=== PATIENT | female | born 1945 | race Caucasian/White ===

== ENCOUNTER 2018-04-03 23:37 | Emergency (ER) | payer OTHER ==
[2018-04-04] MEDS ORDERED: DERMABOND SKIN ADHESIVE TOP ONE (00:55)
[2018-04-04] MEDS ORDERED: HYDROCODONE/APAP 5/325 MG TAB ONE (00:55)
[2018-04-04] MEDS ORDERED: TETANUS & DIPHTHERIA TOX,ADULT 0.5 ML VIAL ONE (01:08)
--- NOTE | 2018-04-04 01:11 | ER ---
Nurse's Notes [facility] Name: Dread Thompson Age: 72 yrs Sex: Female : 1945 Arrival Date: 04/03/2018 Time: 23:38 Bed 13 Private MD: John Montana B Diagnosis: Laceration without foreign body of right hand Presentation: 04/03 23:52 Presenting complaint: Patient states: hit the door frame with her right hand at 2300 ak1 while taking the dog outside. pt with skin tear to top of right hand, no bleeding at this time. Transition of care: patient was not received from another setting of care. Complicating Factors: There are no complicating factors for this patient. Onset of symptoms was April 03, 2018. Risk Assessment: Do you want to hurt yourself or someone else? Patient reports no desire to harm self or others. Initial Sepsis Screen: Does the patient meet any 2 criteria? No. Patient's initial sepsis screen is negative. Does the patient have a suspected source of infection? No. Patient's initial sepsis screen is negative. Care prior to arrival: None. 23:52 Method Of Arrival: Ambulatory ak1 23:52 Acuity: MAGALY 4 ak1 Triage Assessment: 23:56 General: Appears in no apparent distress. Behavior is calm, cooperative. Pain: ak1 Complains of pain in right hand. EENT: No signs and/or symptoms were reported regarding the EENT system. Neuro: No deficits noted. Cardiovascular: No deficits noted. Respiratory: No deficits noted. GI: No signs and/or symptoms were reported involving the gastrointestinal system. : No signs and/or symptoms were reported regarding the genitourinary system. Derm: Wound noted Other: skin tear to top of right hand. Musculoskeletal: No signs and/or symptoms reported regarding the musculoskeletal system. Injury Description: Laceration sustained to right hand is bleeding no active bleeding noted. Historical: - Allergies: 23:56 No Known Allergies; ak1 - Home Meds: 23:56 Lamictal Oral [Active]; pravastatin oral oral [Active]; aspirin 81 mg Oral TbEC 1 tab ak1 once daily [Active]; Prozac 10 mg Oral cap [Active]; Dexilant 30 mg oral CpDB for Gastroesophageal Reflux [Active]; Celebrex Oral [Active]; unknown hormone pill [Active]; - PMHx: 23:56 Atrial fibrillation; Heart Murmur; High Cholesterol; Hypertension; ak1 - PSHx: 23:56 cornea transplants; Tonsillectomy; Hysterectomy; Cholecystectomy; Appendectomy; Raciel ak1 knee replacement; back sx; bunionectomy; - Immunization history:: Adult Immunizations unknown, Last tetanus immunization: unknown. - Social history:: Smoking status: Patient/guardian denies using tobacco. - Ebola Screening: : No symptoms or risks identified at this time. Screenin:58 Abuse screen: Denies threats or abuse. Denies injuries from another. Nutritional ak1 screening: No deficits noted. Tuberculosis screening: No symptoms or risk factors identified. Fall Risk None identified. Assessment: 23:59 Reassessment: Patient appears in no apparent distress at this time. No changes from ak1 previously documented assessment. see triage assessment. 04/04 01:09 Reassessment: wound cleaned with Hibiclens and sterile water, dried for dermabond ak1 application by provider. Injury Description: pt hit her right hand on the door frame. 01:12 Injury Description: Laceration is skin tear to top of right hand. ak1 Vital Signs: 04/03 23:50 BP 131 / 84; Pulse 79; Resp 18; Temp 98.6(O); Pulse Ox 95% on R/A; Weight 83.01 kg (R); ak1 Height 5 ft. 4 in. (162.56 cm) (R); Pain 9/10; 23:50 Body Mass Index 31.41 (83.01 kg, 162.56 cm) ak1 ED Course: 23:38 Patient arrived in ED. ds1 23:38 John Montana MD is Private Physician. ds1 23:42 Salina Nunez, NIKA is Primary Nurse. ak1 23:52 Triage completed. ak1 23:56 Arm band placed on Patient placed in an exam room, on a stretcher, Patient notified of ak1 wait time. 23:58 Patient has correct armband on for positive identification. Bed in low position. Call ak1 light in reach. Side rails up X 1. Adult w/ patient. Pulse ox on. NIBP on. 04/04 00:11 Aretha Contreras FNP-C is PHCP. snw 00:11 Tony Lechuga MD is Attending Physician. snw 01:11 John Montana MD is Referral Physician. snw 01:11 No provider procedures requiring assistance completed. Patient did not have IV access ak1 during this emergency room visit. Administered Medications: 00:51 Drug: [place] 5 mg-325 mg 1 tabs Route: PO; ak1 01:06 Follow up: Response: No adverse reaction ak1 01:08 Drug: Tetanus Immune Globulin 250 units Route: IM; Site: right deltoid; ak1 01:08 Follow up: Response: No adverse reaction ak1 Outcome: :11 Discharge ordered by . snw 01:11 Discharged to home ambulatory, with family. ak1 01:11 Condition: improved 01:11 Discharge instructions given to patient, Instructed on discharge instructions, follow up and referral plans. Demonstrated understanding of instructions, follow-up care, medications. 01:19 Instructed on no drinking with medication, no driving heavy equipment, medication ak1 usage, wound care, Demonstrated understanding of wound care, Prescriptions given X 1. 01:28 Patient left the ED. ak1 Signatures: Aretha Contreras, KIMBERLYN-C [employer] OPERATOR-Katarzyna Carpio ds1 Salina Nunez, RN RN ak1
--- NOTE | 2018-04-04 01:11 | EDPHYS ---
Physician Documentation [facility] Name: Dread Thompson Age: 72 yrs Sex: Female : 1945 Arrival Date: 04/03/2018 Time: 23:38 Bed 13 Private MD: John Montana B ED Physician Tony Lechuga HPI: 04/04 00:46 This 72 yrs old Female presents to ER via Ambulatory with complaints of snw Laceration To Hand. 00:46 The patient has a laceration related to: working with a large dog and pt's hand rubbed snw against counter when she was holding him back, + skin tear occurred at home, and there are no complicating factors. The laceration(s) is(are) located on the right hand. Onset: The symptoms/episode began/occurred suddenly. Associated signs and symptoms: The patient has no apparent associated signs or symptoms. It is unknown whether or not the patient has had similar symptoms in the past. It is unknown whether or not the patient has recently seen a physician. bleeding controlled. Historical: - Allergies: 04/03 23:56 No Known Allergies; ak1 - Home Meds: 23:56 Lamictal Oral [Active]; pravastatin oral oral [Active]; aspirin 81 mg Oral TbEC 1 tab ak1 once daily [Active]; Prozac 10 mg Oral cap [Active]; Dexilant 30 mg oral CpDB for Gastroesophageal Reflux [Active]; Celebrex Oral [Active]; unknown hormone pill [Active]; - PMHx: 23:56 Atrial fibrillation; Heart Murmur; High Cholesterol; Hypertension; ak1 - PSHx: 23:56 cornea transplants; Tonsillectomy; Hysterectomy; Cholecystectomy; Appendectomy; Raciel ak1 knee replacement; back sx; bunionectomy; - Immunization history:: Adult Immunizations unknown, Last tetanus immunization: unknown. - Social history:: Smoking status: Patient/guardian denies using tobacco. - Ebola Screening: : No symptoms or risks identified at this time. ROS: 04/04 00:46 Constitutional: Negative for fever, chills, and weight loss, Eyes: Negative for injury, snw pain, redness, and discharge, ENT: Negative for injury, pain, and discharge, Neck: Negative for injury, pain, and swelling, Cardiovascular: Negative for chest pain, palpitations, and edema, Respiratory: Negative for shortness of breath, cough, wheezing, and pleuritic chest pain, Abdomen/GI: Negative for abdominal pain, nausea, vomiting, diarrhea, and constipation, Back: Negative for injury and pain, : Negative for injury, bleeding, discharge, and swelling, MS/Extremity: Negative for injury and deformity, Neuro: Negative for headache, weakness, numbness, tingling, and seizure, Psych: Negative for depression, anxiety, suicide ideation, homicidal ideation, and hallucinations. Skin: Positive for laceration(s), of the right hand. Exam: 00:46 Constitutional: This is a well developed, well nourished patient who is awake, alert, snw and in no acute distress. Head/Face: Normocephalic, atraumatic. Eyes: Pupils equal round and reactive to light, extra-ocular motions intact. Lids and lashes normal. Conjunctiva and sclera are non-icteric and not injected. Cornea within normal limits. Periorbital areas with no swelling, redness, or edema. ENT: Nares patent. No nasal discharge, no septal abnormalities noted. Tympanic membranes are normal and external auditory canals are clear. Oropharynx with no redness, swelling, or masses, exudates, or evidence of obstruction, uvula midline. Mucous membranes moist. Neck: Trachea midline, no thyromegaly or masses palpated, and no cervical lymphadenopathy. Supple, full range of motion without nuchal rigidity, or vertebral point tenderness. No Meningismus. Chest/axilla: Normal chest wall appearance and motion. Nontender with no deformity. No lesions are appreciated. Cardiovascular: Regular rate and rhythm with a normal S1 and S2. No gallops, murmurs, or rubs. Normal PMI, no JVD. No pulse deficits. Respiratory: Lungs have equal breath sounds bilaterally, clear to auscultation and percussion. No rales, rhonchi or wheezes noted. No increased work of breathing, no retractions or nasal flaring. Abdomen/GI: Soft, non-tender, with normal bowel sounds. No distension or tympany. No guarding or rebound. No evidence of tenderness throughout. Back: No spinal tenderness. No costovertebral tenderness. Full range of motion. MS/ Extremity: Pulses equal, no cyanosis. Neurovascular intact. Full, normal range of motion. Neuro: Awake and alert, GCS 15, oriented to person, place, time, and situation. Cranial nerves II-XII grossly intact. Motor strength 5/5 in all extremities. Sensory grossly intact. Cerebellar exam normal. Normal gait. Psych: Awake, alert, with orientation to person, place and time. Behavior, mood, and affect are within normal limits. 00:46 Skin: Appearance: normal except for affected area, injury, laceration(s), the wound is approximately 3 cm(s), with a depth of .5 cm(s), of the dorsum of right hand. Vital Signs: 04/03 23:50 BP 131 / 84; Pulse 79; Resp 18; Temp 98.6(O); Pulse Ox 95% on R/A; Weight 83.01 kg (R); ak1 Height 5 ft. 4 in. (162.56 cm) (R); Pain 9/10; 23:50 Body Mass Index 31.41 (83.01 kg, 162.56 cm) ak1 Laceration: 04/04 01:10 Wound Repair of 3cm ( 1.2in ) subcutaneous laceration to right hand. Linear shaped.. snw Distal neuro/vascular/tendon intact. Anesthesia: Local anesthetic administered with 0 mls of 1% lidocaine. Wound prep: Moderate cleansing by nurse. Skin closed with 1-0 Adhesive skin closure using Dermabond. Dressed with non-adherent dressing. Patient tolerated well. MDM: 00:26 Patient medically screened. snw 00:53 Data reviewed: vital signs, nurses notes. Data interpreted: Pulse oximetry: on room air snw is 95 %. Interpretation: normal. Counseling: I had a detailed discussion with the patient and/or guardian regarding: the historical points, exam findings, and any diagnostic results supporting the discharge/admit diagnosis, the need for outpatient follow up, to return to the emergency department if symptoms worsen or persist or if there are any questions or concerns that arise at home. Special discussion: I discussed in detail with the patient the higher chance of wound infection based on his presenting history. Based on the history and exam findings, there is no indication for further emergent testing or inpatient evaluation. I discussed with the patient/guardian the need to see the primary care provider for further evaluation of the symptoms. 04/04 00:45 Order name: Wound Care: soap and water and dry well to prep for dermabond; Complete snw Time: 01:04/04 00:46 Order name: Dermabond; Complete Time: 00:51 snw 04/04 01:10 Order name: Wound dressing; Complete Time: 01:19 snw Administered Medications: 00:51 Drug: [place] 5 mg-325 mg 1 tabs Route: PO; ak1 01:06 Follow up: Response: No adverse reaction ak1 01:08 Drug: Tetanus Immune Globulin 250 units Route: IM; Site: right deltoid; ak1 01:08 Follow up: Response: No adverse reaction ak1 Disposition: 04:22 Co-signature as Attending Physician, Tony Lechuga MD. pkl Disposition: 04/04/18 01:11 Discharged to Home. Impression: Laceration without foreign body of right hand. - Condition is Stable. - Discharge Instructions: Tissue Adhesive Wound Care, Laceration Care, Adult, Wound Check, VIS, Tetanus, Diphtheria (Td) - CDC, Wound Care. - Prescriptions for Tylenol- Codeine #3 300-30 mg Oral Tablet - take 1 tablet by ORAL route every 6 hours As needed; 6 tablet. - Medication Reconciliation Form, Thank You Letter, Antibiotic Education, Prescription Opioid Use form. - Follow up: John Montana; When: 1 week; Reason: Recheck today's complaints, Continuance of care, Re-evaluation by your physician. Follow up: Emergency Department; When: As needed; Reason: Worsening of condition. Signatures: Tony Lechuga MD MD pk Aretha Contreras, NARCOTICS INVESTIGATOR-C NARCOTICS INVESTIGATOR-Csnw Salina Nunez RN RN ak1 Corrections: (The following items were deleted from the chart) 01:28 01:11 04/04/2018 01:11 Discharged to Home. Impression: Laceration without foreign body ak1 of right hand. Condition is Stable. Discharge Instructions: Tissue Adhesive Wound Care, Laceration Care, Adult, Wound Check, VIS, Tetanus, Diphtheria (Td) - CDC, Wound Care. Prescriptions for Tylenol-Codeine #3 300-30 mg Oral Tablet - take 1 tablet by ORAL route every 6 hours As needed; 6 tablet. and Forms are Medication Reconciliation Form, Thank You Letter, Antibiotic Education, Prescription Opioid Use. Follow up: John Montana; When: 1 week; Reason: Recheck today's complaints, Continuance of care, Re-evaluation by your physician. Follow up: Emergency Department; When: As needed; Reason: Worsening of condition. snw
[2018-04-04 01:34] VITALS: BP 131/84; TEMP 98.6; O2SAT 95
== END 2018-04-04 01:28 | disposition home or self-care (01) ==
LOC: ER 23:37
PROC: 0JQJ0ZZ Repair Right Hand Subcutaneous Tissue and Fascia, Open Approach (ICD-10-PCS; principal; 2018-04-04)
DX: S61.411A Laceration without foreign body of right hand, initial encounter (principal); W45.8XXA Other foreign body or object entering through skin, initial encounter; Y93.89 Activity, other specified; Y92.89 Other specified places as the place of occurrence of the external cause; I10 Essential (primary) hypertension; Z23 Encounter for immunization; Z79.82 Long term (current) use of aspirin; I48.91 Unspecified atrial fibrillation; E78.00 Pure hypercholesterolemia, unspecified
CPT/HCPCS: 12002; 90714; G0168; 99283

== ENCOUNTER 2019-05-27 19:04 | Emergency (ER) | payer OTHER ==
[2019-05-27] MEDS ORDERED: dexAMETHasone 10 MG/ML VIAL ONE (20:47)
[2019-05-27] MEDS ORDERED: DIPHENHYDRAMINE 12.5MG/5ML LIQ ONE (20:47)
[2019-05-27] MEDS ORDERED: FAMOTIDINE 20 MG/2 ML VIAL IV ONE (20:47)
[2019-05-27 21:06] LABS: Absolute Lymphocytes (CBC) 0.5 K/uL (0.7-4.9); Basophils % 0.4 % (0-1.3); Hematocrit 34.9 % (36.0-45.0); Lymphocytes % 9.3 % (15.3-44.8); MPV 8.9 fL (7.6-11.3); RBC Red Blood Cell Count 3.66 M/uL (3.86-4.86)
[2019-05-27 21:10] LABS: Protime INR 1.14
[2019-05-27 21:13] LABS: Albumin 3.1 g/dL (3.4-5.0); Bilirubin Direct 0.4 mg/dL (0-0.2); Bilirubin Total 0.8 mg/dL (0.2-1.0); Potassium 4.1 mmol/L (3.5-5.1); Protein, Total 6.1 g/dL (6.4-8.2)
--- NOTE | 2019-05-27 21:33 | ER ---
Nurse's Notes [facility] Name: Dread Thompson Age: 73 yrs Sex: Female : 1945 Arrival Date: 05/27/2019 Time: 19:07 Bed 27 Private MD: Diagnosis: acute pruritic rash;drug reaction Presentation: 05/27 19:23 Presenting complaint: Patient states: Painful rash since Monday. Transition of care: aj1 patient was not received from another setting of care. Onset of symptoms was 2018. Risk Assessment: Do you want to hurt yourself or someone else? Patient reports no desire to harm self or others. Initial Sepsis Screen: Does the patient meet any 2 criteria? No. Patient's initial sepsis screen is negative. Does the patient have a suspected source of infection? No. Patient's initial sepsis screen is negative. Care prior to arrival: None. 19:23 Method Of Arrival: Ambulatory aj1 19:23 Acuity: MAGALY 4 aj1 Triage Assessment: 19:27 General: Appears in no apparent distress. Behavior is calm, cooperative, appropriate aj1 for age. Historical: - Home Meds: 19:27 aspirin 81 mg Oral TbEC 1 tab once daily [Active]; Celebrex Oral [Active]; Dexilant 30 aj1 mg Oral CpDB for Gastroesophageal reflux [Active]; Lamictal Oral [Active]; pravastatin Oral [Active]; Prozac 10 mg Oral cap [Active]; unknown hormone pill [Active]; - PMHx: 19:27 Atrial fibrillation; Heart Murmur; High Cholesterol; Hypertension; aj1 - PSHx: 19:27 cornea transplants; Tonsillectomy; Hysterectomy; Cholecystectomy; Appendectomy; Raciel aj1 knee replacement; back sx; bunionectomy; - Immunization history:: Adult Immunizations up to date. - Social history:: Patient/guardian denies using alcohol, street drugs. - Ebola Screening: : Patient denies travel to an Ebola-affected area in the 21 days before illness onset. - Family history:: not pertinent. - Hospitalizations: : No recent hospitalization is reported. Screenin:30 Abuse screen: Denies threats or abuse. Denies injuries from another. Nutritional aj1 screening: No deficits noted. Tuberculosis screening: No symptoms or risk factors identified. 21:57 Fall Risk None identified. aj1 Assessment: 19:30 General: Appears in no apparent distress. uncomfortable, Behavior is calm, cooperative, aj1 appropriate for age. Pain: Complains of pain in generalized. Neuro: Level of Consciousness is awake, alert, obeys commands. Cardiovascular: Patient's skin is warm and dry. Respiratory: Airway is patent Respiratory effort is even, unlabored, Respiratory pattern is regular, symmetrical. GI: : No signs and/or symptoms were reported regarding the genitourinary system. EENT: No signs and/or symptoms were reported regarding the EENT system. Derm: Rash noted that is red, on back, chest, abdomen, right arm, left arm, right leg, left leg and neck. Musculoskeletal: Circulation, motion, and sensation intact. 20:30 Reassessment: Patient appears in no apparent distress at this time. No changes from aj1 previously documented assessment. Patient and/or family updated on plan of care and expected duration. Pain level reassessed. Patient is alert, oriented x 3, equal unlabored respirations, skin warm/dry/pink. 21:30 Reassessment: Patient appears in no apparent distress at this time. No changes from aj1 previously documented assessment. Patient and/or family updated on plan of care and expected duration. Pain level reassessed. Patient is alert, oriented x 3, equal unlabored respirations, skin warm/dry/pink. Vital Signs: 19:27 BP 120 / 80; Pulse 88; Resp 16; Temp 99.8; Pulse Ox 96% on R/A; Weight 81.19 kg (R); aj1 Height 5 ft. 4 in. (162.56 cm) (R); 19:27 Body Mass Index 30.72 (81.19 kg, 162.56 cm) aj ED Course: 19:07 Patient arrived in ED. cf2 19:24 Triage completed. aj1 19:27 Arm band placed on. aj1 19:29 Ronal Lester MD is Attending Physician. al 19:30 Patient has correct armband on for positive identification. Bed in low position. Call aj light in reach. 19:30 No provider procedures requiring assistance completed. aj1 20:06 Maria Luisa Roblero, RN is Primary Nurse. aj1 20:46 Initial lab(s) drawn, by pa, sent to lab. Inserted saline lock: 22 gauge in left lt1 antecubital area, using aseptic technique. 21:57 IV discontinued, intact, bleeding controlled, No redness/swelling at site. Pressure aj1 dressing applied. Administered Medications: 20:57 Drug: Decadron - Dexamethasone 10 mg Route: IVP; Site: left antecubital; aj1 21:58 Follow up: Response: No adverse reaction aj1 20:57 Drug: Pepcid 20 mg Route: IVP; Site: left antecubital; aj1 21:58 Follow up: Response: No adverse reaction aj1 20:57 Drug: Benadryl 12.5 mg Route: PO; aj1 21:58 Follow up: Response: No adverse reaction aj1 Outcome: 21:32 Discharge ordered by . bernie :57 Discharged to home ambulatory. aj1 21:57 Condition: good 21:57 Discharge instructions given to patient, family, Instructed on discharge instructions, follow up and referral plans. medication usage, Demonstrated understanding of instructions, follow-up care, medications, Prescriptions given X 2. 21:59 Patient left the ED. aj1 Signatures: Maria Luisa Roblero RN RN aj1 Ronal Lester MD MD wa Tran, Leah 1 Alfredito Jacques cf2
--- NOTE | 2019-05-27 21:34 | EDPHYS ---
Physician Documentation [facility] Name: Dread Thompson Age: 73 yrs Sex: Female : 1945 Arrival Date: 05/27/2019 Time: 19:07 Bed 27 Private MD: ED Physician Ronal Lester HPI: 05/27 21:15 This 73 yrs old Female presents to ER via Ambulatory with complaints of Rash. wa 21:15 The patient's rash thought to be caused by an unknown cause. The rash is located on wa the. The rash can be described as diffuse, erythematous, papular. Onset: The symptoms/episode began/occurred 4 day(s) ago. Associated signs and symptoms: Pertinent positives: itching, Pertinent negatives: difficulty breathing, fever. Severity of symptoms: At their worst the symptoms were moderate in the emergency department the symptoms are unchanged. Treatment given at home: none. The patient has not experienced similar symptoms in the past. The patient has not recently seen a physician. pt noted rash. itching. more pronounced on legs > arms > torso. Historical: - Home Meds: 19:27 aspirin 81 mg Oral TbEC 1 tab once daily [Active]; Celebrex Oral [Active]; Dexilant 30 aj1 mg Oral CpDB for Gastroesophageal reflux [Active]; Lamictal Oral [Active]; pravastatin Oral [Active]; Prozac 10 mg Oral cap [Active]; unknown hormone pill [Active]; - PMHx: 19:27 Atrial fibrillation; Heart Murmur; High Cholesterol; Hypertension; aj1 - PSHx: 19:27 cornea transplants; Tonsillectomy; Hysterectomy; Cholecystectomy; Appendectomy; Raciel aj1 knee replacement; back sx; bunionectomy; - Immunization history:: Adult Immunizations up to date. - Social history:: Patient/guardian denies using alcohol, street drugs. - Ebola Screening: : Patient denies travel to an Ebola-affected area in the 21 days before illness onset. - Family history:: not pertinent. - Hospitalizations: : No recent hospitalization is reported. ROS: 21:17 Constitutional: Negative for fever, chills, and weight loss, Eyes: Negative for injury, wa pain, redness, and discharge, ENT: Negative for injury, pain, and discharge, Neck: Negative for injury, pain, and swelling, Cardiovascular: Negative for chest pain, palpitations, and edema, Respiratory: Negative for shortness of breath, cough, wheezing, and pleuritic chest pain, Abdomen/GI: Negative for abdominal pain, nausea, vomiting, diarrhea, and constipation, Back: Negative for injury and pain, : Negative for injury, bleeding, discharge, and swelling, MS/Extremity: Negative for injury and deformity, Neuro: Negative for headache, weakness, numbness, tingling, and seizure, Psych: Negative for depression, anxiety, suicide ideation, homicidal ideation, and hallucinations. 21:17 Skin: Positive for rash, diffusely. 21:17 All other systems are negative. Exam: 21:17 Constitutional: This is a well developed, well nourished patient who is awake, alert, wa and in no acute distress. Head/Face: Normocephalic, atraumatic. Eyes: Pupils equal round and reactive to light, extra-ocular motions intact. Lids and lashes normal. Conjunctiva and sclera are non-icteric and not injected. Cornea within normal limits. Periorbital areas with no swelling, redness, or edema. ENT: Nares patent. No nasal discharge, no septal abnormalities noted. Tympanic membranes are normal and external auditory canals are clear. Oropharynx with no redness, swelling, or masses, exudates, or evidence of obstruction, uvula midline. Mucous membranes moist. Neck: Trachea midline, no thyromegaly or masses palpated, and no cervical lymphadenopathy. Supple, full range of motion without nuchal rigidity, or vertebral point tenderness. No Meningismus. Chest/axilla: Normal chest wall appearance and motion. Nontender with no deformity. No lesions are appreciated. Cardiovascular: Regular rate and rhythm with a normal S1 and S2. No gallops, murmurs, or rubs. Normal PMI, no JVD. No pulse deficits. Respiratory: Lungs have equal breath sounds bilaterally, clear to auscultation and percussion. No rales, rhonchi or wheezes noted. No increased work of breathing, no retractions or nasal flaring. Abdomen/GI: Soft, non-tender, with normal bowel sounds. No distension or tympany. No guarding or rebound. No evidence of tenderness throughout. Back: No spinal tenderness. No costovertebral tenderness. Full range of motion. MS/ Extremity: Pulses equal, no cyanosis. Neurovascular intact. Full, normal range of motion. Neuro: Awake and alert, GCS 15, oriented to person, place, time, and situation. Cranial nerves II-XII grossly intact. Motor strength 5/5 in all extremities. Sensory grossly intact. Cerebellar exam normal. Normal gait. Psych: Awake, alert, with orientation to person, place and time. Behavior, mood, and affect are within normal limits. 21:17 Skin: rash a moderate rash is noted, on the back, abdomen, right arm, left arm, right leg and left leg. Vital Signs: 19:27 BP 120 / 80; Pulse 88; Resp 16; Temp 99.8; Pulse Ox 96% on R/A; Weight 81.19 kg (R); aj1 Height 5 ft. 4 in. (162.56 cm) (R); 19: Body Mass Index 30.72 (81.19 kg, 162.56 cm) aj1 MDM: 19:29 Patient medically screened. wa 21:18 Differential diagnosis: allergic reaction, parasite infection, drug reaction?. Data ct reviewed: vital signs, nurses notes. 21:19 ED course: pt recently taking sulfa abx and lamictal. consider drug reaction. no mucous wa membrane involvement at the moment. no desquamation. will d/c both meds. treat symptomatically. reassess. 21:28 Test interpretation: by ED physician or midlevel provider: labs noted for elevated CRP wa 130. decreased GFR 47. mild anemia 11.4/34.9. AST 52. alk phos 378. . Response to treatment: the patient's symptoms have mildly improved after treatment. ED course: given meds via IV in ED. again, will d/c sulfa abx and lamictal due to the possibility of this rash being a drug rash. 05/27 20:02 Order name: Basic Metabolic Panel; Complete Time: 21:14 ct 05/27 20: Order name: CBC with Diff; Complete Time: 21:15 ct 05/27 20:02 Order name: Hepatic Function; Complete Time: 21:15 ct 05/27 20:02 Order name: PT-INR; Complete Time: 21:15 ct 05/27 20:20 Order name: CRP; Complete Time: :27 ct 05/27 20:02 Order name: IV Saline Lock; Complete Time: 20:57 ct 05/27 20:02 Order name: Labs collected and sent; Complete Time: : ct Administered Medications: 20:57 Drug: Decadron - Dexamethasone 10 mg Route: IVP; Site: left antecubital; aj1 21:58 Follow up: Response: No adverse reaction aj1 20:57 Drug: Pepcid 20 mg Route: IVP; Site: left antecubital; aj1 21:58 Follow up: Response: No adverse reaction :57 Drug: Benadryl 12.5 mg Route: PO; aj1 21:58 Follow up: Response: No adverse reaction aj1 Disposition: 05/27/19 21:32 Discharged to Home. Impression: acute pruritic rash, drug reaction. - Condition is Stable. - Discharge Instructions: Drug Rash. - Prescriptions for cetirizine 10 mg Oral tablet - take 1 tablet by ORAL route once daily; 10 tablet. Prednisone 20 mg Oral Tablet - take 2 tablets by ORAL route once daily for 4 days; 8 tablet. - Medication Reconciliation Form, Thank You Letter, Antibiotic Education, Prescription Opioid Use form. - Follow up: Private Physician; When: 1 - 2 days. - Problem is new. - Symptoms have improved. - Notes: take the medication written for you for your rash. do not continue to take lamictal or the sulfa antibiotic as one of them or both coukd be causing your rash. Could worsen andbe dangerous if you continue to take them Signatures: Dispatcher [employer] Maria Luisa Harrington RN RN aj1 Ronal Lester MD MD ct Corrections: (The following items were deleted from the chart) 21:59 21:32 05/27/2019 21:32 Discharged to Home. Impression: acute pruritic rash; drug aj1 reaction. Condition is Stable. Forms are Medication Reconciliation Form, Thank You Letter, Antibiotic Education, Prescription Opioid Use. Follow up: Private Physician; When: 1 - 2 days. Problem is new. Symptoms have improved. wa
[2019-05-27 23:22] VITALS: BP 120/80; TEMP 99.8; O2SAT 96
--- OUTSIDE RECORDS SUMMARY | 2019-06-02 21:52 | XMS REPORT ---
:1945 [facility] Address [address] [place] [id number] Care Team Providers Name Role Phone Unavailable Unavailable Unavailable Payers Payer Name Policy Type Policy Number Effective Date Expiration Date Problems This patient has no known problems. Allergies, Adverse Reactions, Alerts Allergy Allergy Status Severity Reaction(s) Onset Inactive Treating Comments Name Type Date Date Clinician adhesive DA Active [place] 2011-09 00:00:0 0 Medications This patient has no known medications.
== END 2019-05-27 21:59 | disposition home or self-care (01) ==
LOC: ER 19:04
DX: R21 Rash and other nonspecific skin eruption (principal); I10 Essential (primary) hypertension; E78.00 Pure hypercholesterolemia, unspecified; I48.91 Unspecified atrial fibrillation; Z79.82 Long term (current) use of aspirin; Z88.9 Allergy status to unspecified drugs, medicaments and biological substances
CPT/HCPCS: 85025; 80048; 36415; 85610; 80076; 86140; 96375; 96374; 99284; J1100

== ENCOUNTER 2019-09-05 09:27 | Emergency (ER) | payer OTHER ==
--- OUTSIDE RECORDS SUMMARY | 2019-09-05 09:29 | XMS REPORT ---
:1945 [facility] [address] [place] [id number] Care Team Providers Name Role Phone Unavailable Unavailable Unavailable Payers Payer Name Policy Type Policy Number Effective Date Expiration Date Problems This patient has no known problems. Allergies, Adverse Reactions, Alerts Allergy Allergy Status Severity Reaction(s) Onset Inactive Treating Comments Name Type Date Date Clinician simi GRNADE Active [place] 2011-09 00:00:0 0 Medications This patient has no known medications.
[2019-09-05 10:30] LABS: Basophils % 0.7 % (0-1.3); Hematocrit 36.1 % (36.0-45.0); Lymphocytes % 10.8 % (15.3-44.8); MPV 8.8 fL (7.6-11.3); RBC Red Blood Cell Count 3.97 M/uL (3.86-4.86)
[2019-09-05 10:36] LABS: Magnesium 1.7 mg/dL (1.8-2.4); Potassium 3.8 mmol/L (3.5-5.1)
[2019-09-05 10:42] LABS: Urine Bacteria <20 /HPF (<20); Urine Culture Reflex Order REFLEXED
[2019-09-05] MEDS ORDERED: MAGNESIUM SULFATE 1 gm IVPB 1 GM/100 ML BAG IV ONE (10:50)
[2019-09-05] MEDS ORDERED: NA CHLORIDE 0.9% 1,000 ML ONE (10:50)
--- NOTE | 2019-09-05 11:40 | RAD REPORT ---
EXAM DESCRIPTION: RAD - Chest Single View - 09/05/2019 11:27 am CLINICAL HISTORY: Congestion;Cough Chest pain. COMPARISON: Chest Single View dated 09/21/2016; CHEST SINGLE VIEW dated 09/13/2013; CHEST PA AND LAT 2 VIEW dated 01/05/2011; CHEST PA AND LAT 2 VIEW dated 04/21/2009; Chest For Pe Angio dated 09/21/2016 FINDINGS: Portable technique limits examination quality. The lungs are grossly clear. The heart is normal in size. No displaced fractures.Hiatal hernia suspec donovan. IMPRESSION: No acute intrathoracic process suspected. Hiatal hernia.
[2019-09-05] MEDS ORDERED: TRAMADOL HCL 50 MG TAB ONE (11:44)
--- NOTE | 2019-09-05 12:03 | EDPHYS ---
Physician Documentation [facility] Name: Dread Thompson Age: 74 yrs Sex: Female : 1945 Arrival Date: 09/05/2019 Time: 09:30 Bed 14 Private MD: John Montana B ED Physician Angelo Phelan HPI: 09/05 10:24 This 74 yrs old Female presents to ER via Ambulatory with complaints of kb Fever, General Weakness, Sinus Congestion. 10:24 The patient or guardian reports cough, that is intermittent, described as mild, with no kb sputum, flu symptoms, arthralgias, low-grade fever, myalgias, no appetite. Onset: The symptoms/episode began/occurred 1 week(s) ago. Severity of symptoms: At their worst the symptoms were moderate, in the emergency department the symptoms are unchanged. Modifying factors: The symptoms are alleviated by nothing, the symptoms are aggravated by nothing. Associated signs and symptoms: Pertinent positives: fever. The patient has not experienced similar symptoms in the past. The patient has not recently seen a physician. Pt reports cough, weakness, body aches, fever, sinus pain and congestion for a week. States the fever has been getting worse. Granddaughter reports pt was urinating more than normal and has been in bed a lot. Historical: - Allergies: 09:48 Sulfa (Sulfonamide Antibiotics); hb - PMHx: 09:48 Heart Murmur; Hypertension; High Cholesterol; Atrial fibrillation; hb - PSHx: 09:48 cornea transplants; Cholecystectomy; Hysterectomy; Appendectomy; Tonsillectomy; Raciel hb knee replacement; back sx; bunionectomy; - Immunization history:: Adult Immunizations up to date. - Coronavirus screen:: The patient has NOT traveled to [place] in the past 14 days. The patient has NOT had contact with known/suspected case of Coronavirus? Proceed with normal triage procedures. - Social history:: Smoking status: Patient denies any tobacco usage or history of. - Ebola Screening: : No symptoms or risks identified at this time. ROS: 10:21 Neck: Negative for injury, pain, and swelling, Cardiovascular: Negative for chest pain, kb palpitations, and edema, Abdomen/GI: Negative for abdominal pain, nausea, vomiting, diarrhea, and constipation, Back: Negative for injury and pain, MS/Extremity: Negative for injury and deformity, Skin: Negative for injury, rash, and discoloration, Neuro: Negative for headache, weakness, numbness, tingling, and seizure. 10:21 Constitutional: Positive for body aches, chills, fatigue, fever, malaise, poor PO intake. 10:21 ENT: Positive for sinus congestion, sinus pain. 10:21 Respiratory: Positive for cough. 10:21 : Positive for urinary frequency. Exam: 10:21 Constitutional: This is a well developed, well nourished patient who is awake, alert, kb and in no acute distress. Head/Face: Normocephalic, atraumatic. ENT: Nares patent. No nasal discharge, no septal abnormalities noted. Tympanic membranes are normal and external auditory canals are clear. Oropharynx with no redness, swelling, or masses, exudates, or evidence of obstruction, uvula midline. Mucous membranes moist. Neck: Trachea midline, no thyromegaly or masses palpated, and no cervical lymphadenopathy. Supple, full range of motion without nuchal rigidity, or vertebral point tenderness. No Meningismus. Chest/axilla: Normal chest wall appearance and motion. Nontender with no deformity. No lesions are appreciated. Cardiovascular: Regular rate and rhythm with a normal S1 and S2. No gallops, murmurs, or rubs. Normal PMI, no JVD. No pulse deficits. Respiratory: Lungs have equal breath sounds bilaterally, clear to auscultation and percussion. No rales, rhonchi or wheezes noted. No increased work of breathing, no retractions or nasal flaring. Back: No spinal tenderness. No costovertebral tenderness. Full range of motion. Skin: Warm, dry with normal turgor. Normal color with no rashes, no lesions, and no evidence of cellulitis. MS/ Extremity: Pulses equal, no cyanosis. Neurovascular intact. Full, normal range of motion. Neuro: Awake and alert, GCS 15, oriented to person, place, time, and situation. Cranial nerves II-XII grossly intact. Motor strength 5/5 in all extremities. Sensory grossly intact. Cerebellar exam normal. Normal gait. 10:21 Abdomen/GI: Inspection: abdomen appears normal, Bowel sounds: normal, in all quadrants, Palpation: soft, in all quadrants, nontender, in the right upper quadrant and left upper quadrant, mild abdominal tenderness, in the right lower quadrant and left lower quadrant. Vital Signs: 09:48 BP 136 / 64; Pulse 87; Resp 16; Temp 100.5; Pulse Ox 96% ; Weight 80.29 kg; Height 5 hb ft. 4 in. (162.56 cm); Pain 4/10; 11:04 BP 130 / 59; Pulse 81; Resp 15; Pulse Ox 99% on R/A; hb 12:00 BP 122 / 74; Pulse 72; Resp 15; Temp 98.8; Pulse Ox 99% on R/A; hb 09:48 Body Mass Index 30.38 (80.29 kg, 162.56 cm) hb MDM: 09:39 Patient medically screened. kb 10:24 Data reviewed: vital signs, nurses notes. Data interpreted: Pulse oximetry: on room air kb is 96 %. Interpretation: normal. 12:01 Counseling: I had a detailed discussion with the patient and/or guardian regarding: the kb historical points, exam findings, and any diagnostic results supporting the discharge/admit diagnosis, lab results, radiology results, the need for outpatient follow up, a family practitioner, to return to the emergency department if symptoms worsen or persist or if there are any questions or concerns that arise at home. ED course: Pt educated to continue prescribed amoxicillin given by PCP for sinusitis. Will send urine for culture and change antibiotics if necessary after resulted. . 09/05 09:46 Order name: Flu 09/05 10:05 Order name: CBC with Diff 09/05 10:05 Order name: Basic Metabolic Panel 09/05 10:05 Order name: Urine Microscopic Only 09/05 10:05 Order name: Magnesium 09/05 10:23 Order name: Urine Dipstick--Ancillary (enter results) em1 09/05 10:24 Order name: Influenza Screen (A ; Complete Time: 10:26 EDMS 09/05 10:31 Order name: CBC with Automated Diff EDNV 09/05 10:38 Order name: Basic Metabolic Panel; Complete Time: 10:40 EDMS 09/05 10:38 Order name: Magnesium; Complete Time: 10:40 EDMS 09/05 10:44 Order name: Urine Microscopic Only; Complete Time: 10:47 EDNV 09/05 11:01 Order name: Chest Single View XRAY 09/05 11:54 Order name: RAD; Complete Time: 12:00 EDMS 09/05 12:12 Order name: Urine Dipstick-Ancillary; Complete Time: 12:16 EDMS 09/05 09:47 Order name: Urine Dipstick-Ancillary (obtain specimen); Complete Time: 10:16 kb 09/05 10:05 Order name: IV Start; Complete Time: 10:27 kb Administered Medications: 11:04 Drug: NS 0.9% 1000 ml Route: IV; Rate: 1000 ml; Site: right antecubital; hb 12:12 Follow up: Response: No adverse reaction; IV Status: Completed infusion; IV Intake: hb 1000ml 11:04 Drug: Magnesium Sulfate 1 grams Route: IVPB; Infused Over: 30 mins; Site: right hb antecubital; 11:35 Follow up: IV Status: Completed infusion; IV Intake: 50ml hb 11:42 Drug: traMADol 25 mg {Note: RASS 0.} Route: PO; hb 12:30 Follow up: Response: No adverse reaction hb Disposition: 14:32 Co-signature as Attending Physician, Angelo Phelan MD I agree with the assessment and kdr plan of care. Disposition: 09/05/19 12:03 Discharged to Home. Impression: Acute sinusitis, Urinary tract infection, site not specified. - Condition is Stable. - Discharge Instructions: Sinusitis, Adult, [id number], Urinary Tract Infection, Adult, [id number]. - Medication Reconciliation Form, Thank You Letter, Antibiotic Education, Prescription Opioid Use form. - Follow up: Emergency Department; When: As needed; Reason: Worsening of condition. Follow up: John Montana MD; When: 2 - 3 days; Reason: Recheck today's complaints, Continuance of care, Re-evaluation by your physician. Signatures: Dispatcher [employer] [facility] Livier May, YANIQUE SOFIA-Angelo Llamas MD MD [facility] Venita Cooper RN RN Corrections: (The following items were deleted from the chart) 12:44 12:03 09/05/2019 12:03 Discharged to Home. Impression: Acute sinusitis; Urinary tract hb infection, site not specified. Condition is Stable. Forms are Medication Reconciliation Form, Thank You Letter, Antibiotic Education, Prescription Opioid Use. Follow up: Emergency Department; When: As needed; Reason: Worsening of condition. Follow up: John Montana; When: 2 - 3 days; Reason: Recheck today's complaints, Continuance of care, Re-evaluation by your physician. kb
--- NOTE | 2019-09-05 12:03 | ER ---
Nurse's Notes [facility] Name: Dread Thompson Age: 74 yrs Sex: Female : 1945 Arrival Date: 09/05/2019 Time: 09:30 Bed 14 Private MD: John Montana B Diagnosis: Acute sinusitis;Urinary tract infection, site not specified Presentation: 09/05 09:44 Presenting complaint: Sinus congestion, headache, fever, and body aches x 1 week. TMAX hb 100.3. On Amoxicillin Day 2 for sinus infection. Transition of care: patient was not received from another setting of care. Onset of symptoms was September 05, 2019. Risk Assessment: Do you want to hurt yourself or someone else? Patient reports no desire to harm self or others. Initial Sepsis Screen: Does the patient meet any 2 criteria? No. Patient's initial sepsis screen is negative. Does the patient have a suspected source of infection? No. Patient's initial sepsis screen is negative. Care prior to arrival: None. 09:44 Method Of Arrival: Ambulatory hb 09:44 Acuity: MAGALY 3 hb Triage Assessment: 09:49 General: Appears in no apparent distress. Behavior is calm, cooperative. Pain: Pain hb currently is 4 out of 10 on a pain scale. EENT: Reports nasal congestion. Neuro: Level of Consciousness is awake, alert, obeys commands, Oriented to person, place, time, situation. Cardiovascular: Heart tones S1 S2 present Capillary refill < 3 seconds Patient's skin is warm and dry. Respiratory: Airway is patent Respiratory effort is even, unlabored, Respiratory pattern is regular, symmetrical, Breath sounds are clear bilaterally. GI: No signs and/or symptoms were reported involving the gastrointestinal system. : No signs and/or symptoms were reported regarding the genitourinary system. Derm: Skin is intact, is healthy with good turgor. Musculoskeletal: Reports body aches. Historical: - Allergies: 09:48 Sulfa (Sulfonamide Antibiotics); hb - PMHx: 09:48 Heart Murmur; Hypertension; High Cholesterol; Atrial fibrillation; hb - PSHx: 09:48 cornea transplants; Cholecystectomy; Hysterectomy; Appendectomy; Tonsillectomy; Raciel hb knee replacement; back sx; bunionectomy; - Immunization history:: Adult Immunizations up to date. - Coronavirus screen:: The patient has NOT traveled to [place] in the past 14 days. The patient has NOT had contact with known/suspected case of Coronavirus? Proceed with normal triage procedures. - Social history:: Smoking status: Patient denies any tobacco usage or history of. - Ebola Screening: : No symptoms or risks identified at this time. Screenin:50 Abuse screen: Denies threats or abuse. Denies injuries from another. Nutritional hb screening: No deficits noted. Tuberculosis screening: No symptoms or risk factors identified. Fall Risk None identified. Assessment: 09:50 General: see triage. hb 11:03 Reassessment: Patient appears in no apparent distress at this time. Patient and/or hb family updated on plan of care and expected duration. Pain level reassessed. Patient is alert, oriented x 3, equal unlabored respirations, skin warm/dry/pink. 12:00 Reassessment: Patient appears in no apparent distress at this time. Patient and/or hb family updated on plan of care and expected duration. Pain level reassessed. Patient is alert, oriented x 3, equal unlabored respirations, skin warm/dry/pink. Patient denies pain at this time. Patient states symptoms have improved. Vital Signs: 09:48 BP 136 / 64; Pulse 87; Resp 16; Temp 100.5; Pulse Ox 96% ; Weight 80.29 kg; Height 5 hb ft. 4 in. (162.56 cm); Pain 4/10; 11:04 BP 130 / 59; Pulse 81; Resp 15; Pulse Ox 99% on R/A; hb 12:00 BP 122 / 74; Pulse 72; Resp 15; Temp 98.8; Pulse Ox 99% on R/A; hb 09:48 Body Mass Index 30.38 (80.29 kg, 162.56 cm) ED Course: 09:30 Patient arrived in ED. ag5 09:30 John Montana MD is Private Physician. ag5 09:39 Sandip Sanchez, NIKA is Primary Nurse. bp 09:39 [facility]ier [facility]C [facility] kb 09:39 Angelo Phelan MD is Attending Physician. kb 09:46 Triage completed. hb 09:48 Arm band placed on. hb 09:50 Patient has correct armband on for positive identification. Bed in low position. Call hb light in reach. Side rails up X 1. 10:16 Flu Sent. hb 10:27 Urine Dipstick--Ancillary (enter results) Sent. hb 12:02 John Montana MD is Referral Physician. kb 12:42 No provider procedures requiring assistance completed. IV discontinued, intact, hb bleeding controlled, No redness/swelling at site. Pressure dressing applied. Administered Medications: 11:04 Drug: NS 0.9% 1000 ml Route: IV; Rate: 1000 ml; Site: right antecubital; hb 12:12 Follow up: Response: No adverse reaction; IV Status: Completed infusion; IV Intake: hb 1000ml 11:04 Drug: Magnesium Sulfate 1 grams Route: IVPB; Infused Over: 30 mins; Site: right hb antecubital; 11:35 Follow up: IV Status: Completed infusion; IV Intake: 50ml hb 11:42 Drug: traMADol 25 mg {Note: RASS 0.} Route: PO; hb 12:30 Follow up: Response: No adverse reaction hb Intake: 11:35 IV: 50ml; Total: 50ml. hb 12:12 IV: 1000ml; Total: 1050ml. hb Outcome: 12:03 Discharge ordered by MD. kb 12:42 Discharged to home via wheelchair, with family. hb 12:42 Condition: stable 12:42 Discharge instructions given to patient, family, Instructed on discharge instructions, follow up and referral plans. medication usage, Demonstrated understanding of instructions, follow-up care, medications. 12:44 Patient left the ED. hb Signatures: Livier May FNP-C FNP-Venita Mercado RN RN Sandip Sanchez RN RN Esther iRos ag5 Corrections: (The following items were deleted from the chart) 09:51 09:44 Presenting complaint: Sinus congestion, headache, fever, and body aches x 3 days. hb TMAX 100.3. On Amoxicillin Day 2 for sinus infection. hb 12:44 12:00 BP 122 / 74; Pulse 72bpm; Resp 15bpm; Pulse Ox 99% RA; hb hb
[2019-09-05 12:10] LABS: Urine Blood 1+ (NEG); Urine Glucose NEGATIVE (NEG); Urine Protein NEGATIVE (NEG); Urine pH 6.5 (5.0-7.0)
[2019-09-05 16:03] LABS: Blood Morphology Comment NOT SEEN (NOT SEEN); Platelet Estimate ADEQ; Urine White Blood Cell Casts OK
[2019-09-06 07:31] VITALS: O2SAT 99
[2019-09-06 07:32] VITALS: BP 122/74; TEMP 98.8
== END 2019-09-05 12:44 | disposition home or self-care (01) ==
LOC: ER 09:27
DX: J01.90 Acute sinusitis, unspecified (principal); N39.0 Urinary tract infection, site not specified; I10 Essential (primary) hypertension; Z88.2 Allergy status to sulfonamides
CPT/HCPCS: 96365; 96361; 87088; 85025; 87086; 80048; 36415; 83735; 87804 ×2; 71045; 99283; J3475; J7030; 81003; 81015

== ENCOUNTER 2020-02-26 19:17 | Emergency (ER) | payer OTHER ==
--- OUTSIDE RECORDS SUMMARY | 2020-02-26 19:20 | XMS REPORT | Clinical Summary ---
:1945 Author Organization [facility] Address [address] [place] [address] Care Team Providers Name Role Phone Rubén Primary Care Provider Allergies Active Allergy Reactions Severity Noted Date Comments Sulfamethoxazole-Trimethoprim Unknown Reaction 020 Sulfa (Sulfonamide Antibiotics) Rash Low 0 Medications Medication Sig Dispensed Refills Start Date End Date Status prednisoLONE 1 drop 4 0 Active acetate (PRED (four) times FORTE) 1 % a day. 1 ophthalmic drop each suspension eye daily pravastatin Take 20 mg 0 Active (PRAVACHOL) 20 MG by mouth tablet nightly. aspirin (ECOTRIN) Take 81 mg 0 A ctive 81 MG enteric by mouth coated tablet daily. hyoscyamine Take by 0 Active sulfate (HYOSYNE mouth. 0.125 ORAL) mg daily FLUoxetine Take 40 mg 0 Active (PROzac) 40 MG by mouth capsule daily. losartan (COZAAR) Take 25 mg 0 A ctive 25 MG tablet by mouth daily. pantoprazole Take 40 mg 0 Active (PROTONIX) 40 MG by mouth EC tablet daily. celecoxib Take 200 mg 0 Active (CeleBREX) 200 MG by mouth capsule daily. daily lamoTRIgine Take 100 mg 0 Active (LaMICtal) 100 MG by mouth 2 tablet (two) times a day. donepeziL TAKE 1 90 tablet 2 02/15/2020 Active (ARICEPT) 5 MG TABLET BY tabletIndications: MOUTH EVERY Dementia DAY AT NIGHT associated with alcoholism without behavioral disturbance (HCC) FOLIC ACID ORAL 5 mg tid 0 Expi red 0 egakho-qtihdxfh-mo Take by 0 D iscontinued ylase (CREON) mouth 3 0 (Cost of 36,000-114,000- (three) medi cation) 180,000 unit times a day capsule,delayed with meals. release(/EC) 1-2 caps tid donepeziL Take 1 30 tablet 11 02/11/2020 Discontin ued (Aricept) 5 MG tablet (5 mg 0 tabletIndications: total) by Dementia mouth associated with nightly. alcoholism without behavioral disturbance (HCC) Active Problems No known active problems Encounters Date Type Specialty Care Team Description 02/15/2020 Refill Neurology Carina Gilliam Dementia a ssociated with MD Win alcoholism with out behavioral dist urbance (HCC) 02/12/2020 Travel 02/11/2020 Lab Lab Carina Gilliam Memory imp airment; MD Win Vitamin D defic iency 02/11/2020 Office Visit Neurology Carina Gilliam Dementia a ssociated with alcoholism without behavioral disturbance (HCC) (Primary Dx); MD Win Memory impairme nt; Bipolar depress ion (HCC); Anxiety disorde r, unspecified type; Vitamin D defic iency; Multifactorial gait disorder; Peripheral poly neuropathy; Physical decond itioning; STEPHON (obstructiv e sleep apnea); Irritable bowel syndrome, unspecified type 02/10/2020 Travel 02/10/2020 Refill Neurology Gold Valdez RN 01/27/2020 Hospital Encounter Radiology Carina Gilliam MD 01/27/2020 Hospital Encounter Radiology Carina Gilliam MD 01/27/2020 Travel 12/19/2019 Transcribe Orders Neurology Carina Gilliam Cogni tive impairment (Primary Dx); MD Win Balance disorde r 12/19/2019 Telephone Neurology Carina Gilliam MD after 02/25/2019 Family History Medical History Relation Name Comments Skin cancer Brother 62 Cristal-Danlos syndrome Daughter bechet's disease- is 42 Narcolepsy Daughter Aneurysm Father 72 Heart disease Father Mental illness Maternal Grandmother Arthritis Mother 77 Diabetes Mother Obesity Mother Rectal cancer Paternal Grandmother 40 Arthritis Sister 60 GERD Sister Inflammatory bowel disease Sister Heart attack Son No Known Problems Son 56 Relation Name Status Comments Brother Alive Daughter Alive Father Maternal Grandmother Mother Paternal Grandfather Paternal Grandmother Sister Alive Son Son Alive Social History Tobacco Use Types Packs/Day Years Used Date Never Smoker Smokeless Tobacco: Never Used Alcohol Use Drinks/Week oz/Week Comments Not Currently Education Answer Date Recorded What is the highest level of school you have High school gra duate 02/10/2020 completed or the highest degree you have received? Sex Assigned at Date Recorded Female 02/07/2020 5:18 PM CDT Job Start Date Occupation Industry Not on file Not on file Not on file Travel History Travel Start Travel End No recent travel history available. COVID-19 Exposure Response Date Recorded In the last month, have you been in contact with No / Unsure 02/12/2020 8:12 AM CDT someone who was confirmed or suspected to have Coronavirus / COVID-19? Last Filed Vital Signs Vital Sign Reading Time Taken Comments Blood Pressure 115/72 02/11/2020 1:02 PM CDT Pulse 77 02/11/2020 1:02 PM CDT Temperature 36.5 C (97.7 F) 02/11/2020 1:02 PM CDT Respiratory Rate - - Oxygen Saturation - - Inhaled Oxygen Concentration - - Weight 84 kg (185 lb 3.2 oz) 02/11/2020 1:02 PM CDT Height 163.8 cm (5' 4.5") 02/11/2020 1:02 PM CDT Body Mass Index 31.3 02/11/2020 1:02 PM CDT Plan of Treatment Date Type Specialty Care Team Description 08/17[facility]2020 [facility] [address] [facility] [address] [place], [place] [address] [phone] Health Maintenance Due Date Last Done Comments COLONOSCOPY SCREENING 1993 65+ PNEUMOCOCCAL VACCINE (2 of 2 - PPSV23) 06/08/200804/23 SHINGLES VACCINES (#2) 01/21/2014 11/21/2013 INFLUENZA VACCINE 02/22/2020 05/09/2018, 04/23/2014 Procedures Procedure Name Priority Date/Time Associated Comments Diagnosis ESTIMATED GFR Routine 02/11/2020 4:04 Results fo r this PM CDT procedure are i n the results section. VITAMIN D 25 HYDROXY Routine 02/11/2020 4:04 Vitamin D Res ults for this LEVEL PM CDT deficiency procedure are i n the results section. T4, FREE Routine 02/11/2020 4:04 Memory impairment Result s for this PM CDT procedure are i n the results section. THYROID STIMULATING Routine 02/11/2020 4:04 Memory impairment Results for this HORMONE PM CDT procedure are i n the results section. VITAMIN B12 LEVEL Routine 02/11/2020 4:04 Memory impairment R esults for this PM CDT procedure are i n the results section. HOMOCYSTINE, PLASMA Routine 02/11/2020 4:04 Memory impairment Results for this PM CDT procedure are i n the results section. FOLATE LEVEL Routine 02/11/2020 4:04 Memory impairment Result s for this PM CDT procedure are i n the results section. COMPREHENSIVE Routine 02/11/2020 4:04 Memory impairment Resul ts for this METABOLIC PANEL PM CDT procedure ar e in the results section. HC COMPLETE BLD COUNT Routine 02/11/2020 4:04 Memory impairme nt Results for this W/AUTO DIFF PM CDT procedure are i n the results section. CT HEAD EXTERNAL STUDY Routine 02/28/2019 8:12 R esults for this PM CDT procedure are i n the results section. CT HEAD EXTERNAL STUDY Routine 02/28/2019 6:20 R esults for this PM CDT procedure are i n the results section. after 02/25/2019 Results Estimated GFR (02/11/2020 4:04 PM CDT) Estimated GFR 59 (A) mL/min/1.73 [facility] Comment: m2 HOSPITAL Catergory Units Interpretation G1 >=90 Normal or high G2 60-89 Mildly decreased G3a 45-59 Mildly to moderately decreas ed G3b 30-44 Moderately to severely decre ased G4 15-29 Severely decreased G5 <15 Kidney failure The eGFR was calculated using the Chronic Kidney Disea se Epidemiology Collaboration (CKD-EPI) equation. Interpretation is based on recommendations of the National Kidney Foundation-Kidney Disease Outcomes Elkin lity Initiative (NKF-KDOQI) published in 2014. Specimen Performing Organization Address City/State/Zipcode Phone Number [facility] DEPARTMENT OF PATHOLOGY AND [address] [place], [place] [address] GENOMIC MEDICINE [address] [address] Homocystine, plasma (02/11/2020 4:04 PM CDT) [facility] Homocysteine 10.1 0.0 - 15.0 [facility] Comment: umol/L HOSPITAL The risk for coronary vascular disease increases progr essively with homocysteine concentration. A 3.4 times greater risk is associated with a homocysteine concentration of greate r than 15.8 umol/L as compared to a concentration below 14.1 umol/L. Specimen Blood Performing Organization Address City/[facility]/Zipcode Phone Number [facility] DEPARTMENT OF PATHOLOGY AND [address] [place] [address] [phone] [address] Vitamin D 25 hydroxy level (02/11/2020 4:04 PM CDT) [facility] Vitamin D, 59.9 30.0 - 150.0 [facility] 25-hydroxy Comment: ng/mL HOSPITAL This assay reports the sum of 25-hydroxy vitamin D3 an d 25-hydroxy vitamin D2. Reference range: 0-17 years: Deficiency: less than 20ng/mL Optimum level: greater than or equal to 20 ng/mL. 18 years and older: Deficiency: less than 20ng/mL Insufficiency: 20-29 ng/mL Optimum Level: 30-80 ng/mL The assay reportable range is 3.4 155.9 ng/mL. Level s higher than 150 ng/mL may be associated with toxicity. If toxicity is clinically suspected and the reported r esult is >155.9 ng/mL,contact lab for alternative methods to obtain a definitive level. If separate quantitation of 25-hydroxy vitamin D3 and 25-hydroxy vitamin D2 is needed, please contact lab for alternative methods. Specimen Blood Performing Organization Address City/State/Zipcode Phone Number [facility] DEPARTMENT OF PATHOLOGY AND [address] [place] [address] [phone] [address] CBC with platelet and differential (02/11/2020 4:04 PM CDT) [facility] WBC 6.35 4.50 - 11.00 [facility] k/uL [facility] RBC 4.57 4.20 - 5.50 [facility] m/uL [facility] HGB 12.9 12.0 - 16.0 [facility] g/dL [facility] HCT 42.0 37.0 - 47.0 % [facility] MCV 91.9 82.0 - 100.0 [facility] MCH 28.2 27.0 - 34.0 pg [facility] MCHC 30.7 (L) 31.0 - 37.0 [facility] g/dL [facility] RDW - SD 43.9 37.0 - 55.0 fL [facility] MPV 10.9 8.8 - 13.2 fL [facility] Platelet count 210 150 - 400 k/uL [facility] Nucleated RBC 0.00 /100 WBC [facility] Neutrophils 48.7 39.0 - 69.0 % [facility] Lymphocytes 34.3 25.0 - 45.0 % [facility] Monocytes 13.5 (H) 0.0 - 10.0 % [facility] Eosinophils 1.9 0.0 - 5.0 % [facility] Basophils 1.4 (H) 0.0 - 1.0 % [facility] Immature granulocytes 0.2Comment: 0.0 - 1.0 % [facility] "[facility] granulocytes" (promyelocytes , myelocytes, metamyelocytes ) Specimen Blood Performing Organization Address City/[facility] Corporation[facility] Phone Number [facility] DEPARTMENT OF PATHOLOGY AND [address] [place] [address] [phone] [address] Thyroid stimulating hormone (02/11/2020 4:04 PM CDT) Pathologist Sig formerly [facility] TSH 0.71 0.27 - 4.20 uIU/mL [facility] ITAL Specimen Blood Performing Organization Address City/[facility] Corporation[facility] Phone Number [facility] DEPARTMENT OF PATHOLOGY AND [address] [place] [address] [phone] [address] T4, free (02/11/2020 4:04 PM CDT) Pathologist Sig nature T4, free 1.2 0.9 - 1.7 ng/dL [facility] L Specimen Blood Performing Organization Address [facility] Corporationcode Phone Number [facility] DEPARTMENT OF PATHOLOGY AND [address] [place] [address] [phone] [address] Folate level (02/11/2020 4:04 PM CDT) Pathologist Sig nature Folate >20.0 4.8 - 24.2 ng/mL [facility] AL Specimen Serum Performing Organization Address City/State/Zipcode Phone Number [facility] DEPARTMENT OF PATHOLOGY AND [address] [place] [phone] [facility] [address] [place] [phone] Vitamin B12 level (02/11/2020 4:04 PM CDT) Vitamin B12 480 211 - 946 [facility] Comment: pg/mL HOSPITAL Significant overlap exists between normal and deficien cy states. However, most patients with deficiencies will have Ser um B12 <200 pg/mL. Specimen Serum Performing Organization Address City/State/Zipcode Phone Number [facility] DEPARTMENT OF PATHOLOGY AND [address] [place] [address] [phone] [address] Comprehensive metabolic panel (02/11/2020 4:04 PM CDT) Sodium 142 135 - 148 [facility] mEq/L [facility] Potassium 4.4 3.5 - 5.0 [facility] mEq/L [facility] Chloride 103 98 - 112 [facility] mEq/L [facility] CO2 27 24 - 31 mEq/L [facility] Anion gap 12@ANIO 7 - 15 mEq/L [facility] BUN 18 8 - 23 mg/dL [facility] Creatinine 0.94 (H) 0.50 - 0.90 [facility] mg/dL HOSPITAL Glucose 104 (H) 65 - 99 mg/dL [facility] Calcium 9.3 8.8 - 10.2 [facility] mg/dL [facility] Protein 6.9 6.3 - 8.3 [facility] Comment: g/dL HOSPITAL - 4.6-7.0 g/dL 1 week 4.4-7.6 g/dL 7 months-1year 5.1-7.3 g/dL 1-2 years 5.6-7.5 g/dL >3 years 6.0-8.0 g/dL 18-150 6.3-8.3 g/dL Albumin 3.6 3.5 - 5.0 [facility] g/dL [facility] A/G ratio 1.1 0.7 - 3.8 [facility] Alkaline phosphatase 101 35 - 104 U/L [facility] AST 24 10 - 35 U/L [facility] ALT 19 5 - 50 U/L [facility] Total bilirubin 0.3 0.0 - 1.2 [facility] mg/dL HOSPITAL Specimen Blood Performing Organization Address City/State/Zipcode Phone Number [facility] DEPARTMENT OF PATHOLOGY AND [address] [place], [place] [address] GENOMIC MEDICINE [facility] [address] [place] [address] CT Head External Study (02/28/2019 8:12 PM CDT)Only the most recent of2 results within the time period is included. Specimen Narrative Performed At This exam was not acquired at a Method t facility and has not been [facility] interpreted by a [facility] Provider. T he exam was imported into our imaging system. Performing Organization Address City/State/Zipcode Phone Number [facility] [address] [place] [address] after 02/25/2019 Advance Directives For more information, please contact: [phone] Type Date Recorded Patient Departure Clerk Explanati on Advance Directives, Living 05/12/2009 3:14 PM Will and Medical Power of Steward/Stewardess
--- OUTSIDE RECORDS SUMMARY | 2020-02-26 19:21 | XMS REPORT ---
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
--- OUTSIDE RECORDS SUMMARY | 2020-02-26 19:21 | XMS REPORT ---
:1945 Author Organization [employer] Care Team Providers Name Role Phone Marquez Gipson Provider Role Unavailable Allergies, Adverse Reactions, Alerts Substance Reaction Event Type Methotrexate Info Not Available Drug Allergy Codeine Sulfate dizziness Drug Allergy Bactrim rash Drug Allergy Problems Problem Type Condition Code Onset Dates Condition Statu s Problem Major depressive disorder, single F32.9 Active episode, unspecified Problem Osteoarthritis M19.90 Active Problem Benign essential hypertension I10 Active Problem Adverse effect of unspecified T50.905A Active drugs, medicaments and biological substances, initial encounter Problem Long-term use of high-risk Z79.899 A ctive medication Problem Rheumatoid arthritis without M06.09 Active rheumatoid factor, multiple sites Problem Memory loss R41.3 Active Problem Imbalance R26.89 Active Problem Leukocytosis, unspecified type D72.829 Active Problem Elevated C-reactive protein (CRP) R79.82 Active Assessment Long-term use of high-risk Z79.899 A ctive medication Assessment Adverse effect of unspecified T50.905A Active drugs, medicaments and biological substances, initial encounter Assessment Pain in joint involving multiple M25.50 Active sites Assessment Osteoarthritis M19.90 Active Assessment Rheumatoid arthritis without M06.09 Active rheumatoid factor, multiple sites Problem Inflammatory 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 Active Medications Medication Code Code Instructions Start End Status Dosage System Date Sulfasalazine [facility] 37168159315 500 MG Orally Active 1 tablet every 6 hrs Folic Acid [facility] 69152874600 5 MG Orally January Active 1 cap eligio every day (qd) 2019 PredniSONE ND 76428206957 5 MG Orally December 18December Active 1-2 Once a day 2019, tablets as 2019 needed Lamotrigine ND 33788179327 100 MG Orally Active 2 tablets Twice a day Fluoxetine HCl ND 63108589905 10 MG Orally Active 3 capsule Once a day Lorazepam ND 47115232547 0.5 MG Orally Active 1 ta blet Once a day as needed Creon ND 36085644939 [address] UNIT Active as Orally 3 times directed a day Myrbetriq ND 91712232756 25 MG Orally Active 1 tab let Once a day Leflunomide ND 17094047697 20 MG Orally December 18January Active 1 t ablet Once a day 2019 Dexilant ND 49549155954 60 MG Orally Active 1 caps ule Once a day Vitamin D [facility] 18045467917 [address] UNIT Active 1 capsu le (Ergocalciferol) Orally once a month Metoprolol [facility] [address]-13 25 MG Orally Active 1 capsule Succinate Once a day Trazodone HCl ND 03251975609 100 MG Orally Active 1 tablet Once a day at bedtime Pravastatin Sodium ND 06724637346 20 MG Orally Acti ve 1 tablet Once a day Amoxicillin [facility] 95628485515 875 MG Orally Active 1 tablet every 12 hrs Methotrexate ND 41692928305 2.5 MG Orally Active 5 tablets once a week Celecoxib [facility] 18560496675 200 MG Orally Aug Active 1 ca psule Once a day , with food needed 2019 Hyoscyamine [facility] 87194208172 0.125 MG Active 1 table t Sulfate Orally every as needed day Aspir-81 [facility] 87283964173 81 MG Orally Active 1 tabl et Once a day Fluorometholone [facility] 08365708950 0.1 % Active 1 dr op Ophthalmic into Once a day affected eye Losartan Potassium ND 66840253261 25 MG Orally Acti ve 1 tablet Once a day Nitrofurantoin [facility] [address]-13 Active not defined Results No Known Results Summary Purpose eClinicalWorks Submission
--- OUTSIDE RECORDS SUMMARY | 2020-02-26 19:21 | XMS REPORT ---
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 Active Problem Adverse effect of unspecified T50.905A Active drugs, medicaments and biological substances, initial encounter Problem Long-term use of high-risk Z79.899 A ctive medication Problem Rheumatoid arthritis without M06.09 Active rheumatoid factor, multiple sites Problem Memory loss R41.3 Active Problem Imbalance R26.89 Active Problem Leukocytosis, unspecified type D72.829 Active Problem Elevated C-reactive protein (CRP) R79.82 Active Medications Medication Code System Code Instructions Start End Date Status Dos age Date PredniSONE [facility] 63282601374 5 MG Orally Once December 18February 14, Active 1-2 tablets a day 2019 2019 as needed for joint pain Results No Known Results Summary Purpose eClinicalWorks Submission
--- OUTSIDE RECORDS SUMMARY | 2020-02-26 19:21 | XMS REPORT | Continuity of Care Document ---
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 Active Diagnosis 03/19/2019 [facility] (current) drug [facility] therapy Benign essential Active Problem 01/17/2020 [facility] hypertension of [place] Imbalance Active Problem 01/17/2020 [facility] Inflammatory Active Problem 01/17/2020 [facility] polyarthropathy of [facility] Leukocytosis, Active Problem 01/17/2020 [facility] unspecified type of [place] Memory loss Active Problem 01/17/2020 [facility] Elevated C-reactive Active Problem 01/17/2020 [facility] protein (CRP) [facility] Encounter for Active Diagnosis 06/11/2019 [facility] screening for other of [place] metabolic disorders Elevated Active Diagnosis 06/11/2019 [facility] sedimentation rate o f [place] Adverse effect of Active Problem 01/17/2020 [facility] unspecified drugs, o f [place] medicaments and biological substances, initial encounter Postmenopausal Active Diagnosis 03/19/2019 [facility] state [facility] Shortness of breath Active Diagnosis 03/19/2019 [facility] Long-term use of Active Problem 01/17/2020 [facility] high-risk of [facility] medication Rheumatoid Active Problem 01/17/[address] arthritis without of [place] rheumatoid factor, multiple sites Pain in joint Active Diagnosis 01/17/2020 [facility] involving multiple o f [place] sites Medications Medication Details Route Status Patient Ordering Order Source Instructions Provider Date Celecoxib 1 capsule Orally Active 200 MG Orally Brandan 03/18/ Rheu m with food Once a day as 2019 [facility] needed [place] Folic Acid 1 capsule Orally Active 5 MG Orally Brandan 02/16/ Rheum every day (qd) 2019 [facility] PredniSONE 1-2 Orally Active 5 MG Orally Vo 12/18/ Rheum tablets as Once a day 2019 [facility] needed for [place] joint pain Leflunomide 1 tablet Orally Active 20 MG Orally Brandan 12/18/ Rheu [facility] Once a day 2019 [facility] Folic Acid 3 tablets orally Active 1 MG orally Vo 07/01/ Rhe[facility] every day (qd) 2018 [facility] Folic Acid 3 tablets orally Active 1 MG orally Vo 06/16/ Rhe[facility] every day (qd) 2018 [facility] Folic Acid 1 tablet orally Active 1 MG orally Vo 03/19/ Rhe[facility] every day (qd) 2018 [facility] Tramadol HCl 1 tablet Orally Active 50 mg Orally Vo 03/19/ Rheum as needed every day (qd) 2018 [facility] Celecoxib 1 capsule Orally Active 200 MG Orally Vo 01/18/ Rheum with food Once a day as 2019 [facility] needed [place] Methotrexate as Orally Active 2.5 MG Orally Vo 12/24/ Rheum directed Once A Week 2018 [facility] Folic Acid 1 tablet Orally Active 1 MG Orally Vo 12/11/ Rheum Once a day 2018 [facility] Methotrexate 8 tablets Orally Active 2.5 MG Orally Vo 12/11/ Rhe um once a week 2018 [facility] Pravastatin 1 tablet Orally Active 20 MG Orally Brandan Rhe[facility] m Sodium Once a day [facility] Fluorometholone 1 drop Ophthalmic Active 0.1 % Brandan Rhe [facility] into Ophthalmic [facility] of affected Once a day [facility] eye Tramadol HCl 1 tablet Orally Active 50 mg Orally Vo [facility] as needed every day (qd) [facility] Myrbetriq 1 tablet Orally Active 25 MG Orally Brandan [facility] Once a day [facility] Creon as Orally Active 49608 UNIT Brandan Rhe[facility] directed Orally 3 times [facility]tr of a day [place] Trazodone HCl 1 tablet Orally Active 100 MG Orally Brandan R [facility] at bedtime Once a day [facility] Celecoxib 1 capsule Orally Active 200 MG Orally Vo [facility] with food Once a day [facility] Lamotrigine 2 tablets Orally Active 100 MG Orally Brandan Rh eum Twice a day [facility] Aspir-81 1 tablet Orally Active 81 MG Orally Brandan [facility] Once a day [facility] Metoprolol 1 capsule Orally Active 25 MG Orally Brandan Rheu m Succinate Once a day [facility] Sulfasalazine 1 tablet Orally Active 500 MG Orally Brandan R [facility] every 6 hrs [facility] Lorazepam 1 tablet Orally Active 0.5 MG Orally Brandan Rhe[facility] as needed Once a day [facility] Fluoxetine HCl 3 capsule Orally Active 10 MG Orally Brandan Rhe[facility] Once a day [facility] Hyoscyamine 1 tablet Orally Active 0.125 MG Brandan Rhe[facility] Sulfate as needed Orally every [facility]tr [facility] day [place] Dexilant 1 capsule Orally Active 60 MG Orally Brandan Rhe[facility] Once a day [facility] Methotrexate 8 tablets Orally Active 2.5 MG Orally Vo Rhe um once a week [facility] Nitrofurantoin not NA Active Brandan [facility] defined [facility] Vitamin D 1 capsule Orally Active 03406 UNIT Brandan Rhe[facility] (Ergocalciferol) Orally once a C tr of month [place] Losartan 1 tablet Orally Active 25 MG Orally Brandan Rhe[facility] Potassium Once a day [facility] Amoxicillin 1 tablet Orally Active 875 MG Orally Brandan Rhe [facility] every 12 hrs [facility] Methotrexate 5 tablets Orally Active 2.5 MG Orally Brandan R [facility]um once a week [facility] Allergies, Adverse Reactions, Alerts Substance Category Reaction Severity Reaction Status Date Comments S ource type Reported Codeine Adverse dizziness Adverse Active [facility] Sulfate Reaction Reaction 0 [facility] Methotrexate Adverse Info Not Adverse Active Rhe[facility] Reaction Available Reaction 0 [facility] Bactrim Adverse rash Adverse Active [facility] Reaction Reaction 0 [facility] Immunizations No Data Provided for This Section Results No Data Provided for This Section Pathology Reports No Data Provided for This Section Diagnostic Reports No Data Provided for This Section Consultation Notes No Data Provided for This Section Discharge Summaries No Data Provided for This Section History and Physicals No Data Provided for This Section Vital Signs Vital Sign Value Date Comments Source Weight 178.2 03/18/2019 [facility] Height 64.5 03/18/2019 [facility] Heart Rate 79 03/18/2019 [facility] Diastolic (mm Hg) 85 03/18/2019 [facility] Systolic (mm Hg) 145 03/18/2019 [facility] [place] Weight 181.6 01/18/2019 [facility] Height 64.5 01/18/2019 [facility] Heart Rate 64 01/18/2019 [facility] Diastolic (mm Hg) 65 01/18/2019 [facility] Systolic (mm Hg) 113 01/18/2019 [facility] [place] Weight 179.8 12/11/2018 [facility] Height 64.5 12/11/2018 [facility] Heart Rate 59 12/11/2018 [facility] Diastolic (mm Hg) 75 12/11/2018 [facility] Systolic (mm Hg) 125 12/11/2018 [facility] [place] Encounters No Data Provided for This Section Procedures No Data Provided for This Section Assessment and Plan No Data Provided for This Section Plan of Care No Data Provided for This Section Social History No Data Provided for This Section Family History No Data Provided for This Section Advance Directives No Data Provided for This Section Functional Status No Data Provided for This Section
--- OUTSIDE RECORDS SUMMARY | 2020-02-26 19:23 | XMS REPORT | Summary of Care ---
:1945 Author Organization [facility] [place] [address] Care Team Providers Name Role Phone Mine [place] MD Primary Care Provider Reason for Visit Reason Comments Corneal Transplant Encounter Details Date Type Department Care Team Description [facility] Op[facility] shayne Scott MD 1978 [address] 1979 [place] [address] [place] [address] [phone] Allergies Active Allergy Reactions Severity Noted Date Comments Sulfamethoxazole W/Trimethoprim Hives 5 Codeine Anxiety Medium 05/27/2014 Sulfamethoxazole-Trimethoprim Rash High 05/27/2014 documented as of this encounter (statuses as of 02/24/2020) Medications Medication Sig Dispensed Refills Start Date End Date Status trazodone (DESYREL) 100 Take 100 mg by 0 Active MG tablet mouth as needed. Reported on 08/15/2016 aspirin 81 MG tablet Take 81 mg by 0 Active mouth 2 times weekly. lorazepam (ATIVAN) 0.5 Take 0.5 mg by 0 Active MG tablet mouth as needed. Reported on 08/15/2016 pravastatin (PRAVACHOL) Take 20 mg by 0 Active 20 MG tablet mouth every evening. Reported on 08/15/2016 Psyllium (METAMUCIL Take by mouth. 0 Active OR)Indications: High Reported on risk medication use, 10/11/2016 Rheumatoid arthritis(714.0) lamotrigine (LAMICTAL) 150 mg. 0 10/21/2013 Active 100 MG tablet Probiotic Product Take by mouth. 0 Active (ALIGN) 4 MG Reported on CAPSIndications: High 10/11/2016 risk medication use pantoprazole (PROTONIX) Take 40 mg by 0 Active 40 MG tablet mouth daily. metoprolol (TOPROL-XL) Take 25 mg by 0 Active 25 MG XL tablet mouth daily. tolterodine (DETROL LA) 0 10/19/2015 Active 4 MG ER capsule fluticasone-salmeterol Inhale 1 Puff by 0 Active (ADVAIR DISKUS) 100-50 mouth two times MCG/DOSE inhaler daily. fluoxetine (PROZAC) 10 Take 10 mg by 0 Active MG capsule mouth daily. estradiol (ESTRACE) 2 Take 1 mg by 0 Active MG tablet mouth daily. fluorometholone (FML) Place 1 Drop into 10 mL 10 09/18/2017 Active 0.1 % ophthalmic both eyes daily. suspension DEXILANT 60 MG CPDR TAKE 1 CAPSULE BY 3 03/30/2018 Active MOUTH EVERY DAY Cholecalciferol TAKE ONE CAPSULE 3 03/06/2018 Active (VITAMIN D3) 57360 BY MOUTH ONCE A units CAPS MONTH celecoxib (CELEBREX) TAKE ONE CAPSULE 30 Cap 5 05/09/2018 Active 200 MG BY MOUTH EVERY capsuleIndications: DAY Fibromyalgia tramadol (ULTRAM) 50 MG Take 1 Tab by 90 Tab 0 07/05/2018 Active tablet mouth every 8 hours as needed (Taking PRN). Take once daily-midday/late afternoon fluorometholone (FML) Place 1 Drop into 5 mL 6 11/13/2018 Active 0.1 % ophthalmic both eyes daily. suspension Sulfasalazine 500 MG TAKE 3 TABLETS BY 540 Each 1 12/31/2018 Active TBECIndications: MOUTH TWICE A DAY Enteropathic arthritis fluorometholone (FML) Place 1 Drop into 10 mL 10 07/18/2019 Active 0.1 % ophthalmic both eyes daily. 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 Pseudophakia 01/16/2012 Post corneal transplant 01/16/2012 SCREENING FOR MALIGNANT NEOPLASM, VAGINA 04/06/2005 SCREENING MAMMOGRAM NEC 04/06/2005 SCREENING FOR MALIGNANT NEOPLASM, COLON 04/06/2005 WELL WOMAN 04/06/2005 PELVIC PAIN 04/06/2005 documented as of this encounter (statuses as of 02/24/2020) Immunizations Name Administration Dates Next Due Influenza (whole) 04/23/2014 Influenza Hd 05/09/2018 Pneumococcal Polysaccharide 04/23/2013 Zoster Live 11/21/2013 documented as of this encounter Social History Tobacco Use Types Packs/Day Years Used Date Never Smoker Smokeless Tobacco: Never Used Comments: around 2nd hand cigarettes Alcohol Use Drinks/Week oz/Week Comments No Sex Assigned at Date Recorded Female 08/17/2019 9:01 PM [employer] documented as of this encounter Last Filed Vital Signs Not on filedocumented in this encounter Progress Notes Asad Moscoso MD - 02/24/2020 3:50 PM CDT PROGRESS NOTE: Summary: This patient's undergone DSEK plus cataract surgery in both eyes the left eye 2007 the right eye 2006 and is bilateral YAG capsulotomies I saw her most recently on 08-12 at that visit she was 20/50 right 20/40 left. Both eyes showed a gross intraocular lenses with open capsules. She had some reticular interface haze but this is been stable. She was seen by Dr. Jackie Hurt on 08/15/19. At that visit she was felt to have a normal fundus. She had also seen Dr. Young on 07/25/2019. At that visit she was improvable to 20/40 with a contact lens OD but was not felt to be a candidate for contact lens. Currently she notes continued difficulty seeing street signs when she is driving. Saw neurologist 2 weeks ago and was Dx's a cerebellar dysfunction. HPI JF 74 y/o female presents corneal transplant follow up. Pt was not able to get contacts because she was not a candidate. Pt states she cannot see far off. Pt states is not able to see the street signs when she is driving. Pt states she has been seeing a lot of floaters.Pt denies any pain or discomfort. POHx YAG, OU CE/IOL + PLK, OU Eye Meds: FML qD OU Last edited by Ann Hayes COA on 02/24/2020 4:37 PM. (History) IMPRESSION: #1. Good result following endothelial keratoplasty #2 refractive error PLAN: #1. New glasses #2 return in one year ATTESTATIONS: I have personally interviewed and examined the patient. I have reviewed the PMH, SH, FHX, ROS, MEDS,ALLERGIES and TECH NOTE, and have updated the computerized patient record appropriately. The review of systems is negative unless documented otherwise in the medical record. In the event that there is documentation by the resident or fellow in the medical record, I agree with the resident/fellow's assessment and plan. Any exceptions are noted in my assessment & plan.The risks, benefits, and alternatives of treatment were discussed with the patient (& family, If present). All questions regarding diagnosis and treatment were answered to the patient's satisfaction.This document has been prepared with the assistance of voice recognition software. Despite proof reading, some errors may have occurred.- please forgive mis- transcriptions, mis-heard words, or errors documented in this encounter Plan of Treatment Health Maintenance Due Date Last Done Comments TETANUS SHOT (ADULT) 1958 BMI FOLLOW UP PLAN 1961 FALL SCREEN 2008 OSTEOPOROSIS SCREENING 2008 MEDICARE AWV (Initial) 07/24/2016 FLU VACCINE > 6 MONTHS 02/22/2020 05/09/2018, 05/09/2018, 0 04/11/2017 (Declined), Additional history e xists PNEUMOVAX >=65 (PPSV23) Completed 04/23/2013 documented as of this encounter Implants Implanted Type Area Correction Worker Device Shelf Model / Serial Identifier Expiration / Lot Date Cornea Tissue - [id number] Right: [employer] 04/22/2011 / Implanted: Qty: 1 on 04/06/2011 at [facility] Eye [id number] / [id number] [facility] - [id number] Right: [employer] 2012 +20.0 D / Implanted: Qty: 1 on 04/06/2011 at [facility] [place] Eye [id number] / documented as of this encounter Results Not on filedocumented in this encounter Visit Diagnoses Diagnosis Vitreous detachment, left - Primary Post corneal transplant Cornea replaced by transplant Refractive error Unspecified disorder of refraction and a ccommodation documented in this encounter Insurance Payer Benefit Plan / Subscriber ID Effective Dates Phone Addre ss Type Group [employer] MED[employer] PLAN PPO [id number] 2016-Present [id number] [place] [address] documented as of this encounter
--- OUTSIDE RECORDS SUMMARY | 2020-02-26 19:23 | XMS REPORT | Continuity of Care Document ---
:1945 Author Organization [facility] t Address [address] [place] [address] Care Team Providers Name Role Phone Rubén Primary Care Physician Tyler Moscoso MD Attending Clinician Mane RICHARDSON, Win Attending Clinician José Miguel RN Attending Clinician Unavailable Licha RICHARDSON Attending Clinician 3 Attending Clinician Unavailable Payers Payer Name Policy Type Policy Number Effective Date Expiration Date S jeannette AETNA xxxxxxxx 2016 [place] MEDICAREAETNA 00:00:00 [place] MEDICARE HMO/PPO [facility] 7-PresentHMO Problems Condition Condition Condition Status Onset Resolution Last Treating Co mments Source Name Details Category Date Date Treatment Clinician Date Heartburn Diagnosis Active 2019-03-19 Memoria 02:45:36 l [place] Heartburn Active Diagnosis 03/19/2019 [facility] Osteoarthr Problem Active 2020-01-17 M emoria itis 02:45:59 l [place] Osteoarthr itis Active Problem 01/17/2020 [facility] Major Problem Active 2020-01-17 Memor ia depressive 02:45:59 l disorder, Major Himanshu n single depressive episode, disorder, unspecifie single d episode, unspecifie d Active Problem 01/17/2020 [facility] Benign Problem Active 2020-01-17 Memor ia essential 02:45:59 l hypertensi Benign Herm ele on essential hypertensi on Active Problem 0 [facility] Imbalance Problem Active 2020-01-17 Me moria 02:45:59 l Bennett Imbalance Active Problem 01/17/2020 [facility] Inflammato Problem Active 2020-01-17 M emoria ry 02:45:59 l polyarthro Himanshu n mehdi Inflammato ry polyarthro mehdi Active Problem 01/17/2020 [facility] Leukocytos Problem Active 2020-01-17 M emoria is, 02:45:59 l unspecifie Himanshu n d type Leukocytos is, unspecifie d type Active Problem 01/17/2020 [facility] Memory Problem Active 2020-01-17 Memor ia loss 02:45:59 l Memory Bennett loss Active Problem 01/17/2020 [facility] Elevated Problem Active 2020-01-17 Mem oria C-reactive 02:45:59 l protein Elevated Petra nn (CRP) C-reactive protein (CRP) Active Problem 01/17/2020 [facility] Encounter Diagnosis Active 2019-06-11 Memoria for 03:45:42 l screening [place] for other Encounter metabolic for disorders screening for other metabolic disorders Active Diagnosis 06/11/2019 [facility] Elevated Diagnosis Active 2019-06-11 M emoria sedimentat 03:45:42 l ion rate Elevated Herm ele sedimentat ion rate Active Diagnosis 06/11/2019 [facility] Adverse Problem Active 2020-01-17 Yung jad effect of 02:45:59 l unspecifie Adverse Her chan d drugs, effect of medicament unspecifie s and d drugs, biological medicament substances s and , initial biological encounter substances , initial encounter Active Problem 01/17/2020 [facility] Postmenopa Diagnosis Active 2019-03-19 Memoria usal state 02:45:36 l [place] Postmenopa usal state Active Diagnosis 03/19/2019 [facility] Shortness Diagnosis Active 2019-03-19 Memoria of breath 02:45:36 l [place] Shortness of breath Active Diagnosis 03/19/2019 [facility] Long-term Problem Active 2020-01-17 Me moria use of 02:45:59 l high-risk [place] medication Long-term use of high-risk medication Active Problem 01/17/2020 [facility] Rheumatoid Problem Active 2020-01-17 M emoria arthritis 02:45:59 l without [place] rheumatoid Rheumatoid factor, 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, multiple sites Active Problem 01/17/2020 [facility] Pain in Diagnosis Active 2020-01-17 Me moria joint 02:45:53 l involving Pain in Herm ele multiple joint sites involving multiple sites Active Diagnosis 01/17/2020 [facility] Allergies, Adverse Reactions, Alerts Allergy Allergy Status Severity Reaction(s) Onset Inactive Treating Comm ents Source Name Type Date Date Clinician Sulfa Propensi Active Rash [place] (Sulfona ty to 7-21 Methodi mide adverse 00:00: st Antibiot reaction 00 ics) s to drug Sulfamet Propensi Active Unknown [place] hoxazole ty to Reaction 7-20 Method i -Trimeth adverse 00:00: st oprim reaction 00 s to drug Codeine Codeine Active dizziness 0 Memor ia Sulfate Sulfate 5-28 l 00:00: [place] 00 Methotre Methotre Active Info Not 0 Yung jad xate xate Available 5-28 l 00:00: [place] 00 Bactrim Bactrim Active rash 2019-0 Memoria 5-28 l 00:00: [place] 00 adhesive DA Active [facility] 3-27 [facility] [place] Family History Family Member Diagnosis Comments Start Date Stop Date Source Natural brother Skin cancer [place] Natural daughter Cristal-Danlos [place] syndrome [place] Natural daughter Narcolepsy [place] [facility] Natural father Aneurysm [place] [facility] Natural father Heart disease [place] [facility] Maternal Mental illness [place] grandmother [place] Natural mother Arthritis [place] [facility] Natural mother Diabetes [place] [facility] Natural mother Obesity [place] [facility] Paternal Rectal cancer [place] grandmother [facility] Natural sister Arthritis [place] [facility] Natural sister GERD [place] [facility] Natural sister Inflammatory bowel [place] disease [place] Natural son Heart attack [place] [facility] Natural son No Known Problems [place] shad [facility] Social History Social Habit Start Date Stop Date Quantity Comments Source Sex Assigned At F [place] M ethodist Exposure to Not sure [place] Metho dist SARS-CoV-2 (event) Alcohol intake 2020-02-11 2020-02-11 Ex-drinker [place] Me thodist 00:00:00 00:00:00 (finding) History SDOH 2020-02-10 2020-02-10 13 [place] Meth odist Education 00:00:00 00:00:00 Smoking Status Start Date Stop Date Source Never smoker [place] Methodis t Medications Ordered Filled Start Stop Current Ordering Indication Dosage Frequency Signature Comments Components Source Medication Medication Date Date Medication? Clinician (SIG) Name Name Folic Acid 2020-0 Yes Marquez 1 capsule Memoria 02-16 Brandan l 00:00: [place] 00 donepeziL 2020-0 Yes Dementia TAKE 1 [place] (ARICEPT) 5 02-14 associated TABLET BY Methodi MG tablet 00:00: with MOUTH st 00 alcoholism EVERY DAY without AT NIGHT behavioral disturbance (HCC) lipase-prot 2019-0 2020- No [id number] Take by [place] ease-amylas 02-10 [id number] mouth 3 Methodi e (CREON) 13:06: 00:00 3D (three) st 36,000-114, 12 :00 times a 000- day with 180,000 meals. 1-2 unit caps tid capsule,del ayed release(DR/ EC) prednisoLON 2020-0 Yes 1[drp] Q.25D 1 drop 4 [place] E acetate 02-10 (four) Methodi (PRED 13:05: times a st FORTE) 1 % 36 day. 1 ophthalmic drop each suspension eye daily pravastatin 2020-0 Yes 20mg QD Take 20 mg [place] (PRAVACHOL) - by mouth Meth kiana 20 MG 13:05: nightly. st tablet 36 aspirin 2020-0 Yes 81mg QD Take 81 mg [place] (ECOTRIN) - by mouth Method i 81 MG 13:05: daily. st enteric 36 coated tablet hyoscyamine 2020-0 Yes Take by [place] ston sulfate - mouth. Methodi (HYOSYNE 13:05: 0.[address] ORAL) 36 daily FLUoxetine 2020-0 Yes 40mg QD Take 40 mg [place] (PROzac) 40 -21 by mouth Meth kiana MG capsule 13:05: daily. st 36 losartan 2020-0 Yes 25mg QD Take 25 mg [place] ston (COZAAR) 25 7-21 by mouth Meth kiana MG tablet 13:05: daily. st 36 pantoprazol 2020-0 Yes 40mg QD Take 40 mg [place] e 7-21 by mouth Methodi (PROTONIX) 13:05: daily. st 40 MG EC 36 tablet celecoxib 2020-0 Yes 200mg QD Take 200 [place] [address] (CeleBREX) 7-21 mg by Methodi 200 MG 13:05: mouth st capsule 36 daily. daily lamoTRIgine 2020-0 Yes 100mg Q.5D Take 100 [place] (LaMICtal) 7-21 mg by Methodi 100 MG 13:05: mouth 2 st tablet 36 (two) times a day. FOLIC ACID 2019-0 2020- No 5 mg tid [place] ORAL 02-10 Methodi 13:05: 23:59 st 36 :00 donepeziL 2019-0 2020- No Dementia 5mg QD Take 1 [place] (Aricept) 5 02-10 associated tablet (5 Methodi MG tablet 00:00: 00:00 with mg total) st 00 :00 alcoholism by mouth without nightly. behavioral disturbance (HCC) Pravastatin 2019-0 Yes Marquez 1 tablet Memoria Sodium - Brandan l 02:45: Bennett Fluorometho 2020-0 Yes Marquez 1 drop Memoria lone - Brandan into l 02:45: affected Bennett eye Myrbetriq 2020-0 Yes Marquez 1 tablet Memoria - Brandan l 02:45: Bennett Creon 2020-0 Yes Marquez as Memoria - Brandan directed l 02:45: Bennett Trazodone 2020-0 Yes Marquez 1 tablet Memoria HCl - Brandan at bedtime l 02:45: Bennett Lamotrigine 2020-0 Yes Marquez 2 tablets Memoria 5- Brandan l 02:45: [place] Aspir-81 2020-0 Yes Marquez 1 tablet M emoria 5-29 Brandan l 02:45: Bennett Metoprolol 2020-0 Yes Marquez 1 capsule Memoria Succinate - Brandan l 02:45: Sulfasalazi 2020-0 Yes Marquez 1 tablet Memoria ne - Brandan l 02:45: Lorazepam 2020-0 Yes Marquez 1 tablet Memoria - Brandan as needed l 02:45: Fluoxetine 2020-0 Yes Marquez 3 capsule Memoria HCl - Brandan l 02:45: Hyoscyamine 2020-0 Yes Marquez 1 tablet Memoria Sulfate - Brandan as needed l 02:45: Dexilant 2020-0 Yes Marquez 1 capsule Memoria 12-19 Brandan l 02:45: Nitrofurant 2019-0 Yes Marquez not Me moria oin 12-19 Brandan defined l 02:45: Vitamin D 2020-0 Yes Marquez 1 capsule Memoria (Ergocalcif 12-19 Brandan l melinda) 02:45: Losartan 2019-0 Yes Marquez 1 tablet M emoria Potassium 12-19 Brandan l 02:45: Amoxicillin 2019-0 Yes Marquez 1 tablet Memoria - Brandan l 02:45: Methotrexat 2019-0 Yes Marquez 5 tablets Memoria e - Brandan l 02:45: PredniSONE 2019-0 Yes Marisol 1-2 M emoria 5-28 Vo tablets as l 00:00: needed for joint pain Leflunomide 2020-0 Yes Marquez 1 tablet Memoria 5-28 Brandan l 00:00: Folic Acid 2019- Yes Marisol 3 tablets Memoria 2-09 Vo l 00:00: Folic Acid 2019- Yes Marisol 3 tablets Memoria 1-24 Vo l 00:00: Methotrexat 2018- Yes Marisol 8 tablets Memoria e 1-19 Vo l 03:45: Folic Acid 0 Yes Marisol 1 tablet Memoria 8-27 Vo l 00:00: Tramadol Yes Marisol 1 tablet Memoria HCl 8-27 Vo as needed l 00:00: Tramadol Yes Marisol 1 tablet Memoria HCl 7-31 Vo as needed l 02:46: [place] 14 Celecoxib 2019-0 Yes Marisol 1 capsule Memoria 7-31 Vo with food l 02:46: Bennett 14 Celecoxib 2019-0 Yes Marisol 1 capsule Memoria 6-28 Vo with food l 00:00: Methotrexat 2019-0 Yes Marisol as Memoria e 6-03 Vo directed l 00:00: Folic Acid 2019-0 Yes Marisol 1 tablet Memoria 5-21 Vo l 00:00: Methotrexat 2019-0 Yes Marisol 8 tablets Memoria e 5-21 Vo l 00:00: Vital Signs Vital Name Observation Time Observation Value Comments Source Systolic blood 2020-02-11 13:02:00 115 mm[Hg] [place] n [place] pressure Diastolic blood 2020-02-11 13:02:00 72 mm[Hg] [place] [facility] pressure Heart rate 2020-02-11 13:02:00 77 /min [place] [facility] Body temperature 2020-02-11 13:02:00 36.5 Jackie [place] Body height 2020-02-11 13:02:00 163.8 cm [place] [facility] Body weight 2020-02-11 13:02:00 84.006 kg [place] [facility] BMI 2020-02-11 13:02:00 31.30 kg/m2 [place] [facility] Weight 2019-03-18 15:30:00 [facility] [place] Height 2019-03-18 15:30:00 [facility] [place] Heart Rate 2019-03-18 15:30:00 [facility] [place] Diastolic (mm Hg) 2019-03-18 15:30:00 Mem orial [place] Systolic (mm Hg) 2019-03-18 15:30:00 Yung rial [place] Weight 2019-01-18 15:30:00 [facility] [place] Height 2019-01-18 15:30:00 [facility] [place] Heart Rate 2019-01-18 15:30:00 [facility] [place] Diastolic (mm Hg) 2019-01-18 15:30:00 Mem orial [place] Systolic (mm Hg) 2019-01-18 15:30:00 Ynug rial [place] Weight 2018-12-11 16:30:00 [facility] [place] Height 2018-12-11 16:30:00 [facility] [place] Heart Rate 2018-12-11 16:30:00 [facility] [place] Diastolic (mm Hg) 2018-12-11 16:30:00 Mem orial [place] Systolic (mm Hg) 2018-12-11 16:30:00 Yung riadwaine Bennett Procedures Procedure Date / Time Performed Performing Clinician [facility] e HC COMPLETE BLD COUNT 2020-02-11 16:04:00 Carina Gilliam [facility] W/AUTO DIFF [place] COMPREHENSIVE METABOLIC 2020-02-11 16:04:00 Carina Gilliam [facility] PANEL [place] FOLATE LEVEL 2020-02-11 16:04:00 Carina Gilliam Wy thodist [place] HOMOCYSTINE, PLASMA 2020-02-11 16:04:00 Carina Gilliam [facility] [place] VITAMIN B12 LEVEL 2020-02-11 16:04:00 Carina Gilliam [facility] [place] THYROID STIMULATING 2020-02-11 16:04:00 Carina Gilliam HORMONE [place] T4, FREE 2020-02-11 16:04:00 Carina Gilliam Wy thodist [place] VITAMIN D 25 HYDROXY 2020-02-11 16:04:00 Carina Gilliam on [facility] LEVEL [place] ESTIMATED GFR 2020-02-11 16:04:00 Carina Gilliam Wy thodist [place] CT HEAD EXTERNAL STUDY 2019-02-28 20:12:00 [address] [facility] [place] [address] HEAD EXTERNAL STUDY 2019-02-28 18:20:00 Carina Gilliam [facility] [place] Plan of Care Planned Activity Planned Date Details Comments Source Future Scheduled 2020-02-22 INFLUENZA VACCINE Roverto kulkarni [facility] Test 00:00:00 [code = INFLUENZA VACCINE] Future Scheduled 2014-01-21 SHINGLES VACCINES Roverto kulkarni [facility] Test 00:00:00 (#2) [code = SHINGLES VACCINES (#2)] Future Scheduled 2008 65+ PNEUMOCOCCAL Itz Decker Test 00:00:00 VACCINE (2 of 2 - PPSV23) [code = 65+ PNEUMOCOCCAL VACCINE (2 of 2 - PPSV23)] Future Scheduled 1993 COLONOSCOPY SCREENING [place] [facility] Test 00:00:00 [code = COLONOSCOPY SCREENING] Medication 2020-03-18 Celecoxib [code = [facility] ermann 00:00:00 [id number]] Encounters Start End Encounter Admission Attending Care Care Encounter Source Date/Time Date/Time Type Type Clinicians Facility Department ID 2020-02-24 2020-02-24 Office FIGUEROA Moscoso [id number] 15:16:50 17:16:51 Visit Asad AMBULATOR [id number] Tyler Y [id number] 2020-02-11 2020-02-11 Outpatient [facility] [id number] [place] 00:00:00 00:00:[address] 2020-02-11 2020-02-11 Outpatient [facility] [id number] [place] 00:00:00 00:00:00 MOHAMMAD [address] 2020-01-27 2020-01-27 Outpatient [facility] [id number] [place] 00:00:00 00:00:00 [address]AD [address] 2020-01-27 2020-01-27 Outpatient [facility] [id number] [place] 00:00:00 00:00:00 M[address]AMMAD [address] 2020-01-14 2020-01-14 Outpatient PRL - PRL - [id number] eClinic 22:52:00 22:52:00 [facility]umat[facility] 2019-12-30 2019-12-30 Outpatient PRL - PRL - [id number] eClinic 13:29:00 13:29:00 [facility]umatol [facility] 2019-12-19 2019-12-19 Outpatient RANJAN COLLINSU - [id number] eClinic 09:45:00 09:45:00 Rheumatol [facility] 2019-10-25 2019-10-25 Outpatient RANJAN COLLINSU - [id number] eClinic 12:17:00 12:17:00 [facility]umatol [facility] 2019-08-15 2019-08-15 Office Jackie Hurt [facility] [id number] 12:23:42 12:58:42 Visit 3, Ods AMBULATOR [id number] Y [id number] 2019-06-07 2019-06-07 Outpatient RANJAN - RANJAN - [id number] eClinic 09:32:00 09:32:00 Rheumatol [facility] 2019-03-18 2019-03-18 Outpatient PRL - PRL - [id number] eClinic 10:30:00 10:30:00 Rheumatol [facility] 2019-01-18 2019-01-18 Outpatient PRL - PRL - [id number] eClinic 10:30:00 10:30:00 Rheumatol [facility] 2018-12-24 2018-12-24 Outpatient [facility]ANJ[facility] - [id number] eClinic 09:36:00 09:36:00 Rheumatol [facility] 2018-12-20 2018-12-20 Outpatient PRL - PRL - [id number] eClinic 16:08:00 16:08:00 Rheumatol [facility] 2018-12-11 2018-12-11 Outpatient PRL - PRL - [id number] eClinic 11:30:00 11:30:00 Rheumatol [facility] Results Test Description Test Time Test Comments Results Result Comments Source Vitamin D 25 hydroxy level 2020-02-11 18:13:25 Test Item Value Reference Range Interpretation Comme nts Vitamin D, 25-hydroxy (test 59.9 ng/mL 30-150 This assay reports the sum of code = 1989-3) 25-hydroxy vi tamin D3 and 25-hydroxy vitamin D2. Ref erence range:0-17 years:Deficienc y: less than 20ng/mLOptimum level: greater than or equal to 20 ng/ mL.18 years and older:Deficienc y: less than 20ng/mLInsuffic iency: 20-29 ng/mLOptimum Le yoshi: 30-80 ng/mLThe assay reportabl e range is 3.4 155.9 ng/mL. Levels h igher than 150 ng/mL may be associat ed with toxicity.If toxicity is cli nically suspected and the reported re sult is >155.9 ng/mL,contact l ab for alternative methods to obta in a definitive level.If separa te quantitation of 25-hydroxy earnest min D3 and 25-hydroxy vitamin D2 is n eeded, please contact lab for alterna tive methods. [place] MethodistVitamin B12 [id number] 17:11:39 Test Item Value Reference Range Interpretation Comments Vitamin B12 (test 480 pg/mL 211-946 Significan t overlap code = 2-9) exists betwee n normal and deficiency states.However, most patients with deficiencies wi ll have Serum B12 <2 00 pg/mL. [place] MethodgiaFolate [id number] 17:11:39 Test Item Value Reference Range Interpretation Comments Folate (test code = 2284-8) >20.0 4.8-24.2 [place] MosqueThyroid stimulating [id number] 17:06:13 Test Item Value Reference Range Interpretation Comments TSH (test code = 3016-3) 0.71 0.27- 4.20 uIU/mL Itz DeckerT4, [id number] 17:06:12 Test Item Value Reference Range Interpretation Comments T4, free (test code = 3024-7) 1.2 ng/dL 0.9-1.7 Itz DeckerComprehensive metabolic [id number] 17:00:52 Test Item Value Reference Range Interpretation Comments Sodium (test code = 142 135- 148 mEq/L 2951-2) Potassium (test code = 4.4 3.5- 5.0 mEq/L 2823-3) Chloride (test code = 103 98- 112 mEq/L 5-0) CO2 (test code = 2027-9) 27 24- 31 mEq/L Anion gap (test code = 12@ANIO 7- 15 mEq/L 54060-7) BUN (test code = 3094-0) 18 mg/dL 8-23 Creatinine (test code = 0.94 mg/dL 0.5-0.9 H 2160-0) Glucose (test code = 104 mg/dL 65-99 H 2345-7) Calcium (test code = 9.3 mg/dL 8.8-10.2 65074-8) Protein (test code = 6.9 g/dL 6.3-8.3 -[place] n 2885-2) 4.6-7.0 g/dL1 week 4.4-7 .6 g/dL7 months-1y ear 5.1-7 .3 g/dL1-2 years 5.6-7 .5 g/dL>3 years 6.0-8 .0 g/dK36-868 6.3-8 .3 g/dL Albumin (test code = 3.6 g/dL 3.5-5 175-) A/G ratio (test code = 1.1 0.7-3.8 1759-0) Alkaline phosphatase 101 U/L 35-104 (test code = 6768-6) AST (test code = 1920-8) 24 U/L 10-35 ALT (test code = 1742-6) 19 U/L 5-50 Total bilirubin (test 0.3 mg/dL 0-1.2 code = 1974-) Lab Interpretation (test Abnormal code = 07160-1) Itz MethodistEstimated [id number] 17:00:52 Test Item Value Reference Range Interpretation Comments Estimated GFR (test 59 mL/min/1.73 m2 A Haim bustos Units code = 5488) InterpretationG 1 >=90 Heidy l or highG2 60-89 Mildly decrease dG3a 45-59 Mil dly to moderately decr ufrhwF7n 30-44 Moderately to s everely decreasedG4 15-29 Severe ly decreasedG5 <15 Kidney teetee lureThe eGFR was calcul ated using the Chron Kidney Disease Epidemiology Collaboration ( CKD-EPI) equation. Interpretation is based on recommendati ons of the National Ki dney Foundation-Kidn ey Disease Outcome s Quality Initiat bridgette (NKF-KDOQI) pub lished in 2013. Lab Interpretation Abnormal (test code = 82745-6) Itz PattersonistHomocystine, [id number] 16:58:15 Test Item Value Reference Range Interpretation Comments Homocysteine (test 10.1 umol/L 0-15 The risk for coronary code = 01852-5) vascular dis ease increases progressively w ith homocysteine concentration. A 3.4 times greater r isk is associated wit h a homocysteine concentration o f greater than 15.8 umol/L as rosalino red to a concentration below 14.1 umol/L. [facility] MethodistCB with platelet and [id number] 16:24:49 Test Item Value Reference Range Interpretation Comments WBC (test code = 09043-9) 6.35 4.50- 11.00 k/uL RBC (test code = 27675-2) 4.57 m/uL 4.2-5.5 HGB (test code = 718-7) 12.9 g/dL 12-16 HCT (test code = 4544-3) 42.0 % 37-47 MCV (test code = 787-2) 91.9 fL 82-100 MCH (test code = 785-6) 28.2 pg 27-34 MCHC (test code = 786-4) 30.7 g/dL 31-37 L RDW - SD (test code = 43.9 fL 37-55 66330-3) MPV (test code = 26204-5) 10.9 fL 8.8-13.2 Platelet count (test code 210 150- 400 k/uL = 52929-4) Nucleated RBC (test code 0.00 /100 WBC = 36593-7) Neutrophils (test code = 48.7 % 39-69 65390-5) Lymphocytes (test code = 34.3 % 25-45 11885-7) Monocytes (test code = 13.5 % 0-10 H 82735-4) Eosinophils (test code = 1.9 % 0-5 91724-1) Basophils (test code = 1.4 % 0-1 H 35328-0) Immature granulocytes 0.2 % 0-1 "Immat ure (test code = 31834-2) granul ocytes" (promyelocytes, myelocytes, metamyelocytes) Lab Interpretation (test Abnormal code = 41261-0) Itz PattersonistCT Head External [id number] 15:28:32This exam was not acquired at a [facility] facility and has not been interpreted by a [facility] Provider. The exam was imported into our imaging system.Itz Decker
[2020-02-26] MEDS ORDERED: LIDOCAINE 1% W/EPI 1:100,000 MDV 20 ML VIAL ONE (19:55)
--- NOTE | 2020-02-26 20:40 | RAD REPORT ---
EXAM DESCRIPTION: CT - CTHCSPWOC - 02/26/2020 8:16 pm CLINICAL HISTORY: fall, head and neck injury COMPARISON: No comparisons TECHNIQUE: Axial 5 mm thick images of the head were obtained. Axial 2 mm thick images of the cervic al spine were obtained with sagittal and coronal reconstruction images generated and reviewed. All CT scans are performed using dose optimization technique as appropriate and may include automated exposure control or mA/KV adjustment according to patient size. FINDINGS: No intracranial hemorrhage, mass, edema or acute intracranial finding. No suspicion for ac [place] infarction. No cortical edema or sulcal effacement. Atrophy is minimal. Patchy chronic ischemic c hanges are present in the cerebral white matter. Ventricles are in proportion to any volume loss. Mas toid air cells and paranasal sinuses are clear. No globe or orbit abnormality seen. Cervical bodies are normal in height. Slight anterior subluxation of C4 on C5 due to facet degenerati ve change. Advanced C6-7 degenerative disc disease with disc space narrowing and large endplate spurr ing. Advanced facet joint degenerative change at C3-4 with mild bony foraminal encroachment. Prominen t facet degenerative changes are present throughout the cervical spine. No fracture or acute bony abn ormality. Central canal detail is inherently limited. No paraspinal mass or hematoma. IMPRESSION: Patchy chronic ischemic change with no hemorrhage, edema or acute intracranial finding. Advanced cervical spine degenerative change as detailed. No acute cervical spine finding.
--- NOTE | 2020-02-26 20:41 | RAD REPORT ---
EXAM DESCRIPTION: RAD - Hand Left 3 View - 02/26/2020 8:26 pm CLINICAL HISTORY: PAINfall, hand pain COMPARISON: None. FINDINGS: No fracture, dislocation or periosteal reaction noted. Advanced IP joint degenerative villeda ges are present. Hyper extension is present at the second-fourth PIP joints. No destructive bone proc ess. MCP joints are generally spared. Trapezii M first metacarpal degenerative changes present but re latively mild. Scaphoid trapezium degenerative change also present. No foreign body. IMPRESSION: Advanced degenerative change at the IP joints of the hand. No acute finding.
--- NOTE | 2020-02-26 20:42 | RAD REPORT ---
EXAM DESCRIPTION: RAD - Elbow Right 3 View - 02/26/2020 8:26 pm CLINICAL HISTORY: fall;Pain COMPARISON: No comparisons FINDINGS: No fracture is identified and no elevated posterior fat pad. There is no dislocation or pe riosteal reaction noted. No foreign body or other soft tissue abnormality. No other significant findi ng. Degenerative changes minimal. IMPRESSION: Negative right elbow examination.
--- NOTE | 2020-02-26 20:43 | RAD REPORT ---
EXAM DESCRIPTION: RAD - Wrist Right 3 View - 02/26/2020 8:26 pm CLINICAL HISTORY: PAIN, fall COMPARISON: No comparisons FINDINGS: No fracture is identified. There is no dislocation or periosteal reaction noted. Degenerat bridgette changes are present at the scaphoid trapezium and trapezium first metacarpal articulations. Hand IP joint degenerative change separately detailed. No foreign body or other soft tissue abnormality. IMPRESSION: Right wrist degenerative change present around the trapezium bone. No acute findings octavio ntifiable.
--- NOTE | 2020-02-26 21:23 | ER ---
Nurse's Notes [facility] Name: Dread Thompson Age: 74 yrs Sex: Female : 1945 Arrival Date: 02/26/2020 Time: 19:18 Bed 2 Private MD: Diagnosis: Laceration with foreign body of unspecified part of head;Pain in right wrist;Pain in right elbow;Pain in left hand;Fall on same level from slipping, tripping and stumbling Presentation: 02/25 19:23 Chief complaint: Patient's son or daughter states: daughter: She has early Dementia and ca1 has balance problem. She tripped and fall, landed on her R side. Denies LOC. Lac on R nondenominational. Lac on R forearm, Lac on R hand. Pain on digit of L hand. Pt on Baby Aspirin. Coronavirus screen: Client denies travel out of the [place] in the last 14 days. At this time, the client does not indicate any symptoms associated with coronavirus-19. Ebola Screen: Patient negative for fever greater than or equal to 101.5 degrees Fahrenheit, and additional compatible Ebola Virus Disease symptoms Patient denies exposure to infectious person. Patient denies travel to an Ebola-affected area in the 21 days before illness onset. No symptoms or risks identified at this time. Initial Sepsis Screen: Does the patient meet any 2 criteria? No. Patient's initial sepsis screen is negative. Does the patient have a suspected source of infection? No. Patient's initial sepsis screen is negative. Risk Assessment: Do you want to hurt yourself or someone else? Patient reports no desire to harm self or others. Onset of symptoms was February 26, 2020. 19:23 Method Of Arrival: Wheelchair ca1 19:23 Acuity: MAGALY 2 ca1 20:21 Care prior to arrival: None. Mechanism of Injury: Fall from standing position. Trauma lp1 event details: Injury occurred in the [facility], Injury occurred: at home. Injury occurred: February 26, 2020. Trauma Activation: Alert Physician: ED Physician; Name: Wei; Notified At: 19:25; Arrived At: 19:25 Physician: General Surgeon; Name: N/A; Notified At: 19:25; Arrived At: Physician: Radiology; Name: Ashley Culp Jason; Notified At: 19:25; Arrived At: 19:27 Physician: Respiratory; Name: N/A; Notified At: 19:25; Arrived At: Physician: Lab; Name: N/A; Notified At: 19:25; Arrived At: Historical: - Allergies: 19:39 Sulfa (Sulfonamide Antibiotics); ca1 - Home Meds: 19:39 aspirin 81 mg Oral TbEC 1 tab once daily [Active]; pravastatin Oral [Active]; ca1 - PMHx: 19:39 Atrial fibrillation; Heart Murmur; High Cholesterol; Hypertension; ca1 - PSHx: 19:39 cornea transplants; Cholecystectomy; Hysterectomy; Appendectomy; Tonsillectomy; Raciel ca1 knee replacement; back sx; bunionectomy; - Immunization history:: Adult Immunizations up to date, Last tetanus immunization: unknown. - Social history:: Smoking status: Patient denies any tobacco usage or history of. Screenin:00 Abuse screen: Denies threats or abuse. Denies injuries from another. Nutritional lp1 screening: No deficits noted. Tuberculosis screening: No symptoms or risk factors identified. Fall Risk Total Pop Fall Scale indicates High Risk Score (45 or more points). Fall prevention measures have been instituted. Side Rails Up X 2 Family Present and informed to notify staff if the need to leave the bedside As available patient and family educated on Fall Prevention Program and Strategies. Primary Survey: 19:30 NO uncontrolled hemorrhage observed. A: The patient is alert. Airway: patent, No lp1 supplemental oxygen in use on arrival. Breathing/Chest: Respiratory pattern: regular, Respiratory effort: spontaneous, unlabored. Circulation: Skin temperature: warm, dry. Disability Alert. Exposure/Environment: All clothing and personal items were removed. Obvious injury(ies) are noted at this time: Laceration to right temporal; abrasion to right forearm. 21:00 Reassessment Breathing/Chest Respiratory pattern Regular Respiratory effort Spontaneous lp1 Unlabored. Secondary Survey: 19:30 HEENT: Face Other Laceration to right temporal, abrasion to right forearm; not actively lp1 bleeding. Gastrointestinal: No deficits noted. : No signs and/or symptoms were reported regarding the genitourinary system. Musculoskeletal: Range of motion: intact in all extremities. Assessment: 19:30 General: Appears in no apparent distress. Behavior is calm, cooperative. Pain: lp1 Complains of pain in right nondenominational. Neuro: Level of Consciousness is awake, alert, obeys commands, Oriented to person, place, situation. EENT: No signs and/or symptoms were reported regarding the EENT system. Cardiovascular: Patient's skin is warm and dry. Respiratory: Airway is patent Respiratory effort is even, unlabored. GI: Abdomen is non-distended. : No signs and/or symptoms were reported regarding the genitourinary system. Derm: Skin is fragile, is thin, Skin is dry, Skin is normal, Wound noted Wound is laceration to right nondenominational, abrasion to right forearm. Musculoskeletal: Range of motion: intact in all extremities. 20:45 Reassessment: Patient appears in no apparent distress at this time. Patient is alert, lp1 oriented x 3, equal unlabored respirations, skin warm/dry/pink. Daughter at bedside with patient. 22:03 Reassessment: Patient appears in no apparent distress at this time. Patient is alert, rr5 oriented x 3, equal unlabored respirations, skin warm/dry/pink. discharge instruction given and explained without complaints made. Patient states feeling better. Patient states symptoms have improved. Vital Signs: 19:23 BP 136 / 58; Pulse 76; Resp 18 S; Temp 99.3(O); Pulse Ox 97% on R/A; Weight 81.65 kg ca1 (R); Height 5 ft. 4 in. (162.56 cm) (R); 20:00 BP 142 / 70; Pulse 63; Resp 18; Pulse Ox 98% on R/A; lp1 21:00 BP 146 / 76; Pulse 65; Resp 18; Pulse Ox 98% on R/A; lp1 22:04 BP 135 / 75; Pulse 60; Resp 17; Pulse Ox 99% on R/A; rr5 19:23 Body Mass Index 30.90 (81.65 kg, 162.56 cm) ca1 Erin Coma Score: 19:30 Eye Response: spontaneous(4). Verbal Response: oriented(5). Motor Response: obeys lp1 commands(6). Total: 15. Trauma Score (Adult): 19:30 Eye Response: spontaneous(1); Verbal Response: oriented(1); Motor Response: obeys lp1 commands(2); Systolic BP: > 89 mm Hg(4); Respiratory Rate: 10 to 29 per min(4); Erin Score: 15; Trauma Score: 12 ED Course: 19:18 Patient arrived in ED. cf2 19:24 Mane Leach PA is PHCP. cp 19:24 George Carvajal MD is Attending Physician. cp 19:30 Thermoregulation: warm blanket given to patient. lp1 19:30 Patient maintains SpO2 saturation greater than 95% on room air. lp1 19:36 Triage completed. ca1 19:39 Arm band placed on right wrist. ca1 19:42 Viviana Berkowitz, RN is Primary Nurse. lp1 19:45 Wound care: to laceration located on right nondenominational was irrigated with normal saline, ice lp1 pack applied. 20:16 CT Head C Spine In Process Unspecified. EDMS 20:17 Patient has correct armband on for positive identification. lp1 20:26 XRAY Elbow RIGHT 3 view In Process Unspecified. EDMS 20:26 XRAY Wrist RIGHT 3 view In Process Unspecified. EDMS 20:27 Hand Left 3 View In Process Unspecified. EDMS 21:15 Assist provider with laceration repair on right nondenominational that was between 2.6 to 7.5 cm lp1 using sutures. Set up tray. Performed by Mane LINDSEY. 21:16 Patient did not have IV access during this emergency room visit. lp1 Administered Medications: 21:14 Drug: Lidocaine-Epinephrine -1%: (1:100,000) 10 ml Volume: 20 ml; Route: Infiltration; lp1 22:03 Follow up: Response: No adverse reaction rr5 21:40 Drug: Tetanus-Diphtheria Toxoid Adult 0.5 ml {Data Analyst: [employer]. Exp: rr5 09/06/2021. Lot #: [id number]. } Route: IM; Site: left deltoid; 22:03 Follow up: Response: No adverse reaction rr5 Intake: 22:05 PO: 0ml; Total: 0ml. rr5 Outcome: 21:22 Discharge ordered by . cp 22:00 Patient's length of stay was not longer than 2 hours. rr5 22:04 Discharged to home via wheelchair, with family. rr5 22:04 Condition: stable 22:04 Discharge instructions given to patient, family, Instructed on discharge instructions, follow up and referral plans. Demonstrated understanding of instructions, follow-up care. 22:05 Patient left the ED. rr5 Signatures: Dispatcher [employer] EDMS Viviana Berkowitz RN RN lp1 Mane Leach PA PA cp Roque, Raymond, RN RN rr5 Heather Palacio RN RN ca1 Alfredito Jacques cf2 Corrections: (The following items were deleted from the chart) 20:22 19:23 Trauma Activation: Alert ca1 lp1
--- NOTE | 2020-02-26 21:23 | EDPHYS ---
Physician Documentation [facility] Name: Dread Thompson Age: 74 yrs Sex: Female : 1945 Arrival Date: 02/26/2020 Time: 19:18 Bed 2 Private MD: ED Physician George Carvajal HPI: 02/25 19:40 This 74 yrs old Female presents to ER via Wheelchair with complaints of Fall cp Injury, Laceration To Head, Laceration To Hand, on blood thinners. 19:40 Details of fall: The patient fell from an upright position, while walking, and struck a cp concrete surface. Onset: The symptoms/episode began/occurred just prior to arrival. Associated injuries: The patient sustained injury to the head, laceration, of the right jainism, swelling, tenderness, right arm, abrasion, ecchymosis, swelling, left hand, painful injury. Patient reports losing balance and falling to ground. No LOC. Historical: - Allergies: 19:39 Sulfa (Sulfonamide Antibiotics); ca1 - Home Meds: 19:39 aspirin 81 mg Oral TbEC 1 tab once daily [Active]; pravastatin Oral [Active]; ca1 - PMHx: 19:39 Atrial fibrillation; Heart Murmur; High Cholesterol; Hypertension; ca1 - PSHx: 19:39 cornea transplants; Cholecystectomy; Hysterectomy; Appendectomy; Tonsillectomy; Raciel ca1 knee replacement; back sx; bunionectomy; - Immunization history:: Adult Immunizations up to date, Last tetanus immunization: unknown. - Social history:: Smoking status: Patient denies any tobacco usage or history of. ROS: 19:45 Constitutional: Negative for body aches, chills, fever, poor PO intake. cp 19:45 Neck: Negative for stiffness. cp 19:45 Cardiovascular: Negative for chest pain, palpitations. 19:45 Respiratory: Negative for cough, shortness of breath, wheezing. 19:45 Abdomen/GI: Negative for abdominal pain, nausea, vomiting, and diarrhea. 19:45 Back: Negative for pain at rest, pain with movement. 19:45 MS/extremity: Positive for pain, of the left hand and right arm, Negative for paresthesias. 19:45 Skin: Positive for laceration(s), of the right jainism. 19:45 Neuro: Negative for altered mental status, loss of consciousness, syncope, weakness. 19:45 All other systems are negative. Exam: 19:45 Constitutional: The patient appears in no acute distress, alert, awake, non-toxic, well cp developed, well nourished. 19:45 Head/face: Noted is ecchymosis, that is mild, of the right jainism, a laceration(s), that is deep, of the right jainism, swelling, that is mild, of the right jainism. 19:45 Eyes: Periorbital structures: appear normal, Pupils: equal, round, and reactive to light and accomodation, Extraocular movements: intact throughout, Sclera: no appreciated abnormality, Lids and lashes: appear normal, bilaterally. 19:45 ENT: External ear(s): are unremarkable, Ear canal(s): are normal, clear, TM's: dullness, bilaterally, Nose: is normal, Mouth: Lips: moist, Oral mucosa: moist, Posterior pharynx: Airway: no evidence of obstruction, patent. 19:45 Neck: C-spine: C-collar placed in ED. 19:45 Chest/axilla: Inspection: normal, Palpation: is normal, no crepitus, no tenderness. 19:45 Cardiovascular: Rate: normal, Rhythm: regular, Edema: is not appreciated, JVD: is not appreciated. 19:45 Respiratory: the patient does not display signs of respiratory distress, Respirations: normal, no use of accessory muscles, no retractions, labored breathing, is not present, Breath sounds: are clear throughout, no decreased breath sounds. 19:45 Abdomen/GI: Inspection: abdomen appears normal, Palpation: abdomen is soft and non-tender. 19:45 Back: vertebral tenderness, is not appreciated. 19:45 Musculoskeletal/extremity: Extremities: grossly normal except: noted in the right elbow: tenderness, noted in the right wrist: abrasion, ecchymosis, swelling, tenderness, no evidence of decreased ROM, deformity, noted in the left hand: pain. 19:45 Neuro: Orientation: to person, place \T\ time. Mentation: is normal, Cerebellar function: is grossly normal, Motor: moves all fours, strength is normal, Sensation: is normal. Vital Signs: 19:23 BP 136 / 58; Pulse 76; Resp 18 S; Temp 99.3(O); Pulse Ox 97% on R/A; Weight 81.65 kg ca1 (R); Height 5 ft. 4 in. (162.56 cm) (R); 20:00 BP 142 / 70; Pulse 63; Resp 18; Pulse Ox 98% on R/A; lp1 21:00 BP 146 / 76; Pulse 65; Resp 18; Pulse Ox 98% on R/A; lp1 22:04 BP 135 / 75; Pulse 60; Resp 17; Pulse Ox 99% on R/A; rr5 19:23 Body Mass Index 30.90 (81.65 kg, 162.56 cm) ca1 Erin Coma Score: 19:30 Eye Response: spontaneous(4). Verbal Response: oriented(5). Motor Response: obeys lp1 commands(6). Total: 15. Trauma Score (Adult): 19:30 Eye Response: spontaneous(1); Verbal Response: oriented(1); Motor Response: obeys lp1 commands(2); Systolic BP: > 89 mm Hg(4); Respiratory Rate: 10 to 29 per min(4); Erin Score: 15; Trauma Score: 12 Laceration: 21:30 Wound Repair of 2.5cm ( 1.0in ) subcutaneous laceration to right jainism. Linear cp shaped.. Distal neuro/vascular/tendon intact. Anesthesia: Wound infiltrated with 4 mls of 1% lidocaine w/ Epi. Wound prep: Simple cleansing by nurse. Skin closed with 6 6-0 Prolene using simple sutures and sterile technique. Dressed with Bacitracin. Patient tolerated well. MDM: 19:31 Patient medically screened. cp 19:45 Differential diagnosis: closed head injury, contusion, fracture, laceration, multiple cp trauma, concussion, intracranial bleed. 21:21 Data reviewed: vital signs, nurses notes, radiologic studies, CT scan, plain films. cp 21:21 Counseling: I had a detailed discussion with the patient and/or guardian regarding: the cp historical points, exam findings, and any diagnostic results supporting the discharge/admit diagnosis, radiology results, to return to the emergency department if symptoms worsen or persist or if there are any questions or concerns that arise at home. Response to treatment: the patient's symptoms have markedly improved after treatment, and as a result, I will discharge patient. Special discussion: Based on the patient's history, exam and DX evaluation, there is no indication for emergent intervention or inpatient TX. It is understood by the patient/guardian that if the SXs persist or worsen they need to return immediately for re-evaluation. ED course: Results of radiology studies negative for fracture or intracranial bleed. Laceration closed as noted. Will discharge with family to home for continued monitoring. 02/25 19:35 Order name: CT Head C Spine; Complete Time: 20:50 cp 02/25 19:35 Order name: XRAY Wrist RIGHT 3 view; Complete Time: 20:50 cp 02/25 19:35 Order name: XRAY Elbow RIGHT 3 view; Complete Time: 20:50 cp 02/25 19:49 Order name: Hand Left 3 View; Complete Time: 20:50 EDMS 02/25 19:35 Order name: Gloves, Sterile; Complete Time: 20:21 cp 02/25 19:35 Order name: Setup Suture Tray; Complete Time: 20:21 cp 02/25 21:24 Order name: Wound dressing; Complete Time: 22:03 cp Administered Medications: 21:14 Drug: Lidocaine-Epinephrine -1%: (1:100,000) 10 ml Volume: 20 ml; Route: Infiltration; lp1 22:03 Follow up: Response: No adverse reaction rr5 21:40 Drug: Tetanus-Diphtheria Toxoid Adult 0.5 ml {Turnstile Attendant: [employer]. Exp: rr5 09/06/2021. Lot #: [id number]. } Route: IM; Site: left deltoid; 22:03 Follow up: Response: No adverse reaction rr5 Disposition: 21:35 Chart complete. cp Disposition: 02/26/20 21:22 Discharged to Home. Impression: Laceration with foreign body of unspecified part of head, Pain in right wrist, Pain in right elbow, Pain in left hand, Fall on same level from slipping, tripping and stumbling. - Condition is Stable. - Discharge Instructions: Facial Laceration, Wrist Pain, Hand Pain. - Medication Reconciliation Form, Thank You Letter, Antibiotic Education, Prescription Opioid Use form. - Follow up: Private Physician; When: 1 week; Reason: Staple/Suture removal. - Problem is new. - Symptoms have improved. Addendum: 02/28/2020 04:29 Co-signature as Attending Physician, George peck h7 Signatures: Dispatcher [employer] EDMS Viviana Berkowitz RN RN lp1 Mane Leach PA PA cp Roque, Raymond RN RN rr5 Heather Palacio RN RN ca1 George Carvajal MD MD 7 Corrections: (The following items were deleted from the chart) 02/25 22:05 21:22 02/26/2020 21:22 Discharged to Home. Impression: Laceration with foreign body of rr5 unspecified part of head; Pain in right wrist; Pain in right elbow; Pain in left hand; Fall on same level from slipping, tripping and stumbling. Condition is Stable. Forms are Medication Reconciliation Form, Thank You Letter, Antibiotic Education, Prescription Opioid Use. Follow up: Private Physician; When: 1 week; Reason: Staple/Suture removal. Problem is new. Symptoms have improved. cp
[2020-02-26] MEDS ORDERED: TETANUS & DIPHTHERIA TOX,ADULT 0.5 ML VIAL ONE (21:30)
[2020-02-26 22:10] VITALS: TEMP 99.3
[2020-02-26 22:14] VITALS: BP 135/75; O2SAT 99
== END 2020-02-26 22:05 | disposition home or self-care (01) ==
LOC: ER 19:17
PROC: 0JQ10ZZ Repair Face Subcutaneous Tissue and Fascia, Open Approach (ICD-10-PCS; principal; 2020-02-26)
DX: S01.81XA Laceration without foreign body of other part of head, initial encounter (principal); M25.521 Pain in right elbow; M79.642 Pain in left hand; W01.0XXA Fall on same level from slipping, tripping and stumbling without subsequent striking against object, initial encounter; Y93.01 Activity, walking, marching and hiking; Y92.9 Unspecified place or not applicable; Z23 Encounter for immunization; Z79.82 Long term (current) use of aspirin; Z88.2 Allergy status to sulfonamides; I10 Essential (primary) hypertension; E78.00 Pure hypercholesterolemia, unspecified; I48.91 Unspecified atrial fibrillation
CPT/HCPCS: 70450; 72125; 90471; 90714; 99284; G0390

== ENCOUNTER 2023-02-16 11:45 | Emergency (ER) | payer OTHER ==
--- OUTSIDE RECORDS SUMMARY | 2023-02-16 12:01 | XMS REPORT | Continuity of Care Document ---
:1945 Author Organization [facility] t Address [address] [facility] [address] [place] [id number] Care Team Providers Name Role Phone EMILYANYAGregg Blount Primary Care Physician Unavailable Rocío Hernández MD Attending Clinician ROCÍO HERNÁNDEZ Attending Clinician Unavailable ROCÍO HERNÁNDEZ Attending Clinician Unavailable Doctor Unassigned, [place] Attending Clinician Unavailable José Miguel MAHER, Gold Attending Clinician Unavailable Triston MAHER, Gee Pena Attending Clinician Unavailable DERICK CROFT Attending Clinician Unavailable Derick Croft DO Attending Clinician Kelly ARCOS, Paulette Somers Attending Clinician Jose Gaines MD Attending Clinician Mane RICHARDSON, Carina Walden Attending Clinician [phone] Andree Hu MD Attending Clinician Marvin Patel Attending Clinician Unavailable Louie Womack MD Attending Clinician [phone] Vandana Reis Attending Clinician Unavailable Ankit Madrigal PT Attending Clinician Unavailable Frank Gillette NP, Arina Merino Attending Clinician Provider, Unknown Attending Clinician Unavailable Kaylee RICHARDSON, Elbert Attending Clinician Orlando RICHARDSON, Gaudencio Pastrana Attending Clinician [phone] Brodie Ross MD Attending Clinician Ric RICHARDSON, Supa Hidalgo Attending Clinician Asked, No Pcp Attending Clinician Unavailable Deonna RICHARDSON, Michael Martinez Attending Clinician [phone] Brooke Luna Attending Clinician [phone] KELSEY BISHOP Attending Clinician Unavailable [facility] Attending Clinician Unavailable Jenny SOFIA, Melissa Attending Clinician MELISSA JASSO Attending Clinician Unavailable DERICK CROFT Admitting Clinician Unavailable Derick Croft DO Admitting Clinician Marvin Patel Admitting Clinician Unavailable JOSE GAINES Admitting Clinician Unavailable BRODIE ROSS Admitting Clinician Unavailable Payers Payer Name Policy Type Policy Number Effective Date Expiration Date Lauri machado AETARACELY MANAGED [id number] 2022 MEDICARE PPO-COLE 00:00:00 Problems Condition Condition Condition Status Onset Resolution Last Treating Co mments Source Name Details Category Date Date Treatment Clinician Date Pancolitis Pancolitis Disease Active 0 U nivers 6-29 ity of 00:00: [address] Pseudophak Pseudophak Disease Active 0 M ethodi ia ia 09-23 st 00:00: Hospita 00 l Cupping of Cupping of Disease Active 0 M ethodi optic optic 3 st disc, left disc, left 00:00: Ho spita 00 l Degenerati Degenerati Disease Active 0 M ethodi ve drusen ve drusen 3 st of both of both 00:00: Hospita eyes eyes 00 l History of History of Disease Active 0 M ethodi Descemet Descemet 3 st membrane membrane 00:00: Hospit a endothelia endothelia 00 l l l keratoplas keratoplas ty (DMEK) ty (DMEK) 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 2-20 st 00:00: Hospita 00 l Acute Acute Disease Active 2021-07 Methodi left-sided left-sided 0-19 st thoracic thoracic 00:00: Hospit a back pain back pain 00 l Hemorrhoid Hemorrhoid Disease Active 2018-07 U araceli s s 0-14 ity of 00:00: [place] [facility] Incontinen Incontinen Disease Active 2018-07 U araceli ce of ce of 0-14 ity of feces feces 00:00: [place] [facility] Bladder Bladder Disease Active 2018-07 Univers dysfunctio dysfunctio 0-14 it y of n n 00:00: [place] [facility] Fibromyalg Fibromyalg Disease Active 0 U araceli ia ia 8-17 ity of 00:00: [place] [facility] Myalgia Myalgia Disease Active 2016 Univers 4-13 ity of 00:00: [place] [facility] 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 5-05 it y of itis of itis of 00:00: [place] hand hand 00 Medical Branch Pinguecula Pinguecula Disease Active 2015-0 U araceli 3-23 ity of 00:00: [place] [facility] Ischial Ischial Disease Active 2015-0 Univers bursitis bursitis 2-05 ity of 00:00: [place] 00 [facility] Enteropath Enteropath Disease Active 0 U araceli ic ic 8-05 [facility] of arthritis arthritis [place] Dermatocha Dermatocha Disease Active 0 U araceli lasis lasis 4-30 ity of 00:00: [place] [facility] Conjunctiv Conjunctiv Disease Active 0 U araceli al lesion al lesion 4-17 ity of 00:00: [place] 00 [facility] Conjunctiv Conjunctiv Disease Active U araceli al lesion al lesion 4-17 ity of 00:00: [place] 00 [facility] Degenerati Degenerati Disease Active 0 U araceli ve joint ve joint 1-15 ity of disease disease 00:00: [place] (DJD) of (DJD) of 00 Medica l lumbar lumbar Branch spine spine Hypothyroi Hypothyroi Disease Active U araceli dism dism 1-15 ity of 00:00: [place] 00 [facility] Pseudophak Pseudophak Disease Active U nivers ia ia 6-25 ity of 00:00: [place] [facility] 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 00:[place] [facility] 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 [place] [facility] Pseudophak Pseudophak Disease Active U nivers ia ia 6-25 ity of 00:00: [place] 00 [facility] Imbalance Imbalance Problem Active 2022-02-02 Memoria Active 02:45:38 l Problem [place] 02/02/2022 [facility] Inflammato Inflammat Problem Active 2022-02-02 Memoria ry ory 02:45:38 l polyarthro polyarthro He rmele mehdi mehdi Active Problem 02/02/2022 [facility] Elevated Elevated Problem Active 2022-02-02 Memoria C-reactive C-reactive 02:45:38 l protein protein [place] (CRP) (CRP) Active Problem 02/02/2022 [facility] Adverse Adverse Problem Active 2022-02-02 Me moria effect of effect of 02:45:38 l unspecifie unspecifie He rmann d drugs, d drugs, medicament medicament s and s and biological biological substances substances , initial , initial encounter encounter Active Problem 02/02/2022 [facility] 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, sis, 02:45:38 l unspecifie unspecifie He rmann d type d type Active Problem 02/02/2022 [facility] Memory Memory Problem Active 2022-02-02 Yung jad loss loss 02:45:38 l Active [place] Problem 02/02/2022 [facility] Rheumatoid Rheumatoi Problem Active 2022-02-02 Memoria arthritis d 02:45:38 l without arthritis Himanshu n rheumatoid without factor, rheumatoid multiple factor, sites multiple sites Active Problem 02/02/2022 [facility] Encounter Encounter Diagnosis Active 2020-08-28 Memoria for for 03:46:38 l screening screening Herm ele for other for other metabolic metabolic disorders disorders Active Diagnosis 08/28/2020 [facility] Vitamin D Vitamin Problem Active 2022-02-02 Memoria deficiency D 02:45:38 l deficiency Himanshu n Active Problem 02/02/2022 [facility] Hair loss Hair loss Diagnosis Active 2022-02-02 Memoria Active 02:45:38 l Diagnosis [place] 02/02/2022 [facility] Elevated Elevated Diagnosis Active 2020-08-28 Memoria sedimentat sedimentat 03:46:39 l ion rate ion rate Himanshu n Active Diagnosis 08/28/2020 [facility] Pain in Pain in Diagnosis Active 2020-01-17 Memoria joint joint 02:45:53 l involving involving Herm ele multiple multiple sites sites Active Diagnosis 01/17/2020 [facility] Screening Screening Diagnosis Active 2021-02-05 Memoria for for 02:45:02 l tuberculos tuberculos He rmann is is Active Diagnosis 02/05/2021 [facility] Pain in Pain in Diagnosis Active 2021-06-03 Memoria left hand left hand 03:45:07 l Active [place] Diagnosis 06/03/2021 [facility] Pain in Pain in Diagnosis Active 2021-06-03 Memoria right hand right hand 03:45:07 l Active [place] Diagnosis 06/03/2021 [facility] Asymptomat Diagnosis Active 2022-02-02 Memoria ic Asymptomat 02:45:38 l postmenopa ic Himanshu n usal state postmenopa usal state Active Diagnosis 02/02/2022 [facility] Shortness Shortness Diagnosis Active 2019-03-19 Memoria of breath of breath 02:45:36 l Active [place] Diagnosis 03/19/2019 [facility] Heartburn Heartburn Diagnosis Active 2019-03-19 Memoria Active 02:45:36 l Diagnosis [place] 03/19/2019 [facility] Osteoarthr Osteoarth Problem Active 2022-02-02 Memoria itis ritis 02:45:38 l Active [place] Problem 02/02/2022 [facility] 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 02:45:38 l disorder, disorder, Herm ele single single episode, episode, unspecifie unspecifie d d Active Problem 02/02/2022 [facility] Benign Benign Problem Active 2022-02-02 Yung jad essential essential 02:45:38 l hypertensi hypertensi He rmann on on Active Problem 02/02/2022 [facility] Long-term Long-term Problem Active 2022-02-02 Memoria use of use of 02:45:38 l high-risk high-risk Herm ele medication medication Active Problem 02/02/2022 [facility] Allergies, Adverse Reactions, Alerts Allergy Allergy Status Severity Reaction(s) Onset Inactive Treating Comm ents Source Name Type Date Date Clinician Codeine Codeine Active dizziness Memor ia Sulfate Sulfate 7-12 l 00:00: Methotre Methotre Active Info Not Yung jad xate xate Available 7-12 l 00:00: Bactrim Bactrim Active rash Memoria 7-12 l 00:00: Codeine Propensi Active Other (See 2020-07 Affects Me thodi Sulfate ty to Comments) 0-19 mood, st adverse 00:00: makes pt Hospita reaction 00 feels l s to depressed drug Sulfa Propensi Active Hives 2020-0 Univers (Sulfona ty to 8-15 ity of mide adverse 00:00: [place] Antibiot reaction 00 Medica l ics) s Branch SULFA Drug Active Hives 2020-0 Univers (SULFONA Class 8-15 ity of MIDE 00:00: [place] ANTIBIOT 00 Medical ICS) Branch Sulfa Propensi Active Hives 2020-0 Univers (Sulfona ty to 8-15 ity of mide adverse 00:00: [place] Antibiot reaction 00 Medica l ics) s Branch Sulfa Propensi Active Rash 2019-0 Methodi (Sulfona ty to 7-21 st mide adverse 00:00: Hospita Antibiot reaction 00 l ics) s to drug Sulfamet Propensi Active Unknown Metho di hoxazole ty to Reaction 7-20 st -Trimeth adverse 00:00: Hospita oprim reaction 00 l s to drug adhesive DA Active [facility] tape 3-27 Woman's 00:00: Hospita 00 l of [place] Adhesive Propensi Active Other (See Me thodi Tape-Monika ty to Comments) 3-27 st icones adverse 00:00: Hospita reaction 00 l s to drug adhesive DA Active SC REDNESS, 2012-0 [facility] tape IRRITATION 3-27 Pearla n 00:[facility] NO KNOWN Drug Active Univers ALLERGIE Class ity of S [place] [facility] Family History Family Member Diagnosis Comments Start Date Stop Date Source Natural brother Skin cancer [facility] Natural daughter Cristal[facility] Natural daughter Narcolepsy [facility] Natural daughter ADD / [facility] Natural father [facility]neur[facility] Maternal Mental illness [facility] Natural mother Irritable bowel [facility] Natural mother Obesity [facility]aternal [facility] Paternal Rectal cancer [facility] Natural sister Arthritis [facility] Natural sister GERD [facility] Natural sister Inflammatory bowel [facility] Natural son Heart attack [facility] Social History Social Habit Start Date Stop Date Quantity Comments Source History SDOH University o f Alcohol Std Drinks [place] [facility] History SDOH University o f Alcohol Binge [place] [facility] History SDOH Social Unive rsity of Connections [facility] Med ical Together Branch History SDOH Social Unive rsity of Connections [facility] Medical Branch History SDOH Social Unive rsity of Connections [place] [facility] Membership Branch History SDOH Social Unive rsity of Connections [place] [facility] Meetings [facility] Gender identity [facility]it y [facility] [place] [facility] Sexual [facility] Exposure to Not sure University of SARS-CoV-2 (event) [place] [facility] History SDOH 2023-01-20 2023-01-20 1 University o f Alcohol Frequency 00:00:00 00:00:00 [place] M edical [facility] History SDOH Social 2023-01-20 2023-01-20 5 Unive rsity of Connections Phone 00:00:00 00:00:00 [place] M ed[facility] History SDOH Social 2023-01-20 2023-01-20 4 Unive rsity of Connections Living 00:00:00 00:00:00 [place] [facility] History SDOH 2023-01-20 2023-01-20 3 University o f Physical Activity 00:00:00 00:00:00 [place] [facility] DPW Branch History SDOH 2023-01-20 2023-01-20 1 University o f Physical Activity 00:00:00 00:00:00 [place] [facility] MPS Branch History SDVT 2023-01-20 2023-01-20 5 University o f Financial 00:00:00 00:00:00 [place] [facility] History SDOH Food 2023-01-20 2023-01-20 1 Univers ity of Worry 00:00:00 00:00:00 [place] [facility] History SDOH Food 2023-01-20 2023-01-20 1 Univers ity of Scarcity 00:00:00 00:00:00 [place] [facility] History SDOH 2023-01-20 2023-01-20 2 University o f Transport Med 00:00:00 00:00:00 [place] [facility] al [facility] History SDVT 2023-01-20 2023-01-20 2 University o f Transport Non-Med 00:00:00 00:00:00 [place] M edical [facility] History SDVT 2023-01-20 2023-01-20 2 University o f Housing Unable to 00:00:00 00:00:00 [place] [facility] Pay Branch History [facility] 2023-01-20 2023-01-20 1 University o f Housing Places 00:00:00 00:00:00 [place] [facility]i luis fernando Lived Branch History [facility] 2023-01-20 2023-01-20 2 University o f Housing Homeless 00:00:00 00:00:00 [place] [facility]ical Last Year Branch Tobacco use and 2023-01-19 2023-01-19 Smokeless Universit y of exposure 00:00:00 00:00:00 tobacco non-user [place] Me dical Branch Alcohol intake 2022-11-02 2022-11-02 Ex-drinker [facility] 00:00:00 00:00:00 (finding) Hospital History of Social 2022-11-02 2022-11-[address] function 00:00:00 00:00:00 Hospital Tobacco Comment 2022-05-03 2022-05-03 smoked Metho dist 00:00:00 00:00:00 Hospital Education 2020-02-10 2020-02-10 13 [facility] 00:00:00 00:00:00 Hospital Sex Ass[birth year] Universit y of 00:00:00 00:00:00 [place] [facility] Smoking Status Start Date Stop Date Source Unknown if ever smoked [facility] Never smoked tobacco [facility] Medications Ordered Filled Start Stop Current Ordering Indication Dosage Frequency Signature Comments Components Source Medication Medication Date Date Medication? Clinician (SIG) Name Name rivastigmin 0 2023- Yes [id number] 1{patch QD Place 1 Methodi e (EXELON) 01-23 } patch on st 9.5 mg/24 00:00: 04:59 the skin Hos melania hour 00 :00 daily. l lactobacill Yes .5mg 0.5 mg, Uni vers us 01-22 Oral, ity of acidophilus 14:00: [place] tablet 0.5 00 First dose Med ical mg on [place] 01/22/23 at 0900, Until Discontinu ed, Routine lactobacill 2022- Yes [id number] .5mg Take 1 Univers us 01-22 02 tablet by ity of acidophilus 00:00: 04:59 [place] :[place] the Medical morning Branch for 10 days. lactobacill 2022- Yes [id number] .5mg Take 1 Univers us 01-22 02 tablet by ity of acidophilus 00:00: 04:59 [place] :[place] the Medical morning Branch for 10 days. prednisoLON Yes 1[drp] Place 1 U nivers E acetate 1 7- Drop in ity o f % 16:39: both eyes [place] [address] at Medical suspension bedtime. Branc h drops foLIC acid Yes 1mg Take 1 Unive rs 1 mg tablet - tablet by ity of 16:39: mouth in [place] [address] the Medical morning. Branch pantoprazol Yes 20mg Take 1 Univ ers e 20 mg EC 7-01 tablet by ity of tablet 16:39: mouth in [place] [address] the Medical morning. Branch lamoTRIgine Yes 100mg Take 1 Uni vers 100 mg 7-01 tablet by ity of tablet 16:39: mouth in [place] [address] the Medical morning Branch and 1 tablet in the evening. Takes 1 tab in AM and at bedtime buPROPion 2022-0 Yes 300mg Take 1 Unive rs XL 300 mg 7-01 tablet by ity o f 24 hr 16:39: mouth in [place] [address] the Medical morning. Branch rivastigmin Yes 1{patch Apply 1 Univers e 9.5 mg/24 01-21 } Patch to ity of hour patch 16:39: skin at [place] [address] bedtime. Medical Pt Branch reported it was placed last night at bedtime traZODone 2022-0 Yes 50mg Take 1 Univer s 50 mg - tablet by ity of tablet 16:39: mouth at [place] [address] bedtime. Medical Branch candesartan 0 Yes 4mg Take 1 Univ ers 4 mg tablet 01-21 tablet by ity of 16:39: mouth at [place] [address] bedtime. Medical Took last Branch dose at bedtime 01/18/23 ETODOLAC 2022- Yes 400mg Take 400 Univ ers ORAL - mg by ity of 16:39: mouth in [place] [address] the Medical morning. Branch Takes it in the morning BABY Yes 81mg Take 81 mg Univers ASPIRIN 01-21 by mouth ity of ORAL 16:39: in the [place] [address] morning. Medical Last dose Branch taken at bedtime last night Cholestyram Yes 4g Take 1 Univ ers ine Light 4 01-21 Packet by ity of gram powder 16:39: mouth in [place] [address] the Medical morning Branch and 1 Packet at noon and 1 Packet in the evening. Take with meals. Pt reported she takes it NEEDED before meals; last dose unrecalled leflunomide Yes leflunomid Univers 20 mg 01-21 e 20 mg ity of tablet 16:39: tablet [place] [address] Medical Branch pravastatin 0 Yes pravastati Univers 20 mg - n 20 mg ity of tablet 16:39: tablet [place] [address] Medical [place] prednisoLON Yes 1[drp] Place 1 U nivers E acetate 1 - Drop in ity o f % 16:39: both eyes [place] [address] at [facility] bedtime. Branc h drops foLIC acid Yes 1mg Take 1 Unive rs 1 mg tablet 01-21 tablet by ity of 16:39: mouth in [place] [address] the Medical morning. Branch pantoprazol Yes 20mg Take 1 Univ ers e 20 mg EC - tablet by ity of tablet 16:39: mouth in [place] [address] the Medical morning. Branch lamoTRIgine Yes 100mg Take 1 Uni vers 100 mg 7- tablet by ity of tablet 16:39: mouth in [place] [address] the Medical morning Branch and 1 tablet in the evening. Takes 1 tab in AM and at bedtime buPROPion 0 Yes 300mg Take 1 Unive rs XL 300 mg 7- tablet by ity o f 24 hr 16:39: mouth in [place] [address] the Medical morning. Branch rivastigmin Yes 1{patch Apply 1 Univers e 9.5 mg/24 01-21 } Patch to ity of hour patch 16:39: skin at [place] [address] bedtime. Medical Pt Branch reported it was placed last night at bedtime traZODone 0 Yes 50mg Take 1 Univer s 50 mg - tablet by ity of tablet 16:39: mouth at [place] [address] bedtime. Medical Branch candesartan Yes 4mg Take 1 Univ ers 4 mg tablet 01-21 tablet by ity of 16:39: mouth at [place] [address] bedtime. Medical Took last Branch dose at bedtime 01/18/23 ETODOLAC Yes 400mg Take 400 Univ ers ORAL 7- mg by ity of 16:39: mouth in [place] [address] the Medical morning. Branch Takes it in the morning BABY Yes 81mg Take 81 mg Univers ASPIRIN 01-21 by mouth ity of ORAL 16:39: in the [place] [address] morning. Medical Last dose Branch taken at bedtime last night Cholestyram Yes 4g Take 1 Univ ers ine Light 4 - Packet by ity of gram powder 16:39: mouth in [place] [address] the Medical morning Branch and 1 Packet at noon and 1 Packet in the evening. Take with meals. Pt reported she takes it NEEDED before meals; last dose unrecalled leflunomide Yes leflunomid Univers 20 mg 7-01 e 20 mg ity of tablet 16:39: tablet [address] pravastatin 0 Yes pravastati Univers 20 mg 7-01 n 20 mg ity of tablet 16:39: tablet [address] prednisoLON Yes 1[drp] Place 1 U nivers E acetate 1 7- Drop in ity o f % 16:39: both eyes [facility] 11 at [facility] suspension bedtime. Branc h drops foLIC acid 2022-0 Yes 1mg Take 1 Unive rs 1 mg tablet 7-01 tablet by ity of 16:39: mouth in [place] [address] the Medical morning. Branch pantoprazol 0 Yes 20mg Take 1 Univ ers e 20 mg EC 7- tablet by ity of tablet 16:39: mouth in [place] [address] the Medical morning. Branch lamoTRIgine 2022-0 Yes 100mg Take 1 Uni vers 100 mg 7- tablet by ity of tablet 16:39: mouth in [place] [address] the Medical morning Branch and 1 tablet in the evening. Takes 1 tab in AM and at bedtime buPROPion 2022-0 Yes 300mg Take 1 Unive rs XL 300 mg 7- tablet by ity o f 24 hr 16:39: mouth in [place] [address] the Medical morning. Branch rivastigmin 0 Yes 1{patch Apply 1 Univers e 9.5 mg/24 01-21 } Patch to ity of hour patch 16:39: skin at [place] [address] bedtime. Medical Pt Branch reported it was placed last night at bedtime traZODone 2022-0 Yes 50mg Take 1 Univer s 50 mg 7- tablet by ity of tablet 16:39: mouth at [place] [address] bedtime. Medical Branch candesartan 0 Yes 4mg Take 1 Univ ers 4 mg tablet 7- tablet by ity of 16:39: mouth at [place] [address] bedtime. Medical Took last Branch dose at bedtime 01/18/23 ETODOLAC 2022-0 Yes 400mg Take 400 Univ ers ORAL 7-01 mg by ity of 16:39: mouth in [place] [address] the Medical morning. Branch Takes it in the morning BABY 2022-0 Yes 81mg Take 81 mg Univers ASPIRIN 7-01 by mouth ity of ORAL 16:39: in the [place] [address] morning. Medical Last dose Branch taken at bedtime last night Cholestyram 2022-0 Yes 4g Take 1 Univ ers ine Light 4 7- Packet by ity of gram powder 16:39: mouth in [place] [address] the Medical morning Branch and 1 Packet at noon and 1 Packet in the evening. Take with meals. Pt reported she takes it NEEDED before meals; last dose unrecalled leflunomide 0 Yes leflunomid Univers 20 mg 7-01 e 20 mg ity of tablet 16:39: tablet [place] [address] Medical Branch pravastatin 2022-0 Yes pravastati Univers 20 mg 7-01 n 20 mg ity of tablet 16:39: tablet [place] [address] Medical Branch prednisoLON 0 Yes 1[drp] Place 1 U nivers E acetate 1 7- Drop in ity o f % 16:39: both eyes [place] ophthalmic at [facility] suspension bedtime. Branc h drops foLIC acid 0 Yes 1mg Take 1 Unive rs 1 mg tablet 7- tablet by ity of 16:39: mouth in [place] [address] the Medical morning. Branch pantoprazol 0 Yes 20mg Take 1 Univ ers e 20 mg EC - tablet by ity of tablet 16:39: mouth in [place] [address] the Medical morning. Branch lamoTRIgine 0 Yes 100mg Take 1 Uni vers 100 mg - tablet by ity of tablet 16:39: mouth in [place] [address] the Medical morning Branch and 1 tablet in the evening. Takes 1 tab in AM and at bedtime buPROPion 2022-0 Yes 300mg Take 1 Unive rs XL 300 mg - tablet by ity o f 24 hr 16:39: mouth in [place] [address] the Medical morning. Branch rivastigmin Yes 1{patch Apply 1 Univers e 9.5 mg/24 01-21 } Patch to ity of hour patch 16:39: skin at [place] [address] bedtime. Medical Pt Branch reported it was placed last night at bedtime traZODone 2022-0 Yes 50mg Take 1 Univer s 50 mg 7- tablet by ity of tablet 16:39: mouth at [place] [address] bedtime. Medical Branch candesartan 2022-0 Yes 4mg Take 1 Univ ers 4 mg tablet 7- tablet by ity of 16:39: mouth at [place] [address] bedtime. Medical Took last Branch dose at bedtime 01/18/23 ETODOLAC 3-0 Yes 400mg Take 400 Univ ers ORAL 7-01 mg by ity of 16:39: mouth in [place] [address] the Medical morning. Branch Takes it in the morning BABY 2023-0 Yes 81mg Take 81 mg Univers ASPIRIN 01-21 by mouth ity of ORAL 16:39: in the [place] [address] morning. Medical Last dose Branch taken at bedtime last night Cholestyram 0 Yes 4g Take 1 Univ ers ine Light 4 01-21 Packet by ity of gram powder 16:39: mouth in [place] [address] the Medical morning Branch and 1 Packet at noon and 1 Packet in the evening. Take with meals. Pt reported she takes it NEEDED before meals; last dose unrecalled leflunomide Yes leflunomid Univers 20 mg 7- e 20 mg ity of tablet 16:39: tablet [place] [address] Medical Branch pravastatin Yes pravastati Univers 20 mg 01-21 n 20 mg ity of tablet 16:39: tablet [place] [address] Medical [place] prednisoLON Yes 1[drp] Place 1 U nivers E acetate 1 01-21 Drop in ity o f % 16:39: both eyes [place] [address] at [facility] bedtime. Branc h drops foLIC acid Yes 1mg Take 1 Unive rs 1 mg tablet 01-21 tablet by ity of 16:39: mouth in [place] [address] the Medical morning. Branch pantoprazol Yes 20mg Take 1 Univ ers e 20 mg EC 01-21 tablet by ity of tablet 16:39: mouth in [place] [address] the Medical morning. Branch lamoTRIgine Yes 100mg Take 1 Uni vers 100 mg 01-21 tablet by ity of tablet 16:39: mouth in [place] [address] the Medical morning Branch and 1 tablet in the evening. Takes 1 tab in AM and at bedtime buPROPion 2022-0 Yes 300mg Take 1 Unive rs XL 300 mg 01-21 tablet by ity o f 24 hr 16:39: mouth in [place] [address] the Medical morning. Branch rivastigmin Yes 1{patch Apply 1 [facility] e 9.5 mg/24 01-21 } Patch to ity of hour patch 16:39: skin at [place] [address] bedtime. Medical Pt Branch reported it was placed last night at bedtime traZODone 2022-0 Yes 50mg Take 1 Univer s 50 mg - tablet by ity of tablet 16:39: mouth at [place] [address] bedtime. Medical Branch candesartan 0 Yes 4mg Take 1 Univ ers 4 mg tablet 01-21 tablet by ity of 16:39: mouth at [place] [address] bedtime. Medical Took last Branch dose at bedtime 01/18/23 ETODOLAC 0 Yes 400mg Take 400 Univ ers ORAL 01-21 mg by ity of 16:39: mouth in [place] [address] the Medical morning. Branch Takes it in the morning BABY 0 Yes 81mg Take 81 mg [facility] ASPIRIN 01-21 by mouth ity of ORAL 16:39: in the [place] [address] morning. Medical Last dose Branch taken at bedtime last night Cholestyram 0 Yes 4g Take 1 Univ ers ine Light 4 01-21 Packet by ity of gram powder 16:39: mouth in [place] [address] the Medical morning Branch and 1 Packet at noon and 1 Packet in the evening. Take with meals. Pt reported she takes it NEEDED before meals; last dose unrecalled leflunomide Yes leflunomid Univers 20 mg 01-21 e 20 mg ity of tablet 16:39: tablet [address] pravastatin 0 Yes pravastati [facility] 20 mg 01-21 n 20 mg ity of tablet 16:39: tablet [address] leflunomide 0 Yes 20mg 20 mg, Univ ers (ARAVA) 01-21 Oral, ity of tablet 20 14:00: DAILY, [place] mg 00 First dose Medical on Sat Branch 01/21/23 at 0900, Until Discontinu ed, Routine dicyclomine 0 2022- Yes [id number] 10mg Take 1 [facility] 10 mg 01-21 02 capsule by ity of capsule 00:00: 04:59 mouth 3 [place] 00 :00 (three) Medical times [place] daily as needed for Abdominal pain for up to 10 days. dicyclomine 2022-0 2022- Yes [id number] 10mg Take 1 [facility] 10 mg 01-21 02 capsule by ity of capsule 00:00: 04:59 mouth 3 [place] 00 :00 (three) Medical times [place] daily as needed for Abdominal pain for up to 10 days. vancomycin 2022-0 2022- Yes [id number] 125mg Take 1 [facility] 125 mg 7-01 07-11 02 capsule by ity of capsule 00:00: 04:59 mouth 4 [place] 00 :00 (four) Medical times Branch daily for 9 days. fidaxomicin 2022-0 202- Yes [id number] 200mg Take 1 [facility] 200 mg 01-21 02 tablet by ity of tablet 00:00: 04:59 mouth in [place] 00 :00 the Medical morning Branch and 1 tablet in the evening. Do all this for 8 days. fidaxomicin 2022-0 202- Yes [id number] 200mg Take 1 [facility] 200 mg 01-21 02 tablet by ity of tablet 00:00: 04:59 mouth in [place] 00 :00 the [facility] morning Branch and 1 tablet in the evening. Do all this for 8 days. potassium 2022-2022- No 10meq 10 mEq, IV Univers chloride in 01-20 Piggyback, i ty of water 10 20:00: 20:44 ONCE, 1 [place] mEq/100 mL 00 :43 dose, On Medic al RTU 10 mEq Mon [place] 01/20/23 at 1500, Administer over 60 Minutes, 100 mL fidaxomicin 0 2022- Yes 200mg 200 mg, U nivers (DIFICID) 01-20 07-10 Oral, BID, ity of tablet 200 16:45: 12:59 20 doses, [place] mg 00 :00 First dose Medical (after Branch last modificati on) on Mon01/20/23 at 1145, Last dose on Mon01/29/23 at 2000, Routine
Reason for Anti-Infec tive: Documented Infection< br>Documen donovan Infection Site: Abdominal< br>Duratio n of Therapy: 14 days potassium 2022-2022- No 10meq 10 mEq, IV [facility] chloride in 01-20 Piggyback, i ty of water 10 14:15: 17:59 Q1H, 4 [place] mEq/100 mL 00 :00 doses, Medical RTU 10 mEq First dose Bra nch on Mon01/20/23 at 0915, Last dose on Mon01/20/23 at 1200, Administer over 60 Minutes, 100 mL pantoprazol Yes 20mg 20 mg, Univ ers e 01-20 Oral, ity of (PROTONIX) 14:00: DAILY, [place] EC tablet 00 First dose Medi luis fernando 20 mg on Mon Branch 01/20/23 at 0900, Until Discontinu ed, Routine foLIC acid Yes 1mg 1 mg, Univer s (FOLATE) 01-20 Oral, ity of tablet 1 mg 14:00: DAILY, [place] 00 First dose Medical on Mon Branch 01/20/23 at 0900, Until Discontinu ed, Routine etodolac Yes 300mg 300 mg, Unive rs (LODINE) 01-20 Oral, ity of capsule 300 14:00: DAILY, [place] 00 First dose Medical on Mon Branch 01/20/23 at 0900, Until Discontinu ed losartan Yes 50mg 50 mg, Univers (COZAAR) 01-20 Oral, ity of tablet 50 14:00: DAILY, [place] mg 00 First dose Medical on Mon Branch 01/20/23 at 0900, Until Discontinu ed buPROPion Yes 300mg 300 mg, Univ ers XL 01-20 Oral, ity of (WELLBUTRIN 14:00: DAILY, [place] XL) tablet 00 First dose Med ical 300 mg on Mon Branch 01/20/23 at 0900, Until Discontinu ed, Routine aspirin 0 Yes 81mg 81 mg, Univers chewable 01-20 Oral, ity of tablet 81 14:00: DAILY, [place] mg 00 First dose Medical on Mon Branch 01/20/23 at 0900, Until Discontinu ed leflunomide 2022- No 20mg 20 mg, Uni vers (ARAVA) 01-2030 Oral, ity of tablet 20 14:00: 18:07 DAILY, [place] mg 00 :00 First dose Medical on Mon Branch 01/20/23 at 0900, Until Discontinu ed, Routine heparin 0 Yes 5000U 5,000 Univers (porcine) 01-20 Units, ity of injection 03:00: [place] 5,000 Units 00 us, Q8H, Medi luis fernando First dose Branch on Mon01/19/23 at 2200, Until Discontinu ed, Routine prednisoLON 0 Yes 1[drp] 1 Drop, U nivers E acetate 01-20 Both Eyes, ity of (PRED-FORTE 02:00: QHS, First [place] ) 1 % 00 dose on Medical ophthalmic [place] Branch suspension 01/19/23 at drops 1 2100, Drop Until Discontinu ed, Routine traZODone 0 Yes 50mg 50 mg, Univer s (DESYREL) 6-30 Oral, QHS, ity of tablet 50 02:00: First dose [place] mg 00 on [facility] Medical 01/19/23 at Branch 2100, Until Discontinu ed, Routine pravastatin 0 Yes 20mg 20 mg, Univ ers (PRAVACHOL) 6-30 Oral, QHS, it y of tablet 20 02:00: First dose [place] mg 00 on [facility] 01/19/23 at Branch 2100, Until Discontinu ed, Routine metroNIDAZO 2022- No 500mg 500 mg, IV Univers LE in NaCl 01-20 0630 Infusion, ity of (iso-os) 01:30: 14:05 Q12H ABX, Robert as (FLAGYL 00 :13 10 doses, Medical I.V.) RTU First dose Bran ch IV infusion on [facility] 500 mg 01/19/23 at 2030, Last dose on Mon01/24/23 at 0830, Administer over 60 Minutes, 100 mL
Reas on for Anti-Infec tive: Empiric Therapy for Suspected Infection< br>Empiric Therapy Site: Abdominal< br>Duratio n of therapy: 5 days lamoTRIgine 0 Yes 100mg 100 mg, Un sanam (LAMICTAL) 6-30 Oral, BID, ity of tablet 100 01:00: First dose [place] mg 00 on [facility] 01/19/23 at Branch 2000, Until Discontinu ed, Routine cefTRIAXone 2022- No 1000mg 1,000 mg, Univers (ROCEPHIN) 01-20 06-30 IV ity of 1,000 mg in 00:45: 14:05 [place], [place] NaCl 0.9% 00 :13 Q24H ABX, Medic al (NS) 100 mL 5 doses, Bran ch MINI-BAG First dose on [facility] 01/19/23 at 1945, Last dose on Mon01/23/23 at 1945, Administer over 30 Minutes, 100 mL
Reas on for Anti-Infec tive: Empiric Therapy for Suspected Infection< br>Empiric Therapy Site: Abdominal< br>Duratio n of therapy: 5 days acetaminoph Yes 650mg 650 mg, Un sanam en 01-19 Oral, ity of (TYLENOL) 23:48: Q6HPRN, [place] tablet 650 03 Starting Medic al mg on [facility] Branch 01/19/23 at 1848, Until Discontinu ed, Routine, Pain (scale 1-3) traMADoL 2022- Yes 50mg 50 mg, Univer s (ULTRAM) 01-19 Oral, ity of tablet 50 23:48: 23:47 Q8HPRN, [place] mg 03 :03 Starting Medical on [place] Branch 01/19/23 at 1848, Until 01/21/23 at 1847, Routine, Pain (scale 4-6) FLUoxetine 2022- No fluoxetine Univers 40 mg 01-19 40 mg ity of capsule 18:51: 00:00 capsule [place] 12 :00 Medical Branch pantoprazol 2022- No 40mg Take 40 mg Univers e 40 mg EC 01-19 by mouth. ity of tablet 18:51: 00:00 [place] 12 :00 Medical Branch celecoxib 2022- No celecoxib Un sanam 200 mg 01-19 200 mg ity of capsule 18:51: 00:00 capsule [place] 12 :00 Medical Branch traMADoL Yes TAKE 1 [facility]i (ULTRAM) 50 6-[address] mg tablet 00:00: MOUTH Hospita 00 EVERY 6 l HOURS NEEDED FOR MODERATE ACUTE PAIN FOR UP TO 10 DAYS traMADoL 0 2022- No [id number] 50mg Q6H Take 1 Metho di (Ultram) 50 5-12 -23 tablet (50 s t mg tablet 00:00: 04:59 mg total) Ho spita 00 :00 by mouth l every 6 (six) hours as needed for moderate pain for up to 10 days .acute pain. traMADoL 0 2022- [place] [id number] 50mg Q6H Take 1 Metho di (Ultram) 50 5-12 05-12 tablet (50 s t mg tablet 00:00: 00:00 mg total) Ho spita 00 :00 by mouth l every 6 (six) hours as needed for moderate pain for up to 10 days .acute pain. methocarbam 2022- No 500mg Q.25D Take 1 M ethodi oL 11-29- tablet st (ROBAXIN) 00:00: 04:59 (500 mg Hosp kelly 500 MG 00 :00 total) by l tablet mouth 4 (four) times a day for 30 days. traMADoL 2022- [place] [id number] 50mg Q6H Take 1 Metho di (Ultram) 50 11-29 05-12 tablet (50 s t mg tablet 00:00: 00:00 mg total) Ho spita 00 :00 by mouth l every 6 (six) hours as needed for moderate pain for up to 10 days .acute pain. buPROPion Yes 300mg QD Take 1 Metho di XL 4-[address] (WELLBUTRIN 17:36: (300 mg Hos melania XL) 300 MG 42 total) by l 24 hr mouth tablet daily. cholecalcif 2022- No [id number] Q30D Take Met hodi melinda, 11-02 50,000 [address] vitamin D3, 11:17: 00:00 Units by H ospita (VITAMIN D3 29 :00 mouth l ORAL) every 30 (thirty) days. galantamine Yes [id number] 8mg QD Take 1 Methodi ER 4-12 capsule (8 st (RAZADYNE 00:00: mg total) Hos melania ER) 8 MG 24 00 by mouth l hr capsule daily with breakfast. olopatadine Yes 1[drp] QD Apply 1 M ethodi (Pataday 3-[address] Once Daily 00:00: eye daily. H ospita Relief) 0.7 00 l % drops vit 2023- No 1{capsu Q.5D Take 1 Methodi C,E-Zn-alexia 3-03 03-03 le} capsule by s t r-lutein-ze 00:00: 05:59 mouth 2 Ho spita axan 00 :00 (two) l 250-90-40-1 times a mg capsule day. fluorometho Yes 1[drp] Q.25D 1 drop 4 Methodi lone (FML) 2- (four) st 0.25 % 20:06: times a Hospita ophthalmic 05 day. l suspension fluorometho 3-0 Yes 1[drp] Q.25D 1 drop 4 Methodi lone (FML) 2-23 (four) st 0.25 % 20:06: times a Hospita ophthalmic 05 day. l suspension rivastigmin 2022-0 2022- No 1{patch QD Place 1 Methodi e (EXELON) 09-15 } patch on st 13.3 mg/24 20:06: 00:00 the skin Ho spita hour 05 :00 daily. l rivastigmin 2022-0 2022- No 1{patch QD Place 1 Methodi e (EXELON) 09-15 } patch on st 13.3 mg/24 20:06: 00:00 the skin Ho spita hour 05 :00 daily. l aspirin 2022-0 2022- No 81mg QD Take 1 [facility]i (ECOTRIN) 09-14- tablet (81 st 81 MG 20:06: 00:00 mg total) Hospit a enteric 27 :00 by mouth l coated daily. tablet nightly aspirin 2022-0 2022- No 81mg QD Take 1 [facility]i (ECOTRIN) 09-14- tablet (81 st 81 MG 20:06: 00:00 mg total) Hospit a enteric 27 :00 by mouth l coated daily. tablet nightly prednisoLON 2022-0 Yes 1[drp] QD Administer Methodi E acetate - [address] (PRED 20:06: both eyes Hospita FORTE) 1 % 25 nightly. 1 l ophthalmic drop each suspension eye daily pravastatin 3-0 Yes 20mg QD Take 1 Meth kiana (PRAVACHOL) 2-22 tablet (20 st 20 MG 20:06: mg total) Hospita tablet 25 by mouth l nightly. lamoTRIgine 2023-0 Yes 100mg Q.5D Take 1 Met hodi (LaMICtal) 2-[address] 100 MG 20:06: (100 mg Hospita tablet 25 total) by l mouth 2 (two) times a day. ipratropium 3-0 Yes 2{puff} Q.5D Inhale 2 Methodi (ATROVENT 2-[address] HFA) 17 20:06: (two) Hospita mcg/actuati 25 times a l on inhaler day. 17 mcg as needed traZODone 2022-0 Yes 50mg QD Take 1 Method i (DESYREL) 2-22 tablet (50 st 50 MG 20:06: mg total) Hospita tablet 25 by mouth l nightly as needed. cholestyram 2022-0 Yes 1{packe Q.[id number] Take 1 Methodi ine 2-22 t} [id number] packet by st (QUESTRAN) 20:06: 3D mouth 3 Hosp kelly 4 gram 25 (three) l packet times a day with meals. dicyclomine 2022-0 Yes 20mg Q.25D Take 1 Met hodi (BENTYL) 20 2-22 tablet (20 st mg tablet 20:06: mg total) Hos melania 25 by mouth 4 l (four) times a day as needed. folic acid 2022-0 Yes 1mg QD Take 1 Metho di (FOLVITE) 1 2-22 tablet (1 st MG tablet 20:06: mg total) Hos melania 25 by mouth l daily. candesartan 2022-0 Yes 4mg QD Take 1 Meth kiana (ATACAND) 4 2-22 tablet (4 st MG tablet 20:06: mg total) Hos melania 25 by mouth l daily. prednisoLON 2022-0 Yes 1[drp] QD Administer Methodi E acetate 2-[address] (PRED 20:06: both eyes Hospita FORTE) 1 % 25 nightly. 1 l ophthalmic drop each suspension eye daily pravastatin 2022-0 Yes 20mg QD Take 1 Meth kiana (PRAVACHOL) 2-22 tablet (20 st 20 MG 20:06: mg total) Hospita tablet 25 by mouth l nightly. lamoTRIgine 2022-0 Yes 100mg Q.5D Take 1 Met hodi (LaMICtal) 2-[address] 100 MG 20:06: (100 mg Hospita tablet 25 total) by l mouth 2 (two) times a day. cholecalcif 2022-0 Yes [id number] Q30D Take Meth kiana melinda, 2-22 50,000 [address] vitamin D3, 20:06: Units by Dickson laguerre (VITAMIN D3 25 mouth l ORAL) every 30 (thirty) days. ipratropium 2023-0 Yes 2{puff} Q.5D Inhale 2 Methodi (ATROVENT 2-[address] HFA) 17 20:06: (two) Hospita mcg/actuati 25 times a l on inhaler day. 17 mcg as needed traZODone 2023-0 Yes 50mg QD Take 1 Method i (DESYREL) 2-22 tablet (50 st 50 MG 20:06: mg total) Hospita tablet 25 by mouth l nightly as needed. cholestyram 2023-0 Yes 1{packe Q.[id number] Take 1 Methodi ine 2-22 t} [id number] packet by st (QUESTRAN) 20:06: 3D mouth 3 Hosp kelly 4 gram 25 (three) l packet times a day with meals. dicyclomine 2023-0 Yes 20mg Q.25D Take 1 Met hodi (BENTYL) 20 2-22 tablet (20 st mg tablet 20:06: mg total) Hos melania 25 by mouth 4 l (four) times a day as needed. folic acid 2023-0 Yes 1mg QD Take 1 Metho di (FOLVITE) 1 2-22 tablet (1 st MG tablet 20:06: mg total) Hos melania 25 by mouth l daily. candesartan 2023-0 Yes 4mg QD Take 1 Meth kiana (ATACAND) 4 2-22 tablet (4 st MG tablet 20:06: mg total) Hos melania 25 by mouth l daily. methocarbam 2023-0 2023- No 500mg Q.25D Take 1 M ethodi oL 2-22 02-[address] (ROBAXIN) 18:51: 00:00 (500 mg Hosp kelly 500 MG 19 :00 total) by l tablet mouth 4 (four) times a day. methocarbam 2023-0 2023- No 500mg Q.25D Take 1 M ethodi oL 2-22 02-[address] (ROBAXIN) 18:51: 00:00 (500 mg Hosp kelly 500 MG 19 :00 total) by l tablet mouth 4 (four) times a day. methocarbam 2023-0 Yes 500mg Q8H Take 1 Met hodi oL 2-[address] (ROBAXIN) 00:00: (500 mg Hospi ta 500 MG 00 total) by l tablet mouth every 8 (eight) hours as needed for muscle spasms. methocarbam 2022-0 Yes 500mg Q8H Take 1 Met hodi oL 2-[address] (ROBAXIN) 00:00: (500 mg Hospi ta 500 MG 00 total) by l tablet mouth every 8 (eight) hours as needed for muscle spasms. acetaminoph 2022- No [id number] 1{tbl} Q4H Take 1 Methodi en-codeine 09-[address] (TYLENOL 00:00: 05:59 mouth Hospita WITH 00 :00 every 4 l CODEINE #3) (four) 300-30 mg hours as per tablet needed for moderate pain for up to 7 days .acute pain. olopatadine 2022- No 1[drp] Q.5D Administer Methodi (PATANOL) 09-[address] 0.1 % 00:00: 05:59 the right Hospit a ophthalmic 00 :00 eye 2 l solution (two) times a day for 7 days. acetaminoph 2022- [place] [id number] 1{tbl} Q4H Take 1 Methodi en-codeine 09-[address] (TYLENOL 00:00: 05:59 mouth Hospita WITH 00 :00 every 4 l CODEINE #3) (four) 300-30 mg hours as per tablet needed for moderate pain for up to 7 days .acute pain. olopatadine 2022-2022- No 1[drp] Q.5D Administer [facility]i (PATANOL) 09-[address] 0.1 % 00:00: 05:59 the right Hospit a ophthalmic 00 :00 eye 2 l solution (two) times a day for 7 days. acetaminoph 2022- [place] [id number] 1{tbl} Q4H Take 1 Methodi en-codeine 09-[address] (TYLENOL 00:00: 00:00 mouth Hospita WITH 00 :00 every 4 l CODEINE #3) (four) 300-30 mg hours as per tablet needed for moderate pain for up to 7 days .acute pain. olopatadine 2022- No 1[drp] Q.5D Administer Methodi (PATANOL) 09-[address] 0.1 % 00:00: 00:00 the right Hospit a ophthalmic 00 :00 eye 2 l solution (two) times a day. methocarbam 2022- No 500mg Q8H Take 1 Me thodi oL 09-[address] (ROBAXIN) 00:00: 00:00 (500 mg Hosp kelly 500 MG 00 :00 total) by l tablet mouth every 8 (eight) hours as needed for muscle spasms (0.5 tab (250 mg) to 1 tab (500mg)). acetaminoph 2022- [place] [id number] 1{tbl} Q4H Take 1 Methodi en-codeine 09-[address] (TYLENOL 00:00: 00:00 mouth Hospita WITH 00 :00 every 4 l CODEINE #3) (four) 300-30 mg hours as per tablet needed for moderate pain for up to 7 days .acute pain. olopatadine 2022- No 1[drp] Q.5D Administer Methodi (PATANOL) 09-[address] 0.1 % 00:00: 00:00 the right Hospit a ophthalmic 00 :00 eye 2 l solution (two) times a day. methocarbam 2022- No 500mg Q8H Take 1 Me thodi oL 09-[address] (ROBAXIN) 00:00: 00:00 (500 mg Hosp kelly 500 MG 00 :00 total) by l tablet mouth every 8 (eight) hours as needed for muscle spasms (0.5 tab (250 mg) to 1 tab (500mg)). losartan 2022-0 202- No 25mg QD Take 25 mg Me thodi (COZAAR) 25 2-15 02-[address] MG tablet 17:19: 00:00 daily. Hospi ta 01 :00 l losartan 2022-0 202- No 25mg QD Take 25 mg Me thodi (COZAAR) 25 2-15 02-[address] MG tablet 17:19: 00:00 daily. Hospi ta 01 :00 l predniSONE 2023-0 2023- No 50mg QD Take 5 Meth kiana (DELTASONE) 2-[address] 10 mg 00:00: 05:59 (50 mg Hospita tablet 00 :00 total) by l mouth daily for 5 days. predniSONE 2022- No 50mg QD Take 5 Meth kiana (DELTASONE) 2-[address] 10 mg 00:00: 05:59 (50 mg Hospita tablet 00 :00 total) by l mouth daily for 5 days. predniSONE 2022- No 50mg QD Take 5 Meth kiana (DELTASONE) 08-24- tablets st 10 mg 00:00: 05:59 (50 mg Hospita tablet 00 :00 total) by l mouth daily for 5 days. rivastigmin Yes [id number] APPLY 1 Methodi e (EXELON) 1-[address] 9.5 mg/24 00:00: EVERY DAY Hos melania hour 00 l rivastigmin Yes [id number] APPLY 1 Methodi e (EXELON) 1-[address] 9.5 mg/24 00:00: EVERY DAY Hos melania hour 00 l rivastigmin 0 2022- No [id number] APPLY 1 Methodi e (EXELON) 1-10 04-[address] 9.5 mg/24 00:00: 00:00 EVERY DAY Ho spita hour 00 :00 l cholestyram 2021-07 Yes 1{packe Q.[id number] Take 1 Methodi ine 0-22 t} [id number] packet by st (QUESTRAN) 11:56: 3D mouth 3 Hosp kelly 4 gram 02 (three) l packet times a day with meals. dicyclomine 2021-07 Yes 20mg Q.25D Take 1 Met hodi (BENTYL) 20 0-22 tablet (20 st mg tablet 11:56: mg total) Hos melania 02 by mouth 4 l (four) times a day as needed. prednisoLON 2021-07 Yes 1[drp] QD Administer Methodi E acetate 0-[address] (PRED 11:56: both eyes [facility]ospita FORTE) 1 % 49 nightly. 1 l ophthalmic drop each suspension eye daily pravastatin 2021-07 Yes 20mg QD Take 20 mg [facility] (PRAVACHOL) 0-[address] 20 MG 11:56: nightly. Hospita tablet 49 l aspirin 2021-07 Yes 81mg QD Take 81 mg Meth kiana (ECOTRIN) 0-[address] 81 MG 11:56: daily. Hospita enteric 49 nightly l coated tablet losartan 2021-07 Yes 25mg QD Take 25 mg Met hodi (COZAAR) 25 0-[address] MG tablet 11:56: daily. Hospit a 49 l lamoTRIgine 2021-07 Yes 100mg Q.5D Take 100 M ethodi (LaMICtal) 0-[address] 100 MG 11:56: mouth 2 Hospita tablet 49 (two) l times a day. cholecalcif 2021-07 Yes [id number] Q30D Take Meth kiana melinda, 0-21 50,000 st vitamin D3, 11:56: Units by Dickson laguerre (VITAMIN D3 49 mouth l ORAL) every 30 (thirty) days. ipratropium 2021-07 Yes 2{puff} Q.5D Inhale 2 [facility] (ATROVENT 0-[address] HFA) 17 11:56: (two) Hospita mcg/actuati 49 times a l on inhaler day. 17 mcg as needed traZODone 2021-07 Yes 50mg QD Take 50 mg Me thodi (DESYREL) 0-[address] 50 MG 11:56: nightly as Hospit a tablet 49 needed. l traMADoL 2021-07 Yes 50mg Q6H Take 1 Method i (ULTRAM) 50 0-21 tablet (50 st mg tablet 00:00: mg total) Hos melania 00 by mouth l every 6 (six) hours as needed for moderate pain or severe pain .acute pain. lidocaine 4 2021-[address] 1 Met hodi % adhesive 0-[address] patch,medic 00:00: the skin Dickson laguerre ated 00 daily. l Remove and discard patch within 12 hours or as directed by physician. traMADoL 2021-07 Yes [id number] 50mg Q6H Take 1 Method i (ULTRAM) 50 0-21 tablet (50 st mg tablet 00:00: mg total) Hos melania 00 by mouth l every 6 (six) hours as needed for moderate pain or severe pain .acute pain. traMADoL 2021-07- [place] [id number] 50mg Q6H Take 1 Metho di (ULTRAM) 50 0-21 05-12 tablet (50 s t mg tablet 00:00: 00:00 mg total) Ho spita 00 :00 by mouth l every 6 (six) hours as needed for moderate pain or severe pain .acute pain. lidocaine 4 2021-07- No Place 1 Me thodi % adhesive 0-21 02-[address] patch,medic 00:00: 00:00 the skin H ospita ated 00 :00 daily. l Remove and discard patch within 12 hours or as directed by physician. lidocaine 4 2021-07- No Place 1 Me thodi % adhesive 0-21 02-[address] patch,medic 00:00: 00:00 the skin H ospita ated 00 :00 daily. l Remove and discard patch within 12 hours or as directed by physician. methocarbam 2021-07 No 500mg Q.25D Take 1 M ethodi oL 0-21 11-[address] (ROBAXIN) 00:00: 04:59 (500 mg Hosp kelly 500 MG 00 :00 total) by l tablet mouth 4 (four) times a day for 10 days. methocarbam 2021-07- No 500mg Q.25D Take 1 M ethodi oL 0-21 11- tablet st (ROBAXIN) 00:00: 04:59 (500 mg Hosp kelly 500 MG 00 :00 total) by l tablet mouth 4 (four) times a day for 10 days. methocarbam 2021-07- No 500mg Q.25D Take 1 M ethodi oL 0-21 11-[address] (ROBAXIN) 00:00: 04:59 (500 mg Hosp kelly 500 MG 00 :00 total) by l tablet mouth 4 (four) times a day for 10 days. pantoprazol 2021-07 Yes [id number] TAKE 1 [facility]i e 0-[address] (PROTONIX) 00:00: MOUTH Hospit a 20 MG EC 00 EVERY DAY l tablet pantoprazol 2021-07 Yes [id number] TAKE 1 [facility] e 0-[address] (PROTONIX) 00:00: MOUTH Hospit a 20 MG EC 00 EVERY DAY l tablet pantoprazol 2021-07 Yes [id number] TAKE 1 [facility] e 0-[address] (PROTONIX) 00:00: MOUTH Hospit a 20 MG EC 00 EVERY DAY l tablet baclofen 2021-07- No [id number] 10mg QD Take 1 Me [facility]odi (LIORESAL) 0-11 10-21 tablet (10 st 10 MG 00:00: 00:00 mg total) Hospit a tablet 00 :00 by mouth l nightly as needed for muscle spasms. baclofen 2021-07- No [id number] 10mg QD Take 1 [facility] (LIORESAL) 0-11 10-21 tablet (10 st 10 MG 00:00: 00:00 mg total) Hospit a tablet 00 :00 by mouth l nightly as needed for muscle spasms. baclofen 2021-07- No [id number] 10mg QD Take 1 Me thodi (LIORESAL) 0-11 10-21 tablet (10 st 10 MG 00:00: 00:00 mg total) Hospit a tablet 00 :00 by mouth l nightly as needed for muscle spasms. rivastigmin 2022- No [id number] 1{patch QD Place 1 Methodi e (EXELON) 02-07 } patch on st 9.5 mg/24 00:00: 00:00 the skin Hos [facility]ia hour 00 :00 daily. l rivastigmin 2022- No [id number] 1{patch QD Place 1 Methodi e (EXELON) 02-07 } patch on st 9.5 mg/24 00:00: 00:00 the skin Hos melania hour 00 :00 daily. l rivastigmin 2022- No [id number] 1{patch QD Place 1 Methodi e (EXELON) 02-07 } patch on st 9.5 mg/24 00:00: 00:00 the skin Hos melania hour 00 :00 daily. l Atrovent Yes [place] INHALE 2 Mem oria HFA 7-13 [place] PUFF BY l 02:45: MOUTH [place] 38 TWICE A DAY Leflunomide Yes [place] 1 tablet Memoria 7-13 [place] l 02:45: [place] 38 Wellbutrin Yes [place] 1 tablet M emoria XL 7-13 [place] in the l 02:45: morning [place] 38 Losartan 0 Yes [place] 1 tablet Mem oria Potassium 7-13 [place] l 02:45: [place] 38 Pravastatin 0 Yes [place] 1 tablet Memoria Sodium 7-13 [place] l 02:45: [place] 38 Fluorometho Yes [place] 1 drop Me moria lone 7-13 [place] into l 02:45: affected 38 eye Lamotrigine Yes [place] 2 tablets Memoria 7-13 [place] l 02:45: 38 Rivastigmin Yes [place] 1 patch to [facility]oria e 7-13 [place] skin l 02:45: [place] 38 Hydroxychlo Yes [place] 1 tablets [facility]oria roquine 7-13 [place] with food l Sulfate 02:45: or milk [place] 38 Vitamin D Yes [place] 1 capsule M emoria (Ergocalcif 7-13 Nugent l melinda) 02:45: 38 Pantoprazol Yes [place] 1 tablet Memoria e Sodium 7-13 [place] l 02:45: [place] 38 PredniSONE Yes Daniel 1-2 Memor ia 7-13 [place] tablets as l 02:45: needed for [place] 38 joint pain Atrovent Yes Daniel INHALE 2 Mem oria HFA 7-13 [place] PUFF BY l 02:45: MOUTH [place] 38 TWICE A DAY Leflunomide 0 Yes Daniel 1 tablet Memoria 7-13 [place] l 02:45: [place] 38 Wellbutrin Yes Daniel 1 tablet M emoria XL 7-13 [place] in the l 02:45: morning [place] 38 Losartan 0 Yes Daniel 1 tablet Mem oria Potassium 7-13 [place] l 02:45: [place] 38 Cholestyram Yes Daniel 1 packet [facility] ine 7-13 [place] mixed with l 02:45: water or [place] 38 non-carbon ated drink Stool Yes Daniel not [facility] Softener 7-13 [place] defined l 02:45: [place] 38 Trazodone Yes [place] 1 tablet Me moria HCl 7-13 [place] at bedtime l 02:45: as needed Fluoxetine 0 Yes [facility] 3 capsule Memoria HCl 7-13 [place] l 02:45: 38 Cholestyram 0 Yes [place] 1 packet [facility] ine 7-13 [place] mixed with l 02:45: water or [place] 38 non-carbon ated drink Stool 0 Yes [place] not [facility] Softener 7-13 [place] defined l 02:45: Trazodone Yes [place] 1 tablet Me moria HCl 7-13 [place] at bedtime l 02:45: as needed Fluoxetine 0 Yes Daniel 3 capsule [facility]oria HCl 7-13 [place] l 02:45: 38 Pravastatin 0 Yes [place] 1 tablet [facility] Sodium 7-13 [place] l 02:45: Fluorometho Yes [place] 1 drop Me moria lone 7-13 [place] into l 02:45: affected eye Lamotrigine Yes Daniel 2 tablets Memoria 7-13 [place] l 02:45: 38 Rivastigmin Yes [place] 1 patch to [facility] e 7-13 [place] skin l 02:45: Hydroxychlo Yes [place] 1 tablets [facility] roquine 7-13 [place] with food l Sulfate 02:45: or milk [place] 38 Vitamin D Yes [place] 1 capsule M emoria (Ergocalcif 7-13 [place] l melinda) 02:45: Pantoprazol Yes Daniel 1 tablet Memoria e Sodium 7-13 [place] l 02:45: [place] 38 PredniSONE Yes [place] 1-2 Memor ia 7-13 [place] tablets as l 02:45: needed for 38 joint pain Atrovent Yes [place] INHALE 2 Mem oria HFA 7-13 [place] PUFF BY l 02:45: MOUTH [place] 38 TWICE A DAY Leflunomide Yes [place] 1 tablet [facility] 7-13 [place] l 02:45: [place] 38 Wellbutrin Yes Daniel 1 tablet M emoria XL 7-13 [place] in the l 02:45: morning [place] 38 Losartan 0 Yes [place] 1 tablet Mem oria Potassium 7-13 [place] l 02:45: 38 Cholestyram Yes [place] 1 packet [facility] ine 7-13 [place] mixed with l 02:45: water or [place] 38 non-carbon ated drink Stool Yes [place] not [facility] Softener 7-13 [place] defined l 02:45: 38 Trazodone Yes [place] 1 tablet Me moria HCl 7-13 [place] at bedtime l 02:45: as needed 38 Fluoxetine Yes [place] 3 capsule [facility] HCl 7-13 [place] l 02:45: 38 Pravastatin Yes [place] 1 tablet [facility] Sodium 7-13 [place] l 02:45: [place] 38 Rivastigmin Yes Daniel 1 patch to [facility] e 7-13 [place] skin l 02:45: 38 Hydroxychlo Yes [place] 1 tablets [facility] roquine 7-13 [place] with food l Sulfate 02:45: or milk Lamotrigine Yes Daniel 2 tablets [facility]oria 7-13 [place] l 02:45: 38 Vitamin D Yes Daniel 1 capsule M emoria (Ergocalcif 7-13 [place] l melinda) 02:45: 38 Pantoprazol Yes [place] 1 tablet [facility] e Sodium 7-13 [place] l 02:45: [place] 38 PredniSONE 0 Yes [place] 1-2 Memor ia 7-13 [place] tablets as l 02:45: needed for 38 joint pain Atrovent Yes [place] INHALE 2 Mem oria HFA 7-13 [place] PUFF BY l 02:45: MOUTH [place] 38 TWICE A DAY Leflunomide Yes Daniel 1 tablet [facility] 7-13 [place] l 02:45: [place] 38 Fluorometho 2022-0 Yes [place] 1 drop Me moria lone 7-13 [place] into l 02:45: affected 38 eye Wellbutrin Yes [place] 1 tablet M emoria XL 7-13 [place] in the l 02:45: morning [place] 38 Losartan 0 Yes Daniel 1 tablet Mem oria Potassium 7-13 [place] l 02:45: 38 Cholestyram Yes [facility] 1 packet [facility] ine 7-13 [place] mixed with l 02:45: water or 38 non-carbon ated drink Stool Yes Daniel not [facility] Softener 7-13 [place] defined l 02:45: 38 Trazodone Yes [place] 1 tablet Me moria HCl 7-13 [place] at bedtime l 02:45: as needed Fluoxetine Yes [place] 3 capsule [facility] HCl 7-13 [place] l 02:45: 38 Pravastatin Yes [place] 1 tablet [facility] Sodium 7-13 [place] l 02:45: Rivastigmin Yes [place] 1 patch to [facility] e 7-13 [place] skin l 02:45: Hydroxychlo Yes [place] 1 tablets [facility] roquine 7-13 [place] with food l Sulfate 02:45: or milk Lamotrigine Yes [place] 2 tablets [facility] 7-13 [place] l 02:45: Vitamin D Yes [place] 1 capsule M emoria (Ergocalcif 7-13 [place] l melinda) 02:45: Pantoprazol Yes [place] 1 tablet [facility] e Sodium 7-13 [place] l 02:45: [place] 38 PredniSONE 0 Yes [place] 1-2 Memor ia 7-13 [place] tablets as l 02:45: needed for 38 joint pain Atrovent Yes [place] INHALE 2 Mem oria HFA 7-13 [place] PUFF BY l 02:45: MOUTH [place] 38 TWICE A DAY Leflunomide Yes [place] 1 tablet [facility] 7-13 [place] l 02:45: 38 Fluorometho Yes [facility] 1 drop Me moria lone 7-13 [place] into l 02:45: affected eye Wellbutrin Yes Daniel 1 tablet M emoria XL 7-13 [place] in the l 02:45: morning [place] 38 Losartan 0 Yes [place] 1 tablet Mem oria Potassium 7-13 [place] l 02:45: Cholestyram Yes [place] 1 packet [facility] ine 7-13 [place] mixed with l 02:45: water or non-carbon ated drink Stool Yes Daniel not [facility] Softener 7-13 [place] defined l 02:45: Trazodone Yes [facility] 1 tablet Me moria HCl 7-13 [place] at bedtime l 02:45: as needed Fluoxetine Yes [place] 3 capsule [facility] HCl 7-13 [place] l 02:45: Pravastatin Yes [place] 1 tablet [facility] Sodium 7-13 [place] l 02:45: Rivastigmin Yes [place] 1 patch to [facility] e 7-13 [place] skin l 02:45: Hydroxychlo Yes [place] 1 tablets [facility] roquine 7-13 [place] with food l Sulfate 02:45: or milk Lamotrigine Yes Daniel 2 tablets Memoria 7-13 [place] l 02:45: Vitamin D Yes Daniel 1 capsule M emoria (Ergocalcif 7-13 [place] l melinda) 02:45: Pantoprazol Yes Daniel 1 tablet [facility]oria e Sodium 7-13 [place] l 02:45: 38 PredniSONE Yes [place] 1-2 Memor ia 7-13 [place] tablets as l 02:45: needed for 38 joint pain Atrovent Yes [place] INHALE 2 Mem oria HFA 7-13 [place] PUFF BY l 02:45: MOUTH [place] 38 TWICE A DAY Leflunomide Yes [facility] 1 tablet Memoria 7-13 [place] l 02:45: [place] 38 Fluorometho Yes [place] 1 drop Me moria lone 7-13 [place] into l 02:45: affected eye Wellbutrin Yes [place] 1 tablet M emoria XL 7-13 [place] in the l 02:45: morning [place] 38 Losartan Yes Daniel 1 tablet Mem oria Potassium 7-13 [place] l 02:45: Cholestyram Yes [facility] 1 packet [facility] ine 7-13 [place] mixed with l 02:45: water or non-carbon ated drink Stool Yes Daniel not [facility] Softener 7-13 [place] defined l 02:45: Trazodone Yes [place] 1 tablet Me moria HCl 7-13 [place] at bedtime l 02:45: as needed Fluoxetine Yes Daniel 3 capsule [facility] HCl 7-13 [place] l 02:45: Pravastatin Yes Daniel 1 tablet [facility] Sodium 7-13 [place] l 02:45: Rivastigmin Yes [place] 1 patch to [facility] e 7-13 [place] skin l 02:45: Hydroxychlo Yes Daniel 1 tablets [facility] roquine 7-13 [place] with food l Sulfate 02:45: or milk Lamotrigine Yes [place] 2 tablets [facility]oria 7-13 [place] l 02:45: Vitamin D Yes Daniel 1 capsule M emoria (Ergocalcif 7-13 [place] l melinda) 02:45: Pantoprazol Yes Daniel 1 tablet [facility] e Sodium 7-13 [place] l 02:45: PredniSONE Yes [facility] 1-2 Memor ia 7-13 [place] tablets as l 02:45: needed for joint pain Atrovent Yes [place] INHALE 2 Mem oria HFA 7-13 [place] PUFF BY l 02:45: MOUTH TWICE A DAY Leflunomide Yes [place] 1 tablet [facility] 7-13 [place] l 02:45: Fluorometho Yes [place] 1 drop Me moria lone 7-13 [place] into l 02:45: affected eye Wellbutrin Yes [place] 1 tablet M emoria XL 7-13 [place] in the l 02:45: morning [place] 38 Losartan Yes [place] 1 tablet Mem oria Potassium 7-13 [place] l 02:45: Cholestyram Yes [place] 1 packet [facility] ine 7-13 [place] mixed with l 02:45: water or non-carbon ated drink Stool Yes [place] not [facility] Softener 7-13 [place] defined l 02:45: Trazodone Yes [facility] 1 tablet Me moria HCl 7-13 [place] at bedtime l 02:45: as needed Fluoxetine Yes Daniel 3 capsule [facility] HCl 7-13 [place] l 02:45: Pravastatin Yes Daniel 1 tablet [facility] Sodium 7-13 [place] l 02:45: Rivastigmin Yes [facility] 1 patch to [facility] e 7-13 [place] skin l 02:45: Hydroxychlo Yes [place] 1 tablets [facility] roquine 7-13 [place] with food l Sulfate 02:45: or milk Lamotrigine Yes Daniel 2 tablets Memoria 7-13 [place] l 02:45: Vitamin D Yes [place] 1 capsule M emoria (Ergocalcif 7-13 [place] l melinda) 02:45: Pantoprazol Yes Daniel 1 tablet Memoria e Sodium 7-13 [place] l 02:45: PredniSONE Yes [place] 1-2 Memor ia 7-13 [place] tablets as l 02:45: needed for joint pain Atrovent Yes [place] INHALE 2 Mem oria HFA 7-13 [place] PUFF BY l 02:45: MOUTH TWICE A DAY Leflunomide Yes [place] 1 tablet [facility] 7-13 [place] l 02:45: Fluorometho Yes Daniel 1 drop Me moria lone 7-13 [place] into l 02:45: affected [place] 38 eye Wellbutrin Yes [place] 1 tablet M emoria XL 7-13 [place] in the l 02:45: morning [place] 38 Losartan 0 Yes [place] 1 tablet Mem oria Potassium 7-13 [place] l 02:45: Cholestyram Yes [place] 1 packet [facility] ine 7-13 [place] mixed with l 02:45: water or 38 non-carbon ated drink Stool Yes [place] not [facility] Softener 7-13 [place] defined l 02:45: Trazodone Yes [place] 1 tablet Me moria HCl 7-13 [place] at bedtime l 02:45: as needed Fluoxetine Yes Daniel 3 capsule [facility] HCl 7-13 [place] l 02:45: Pravastatin Yes [place] 1 tablet [facility] Sodium 7-13 [place] l 02:45: Rivastigmin Yes Daniel 1 patch to [facility] e 7-13 [place] skin l 02:45: Hydroxychlo Yes [place] 1 tablets [facility] roquine 7-13 [place] with food l Sulfate 02:45: or milk Lamotrigine Yes [place] 2 tablets [facility]oria 7-13 [place] l 02:45: Vitamin D Yes [place] 1 capsule M emoria (Ergocalcif 7-13 [place] l melinda) 02:45: Pantoprazol Yes Daniel 1 tablet Memoria e Sodium 7-13 [place] l 02:45: [place] 38 PredniSONE Yes [facility] 1-2 Memor ia 7-13 [place] tablets as l 02:45: needed for joint pain Atrovent Yes [place] INHALE 2 Mem oria HFA 7-13 [place] PUFF BY l 02:45: MOUTH [place] 38 TWICE A DAY Leflunomide Yes [facility] 1 tablet [facility]oria 7-13 [place] l 02:45: [place] 38 Fluorometho Yes [place] 1 drop Me moria lone 7-13 [place] into l 02:45: affected [place] 38 eye Wellbutrin Yes Daniel 1 tablet M emoria XL 7-13 [place] in the l 02:45: morning [place] 38 Losartan 0 Yes [place] 1 tablet Mem oria Potassium 7-13 [place] l 02:45: [place] 38 Cholestyram Yes Daniel 1 packet [facility]oria ine 7-13 [place] mixed with l 02:45: water or [place] 38 non-carbon ated drink Stool Yes [place] not [facility] Softener 7-13 [place] defined l 02:45: 38 Trazodone Yes [facility] 1 tablet Me moria HCl 7-13 [place] at bedtime l 02:45: as needed [place] 38 Fluoxetine Yes [place] 3 capsule [facility] HCl 7-13 [place] l 02:45: [place] 38 Pravastatin Yes [place] 1 tablet [facility] Sodium 7-13 [place] l 02:45: 38 Rivastigmin Yes [place] 1 patch to [facility] e 7-13 [place] skin l 02:45: [place] 38 Hydroxychlo Yes Daniel 1 tablets [facility]oria roquine 7-13 [place] with food l Sulfate 02:45: or milk Lamotrigine Yes [place] 2 tablets [facility]oria 7-13 [place] l 02:45: [place] 38 Vitamin D Yes Daniel 1 capsule M emoria (Ergocalcif 7-13 [place] l melinda) 02:45: [place] 38 Pantoprazol Yes [place] 1 tablet [facility]oria e Sodium 7-13 [place] l 02:45: [place] 38 PredniSONE Yes Daniel 1-2 Memor ia 7-13 [place] tablets as l 02:45: needed for 38 joint pain Atrovent Yes [place] INHALE 2 Mem oria HFA 7-13 [place] PUFF BY l 02:45: MOUTH [place] 38 TWICE A DAY Leflunomide Yes [place] 1 tablet [facility]oria 7-13 [place] l 02:45: [place] 38 Fluorometho Yes [place] 1 drop Me moria lone 7-13 [place] into l 02:45: affected [place] 38 eye Wellbutrin Yes [place] 1 tablet M emoria XL 7-13 [place] in the l 02:45: morning [place] 38 Losartan 0 Yes [place] 1 tablet Mem oria Potassium 7-13 [place] l 02:45: [place] 38 Cholestyram Yes [place] 1 packet [facility] ine 7-13 [place] mixed with l 02:45: water or [place] 38 non-carbon ated drink Stool Yes [place] not [facility]oria Softener 7-13 [place] defined l 02:45: 38 Trazodone Yes [facility] 1 tablet Me moria HCl 7-13 [place] at bedtime l 02:45: as needed [place] 38 Fluoxetine Yes Daniel 3 capsule [facility] HCl 7-13 [place] l 02:45: [place] 38 Pravastatin 0 Yes [place] 1 tablet [facility] Sodium 7-13 [place] l 02:45: 38 Rivastigmin Yes [place] 1 patch to [facility] e 7-13 [place] skin l 02:45: [place] 38 Hydroxychlo Yes Daniel 1 tablets [facility] roquine 7-13 [place] with food l Sulfate 02:45: or milk 38 Lamotrigine Yes [place] 2 tablets [facility]oria 7-13 [place] l 02:45: [place] 38 Vitamin D Yes [place] 1 capsule M emoria (Ergocalcif 7-13 [place] l melinda) 02:45: 38 Pantoprazol Yes Daniel 1 tablet Memoria e Sodium 7-13 [place] l 02:45: [place] 38 PredniSONE Yes [place] 1-2 Memor ia 7-13 [place] tablets as l 02:45: needed for 38 joint pain Atrovent Yes [place] INHALE 2 Mem oria HFA 7-13 [place] PUFF BY l 02:45: MOUTH [place] 38 TWICE A DAY Leflunomide 2022-0 Yes Daniel 1 tablet [facility]oria 7-13 [place] l 02:45: [place] 38 Fluorometho Yes Daniel 1 drop Me moria lone 7-13 [place] into l 02:45: affected 38 eye Wellbutrin Yes [place] 1 tablet M emoria XL 7-13 [place] in the l 02:45: morning [place] 38 Losartan Yes [place] 1 tablet Mem oria Potassium 7-13 [place] l 02:45: Cholestyram Yes [place] 1 packet [facility] ine 7-13 [place] mixed with l 02:45: water or [place] 38 non-carbon ated drink Stool Yes [place] not [facility]oria Softener 7-13 [place] defined l 02:45: Trazodone Yes [place] 1 tablet Me moria HCl 7-13 [place] at bedtime l 02:45: as needed Fluoxetine Yes [place] 3 capsule [facility] HCl 7-13 [place] l 02:45: 38 Pravastatin Yes Daniel 1 tablet [facility] Sodium 7-13 [place] l 02:45: 38 Rivastigmin Yes [place] 1 patch to [facility] e 7-13 [place] skin l 02:45: Hydroxychlo Yes [place] 1 tablets [facility] roquine 7-13 [place] with food l Sulfate 02:45: or milk Lamotrigine Yes [place] 2 tablets [facility]oria 7-13 [place] l 02:45: [place] 38 Vitamin D 0 Yes [place] 1 capsule M emoria (Ergocalcif 7-13 [place] l melinda) 02:45: 38 Pantoprazol Yes Daniel 1 tablet Memoria e Sodium 7-13 [place] l 02:45: [place] 38 PredniSONE 0 Yes [place] 1-2 Memor ia 7-13 [place] tablets as l 02:45: needed for 38 joint pain Atrovent Yes Daniel INHALE 2 Mem oria HFA 7-13 [place] PUFF BY l 02:45: MOUTH [place] 38 TWICE A DAY Leflunomide Yes [place] 1 tablet [facility] 7-13 [place] l 02:45: [place] 38 Fluorometho Yes Daniel 1 drop Me moria lone 7-13 [place] into l 02:45: affected eye Wellbutrin Yes [place] 1 tablet M emoria XL 7-13 [place] in the l 02:45: morning [place] 38 Losartan Yes [place] 1 tablet Mem oria Potassium 7-13 [place] l 02:45: Cholestyram Yes Daniel 1 packet [facility] ine 7-13 [place] mixed with l 02:45: water or [place] 38 non-carbon ated drink Stool Yes Daniel not [facility]oria Softener 7-13 [place] defined l 02:45: Trazodone Yes [place] 1 tablet Me moria HCl 7-13 [place] at bedtime l 02:45: as needed [place] 38 Fluoxetine Yes [place] 3 capsule [facility] HCl 7-13 [place] l 02:45: Pravastatin Yes [place] 1 tablet [facility] Sodium 7-13 [place] l 02:45: Rivastigmin Yes Daniel 1 patch to [facility] e 7-13 [place] skin l 02:45: Hydroxychlo Yes Daniel 1 tablets [facility] roquine 7-13 [place] with food l Sulfate 02:45: or milk Lamotrigine Yes [place] 2 tablets [facility]oria 7-13 [place] l 02:45: Vitamin D Yes [place] 1 capsule M emoria (Ergocalcif 7-13 [place] l melinda) 02:45: Pantoprazol Yes [place] 1 tablet [facility]oria e Sodium 7-13 [place] l 02:45: [place] 38 PredniSONE 0 Yes Daniel 1-2 Memor ia 7-13 [place] tablets as l 02:45: needed for joint pain Atrovent Yes [place] INHALE 2 Mem oria HFA 7-13 [place] PUFF BY l 02:45: MOUTH [place] 38 TWICE A DAY Leflunomide Yes [place] 1 tablet [facility] 7-13 [place] l 02:45: Fluorometho Yes [place] 1 drop Me moria lone 7-13 [place] into l 02:45: affected eye Wellbutrin Yes [place] 1 tablet M emoria XL 7-13 [place] in the l 02:45: morning [place] 38 Losartan Yes [place] 1 tablet Mem oria Potassium 7-13 [place] l 02:45: Cholestyram Yes Daniel 1 packet [facility] ine 7-13 [place] mixed with l 02:45: water or non-carbon ated drink Stool Yes [place] not [facility]oria Softener 7-13 [place] defined l 02:45: Trazodone Yes [place] 1 tablet Me moria HCl 7-13 [place] at bedtime l 02:45: as needed [place] 38 Fluoxetine Yes [place] 3 capsule [facility] HCl 7-13 [place] l 02:45: Pravastatin Yes [place] 1 tablet [facility] Sodium 7-13 [place] l 02:45: Rivastigmin Yes [place] 1 patch to [facility] e 7-13 [place] skin l 02:45: Hydroxychlo Yes [place] 1 tablets [facility] roquine 7-13 [place] with food l Sulfate 02:45: or milk Lamotrigine Yes [place] 2 tablets [facility] 7-13 [place] l 02:45: Vitamin D Yes [place] 1 capsule M emoria (Ergocalcif 7-13 [place] l melinda) 02:45: Pantoprazol Yes [place] 1 tablet [facility] e Sodium 7-13 [place] l 02:45: [place] 38 PredniSONE 0 Yes [place] 1-2 Memor ia 7-13 [place] tablets as l 02:45: needed for 38 joint pain Atrovent Yes [place] INHALE 2 Mem oria HFA 7-13 [place] PUFF BY l 02:45: MOUTH [place] 38 TWICE A DAY Leflunomide Yes [place] 1 tablet [facility] 7-13 [place] l 02:45: Fluorometho Yes [place] 1 drop Me moria lone 7-13 [place] into l 02:45: affected eye Wellbutrin Yes [place] 1 tablet M emoria XL 7-13 [place] in the l 02:45: morning [place] 38 Losartan Yes Daniel 1 tablet Mem oria Potassium 7-13 [place] l 02:45: Cholestyram Yes [place] 1 packet [facility] ine 7-13 [place] mixed with l 02:45: water or non-carbon ated drink Stool Yes Daniel not [facility]oria Softener 7-13 [place] defined l 02:45: Trazodone Yes [place] 1 tablet Me moria HCl 7-13 [place] at bedtime l 02:45: as needed [place] 38 Fluoxetine Yes [place] 3 capsule [facility] HCl 7-13 [place] l 02:45: Pravastatin Yes [place] 1 tablet [facility] Sodium 7-13 [place] l 02:45: Fluorometho Yes [place] 1 drop Me moria lone 7-13 [place] into l 02:45: affected eye Lamotrigine Yes [place] 2 tablets [facility] 7-13 [place] l 02:45: Rivastigmin Yes [place] 1 patch to [facility] e 7-13 [place] skin l 02:45: Hydroxychlo Yes [place] 1 tablets [facility] roquine 7-13 [place] with food l Sulfate 02:45: or milk [place] 38 Vitamin D Yes [place] 1 capsule M emoria (Ergocalcif 7-13 [place] l melinda) 02:45: [place] 38 Pantoprazol Yes Daniel 1 tablet [facility] e Sodium 7-13 [place] l 02:45: [place] 38 PredniSONE Yes [place] 1-2 Memor ia 7-13 [place] tablets as l 02:45: needed for [place] 38 joint pain Atrovent Yes [place] INHALE 2 Mem oria HFA 7-13 [place] PUFF BY l 02:45: MOUTH TWICE A DAY Leflunomide Yes [place] 1 tablet [facility] 7-13 [place] l 02:45: Wellbutrin Yes [place] 1 tablet M emoria XL 7-13 [place] in the l 02:45: morning [place] 38 Losartan Yes [place] 1 tablet Mem [facility]ria Potassium 7-13 [place] l 02:45: Cholestyram Yes Daniel 1 packet [facility] ine 7-13 [place] mixed with l 02:45: water or non-carbon ated drink Stool Yes [place] not [facility] Softener 7-13 [place] defined l 02:45: Trazodone Yes [place] 1 tablet Me moria HCl 7-13 [place] at bedtime l 02:45: as needed [place] 38 Fluoxetine Yes [place] 3 capsule [facility] HCl 7-13 [place] l 02:45: Pravastatin Yes [place] 1 tablet [facility] Sodium 7-13 [place] l 02:45: Fluorometho Yes [place] 1 drop Me moria lone 7-13 [place] into l 02:45: affected eye Lamotrigine Yes [place] 2 tablets [facility] 7-13 [place] l 02:45: Rivastigmin Yes [place] 1 patch to [facility] e 7-13 [place] skin l 02:45: Hydroxychlo Yes Daniel 1 tablets [facility] roquine 7-13 [place] with food l Sulfate 02:45: or milk Vitamin D Yes [place] 1 capsule M emoria (Ergocalcif 7-13 [place] l melinda) 02:45: Pantoprazol 0 Yes [place] 1 tablet [facility] e Sodium 7-13 [place] l 02:45: [place] 38 PredniSONE Yes Daniel 1-2 Memor ia 7-13 [place] tablets as l 02:45: needed for [place] 38 joint pain Atrovent Yes [place] INHALE 2 Mem oria HFA 7-13 [place] PUFF BY l 02:45: MOUTH [place] 38 TWICE A DAY Leflunomide Yes Daniel 1 tablet [facility] 7-13 [place] l 02:45: [place] 38 Wellbutrin Yes [place] 1 tablet M emoria XL 7-13 [place] in the l 02:45: morning [place] 38 Losartan Yes Daniel 1 tablet Mem oria Potassium 7-13 [place] l 02:45: Cholestyram Yes Daniel 1 packet [facility] ine 7-13 [place] mixed with l 02:45: water or [place] 38 non-carbon ated drink Stool Yes [place] not [facility] Softener 7-13 [place] defined l 02:45: [place] 38 Trazodone Yes [place] 1 tablet Me moria HCl 7-13 [place] at bedtime l 02:45: as needed [place] 38 Fluoxetine Yes [place] 3 capsule [facility] HCl 7-13 [place] l 02:45: [place] 38 Pravastatin Yes Daniel 1 tablet [facility] Sodium 7-13 [place] l 02:45: [place] 38 Fluorometho Yes Daniel 1 drop Me moria lone 7-13 [place] into l 02:45: affected [place] 38 eye Lamotrigine Yes Daniel 2 tablets [facility]oria 7-13 [place] l 02:45: [place] 38 Rivastigmin Yes [place] 1 patch to [facility] e 7-13 [place] skin l 02:45: [place] 38 Hydroxychlo Yes [place] 1 tablets [facility] roquine 7-13 [place] with food l Sulfate 02:45: or milk [place] 38 Vitamin D Yes Daniel 1 capsule M emoria (Ergocalcif 7-13 [place] l melinda) 02:45: [place] 38 Pantoprazol Yes [place] 1 tablet [facility] e Sodium 7-13 [place] l 02:45: [place] 38 PredniSONE Yes [place] 1-2 Memor ia 7-13 [place] tablets as l 02:45: needed for [place] 38 joint pain Folic Acid 2022-0 Yes [place] 1 tablet M emoria 7-12 [place] l 00:00: Folic Acid 2022-0 Yes [place] 1 tablet M emoria 7-12 [place] l 00:00: Folic Acid 2022-0 Yes [place] 1 tablet M emoria 7-12 [place] l 00:00: Folic Acid 2022-0 Yes [place] 1 tablet M emoria 7-12 [place] l 00:00: Folic Acid 2022-0 Yes [place] 1 tablet M emoria 7-12 [place] l 00:00: Folic Acid 2022-0 Yes Daniel 1 tablet M emoria 7-12 [place] l 00:00: Folic Acid 2022-0 Yes [place] 1 tablet M emoria 7-12 [place] l 00:00: Folic Acid 2022-0 Yes [place] 1 tablet M emoria 7-12 [place] l 00:00: Folic Acid 2022-0 Yes [place] 1 tablet M emoria 7-12 [place] l 00:00: Folic Acid 2022-0 Yes Daniel 1 tablet M emoria 7-12 [place] l 00:00: Folic Acid 2022-0 Yes [place] 1 tablet M emoria 7-12 [place] l 00:00: Folic Acid 2022-0 Yes Daniel 1 tablet M emoria 7-12 [place] l 00:00: Folic Acid 2022-0 Yes [place] 1 tablet M emoria 7-12 [place] l 00:00: Folic Acid 2022-0 Yes Daniel 1 tablet M emoria 7-12 [place] l 00:00: Folic Acid 2022-0 Yes [place] 1 tablet M emoria 7-12 [place] l 00:00: Folic Acid 2022-0 Yes [place] 1 tablet M emoria 7-12 [place] l 00:00: 00 Fluoxetine 2022-0 Yes [place] 3 capsule [facility] HCl 4-13 [place] l 02:46: 20 Fluoxetine 2022-0 Yes [place] 3 capsule [facility] HCl 4-13 [place] l 02:46: 20 Fluoxetine 2021-0 Yes Daniel 3 capsule [facility] HCl 4-13 [place] l 02:46: 20 Fluoxetine 2021-0 Yes Daniel 3 capsule [facility] HCl 4-13 [place] l 02:46: 20 Fluoxetine 2021-0 Yes [place] 3 capsule [facility] HCl 4-13 [place] l 02:46: 20 Fluoxetine 2021-0 Yes Daniel 3 capsule [facility] HCl 4-13 [place] l 02:46: 20 Fluoxetine 2021-0 Yes [place] 3 capsule [facility] HCl 4-13 [place] l 02:46: 20 Fluoxetine 2021-0 Yes Daniel 3 capsule [facility] HCl 4-13 [place] l 02:46: Fluoxetine 2021-0 Yes [place] 3 capsule [facility] HCl 4-13 [place] l 02:46: Fluoxetine 0 Yes Daniel 3 capsule [facility] HCl 4-13 [place] l 02:46: Fluoxetine 0 Yes [place] 3 capsule [facility] HCl 4-13 [place] l 02:46: 20 Fluoxetine 2021-0 Yes Daniel 3 capsule [facility] HCl 4-13 [place] l 02:46: Fluoxetine 2021-0 Yes Daniel 3 capsule [facility] HCl 4-13 [place] l 02:46: Fluoxetine 2021-0 Yes [place] 3 capsule [facility] HCl 4-13 [place] l 02:46: Fluoxetine 2021-0 Yes [place] 3 capsule [facility] HCl 4-13 [place] l 02:46: Fluoxetine 2021-0 Yes [place] 3 capsule [facility] HCl 4-13 [place] l 02:46: Flurbip-Domingo 2021-0 Yes Daniel as Yung jad ap-Cyclob-L 4-12 [place] directed l nora-Dex 00:00: Flurbip-Domingo 2021-0 Yes [place] as Yung jad ap-Cyclob-L 4-12 [place] directed l nora-Dex 00:00: Flurbip-Domingo 2021-0 Yes [place] as Yung jad ap-Cyclob-L 4-12 [place] directed l nora-Dex 00:00: Flurbip-Domingo 2021-0 Yes [place] as Yung jad ap-Cyclob-L 4-12 [place] directed l [facility] as Yung jad ap-Cyclob-L 4-12 [place] directed l nora-Dex 00:00: [facility] 0 Yes [place] as Yung jad ap-Cyclob-L 4-12 [place] directed l nora-Dex 00:00: [facility] 0 Yes Daniel as Yung jad ap-Cyclob-L 4-12 [place] directed l nora-Dex 00:00: [facility] 0 Yes Daniel as Yung jad ap-Cyclob-L 4-12 [place] directed l nora-Dex 00:00: [facility] Yes [place] as Yung jad ap-Cyclob-L 4-12 [place] directed l nora-Dex 00:00: [facility] 0 Yes [place] as Yung jad ap-Cyclob-L 4-12 [place] directed l nora-Dex 00:00: [facility] 0 Yes [place] as Yung jad ap-Cyclob-L 4-12 [place] directed l nora-Dex 00:00: [facility] 0 Yes [place] as Yung jad ap-Cyclob-L 4-12 [place] directed l nora-Dex 00:00: [facility] 0 Yes [place] as Yung jad ap-Cyclob-L 4-12 Nugent directed l nora-Dex 00:00: [facility] 0 Yes Daniel as Yung jad ap-Cyclob-L 4-12 Nugent directed l nora-Dex 00:00: [facility] 0 Yes Daniel as Yung jad ap-Cyclob-L 4-12 Nugent directed l [facility]Dex [facility] Daniel as Yung jad ap-Cyclob-L 4-12 Nugent directed l nora-Dex 00:00: famotidine 2021- No 40mg QD Take 40 mg [facility] (PEPCID) 40 3-10 03-[address] MG tablet 10:19: 00:00 daily. Hospi ta 23 :00 l famotidine 2021- No 40mg QD Take 40 mg [facility] (PEPCID) 40 3-10 03-10 by mouth [facility] MG tablet 10:19: 00:00 daily. Hospi ta 23 :00 l pantoprazol 2021- No [id number] 20mg QD Take 1 [facility] 8-24 10-12 tablet (20 st (PROTONIX) 00:00: 00:00 mg total) H ospita 20 MG EC 00 :00 by mouth l tablet daily. pantoprazol 2021- No [id number] 20mg QD Take 1 [facility] 03-16 10-12 tablet (20 st (PROTONIX) 00:00: 00:00 mg total) H ospita 20 MG EC 00 :00 by mouth l tablet daily. pantoprazol 2021- No [id number] 20mg QD Take 1 [facility] 03-16 10-12 tablet (20 st (PROTONIX) 00:00: 00:00 mg total) H ospita 20 MG EC 00 :00 by mouth l tablet daily. buPROPion Yes [id number] TAKE 1 M ethodi XL 7-[address] (WELLBUTRIN 00:00: MOUTH Hospi ta XL) 150 MG 00 EVERY DAY l 24 hr tablet buPROPion Yes [id number] TAKE 1 M ethodi XL 7-[address] (WELLBUTRIN 00:00: MOUTH Hospi ta XL) 150 MG 00 EVERY DAY l 24 hr tablet buPROPion 2022- No [id number] TAKE 1 [facility] XL 7-15 04-[address] (WELLBUTRIN 00:00: 00:00 MOUTH Hosp kelly XL) 150 MG 00 :00 EVERY DAY l 24 hr tablet cholestyram 2021- No [id number] 1{packe Q.[id number] Take 1 [facility] ine 24 05-25 t} [id number] packet by st (Questran) 00:00: 04:59 3D mouth 3 Hos melania 4 gram 00 :00 (three) l packet times a day with meals. dicyclomine 2021- No [id number] 20mg Q.25D Take 1 [facility] (BENTYL) 20 5-24 05-25 tablet (20 s t mg tablet 00:00: 04:59 mg total) Ho spita 00 :00 by mouth 4 l (four) times a day. cholestyram 2021- No [id number] 1{packe Q.[id number] Take 1 [facility] ine 5-24 05-25 t} [id number] packet by st (Questran) 00:00: 04:59 3D mouth 3 Hos [facility] 4 gram 00 :00 (three) l packet times a day with meals. dicyclomine 2021- No [id number] 20mg Q.25D Take 1 [facility] (BENTYL) 20 5-24 05-25 tablet (20 s t mg tablet 00:00: 04:59 mg total) Ho spita 00 :00 by mouth 4 l (four) times a day. rivastigmin 2021- No [id number] 1{patch QD Place 1 Method[facility] (EXELON) 11-18 } patch on st 9.5 mg/24 00:00: 04:59 the skin Hos [facility]ia hour 00 :00 daily. l rivastigmin 2021- No [id number] 1{patch QD Place 1 [facility] (EXELON) 11-18 } patch on st 9.5 mg/24 00:00: 04:59 the skin Hos melania hour 00 :00 daily. l Methotrexat Yes Huma 6 tablets Memoria e 2-05 Michael l 03:46: [place] 39 Trazodone Yes Huma 1 tablet [facility] HCl 2-05 Michael at bedtime l 03:46: [place] 39 Lorazepam Yes Huma 1 tablet Memoria 2-05 Michael as needed l 03:46: [place] 39 Dexilant Yes Huma 1 capsule [facility]oria 2-05 Michael l 03:46: [place] 39 Myrbetriq 2021-0 Yes Huma 1 tablet [facility]oria 2-05 Michael l 03:46: [place] 39 Creon 2020-0 Yes Huma as Memoria 2-05 Michael directed l 03:46: [place] 39 Aspir-81 2020-0 Yes Huma 1 tablet Memoria 2-05 Michael l 03:46: [place] 39 Metoprolol 2020-0 Yes Huma 1 capsule [facility] Succinate 2-05 Michael l 03:46: [place] 39 Sulfasalazi 2020-0 Yes Huma 1 tablet Memoria ne 2-05 Michael l 03:46: [place] 39 Hyoscyamine 2020-0 Yes Huma 1 tablet [facility]oria Sulfate 2-05 Michael as needed l 03:46: [place] 39 Amoxicillin 2020-0 Yes Huma 1 tablet Memoria 2-05 Michael l 03:46: [place] 39 Nitrofurant 2020-0 Yes Huma not M emoria oin 2-05 Michael defined l 03:46: [place] 39 Methotrexat 2020-0 Yes Huma 6 tablets Memoria e 2-05 Michael l 03:46: [place] 39 Trazodone 2020-0 Yes Huma 1 tablet [facility] HCl 2-05 Michael at bedtime l 03:46: [place] 39 Lorazepam 2020-0 Yes Huma 1 tablet Memoria 2-05 Michael as needed l 03:46: [place] 39 Dexilant 2020-0 Yes Huma 1 capsule [facility]oria 2-05 Michael l 03:46: [place] 39 Myrbetriq 2020-0 Yes Huma 1 tablet Memoria 2-05 Michael l 03:46: [place] 39 Creon 2020-0 Yes Huma as Memoria 2-05 Michael directed l 03:46: [place] 39 Aspir-81 2020-0 Yes Huma 1 tablet Memoria 2-05 Michael l 03:46: [place] 39 Metoprolol 2020-0 Yes Huma 1 capsule [facility] Succinate 2-05 Michael l 03:46: [place] 39 Sulfasalazi 2020-0 Yes Huma 1 tablet Memoria ne 2-05 Michael l 03:46: [place] 39 Hyoscyamine 2020-0 Yes Huma 1 tablet [facility] Sulfate 2-05 Michael as needed l 03:46: [place] 39 Nitrofurant 2020-0 Yes Huma not M emoria oin 2-05 Michael defined l 03:46: [place] 39 Amoxicillin 2020-0 Yes Huma 1 tablet Memoria 2-05 Michael l 03:46: [place] 39 Methotrexat 2020-0 Yes Huma 6 tablets Memoria e 2-05 Michael l 03:46: [place] 39 Trazodone 2020-0 Yes Huma 1 tablet [facility]oria HCl 2-05 Michael at bedtime l 03:46: [place] 39 Lorazepam 2020-0 Yes Huma 1 tablet Memoria 2-05 Michael as needed l 03:46: [place] 39 Dexilant 2020-0 Yes Huma 1 capsule Memoria 2-05 Michael l 03:46: [place] 39 Myrbetriq 2020-0 Yes Huma 1 tablet Memoria 2-05 Michael l 03:46: [place] 39 Creon 2020-0 Yes Huma as Memoria 2-05 Michael directed l 03:46: [place] 39 Aspir-81 2020-0 Yes Huma 1 tablet Memoria 2-05 Michael l 03:46: [place] 39 Metoprolol 2020-0 Yes Huma 1 capsule [facility] Succinate 2-05 Michael l 03:46: [place] 39 Sulfasalazi 2020-0 Yes Huma 1 tablet Memoria ne 2-05 Michael l 03:46: [place] 39 Hyoscyamine 2020-0 Yes Huma 1 tablet [facility]oria Sulfate 2-05 Michael as needed l 03:46: [place] 39 Nitrofurant 2020-0 Yes Huma not M emoria oin 2-05 Michael defined l 03:46: [place] 39 Amoxicillin 2020-0 Yes Huma 1 tablet Memoria 2-05 Michael l 03:46: [place] 39 Methotrexat 2020-0 Yes Huma 6 tablets Memoria e 2-05 Michael l 03:46: [place] 39 Trazodone 2020-0 Yes Huma 1 tablet Memoria HCl 2-05 Michael at bedtime l 03:46: [place] 39 Lorazepam 2020-0 Yes Huma 1 tablet Memoria 2-05 Michael as needed l 03:46: [place] 39 Dexilant 2020-0 Yes Huma 1 capsule Memoria 2-05 Michael l 03:46: [place] 39 Myrbetriq 2020-0 Yes Huma 1 tablet Memoria 2-05 Michael l 03:46: [place] 39 Creon 2020-0 Yes Huma as Memoria 2-05 Michael directed l 03:46: [place] 39 Aspir-81 2020-0 Yes Huma 1 tablet Memoria 2-05 Michael l 03:46: [place] 39 Metoprolol 2020-0 Yes Huma 1 capsule [facility] Succinate 2-05 Michael l 03:46: [place] 39 Sulfasalazi 2020-0 Yes Huma 1 tablet Memoria ne 2-05 Michael l 03:46: [place] 39 Hyoscyamine 2020-0 Yes Huma 1 tablet [facility]oria Sulfate 2-05 Michael as needed l 03:46: [place] 39 Nitrofurant 2020-0 Yes Huma not M emoria oin 2-05 Michael defined l 03:46: [place] 39 Amoxicillin 2020-0 Yes Huma 1 tablet Memoria 2-05 Michael l 03:46: [place] 39 Methotrexat 2020-0 Yes Huma 6 tablets Memoria e 2-05 Michael l 03:46: [place] 39 Trazodone 2020-0 Yes Huma 1 tablet Memoria HCl 2-05 Michael at bedtime l 03:46: [place] 39 Lorazepam 2020-0 Yes Huma 1 tablet Memoria 2-05 Michael as needed l 03:46: [place] 39 Dexilant 2020-0 Yes Huma 1 capsule Memoria 2-05 Michael l 03:46: [place] 39 Myrbetriq 2020-0 Yes Huma 1 tablet Memoria 2-05 Michael l 03:46: [place] 39 Creon 2020-0 Yes Huma as Memoria 2-05 Michael directed l 03:46: [place] 39 Aspir-81 2020-0 Yes Huma 1 tablet Memoria 2-05 Michael l 03:46: [place] 39 Metoprolol 2020-0 Yes Huma 1 capsule Memoria Succinate 2-05 Michael l 03:46: [place] 39 Sulfasalazi 2020-0 Yes Huma 1 tablet Memoria ne 2-05 Michael l 03:46: [place] 39 Hyoscyamine 2020-0 Yes Huma 1 tablet Memoria Sulfate 2-05 Michael as needed l 03:46: [place] 39 Nitrofurant 2020-0 Yes Huma not M emoria oin 2-05 Michael defined l 03:46: [place] 39 Amoxicillin 2020-0 Yes Huma 1 tablet Memoria 2-05 Michael l 03:46: [place] 39 Methotrexat 2020-0 Yes Huma 6 tablets Memoria e 2-05 Michael l 03:46: [place] 39 Trazodone 2020-0 Yes Huma 1 tablet Memoria HCl 2-05 Michael at bedtime l 03:46: [place] 39 Lorazepam 2020-0 Yes Huma 1 tablet Memoria 2-05 Michael as needed l 03:46: [place] 39 Dexilant 2020-0 Yes Huma 1 capsule Memoria 2-05 Michael l 03:46: [place] 39 Myrbetriq 2020-0 Yes Huma 1 tablet Memoria 2-05 Michael l 03:46: [place] 39 Creon 2020-0 Yes Huma as Memoria 2-05 Michael directed l 03:46: [place] 39 Aspir-81 2020-0 Yes Huma 1 tablet Memoria 2-05 Michael l 03:46: [place] 39 Metoprolol 2020-0 Yes Huma 1 capsule [facility]oria Succinate 2-05 Michael l 03:46: [place] 39 Sulfasalazi 2020-0 Yes Huma 1 tablet Memoria ne 2-05 Michael l 03:46: [place] 39 Hyoscyamine 2020-0 Yes Huma 1 tablet Memoria Sulfate 2-05 Michael as needed l 03:46: [place] 39 Nitrofurant 2020-0 Yes Huma not M emoria oin 2-05 Michael defined l 03:46: [place] 39 Amoxicillin 2020-0 Yes Huma 1 tablet Memoria 2-05 Michael l 03:46: [place] 39 Methotrexat 2020-0 Yes Huma 6 tablets Memoria e 2-05 Michael l 03:46: [place] 39 Trazodone 2020-0 Yes Huma 1 tablet Memoria HCl 2-05 Michael at bedtime l 03:46: [place] 39 Lorazepam 2020-0 Yes Huma 1 tablet Memoria 2-05 Michael as needed l 03:46: [place] 39 Dexilant 2020-0 Yes Huma 1 capsule Memoria 2-05 Michael l 03:46: [place] 39 Myrbetriq 2020-0 Yes Huma 1 tablet Memoria 2-05 Michael l 03:46: [place] 39 Creon 2020-0 Yes Huma as Memoria 2-05 Michael directed l 03:46: [place] 39 Aspir-81 2020-0 Yes Huma 1 tablet Memoria 2-05 Michael l 03:46: [place] 39 Metoprolol 2020-0 Yes Huma 1 capsule [facility] Succinate 2-05 Michael l 03:46: [place] 39 Sulfasalazi 2020-0 Yes Huma 1 tablet Memoria ne 2-05 Michael l 03:46: [place] 39 Hyoscyamine 2020-0 Yes Huma 1 tablet Memoria Sulfate 2-05 Michael as needed l 03:46: [place] 39 Nitrofurant 2020-0 Yes Huma not M emoria oin 2-05 Michael defined l 03:46: [place] 39 Amoxicillin 2020-0 Yes Huma 1 tablet Memoria 2-05 Michael l 03:46: [place] 39 Methotrexat 2020-0 Yes Huma 6 tablets Memoria e 2-05 Michael l 03:46: [place] 39 Trazodone 2020-0 Yes Huma 1 tablet Memoria HCl 2-05 Michael at bedtime l 03:46: [place] 39 Lorazepam 2020-0 Yes Huma 1 tablet Memoria 2-05 Michael as needed l 03:46: [place] 39 Dexilant 2020-0 Yes Huma 1 capsule Memoria 2-05 Michael l 03:46: [place] 39 Myrbetriq 2020-0 Yes Huma 1 tablet Memoria 2-05 Michael l 03:46: [place] 39 Creon 2020-0 Yes Huma as Memoria 2-05 Michael directed l 03:46: [place] 39 Aspir-81 2020-0 Yes Huma 1 tablet Memoria 2-05 Michael l 03:46: [place] 39 Metoprolol 2020-0 Yes Huma 1 capsule Memoria Succinate 2-05 Michael l 03:46: [place] 39 Sulfasalazi 2020-0 Yes Huma 1 tablet Memoria ne 2-05 Michael l 03:46: [place] 39 Hyoscyamine 2020-0 Yes Huma 1 tablet Memoria Sulfate 2-05 Michael as needed l 03:46: [place] 39 Nitrofurant 2020-0 Yes Huma not M emoria oin 2-05 Michael defined l 03:46: [place] 39 Amoxicillin 2020-0 Yes Huma 1 tablet Memoria 2-05 Michael l 03:46: [place] 39 Methotrexat 2020-0 Yes Huma 6 tablets Memoria e 2-05 Michael l 03:46: [place] 39 Trazodone 2020-0 Yes Huma 1 tablet Memoria HCl 2-05 Michael at bedtime l 03:46: [place] 39 Lorazepam 2020-0 Yes Huma 1 tablet Memoria 2-05 Michael as needed l 03:46: [place] 39 Dexilant 2020-0 Yes Huma 1 capsule Memoria 2-05 Michael l 03:46: [place] 39 Aspir-81 2020-0 Yes Huma 1 tablet Memoria 2-05 Michael l 03:46: [place] 39 Myrbetriq 2020-0 Yes Huma 1 tablet Memoria 2-05 Michael l 03:46: [place] 39 Amoxicillin 2020-0 Yes Huma 1 tablet Memoria 2-05 Michael l 03:46: [place] 39 Nitrofurant 2020-0 Yes Huma not M emoria oin 2-05 Michael defined l 03:46: [place] 39 Methotrexat 2020-0 Yes Huma 6 tablets Memoria e 2-05 Michael l 03:46: [place] 39 Metoprolol 2020-0 Yes Huma 1 capsule [facility]oria Succinate 2-05 Michael l 03:46: [place] 39 Creon 2020-0 Yes uHma as Memoria 2-05 Michael directed l 03:46: [place] 39 Trazodone 2020-0 Yes Huma 1 tablet Memoria HCl 2-05 Michael at bedtime l 03:46: [place] 39 Lorazepam 2020-0 Yes Huma 1 tablet Memoria 2-05 Michael as needed l 03:46: [place] 39 Hyoscyamine 2020-0 Yes Huma 1 tablet [facility]oria Sulfate 2-05 Michael as needed l 03:46: [place] 39 Dexilant 2020-0 Yes Huma 1 capsule Memoria 2-05 Michael l 03:46: [place] 39 Sulfasalazi 2020-0 Yes Huma 1 tablet Memoria ne 2-05 Michael l 03:46: [place] 39 Aspir-81 2020-0 Yes Huma 1 tablet Memoria 2-05 Michael l 03:46: [place] 39 Myrbetriq 2020-0 Yes Huma 1 tablet Memoria 2-05 Michael l 03:46: [place] 39 Amoxicillin 2020-0 Yes Huma 1 tablet Memoria 2-05 Michael l 03:46: [place] 39 Nitrofurant 2020-0 Yes Huma not M emoria oin 2-05 Michael defined l 03:46: [place] 39 Methotrexat 2020-0 Yes Huma 6 tablets Memoria e 2-05 Michael l 03:46: [place] 39 Metoprolol 2020-0 Yes Huma 1 capsule Memoria Succinate 2-05 Michael l 03:46: [place] 39 Creon 2020-0 Yes Huma as Memoria 2-05 Michael directed l 03:46: [place] 39 Trazodone 2020-0 Yes Huma 1 tablet Memoria HCl 2-05 Michael at bedtime l 03:46: [place] 39 Lorazepam 2020-0 Yes Huma 1 tablet Memoria 2-05 Michael as needed l 03:46: [place] 39 Hyoscyamine 2020-0 Yes Huma 1 tablet Memoria Sulfate 2-05 Michael as needed l 03:46: [place] 39 Dexilant 2020-0 Yes Huma 1 capsule Memoria 2-05 Michael l 03:46: [place] 39 Sulfasalazi 2020-0 Yes Huma 1 tablet Memoria ne 2-05 Michael l 03:46: [place] 39 Aspir-81 2020-0 Yes Huma 1 tablet Memoria 2-05 Michael l 03:46: [place] 39 Myrbetriq 2020-0 Yes Huma 1 tablet Memoria 2-05 Michael l 03:46: [place] 39 Amoxicillin 2020-0 Yes Huma 1 tablet Memoria 2-05 Michael l 03:46: [place] 39 Nitrofurant 2020-0 Yes Huma not M emoria oin 2-05 Michael defined l 03:46: [place] 39 Methotrexat 2020-0 Yes Huma 6 tablets Memoria e 2-05 Michael l 03:46: [place] 39 Metoprolol 2020-0 Yes Huma 1 capsule Memoria Succinate 2-05 Michael l 03:46: [place] 39 Creon 2020-0 Yes Huma as Memoria 2-05 Michael directed l 03:46: [place] 39 Trazodone 2020-0 Yes Huma 1 tablet Memoria HCl 2-05 Michael at bedtime l 03:46: [place] 39 Lorazepam 2020-0 Yes Huma 1 tablet Memoria 2-05 Michael as needed l 03:46: [place] 39 Hyoscyamine 2020-0 Yes Huma 1 tablet Memoria Sulfate 2-05 Michael as needed l 03:46: [place] 39 Dexilant 2020-0 Yes Huma 1 capsule Memoria 2-05 Michael l 03:46: [place] 39 Sulfasalazi 2020-0 Yes Huma 1 tablet Memoria ne 2-05 Michael l 03:46: [place] 39 Aspir-81 2020-0 Yes Huma 1 tablet Memoria 2-05 Michael l 03:46: [place] 39 Myrbetriq 2020-0 Yes Huma 1 tablet Memoria 2-05 Michael l 03:46: [place] 39 Amoxicillin 2020-0 Yes Huma 1 tablet Memoria 2-05 Michael l 03:46: [place] 39 Nitrofurant 2020-0 Yes Huma not M emoria oin 2-05 Michael defined l 03:46: [place] 39 Methotrexat 2020-0 Yes Huma 6 tablets Memoria e 2-05 Michael l 03:46: [place] 39 Metoprolol 2020-0 Yes Huma 1 capsule Memoria Succinate 2-05 Michael l 03:46: [place] 39 Creon 2020-0 Yes Huma as Memoria 2-05 Michael directed l 03:46: [place] 39 Trazodone 2020-0 Yes Huma 1 tablet Memoria HCl 2-05 Michael at bedtime l 03:46: [place] 39 Lorazepam 2020-0 Yes Huma 1 tablet Memoria 2-05 Michael as needed l 03:46: [place] 39 Hyoscyamine 2020-0 Yes Huma 1 tablet Memoria Sulfate 2-05 Michael as needed l 03:46: [place] 39 Dexilant 2020-0 Yes Huma 1 capsule Memoria 2-05 Michael l 03:46: [place] 39 Sulfasalazi 2020-0 Yes Huma 1 tablet Memoria ne 2-05 Michael l 03:46: [place] 39 Myrbetriq 2020-0 Yes Huma 1 tablet Memoria 2-05 Michael l 03:46: [place] 39 Creon 2020-0 Yes Huma as Memoria 2-05 Michael directed l 03:46: [place] 39 Aspir-81 2020-0 Yes Huma 1 tablet Memoria 2-05 Michael l 03:46: [place] 39 Metoprolol 2020-0 Yes Huma 1 capsule Memoria Succinate 2-05 Michael l 03:46: [place] 39 Sulfasalazi 2020-0 Yes Huma 1 tablet Memoria ne 2-05 Michael l 03:46: [place] 39 Hyoscyamine 2020-0 Yes Huma 1 tablet Memoria Sulfate 2-05 Michael as needed l 03:46: [place] 39 Amoxicillin 2020-0 Yes Huma 1 tablet Memoria 2-05 Michael l 03:46: [place] 39 Nitrofurant 2020-0 Yes Huma not M emoria oin 2-05 Michael defined l 03:46: [place] 39 Methotrexat 2020-0 Yes Huma 6 tablets Memoria e 2-05 Michael l 03:46: [place] 39 Trazodone 2020-0 Yes Huma 1 tablet Memoria HCl 2-05 Michael at bedtime l 03:46: [place] 39 Lorazepam 2020-0 Yes Huma 1 tablet Memoria 2-05 Michael as needed l 03:46: [place] 39 Dexilant 2020-0 Yes Huma 1 capsule Memoria 2-05 Michael l 03:46: [place] 39 Myrbetriq 2020-0 Yes Huma 1 tablet Memoria 2-05 Michael l 03:46: [place] 39 Creon 2020-0 Yes Huma as Memoria 2-05 Michael directed l 03:46: [place] 39 Aspir-81 2020-0 Yes Huma 1 tablet Memoria 2-05 Michael l 03:46: [place] 39 Metoprolol 2020-0 Yes Huma 1 capsule Memoria Succinate 2-05 Michael l 03:46: [place] 39 Sulfasalazi 2020-0 Yes Huma 1 tablet Memoria ne 2-05 Michael l 03:46: [place] 39 Hyoscyamine 2020-0 Yes Huma 1 tablet Memoria Sulfate 2-05 Michael as needed l 03:46: [place] 39 Amoxicillin 2020-0 Yes Huma 1 tablet Memoria 2-05 Michael l 03:46: [place] 39 Nitrofurant 2020-0 Yes Huma not M emoria oin 2-05 Michael defined l 03:46: [place] 39 Methotrexat 2020-0 Yes Huma 6 tablets Memoria e 2-05 Michael l 03:46: [place] 39 Trazodone 2020-0 Yes Huma 1 tablet Memoria HCl 2-05 Michael at bedtime l 03:46: [place] 39 Lorazepam 2020-0 Yes Huma 1 tablet Memoria 2-05 Michael as needed l 03:46: [place] 39 Dexilant 2020-0 Yes Huma 1 capsule Memoria 2-05 Michael l 03:46: [place] 39 Myrbetriq 2020-0 Yes Huma 1 tablet Memoria 2-05 Michael l 03:46: [place] 39 Creon 2020-0 Yes Huma as Memoria 2-05 Michael directed l 03:46: [place] 39 Aspir-81 2020-0 Yes Huma 1 tablet Memoria 2-05 Michael l 03:46: [place] 39 Metoprolol 2020-0 Yes Huma 1 capsule Memoria Succinate 2-05 Michael l 03:46: [place] 39 Sulfasalazi 2020-0 Yes Huma 1 tablet Memoria ne 2-05 Michael l 03:46: [place] 39 Hyoscyamine 2020-0 Yes Huma 1 tablet Memoria Sulfate 2-05 Michael as needed l 03:46: [place] 39 Amoxicillin 2020-0 Yes Huma 1 tablet Memoria 2-05 Michael l 03:46: [place] 39 Nitrofurant 2020-0 Yes Huma not M emoria oin 2-05 Michael defined l 03:46: [place] 39 Myrbetriq 2020-0 Yes Huma 1 tablet Memoria 2-05 Michael l 03:46: [place] 39 Creon 2020-0 Yes uHma as Memoria 2-05 Michael directed l 03:46: [place] 39 Aspir-81 2020-0 Yes Huma 1 tablet Memoria 2-05 Michael l 03:46: [place] 39 Metoprolol 2020-0 Yes Huma 1 capsule Memoria Succinate 2-05 Michael l 03:46: [place] 39 Sulfasalazi 2020-0 Yes Huma 1 tablet Memoria ne 2-05 Michael l 03:46: [place] 39 Hyoscyamine 2020-0 Yes Huma 1 tablet Memoria Sulfate 2-05 Michael as needed l 03:46: [place] 39 Amoxicillin 2020-0 Yes Huma 1 tablet Memoria 2-05 Michael l 03:46: [place] 39 Nitrofurant 2020-0 Yes Huma not M emoria oin 2-05 Michael defined l 03:46: [place] 39 Methotrexat 2020-0 Yes Huma 6 tablets Memoria e 2-05 Michael l 03:46: [place] 39 Trazodone 2020-0 Yes Huma 1 tablet Memoria HCl 2-05 Michael at bedtime l 03:46: [place] 39 Lorazepam 2020-0 Yes Huma 1 tablet Memoria 2-05 Michael as needed l 03:46: [place] 39 Dexilant 2020-0 Yes Huma 1 capsule Memoria 2-05 Michael l 03:46: [place] 39 Methotrexat 2020-0 Yes Marisol 8 tablets Memoria e 2-05 Vo l 03:46: [place] 38 Methotrexat 2020-0 Yes Marisol 8 tablets Memoria e 2-05 Vo l 03:46: [place] 38 Methotrexat 0 Yes Marisol 8 tablets Memoria e 2-05 Vo l 03:46: [place] 38 Methotrexat 2020-0 Yes Marisol 8 tablets Memoria e 2-05 Vo l 03:46: [place] 38 Methotrexat 2020-0 Yes Marisol 8 tablets Memoria e 2-05 Vo l 03:46: [place] 38 Methotrexat 2020-0 Yes Marisol 8 tablets Memoria e 2-05 Vo l 03:46: [place] 38 Methotrexat 2020-0 Yes Marisol 8 tablets Memoria e 2-05 Vo l 03:46: [place] 38 Methotrexat 2020-0 Yes Marisol 8 tablets Memoria e 2-05 Vo l 03:46: [place] 38 Methotrexat 2020-0 Yes Marisol 8 tablets Memoria e 2-05 Vo l 03:46: [place] 38 Methotrexat 2020-0 Yes Marisol 8 tablets Memoria e 2-05 Vo l 03:46: [place] 38 Methotrexat 2020-0 Yes Marisol 8 tablets Memoria e 2-05 Vo l 03:46: [place] 38 Methotrexat 2020-0 Yes Marisol 8 tablets Memoria e 2-05 Vo l 03:46: [place] 38 Methotrexat 2020-0 Yes Marisol 8 tablets Memoria e 2-05 Vo l 03:46: [place] 38 Methotrexat 2020-0 Yes Marisol 8 tablets Memoria e 2-05 Vo l 03:46: [place] 38 Methotrexat 0 Yes Marisol 8 tablets Memoria e 2-05 Vo l 03:46: [place] 38 Methotrexat 0 Yes Marisol 8 tablets Memoria e 2-05 Vo l 03:46: [place] 38 PredniSONE 2020-1 Yes Marquez 1-2 Mem oria 1-25 Brandan tablets as l 00:00: needed for [place] 00 joint pain PredniSONE 2020-1 Yes Marquez 1-2 Mem oria 1-25 Brandan tablets as l 00:00: needed for [place] 00 joint pain PredniSONE 2020-1 Yes Marquez 1-2 Mem oria 1-25 Brandan tablets as l 00:00: needed for [place] 00 joint pain PredniSONE 2020-1 Yes Marquez 1-2 Mem oria 1-25 Brandan tablets as l 00:00: needed for [place] 00 joint pain PredniSONE 2020-1 Yes Marquez 1-2 Mem oria 1-25 Brandan tablets as l 00:00: needed for [place] 00 joint pain PredniSONE 2020-1 Yes Marquez 1-2 Mem oria 1-25 Brandan tablets as l 00:00: needed for [place] 00 joint pain PredniSONE 2020-1 Yes Marquez 1-2 Mem oria 1-25 Brandan tablets as l 00:00: needed for [place] 00 joint pain PredniSONE 2020-1 Yes Marquez 1-2 Mem oria 1-25 Brandan tablets as l 00:00: needed for [place] 00 joint pain PredniSONE 2020-1 Yes Marquez 1-2 Mem oria 1-25 Brandan tablets as l 00:00: needed for [place] 00 joint pain PredniSONE 2020-1 Yes Marquez 1-2 Mem oria 1-25 Brandan tablets as l 00:00: needed for [place] 00 joint pain PredniSONE 2020-1 Yes Marquez 1-2 Mem oria 1-25 Brandan tablets as l 00:00: needed for [place] 00 joint pain PredniSONE 2020- Yes Marquez 1-2 Mem oria 1-25 Brandan tablets as l 00:00: needed for [place] joint pain PredniSONE 2020- Yes Marquez 1-2 Mem oria 1-25 Brandan tablets as l 00:00: needed for [place] joint pain PredniSONE 2020- Yes Marquez 1-2 Mem oria 1-25 Brandan tablets as l 00:00: needed for [place] joint pain PredniSONE 2019- Yes Marquez 1-2 Mem oria 1-25 Brandan tablets as l 00:00: needed for [place] joint pain PredniSONE 2020- Yes Marquez 1-2 Mem oria 1-25 Brandan tablets as l 00:00: needed for [place] joint pain Donepezil 2020 Yes Viki 1 tablet Mem oria Hydrochlori 1-20 Vilardo at bedtime l de 03:45: [place] 50 Rivastigmin 2020- Yes Viki 1 patch to Memoria e 1-20 Vilardo skin l 03:45: [place] 50 Celecoxib 2020- Yes Viki 1 capsule Me moria 1-20 [place]ardo with food l 03:45: [place] Donepezil 2020- Yes Viki 1 tablet Mem oria Hydrochlori 1-20 Vilardo at bedtime l de 03:45: [place] 50 Rivastigmin 2020- Yes Viki 1 patch to Memoria e 1-20 [place] skin l 03:45: [place] 50 Celecoxib 2020- Yes Viki 1 capsule Me moria 1-20 [place] with food l 03:45: [place] 50 Donepezil 2020- Yes Viki 1 tablet Mem oria Hydrochlori 1-20 Vilardo at bedtime l de 03:45: [place] 50 Rivastigmin 2020- Yes Viki 1 patch to Memoria e 1-20 [place] skin l 03:45: [place] 50 Celecoxib 2020- Yes Viki 1 capsule Me moria 1-20 [place] with food l 03:45: [place] 50 Donepezil 2020- Yes Viki 1 tablet Mem oria Hydrochlori 1-20 Vilardo at bedtime l de 03:45: [place] 50 Rivastigmin 2020-1 Yes Viki 1 patch to Memoria e 1-20 [place] skin l 03:45: [place] 50 Celecoxib 2020- Yes Viki 1 capsule Me moria 1-20 [place] with food l 03:45: [place] 50 Donepezil 2020- Yes Viki 1 tablet Mem oria Hydrochlori 1-20 Vilardo at bedtime l de 03:45: [place] 50 Rivastigmin 2020- Yes Viki 1 patch to Memoria e 1-20 [place] skin l 03:45: [place] 50 Celecoxib 2020- Yes Viki 1 capsule Me moria 1-20 [place] with food l 03:45: [place] 50 Donepezil 2020- Yes Viki 1 tablet Mem oria Hydrochlori 1-20 Vilardo at bedtime l de 03:45: [place] 50 Rivastigmin 2020- Yes Viki 1 patch to Memoria e 1-20 [place] skin l 03:45: [place] 50 Celecoxib 2020- Yes Viki 1 capsule Me moria 1-20 [place] with food l 03:45: [place] 50 Donepezil 2020- Yes Viki 1 tablet Mem oria Hydrochlori 1-20 Vilardo at bedtime l de 03:45: [place] 50 Rivastigmin 2020- Yes Viki 1 patch to Memoria e 1-20 [place] skin l 03:45: [place] 50 Celecoxib 2020- Yes Viki 1 capsule Me moria 1-20 [place] with food l 03:45: [place] 50 Donepezil 2020- Yes Viki 1 tablet Mem oria Hydrochlori 1-20 Vilardo at bedtime l de 03:45: [place] 50 Rivastigmin 2020- Yes Viki 1 patch to Memoria e 1-20 [place] skin l 03:45: [place] 50 Celecoxib 2020- Yes Viki 1 capsule Me moria 1-20 [place] with food l 03:45: [place] 50 Donepezil 2020- Yes Viki 1 tablet Mem oria Hydrochlori 1-20 Vilardo at bedtime l de 03:45: [place] 50 Rivastigmin 2020- Yes Viki 1 patch to Memoria e 1-20 [place] skin l 03:45: [place] 50 Celecoxib 2020- Yes Viki 1 capsule Me moria 1-20 [place] with food l 03:45: [place] 50 Donepezil 2020- Yes Viki 1 tablet Mem oria Hydrochlori 1-20 Vilardo at bedtime l de 03:45: [place] 50 Rivastigmin 2020- Yes Viki 1 patch to Memoria e 1-20 [place] skin l 03:45: [place] Olivares Celecoxib 2020- Yes Viki 1 capsule Me moria 1-20 [place]ardo with food l 03:45: [place] 50 Donepezil 2020- Yes Viki 1 tablet Mem oria Hydrochlori 1-20 Vilardo at bedtime l de 03:45: [place] Olivares Rivastigmin 2020- Yes Viki 1 patch to Memoria e 1-20 [place] skin l 03:45: [place] Olivares Celecoxib 2019- Yes Viki 1 capsule Me moria 1-20 [place] with food l 03:45: [place] Olivares Donepezil 2020- Yes Viki 1 tablet Mem oria Hydrochlori 1-20 Vilardo at bedtime l de 03:45: [place] Olivares Rivastigmin 2020- Yes Viki 1 patch to Memoria e 1-20 [place] skin l 03:45: Bennett Olivares Celecoxib 2019- Yes Viki 1 capsule Me moria 1-20 [place] with food l 03:45: [place] 50 Donepezil 2019- Yes Viki 1 tablet Mem oria Hydrochlori 1-20 [place] at bedtime l de 03:45: [place] 50 Rivastigmin 2020- Yes Viki 1 patch to [facility] e 1-20 [place] skin l 03:45: [place] 50 Celecoxib 2020-1 Yes Viki 1 capsule Me moria 1-20 [place] with food l 03:45: [place] 50 Donepezil 2020- Yes Viki 1 tablet Mem [facility] Hydrochlori 1-20 [place] at bedtime l de 03:45: [place] 50 Rivastigmin 2020- Yes Viki 1 patch to Mem[facility] e 1-20 [place] skin l 03:45: [place] 50 Celecoxib 2020- Yes Viki 1 capsule Me moria 1-20 [place] with food l 03:45: [place] 50 Donepezil 2020- Yes Viki 1 tablet Mem [facility] Hydrochlori 1-20 [place] at bedtime l de 03:45: Rivastigmin 2019- Yes Viki 1 patch to Mem[facility] e 1-20 [place] skin l 03:45: Celecoxib 2019-07 Yes Viki 1 capsule Me moria 1-20 [place] with food l 03:45: Donepezil 2019- Yes Viki 1 tablet Mem [facility] Hydrochlori 1-20 [place] at bedtime l de 03:45: Rivastigmin 2019- Yes Viki 1 patch to [facility] e 1-20 [place] skin l 03:45: Celecoxib 2019-07 Yes Viki 1 capsule Me moria 1-20 [place] with food l 03:45: leflunomide 2019-07 Yes 20mg QD 1 tablet [facility] (ARAVA) 20 1-20 ([address] [facility] tablet 00:00: total) [facility] 00 daily. As l needed leflunomide 2019-07 Yes 20mg QD 20 mg Metho di (ARAVA) 20 1-[address] MG tablet 00:00: needed Hospit a 00 l leflunomide 2019-07 Yes 20mg QD 1 tablet [facility] (ARAVA) 20 1-20 ([address] [facility] tablet 00:00: total) [facility] 00 daily. As l needed Etodolac 2019-07 Yes [place] 1 tablet Mem oria 1-17 [place] l 00:00: Hydroxychlo 2019-07 Yes Viki 1 tablets [facility]oria roquine 1-17 [place] with food l Sulfate 00:00: or milk Etodolac 2019- Yes Daniel 1 tablet Mem oria 1-17 [place] l 00:00: Hydroxychlo 2019- Yes Viki 1 tablets [facility] roquine 1-17 [place] with food l Sulfate 00:00: or milk Etodolac 2020- Yes [place] 1 tablet Mem [facility]ria 1-17 [place] l 00:00: Hydroxychlo 2020- Yes Viki 1 tablets [facility] roquine 1-17 [place] with food l Sulfate 00:00: or milk Etodolac 2020-1 Yes [place] 1 tablet Mem oria 1-17 [place] l 00:00: 00 Hydroxychlo 2020-1 Yes Viki 1 tablets [facility] roquine 1-17 [place] with food l Sulfate 00:00: or milk 00 Etodolac 2020-1 Yes [place] 1 tablet Mem oria 1-17 [place] l 00:00: [place] 00 Hydroxychlo 2020-1 Yes Viki 1 tablets [facility]oria roquine 1-17 [place] with food l Sulfate 00:00: or milk 00 Etodolac 2020-1 Yes [place] 1 tablet Mem o[facility] 1-17 [place] l 00:00: [place] 00 Hydroxychlo 2020-1 Yes Viki 1 tablets [facility] roquine 1-17 [place] with food l Sulfate 00:00: or milk 00 Etodolac 2020-1 Yes [place] 1 tablet Mem oria 1-17 [place] l 00:00: Hydroxychlo 2020-1 Yes Viki 1 tablets [facility] roquine 1-17 [place] with food l Sulfate 00:00: or milk Etodolac 2020-1 Yes Daniel 1 tablet Mem oria 1-17 [place] l 00:00: Hydroxychlo 2020-1 Yes Viki 1 tablets [facility] roquine 1-17 [place] with food l Sulfate 00:00: or milk 00 Etodolac 2020-1 Yes [place] 1 tablet Mem oria 1-17 [place] l 00:00: Hydroxychlo 2020-1 Yes Viki 1 tablets [facility] roquine 1-17 [place] with food l Sulfate 00:00: or milk Etodolac 2020-1 Yes Daniel 1 tablet Mem oria 1-17 [place] l 00:00: [place] 00 Hydroxychlo 2020-1 Yes Viki 1 tablets [facility] roquine 1-17 [place] with food l Sulfate 00:00: or milk Etodolac 2020-1 Yes Daniel 1 tablet Mem oria 1-17 [place] l 00:00: [place] 00 Hydroxychlo 2020-1 Yes Viki 1 tablets [facility] roquine 1-17 [place] with food l Sulfate 00:00: or milk Etodolac 2020-1 Yes Daniel 1 tablet Mem oria 1-17 [place] l 00:00: [place] 00 Hydroxychlo 2020- Yes Viki 1 tablets [facility] roquine 1-17 [place] with food l Sulfate 00:00: or milk [place] 00 Etodolac 2020- Yes [place] 1 tablet Mem oria 1-17 [place] l 00:00: [place] 00 Hydroxychlo 2020- Yes Viki 1 tablets [facility] roquine 1-17 [place] with food l Sulfate 00:00: or milk [place] 00 Etodolac 2020- Yes [place] 1 tablet Mem oria 1-17 [place] l 00:00: [place] 00 Hydroxychlo 2020- Yes Viki 1 tablets [facility] roquine 1-17 [place] with food l Sulfate 00:00: or milk [place] 00 Etodolac 2020- Yes Daniel 1 tablet Mem oria 1-17 [place] l 00:00: [place] Hydroxychlo 2020- Yes Viki 1 tablets [facility]oria roquine 1-17 [place] with food l Sulfate 00:00: or milk [place] 00 Etodolac 2020- Yes Daniel 1 tablet Mem oria 1-17 [place] l 00:00: [place] 00 Hydroxychlo 2020- Yes Viki 1 tablets [facility] roquine 1-17 [place] with food l Sulfate 00:00: or milk [place] 00 hydrOXYchlo 2020- Yes QD daily. Meth kiana roQUINE 1-17 st (PLAQUENIL) 00:00: Hospit a 200 mg 00 l tablet etodolac 2019-07 Yes as needed. [facility] (LODINE) 1-17 st 400 MG 00:00: [facility]osp[facility] tablet 00 l etodolac 2019-2022- No as needed. [facility] (LODINE) 1-17 -22 st 400 MG 00:00: 00:00 Hospita tablet 00 :00 l etodolac 2019-2022- No as needed. [facility] (LODINE) -17 -22 st 400 MG 00:00: 00:00 Hospita tablet 00 :00 l hydrOXYchlo 2020-2022- No QD daily. [facility] roQUINE 1-17 02-15 st (PLAQUENIL) 00:00: 00:00 Hospi ta 200 mg 00 :00 l tablet hydrOXYchlo 2020-1 2022- No QD daily. [facility] roQUINE 1-17 02-15 st (PLAQUENIL) 00:00: 00:00 Hospi ta 200 mg 00 :00 l tablet Trazodone 2020-0 Yes Marquez 1 tablet Memoria HCl 8-28 Brandan at bedtime l 02:45: [place] 12 Lorazepam 2020-0 Yes Marquez 1 tablet Memoria 8-28 Brandan as needed l 02:45: Bnen[place] 12 Dexilant 2020-0 Yes Marquez 1 capsule [facility] 8-28 Brandan l 02:45: [place] 12 Trazodone 2020-0 Yes Marquez 1 tablet [facility]oria HCl 8-28 Brandan at bedtime l 02:45: [place] 12 Lorazepam 2020-0 Yes Marquez 1 tablet Memoria 8-28 Brandan as needed l 02:45: [place] 12 Dexilant 2020-0 Yes Marquez 1 capsule [facility]oria 8-28 Brandan l 02:45: [place] 12 Trazodone 2020-0 Yes Marquez 1 tablet [facility]oria HCl 8-28 Brandan at bedtime l 02:45: [place] 12 Lorazepam 2020-0 Yes Mraquez 1 tablet Memoria 8-28 Brandan as needed l 02:45: [place] 12 Dexilant 2020-0 Yes Marquez 1 capsule [facility]oria 8-28 Brandan l 02:45: [place] 12 Trazodone 2020-0 Yes Marquez 1 tablet [facility]oria HCl 8-28 Brandan at bedtime l 02:45: [place] 12 Lorazepam 2020-0 Yes Marquez 1 tablet [facility]oria 8-28 Brandan as needed l 02:45: [place] 12 Dexilant 2020-0 Yes Marquez 1 capsule [facility]oria 8-28 Brandan l 02:45: [place] 12 Trazodone 2020-0 Yes Marquez 1 tablet [facility]oria HCl 8-28 Brandan at bedtime l 02:45: [place] 12 Lorazepam 2020-0 Yes Marquez 1 tablet Memoria 8-28 Brandan as needed l 02:45: [place] 12 Dexilant 2020-0 Yes Marquez 1 capsule [facility] 8-28 Brandan l 02:45: [place] 12 Trazodone 2020-0 Yes Marquez 1 tablet [facility] HCl 8-28 Brandan at bedtime l 02:45: [place] 12 Lorazepam 2020-0 Yes Marquez 1 tablet [facility]oria 8-28 Brandan as needed l 02:45: [place] 12 Dexilant 2020-0 Yes Marquez 1 capsule [facility] 8-28 Brandan l 02:45: [place] 12 Trazodone 2020-0 Yes Marquez 1 tablet [facility] HCl 8-28 Brandan at bedtime l 02:45: [place] 12 Lorazepam 2020-0 Yes Marquez 1 tablet [facility] 8-28 Brandan as needed l 02:45: [place] 12 Dexilant 2020-0 Yes Marquez 1 capsule [facility] 8-28 Brandan l 02:45: [place] 12 Trazodone 2020-0 Yes Marquez 1 tablet [facility] HCl 8-28 Brandan at bedtime l 02:45: [place] 12 Lorazepam 2020-0 Yes Marquez 1 tablet [facility] 8-28 Brandan as needed l 02:45: [place] 12 Dexilant 2020-0 Yes Marquez 1 capsule [facility] 8-28 Brandan l 02:45: [place] 12 Trazodone 2020-0 Yes Marquez 1 tablet [facility] HCl 8-28 Brandan at bedtime l 02:45: [place] 12 Lorazepam 2020-0 Yes Marquez 1 tablet [facility] 8-28 Brandan as needed l 02:45: [place] 12 Dexilant 2020-0 Yes Marquez 1 capsule [facility] 8-28 Brandan l 02:45: [place] 12 Trazodone 2020-0 Yes Marquez 1 tablet [facility] HCl 8-28 Brandan at bedtime l 02:45: [place] 12 Lorazepam 2020-0 Yes Marquez 1 tablet [facility] 8-28 Brandan as needed l 02:45: [place] 12 Dexilant 2020-0 Yes Marquez 1 capsule [facility] 8-28 Brandan l 02:45: [place] 12 Trazodone 2020-0 Yes Marquez 1 tablet [facility] HCl 8-28 Brandan at bedtime l 02:45: [place] 12 Lorazepam 2020-0 Yes Marquez 1 tablet [facility] 8-28 Brandan as needed l 02:45: [place] 12 Dexilant 2020-0 Yes Marquez 1 capsule [facility] 8-28 Brandan l 02:45: [place] 12 Trazodone 2020-0 Yes Marquez 1 tablet [facility] HCl 8-28 Brandan at bedtime l 02:45: [place] 12 Lorazepam 2020-0 Yes Marquez 1 tablet [facility] 8-28 Brandan as needed l 02:45: [place] 12 Dexilant 2020-0 Yes Marquez 1 capsule [facility] 8-28 Brandan l 02:45: [place] 12 Trazodone 2020-0 Yes Marquez 1 tablet [facility] HCl 8-28 Brandan at bedtime l 02:45: [place] 12 Lorazepam 2020-0 Yes Marquez 1 tablet [facility] 8-28 Brandan as needed l 02:45: [place] 12 Dexilant 2020-0 Yes Marquez 1 capsule [facility] 8-28 Brandan l 02:45: [place] 12 Trazodone 2020-0 Yes Marquez 1 tablet [facility] HCl 8-28 Brandan at bedtime l 02:45: [place] 12 Lorazepam 2020-0 Yes Marquez 1 tablet [facility] 8-28 Brandan as needed l 02:45: [place] 12 Dexilant 2020-0 Yes Marquez 1 capsule [facility] 8-28 Brandan l 02:45: [place] 12 Trazodone 2020-0 Yes Marquez 1 tablet [facility] HCl 8-28 Brandan at bedtime l 02:45: [place] 12 Lorazepam 2020-0 Yes Marquez 1 tablet [facility] 8-28 Brand[place] as needed l 02:45: [place] 12 Dexilant 2020-0 Yes Marquez 1 capsule [facility] 8-28 Brandan l 02:45: [place] 12 Trazodone 2020-0 Yes Marquez 1 tablet [facility] HCl 8-28 Brandan at bedtime l 02:45: [place] 12 Lorazepam 2020-0 Yes Marquez 1 tablet [facility] 8-28 Brandan as needed l 02:45: [place] 12 Dexilant 2020-0 Yes Marquez 1 capsule [facility] 8-28 Brandan l 02:45: [place] 12 Celecoxib 2020-0 Yes Marquez 1 capsule [facility] 8-26 Brandan with food l 00:00: [place] 00 Celecoxib 2020-0 Yes Marquez 1 capsule [facility] 8-26 [place] with food l 00:00: [place] 00 Celecoxib 2020-0 Yes Marquez 1 capsule [facility] 8-26 [place] with food l 00:00: Celecoxib 2020-0 Yes Marquez 1 capsule [facility] 8-26 [place] with food l 00:00: Celecoxib 2020-0 Yes Marquez 1 capsule [facility] 8-26 [place] with food l 00:00: Celecoxib 2020-0 Yes Marquez 1 capsule [facility] 8-26 [place] with food l 00:00: Celecoxib 2020-0 Yes Marquez 1 capsule [facility] 8-26 [place] with food l 00:00: Celecoxib 2020-0 Yes Marquez 1 capsule [facility] 8-26 [place] with food l 00:00: Celecoxib 2020-0 Yes Marquez 1 capsule [facility] 8-26 [place] with food l 00:00: Celecoxib 2020-0 Yes Marquez 1 capsule [facility] 8-26 [place] with food l 00:00: Celecoxib 2020-0 Yes Marquez 1 capsule [facility] 8-26 [place] with food l 00:00: Celecoxib 2020-0 Yes Marquez 1 capsule [facility] 8-26 [place] with food l 00:00: Celecoxib 2020-0 Yes Marquez 1 capsule [facility] 8-26 [place] with food l 00:00: Celecoxib 2020-0 Yes Marquez 1 capsule [facility] 8-26 [place] with food l 00:00: Celecoxib 2020-0 Yes Marquez 1 capsule [facility] 8-26 [place] with food l 00:00: Celecoxib 2020-0 Yes Marquez 1 capsule [facility] 8-26 [place] with food l 00:00: FLUoxetine 2020-0 Yes fluoxetine U nivers 40 mg 8-15 40 mg ity of capsule 19:42: capsule [address] leflunomide 2020-0 Yes leflunomid [facility] 20 mg 8-15 e 20 mg ity of tablet 19:42: tablet [address] pantoprazol 2020-0 Yes 40mg Take 40 mg Univers e 40 mg EC 8-15 by mouth. ity of tablet 19:42: [address] pravastatin 2020-0 Yes pravastati [facility] 20 mg 8-15 n 20 mg ity of tablet 19:42: tablet [address] prednisoLON 2020-0 Yes 1[drp] 1 Drop. U nivers E acetate 1 8-15 ity of % 19:42: [address] suspension [place] drops celecoxib 2020-0 Yes celecoxib Uni vers 200 mg 8-15 200 mg ity of capsule 19:42: capsule [address] foLIC acid 2020-0 Yes 1mg Take 1 mg Un sanam 1 mg tablet 8-15 by mouth ity of 19:42: daily. [address] FLUoxetine 2020-0 Yes fluoxetine U nivers 40 mg 8-15 40 mg ity of capsule 19:42: capsule [address] leflunomide 2020-0 Yes leflunomid [facility] 20 mg 8-15 e 20 mg ity of tablet 19:42: tablet [address] pantoprazol 2020-0 Yes 40mg Take 40 mg Univers e 40 mg EC 8-15 by mouth. ity of tablet 19:42: [address] pravastatin 2020-0 Yes pravastati [facility] 20 mg 8-15 n 20 mg ity of tablet 19:42: tablet [address] prednisoLON 2020-0 Yes 1[drp] 1 Drop. U nivers E acetate 1 8-15 ity of % 19:42: [address] drops celecoxib 2020-0 Yes celecoxib Uni vers 200 mg 8-15 200 mg ity of capsule 19:42: capsule [address] foLIC acid 2020-0 Yes 1mg Take 1 mg Un sanam 1 mg tablet 8-15 by mouth ity of 19:42: daily. [address] FLUoxetine 2020-0 Yes fluoxetine U nivers 40 mg 8-15 40 mg ity of capsule 19:42: capsule [address] leflunomide 2020-0 Yes leflunomid [facility] 20 mg 8-15 e 20 mg ity of tablet 19:42: tablet [address] pantoprazol 2020-0 Yes 40mg Take 40 mg Univers e 40 mg EC 8-15 by mouth. ity of tablet 19:42: [address] pravastatin 2020-0 Yes pravastati [facility] 20 mg 8-15 n 20 mg ity of tablet 19:42: tablet [address] prednisoLON 2020-0 Yes 1[drp] 1 Drop. U nivers E acetate 1 8-15 ity of % 19:42: [place] ophthalmic 05 Medical suspension Branch drops celecoxib 2020-0 Yes celecoxib Uni vers 200 mg 8-15 200 mg ity of capsule 19:42: capsule [address] foLIC acid 2020-0 Yes 1mg Take 1 mg Un sanam 1 mg tablet 8-15 by mouth ity of 19:42: daily. [address] pantoprazol 2019-0 2020- No [id number] 40mg Take 1 Univers e 8-15 09-15 tablet by ity of (PROTONIX) 00:00: 04:59 mouth [place] 40 mg EC 00 :00 daily for Medica l tablet 30 days. Branch pantoprazol 2019-0 2020- No [id number] 40mg Take 1 Univers e 8-15 09-15 tablet by ity of (PROTONIX) 00:00: 04:59 mouth [place] 40 mg EC 00 :00 daily for Medica l tablet 30 days. Branch pantoprazol 2019-0 2020- No [id number] 40mg Take 1 Univers e 8-15 09-15 tablet by ity of (PROTONIX) 00:00: 04:59 mouth [place] 40 mg EC 00 :00 daily for Medica l tablet 30 days. Branch benzonatate 2019-0 2020- No [id number] 100mg Take 1 Univers (TESSALON 8-15 08-21 capsule by itgregg of KEYONA) 100 00:00: 04:59 mouth [place] mg capsule 00 :00 (three) Medica l times [place] daily as needed for Cough for up to 5 days. dicyclomine 2019-0 2020- No [id number] 10mg Take 1 Univers (BENTYL) 10 8-15 -21 capsule by i ty of mg capsule 00:00: 04:59 mouth 3 [place] as 00 :00 (three) Medical times Branch daily as needed for Abdominal pain for up to 5 days. benzonatate 2020-0 2020- No [id number] 100mg Take 1 [facility] (TESSALON 8-15 08-21 capsule by itgregg of PERLHYACINTH) 100 00:00: 04:59 mouth 3 [place] mg capsule 00 :00 (three) Medica l times [place] daily as needed for Cough for up to 5 days. dicyclomine 2019- 2020- No [id number] 10mg Take 1 [facility] (BENTYL) 10 8-15 08-21 capsule by i ty of mg capsule 00:00: 04:59 mouth 3 [place] as 00 :00 (three) Medical times Branch daily as needed for Abdominal pain for up to 5 days. FLUoxetine 2020-0 Yes [facility] 10 mg 8-04 ity of capsule 00:00: [place] 00 Medical Branch FLUoxetine 2020-0 Yes [facility] 10 mg 8-04 ity of capsule 00:00: [place] 00 Medical [facility] FLUoxetine 2020-0 Yes [facility] 10 mg 8-04 ity of capsule 00:00: [place] 00 Medical [facility] FLUoxetine 2020-0 2023- No Univer s 10 mg 8-04 06-29 ity of capsule 00:00: 00:00 [place] 00 :00 Medical Branch Folic Acid 2020-0 Yes Marquez 1 capsule Memoria 7-27 Brandan l 00:00: Folic Acid 2020-0 Yes Marquez 1 capsule [facility] 7-27 Brandan l 00:00: Folic Acid 2020-0 Yes Marquez 1 capsule [facility] 7-27 Brandan l 00:00: Folic Acid 2020-0 Yes Marquez 1 capsule [facility]oria 7-27 Brandan l 00:00: Folic Acid 2020-0 Yes Marquez 1 capsule [facility]oria 7-27 Brandan l 00:00: Folic Acid 2020-0 Yes Marquez 1 capsule [facility] 7-27 Brandan l 00:00: Folic Acid 2020-0 Yes Marquez 1 capsule [facility] 7-27 Brandan l 00:00: Folic Acid 2020-0 Yes Marquez 1 capsule [facility]oria 7-27 Brandan l 00:00: Folic Acid 2020-0 Yes Marquez 1 capsule [facility]oria 7-27 Brandan l 00:00: Folic Acid 2020-0 Yes Marquez 1 capsule [facility]oria 7-27 Brandan l 00:00: Folic Acid 2020-0 Yes Marquez 1 capsule [facility] 7-27 Brandan l 00:00: Folic Acid 2020-0 Yes Marquez 1 capsule [facility] 7-27 Brandan l 00:00: [place] 00 Folic Acid 2020-0 Yes Marquez 1 capsule Memoria 7-27 Brandan l 00:00: [place] 00 Folic Acid 2020-0 Yes Marquez 1 capsule [facility] 7-27 Brandan l 00:00: Folic Acid 2020-0 Yes Marquez 1 capsule [facility] 7-27 Brandan l 00:00: Folic Acid 2020-0 Yes Marquez 1 capsule [facility] 7-27 Brandan l 00:00: donepezil 5 2020-0 Yes TAKE 1 Univ ers mg tablet 7-21 TABLET BY ity o f 00:00: MOUTH [place] EVERY DAY Medical AT NIGHT Branch donepezil 5 2020-0 Yes TAKE 1 Univ ers mg tablet 7-21 TABLET BY ity o f 00:00: MOUTH [place] EVERY DAY Medical AT NIGHT Branch donepezil 5 2020-0 Yes TAKE 1 Univ ers mg tablet 7-21 TABLET BY ity o f 00:00: MOUTH [place] EVERY DAY Medical AT NIGHT Branch donepezil 5 2020-0 2022- No TAKE 1 Uni vers mg tablet -01-19 TABLET BY ity of 00:00: 00:00 MOUTH [place] 00 :00 EVERY DAY Medical AT NIGHT Branch losartan 25 2020-0 Yes 25mg Take 25 mg [facility] mg tablet 12-25 by mouth ity of 00:00: daily. [place] [facility] losartan 25 2020-0 Yes 25mg Take 25 mg [facility] mg tablet - by mouth ity of 00:00: daily. [place] [facility] losartan 25 2020-0 Yes 25mg Take 25 mg [facility] mg tablet - by mouth ity of 00:00: daily. [place] [facility] losartan 25 2020-0 2023- No 25mg Take 25 mg [facility] mg tablet 12-25 by mouth ity o f 00:00: 00:00 daily. [place] 00 :00 Medical Branch PredniSONE 2020-0 Yes Marisol 1-2 M emoria 5-28 Vo tablets as l 00:00: needed for joint pain Leflunomide 2020-0 Yes Marquez 1 tablet Memoria 5-28 Brandan l 00:00: PredniSONE 2020-0 Yes Marisol 1-2 M emoria 5-28 Vo tablets as l 00:00: needed for joint pain Leflunomide 2020-0 Yes Marquez 1 tablet [facility]oria 5-28 Brandan l 00:00: PredniSONE 2020-0 Yes Marisol 1-2 M emoria 5-28 Vo tablets as l 00:00: needed for joint pain Leflunomide 2020-0 Yes Marquez 1 tablet [facility]oria 5-28 Brandan l 00:00: PredniSONE 2020-0 Yes Marisol 1-2 M emoria 5-28 Vo tablets as l 00:00: needed for joint pain Leflunomide 2020-0 Yes Marquez 1 tablet [facility] 5-28 Brandan l 00:00: PredniSONE 2020-0 Yes Marisol 1-2 M emoria 5-28 Vo tablets as l 00:00: needed for joint pain Leflunomide 2020-0 Yes Marquez 1 tablet [facility] 5-28 Brandan l 00:00: PredniSONE 2020-0 Yes Marisol 1-2 M emoria 5-28 Vo tablets as l 00:00: needed for joint pain Leflunomide 2020-0 Yes Marquez 1 tablet [facility] 5-28 Brandan l 00:00: PredniSONE 2020-0 Yes Marisol 1-2 M emoria 5-28 Vo tablets as l 00:00: needed for joint pain Leflunomide 2020-0 Yes Marquez 1 tablet [facility] 5-28 Brandan l 00:00: PredniSONE 2020-0 Yes Marisol 1-2 M emoria 5-28 Vo tablets as l 00:00: needed for joint pain Leflunomide 2020-0 Yes Marquez 1 tablet [facility]oria 5-28 Brandan l 00:00: PredniSONE 2020-0 Yes Marisol 1-2 M emoria 5-28 Vo tablets as l 00:00: needed for joint pain Leflunomide 2020-0 Yes Marquez 1 tablet Memoria 5-28 Brandan l 00:00: PredniSONE 2020-0 Yes Marisol 1-2 M emoria 5-28 Vo tablets as l 00:00: needed for joint pain Leflunomide 2020-0 Yes Marquez 1 tablet Memoria 5-28 Brandan l 00:00: PredniSONE 2020-0 Yes Marisol 1-2 M emoria 5-28 Vo tablets as l 00:00: needed for joint pain Leflunomide 2020-0 Yes Marquez 1 tablet Memoria 5-28 Brandan l 00:00: PredniSONE 2020-0 Yes Marisol 1-2 M emoria 5-28 Vo tablets as l 00:00: needed for joint pain Leflunomide 2020-0 Yes Marquez 1 tablet [facility] 5-28 Brandan l 00:00: PredniSONE 2020-0 Yes Marisol 1-2 M emoria 5-28 Vo tablets as l 00:00: needed for joint pain Leflunomide 2020-0 Yes Marquez 1 tablet [facility] 5-28 Brandan l 00:00: PredniSONE 2020-0 Yes Marisol 1-2 M emoria 5-28 Vo tablets as l 00:00: needed for joint pain Leflunomide 2020-0 Yes Marquez 1 tablet Memoria 5-28 Brandan l 00:00: PredniSONE 2020-0 Yes Marisol 1-2 M emoria 5-28 Vo tablets as l 00:00: needed for joint pain Leflunomide 2020-0 Yes Marquez 1 tablet [facility]oria 5-28 Brandan l 00:00: PredniSONE 2020-0 Yes Marisol 1-2 M emoria 5-28 Vo tablets as l 00:00: needed for joint pain Leflunomide 2020-0 Yes Marquez 1 tablet Memoria 5-28 Brandan l 00:00: Folic Acid 2020-0 Yes Huma 3 tablets Memoria 5-27 Michael l 00:00: Celecoxib 2020-0 Yes Huma 1 capsule Memoria 5-27 Michael with food l 00:00: Folic Acid 2020-0 Yes Huma 3 tablets Memoria 5-27 Michael l 00:00: Celecoxib 2020-0 Yes Huma 1 capsule Memoria 5-27 Michael with food l 00:00: Folic Acid 2020-0 Yes Huma 3 tablets Memoria 5-27 Michael l 00:00: Celecoxib 2020-0 Yes Huma 1 capsule Memoria 5-27 Michael with food l 00:00: Folic Acid 2020-0 Yes Huma 3 tablets Memoria 5-27 Michael l 00:00: Celecoxib 2020-0 Yes Huma 1 capsule Memoria 5-27 Michael with food l 00:00: [place] 00 Folic Acid 2020-0 Yes Huma 3 tablets Memoria 5-27 Michael l 00:00: [place] 00 Celecoxib 2020-0 Yes Huma 1 capsule Memoria 5-27 Michael with food l 00:00: Folic Acid 2020-0 Yes Huma 3 tablets Memoria 5-27 Michael l 00:00: Celecoxib 2020-0 Yes Huma 1 capsule Memoria 5-27 Michael with food l 00:00: Folic Acid 2020-0 Yes Huma 3 tablets Memoria 5-27 Michael l 00:00: Celecoxib 2020-0 Yes Huma 1 capsule Memoria 5-27 Michael with food l 00:00: Folic Acid 2020-0 Yes Huma 3 tablets Memoria 5-27 Michael l 00:00: Celecoxib 2020-0 Yes Huma 1 capsule Memoria 5-27 Michael with food l 00:00: Folic Acid 2020-0 Yes Huma 3 tablets Memoria 5-27 Michael l 00:00: Celecoxib 2020-0 Yes Huma 1 capsule Memoria 5-27 Michael with food l 00:00: Folic Acid 2020-0 Yes Huma 3 tablets Memoria 5-27 Michael l 00:00: Celecoxib 2020-0 Yes Huma 1 capsule Memoria 5-27 Michael with food l 00:00: [place] 00 Folic Acid 2020-0 Yes Huma 3 tablets Memoria 5-27 Michael l 00:00: [place] 00 Celecoxib 2020-0 Yes Huma 1 capsule Memoria 5-27 Michael with food l 00:00: Folic Acid 2020-0 Yes Huma 3 tablets Memoria 5-27 Michael l 00:00: [place] 00 Celecoxib 2020-0 Yes Huma 1 capsule Memoria 5-27 Michael with food l 00:00: [place] 00 Folic Acid 2020-0 Yes Huma 3 tablets Memoria 5-27 Michael l 00:00: [place] 00 Celecoxib 2020-0 Yes Huma 1 capsule Memoria 5-27 Michael with food l 00:00: [place] 00 Folic Acid 2020-0 Yes Huma 3 tablets Memoria 5-27 Michael l 00:00: [place] 00 Celecoxib 2020-0 Yes Huma 1 capsule Memoria 5-27 Michael with food l 00:00: [place] 00 Folic Acid 2020-0 Yes Huma 3 tablets Memoria 5-27 Michael l 00:00: [place] 00 Celecoxib 2020-0 Yes Huma 1 capsule Memoria 5-27 Michael with food l 00:00: Folic Acid 2020-0 Yes Huma 3 tablets Memoria 5-27 Michael l 00:00: [place] 00 Celecoxib 2020-0 Yes Huma 1 capsule Memoria 5-27 Michael with food l 00:00: Folic Acid 2020-0 Yes Marisol 3 tablets Memoria 2-03 Vo l 00:00: [place] 00 Folic Acid 2020-0 Yes Marisol 3 tablets Memoria 2-03 Vo l 00:00: [place] 00 Folic Acid 2020-0 Yes Marisol 3 tablets Memoria 2-03 Vo l 00:00: [place] 00 Folic Acid 2020-0 Yes Marisol 3 tablets Memoria 2-03 Vo l 00:00: [place] 00 Folic Acid 2020-0 Yes Marisol 3 tablets Memoria 2-03 Vo l 00:00: [place] 00 Folic Acid 2020-0 Yes Marisol 3 tablets Memoria 2-03 Vo l 00:00: [place] 00 Folic Acid 2020-0 Yes Marisol 3 tablets Memoria 2-03 Vo l 00:00: [place] 00 Folic Acid 2020-0 Yes Marisol 3 tablets Memoria 2-03 Vo l 00:00: [place] 00 Folic Acid 2020-0 Yes Marisol 3 tablets Memoria 2-03 Vo l 00:00: [place] 00 Folic Acid 2020-0 Yes Marisol 3 tablets Memoria 2-03 Vo l 00:00: [place] 00 Folic Acid 2020-0 Yes Marisol 3 tablets Memoria 2-03 Vo l 00:00: [place] 00 Folic Acid 2020-0 Yes Marisol 3 tablets Memoria 2-03 Vo l 00:00: Folic Acid 2020-0 Yes Marisol 3 tablets Memoria 2-03 Vo l 00:00: Folic Acid 2020-0 Yes Marisol 3 tablets Memoria 2-03 Vo l 00:00: Folic Acid 2020-0 Yes Marisol 3 tablets Memoria 2-03 Vo l 00:00: Folic Acid 2020-0 Yes Marisol 3 tablets Memoria 2-03 Vo l 00:00: fluorometho 2019-1 2020- No fluorometh [facility] lone 0.1 % [id number] olone 0.1 ity of ophthalmic 00:00: 00:00 % eye [place] suspension 00 :00 drops,susp Med ical drops ension Branch Folic Acid 2019-1 Yes Marisol 3 tablets Memoria 2- Vo l 00:00: Folic Acid 2019-1 Yes Marisol 3 tablets Memoria 2- Vo l 00:00: Folic Acid 2019-1 Yes Marisol 3 tablets Memoria 2- Vo l 00:00: Folic Acid 2019-1 Yes Mariosl 3 tablets Memoria 2- Vo l 00:00: Folic Acid 2019-1 Yes Marisol 3 tablets Memoria 2- Vo l 00:00: Folic Acid 2019-1 Yes Marisol 3 tablets Memoria 2- Vo l 00:00: Folic Acid 2019-1 Yes Marisol 3 tablets Memoria 2- Vo l 00:00: Folic Acid 2019-1 Yes Marisol 3 tablets Memoria 2- Vo l 00:00: Folic Acid 2019-1 Yes Marisol 3 tablets Memoria 2- Vo l 00:00: Folic Acid 2019-1 Yes Marisol 3 tablets Memoria 2- Vo l 00:00: Folic Acid 2019-1 Yes Marisol 3 tablets Memoria 2- Vo l 00:00: Folic Acid 2019-1 Yes Marisol 3 tablets Memoria 2- Vo l 00:00: Folic Acid 2019-1 Yes Marisol 3 tablets Memoria 2- Vo l 00:00: Folic Acid 2019-1 Yes Marisol 3 tablets Memoria 2-09 Vo l 00:00: Folic Acid 2019-1 Yes Marisol 3 tablets [facility] 2-09 Vo l 00:00: Folic Acid 2019-1 Yes Marisol 3 tablets [facility] 2-09 Vo l 00:00: Folic Acid 2019-1 Yes Marisol 3 tablets [facility] 1-24 Vo l 00:00: Folic Acid 2019-1 Yes Marisol 3 tablets [facility] 1-24 Vo l 00:00: Folic Acid 2019-1 Yes Marisol 3 tablets [facility] 1-24 Vo l 00:00: Folic Acid 2019-1 Yes Marisol 3 tablets [facility] 1-24 Vo l 00:00: Folic Acid 2019-1 Yes Marisol 3 tablets [facility] 1-24 Vo l 00:00: Folic Acid 2019-1 Yes Marisol 3 tablets [facility] 1-24 Vo l 00:00: Folic Acid 2019-1 Yes Marisol 3 tablets [facility] 1-24 Vo l 00:00: Folic Acid 2019-1 Yes Marisol 3 tablets [facility] 1-24 Vo l 00:00: Folic Acid 2019-1 Yes Marisol 3 tablets [facility] 1-24 Vo l 00:00: Folic Acid 2019-1 Yes Marisol 3 tablets [facility] 1-24 Vo l 00:00: Folic Acid 2019-1 Yes Marisol 3 tablets [facility] 1-24 Vo l 00:00: Folic Acid 2019-1 Yes Marisol 3 tablets [facility] 1-24 Vo l 00:00: Folic Acid 2019-1 Yes Marisol 3 tablets [facility] 1-24 Vo l 00:00: Folic Acid 2019-1 Yes Marisol 3 tablets [facility] 1-24 Vo l 00:00: Folic Acid 2019-1 Yes Marisol 3 tablets [facility] 1-24 Vo l 00:00: Folic Acid 2019-1 Yes Marisol 3 tablets [facility] 1-24 Vo l 00:00: Tramadol 2019-0 Yes Marisol 1 tablet [facility] HCl 8-27 Vo as needed l 00:00: Folic Acid 2019-0 Yes Marisol 1 tablet [facility] 8-27 Vo l 00:00: Tramadol 2019-0 Yes Marisol 1 tablet [facility] HCl 8-27 Vo as needed l 00:00: Folic Acid 2019-0 Yes Marisol 1 tablet [facility] 8-27 Vo l 00:00: Tramadol 2019-0 Yes Marisol 1 tablet [facility] HCl 8-27 Vo as needed l 00:00: Folic Acid 2019-0 Yes Marisol 1 tablet [facility] 8-27 Vo l 00:00: Tramadol 2019-0 Yes Marisol 1 tablet [facility] HCl 8-27 Vo as needed l 00:00: Folic Acid 2019-0 Yes Marisol 1 tablet [facility] 8-27 Vo l 00:00: Tramadol 2019-0 Yes Marisol 1 tablet [facility] HCl 8-27 Vo as needed l 00:00: Folic Acid 2019-0 Yes Marisol 1 tablet [facility] 8-27 Vo l 00:00: Tramadol 2019-0 Yes Marisol 1 tablet [facility] HCl 8-27 Vo as needed l 00:00: Folic Acid 2019-0 Yes Marisol 1 tablet [facility] 8-27 Vo l 00:00: Tramadol 2019-0 Yes Marisol 1 tablet [facility] HCl 8-27 Vo as needed l 00:00: Folic Acid 2019-0 Yes Marisol 1 tablet [facility] 8-27 Vo l 00:00: Tramadol 2019-0 Yes Marisol 1 tablet [facility] HCl 8-27 Vo as needed l 00:00: Folic Acid 2019-0 Yes Marisol 1 tablet [facility] 8-27 Vo l 00:00: Tramadol 2019-0 Yes Marisol 1 tablet [facility] HCl 8-27 Vo as needed l 00:00: Folic Acid 2019-0 Yes Marisol 1 tablet [facility] 8-27 Vo l 00:00: Tramadol 2019-0 Yes Marisol 1 tablet [facility] HCl 8-27 Vo as needed l 00:00: Folic Acid 2019-0 Yes Marisol 1 tablet [facility] 8-27 Vo l 00:00: Tramadol 2019-0 Yes Marisol 1 tablet [facility] HCl 8-27 Vo as needed l 00:00: Folic Acid 2019-0 Yes Marisol 1 tablet [facility] 8-27 Vo l 00:00: Tramadol 2019-0 Yes Marisol 1 tablet [facility] HCl 8-27 Vo as needed l 00:00: Folic Acid 2019-0 Yes Marisol 1 tablet [facility] 8-27 Vo l 00:00: Tramadol 2019-0 Yes Marisol 1 tablet [facility] HCl 8-27 Vo as needed l 00:00: Folic Acid 2019-0 Yes Marisol 1 tablet [facility] 8-27 Vo l 00:00: Tramadol 2019-0 Yes Marisol 1 tablet [facility] HCl 8-27 Vo as needed l 00:00: Folic Acid 2019-0 Yes Marisol 1 tablet [facility] 8-27 Vo l 00:00: Tramadol 2019-0 Yes Marisol 1 tablet [facility] HCl 8-27 Vo as needed l 00:00: Folic Acid 2019-0 Yes Marisol 1 tablet [facility] 8-27 Vo l 00:00: Tramadol 2019-0 Yes Marisol 1 tablet [facility] HCl 8-27 Vo as needed l 00:00: Folic Acid 2019-0 Yes Marisol 1 tablet [facility] 8-27 Vo l 00:00: Tramadol 2019-0 Yes Marisol 1 tablet [facility] HCl 7-31 Vo as needed l 02:46: Celecoxib 2019-0 Yes Marisol 1 capsule [facility] 7-31 Vo with food l 02:46: Tramadol 2019-0 Yes Marisol 1 tablet [facility] HCl 7-31 Vo as needed l 02:46: Celecoxib 2019-0 Yes Marisol 1 capsule [facility] 7-31 Vo with food l 02:46: Tramadol 2019-0 Yes Marisol 1 tablet [facility] HCl 7-31 Vo as needed l 02:46: Celecoxib 2019-0 Yes Marisol 1 capsule [facility] 7-31 Vo with food l 02:46: Tramadol 2019-0 Yes Marisol 1 tablet [facility] HCl 7-31 Vo as needed l 02:46: Bennett Shirley Celecoxib 2019 Yes Marisol 1 capsule [facility]oria 7-31 Vo with food l 02:46: Bennett Shirley Tramadol 2019 Yes Marisol 1 tablet [facility] HCl 7-31 Vo as needed l 02:46: Bennett Shirley Celecoxib 2019 Yes Marisol 1 capsule [facility] 7-31 Vo with food l 02:46: Bennett Shirley Tramadol 2019 Yes Marisol 1 tablet [facility] HCl 7-31 Vo as needed l 02:46: Bennett Shirley Celecoxib Yes Marisol 1 capsule [facility] 7-31 Vo with food l 02:46: Bennett Shirley Tramadol 2019 Yes Marisol 1 tablet [facility] HCl 7-31 Vo as needed l 02:46: Bennett Shirley Celecoxib Yes Marisol 1 capsule [facility] 7-31 Vo with food l 02:46: Bennett Shirley Tramadol 2019 Yes Marisol 1 tablet [facility] HCl 7-31 Vo as needed l 02:46: Bennett Shirley Celecoxib Yes Marisol 1 capsule [facility] 7-31 Vo with food l 02:46: Bennett Shirley Tramadol Yes Marisol 1 tablet [facility] HCl 7-31 Vo as needed l 02:46: Bennett Shirley Celecoxib Yes Marisol 1 capsule [facility] 7-31 Vo with food l 02:46: Bennett Shirley Tramadol Yes Marisol 1 tablet [facility] HCl 7-31 Vo as needed l 02:46: Bennett Shirley Celecoxib 2019 Yes Marisol 1 capsule [facility] 7-31 Vo with food l 02:46: Bennett Shirley Tramadol 2019 Yes Marisol 1 tablet [facility] HCl 7-31 Vo as needed l 02:46: Bennett Shirley Celecoxib 2019 Yes Marisol 1 capsule [facility] 7-31 Vo with food l 02:46: Bennett Shirley Tramadol 2019 Yes Marisol 1 tablet [facility] HCl 7-31 Vo as needed l 02:46: Bennett Shirley Celecoxib Yes Marisol 1 capsule [facility] 7-31 Vo with food l 02:46: Bennett Shirley Tramadol 2019 Yes Marisol 1 tablet [facility] HCl 7-31 Vo as needed l 02:46: Bennett Shirley Celecoxib 2019-0 Yes Marisol 1 capsule [facility] 7-31 Vo with food l 02:46: Tramadol 2019-0 Yes Marisol 1 tablet [facility] HCl 7-31 Vo as needed l 02:46: Celecoxib 2019-0 Yes Marisol 1 capsule [facility] 7-31 Vo with food l 02:46: Tramadol 2019-0 Yes Marisol 1 tablet [facility] HCl 7-31 Vo as needed l 02:46: Celecoxib 2019-0 Yes Marisol 1 capsule [facility] 7-31 Vo with food l 02:46: Tramadol 2019-0 Yes Marisol 1 tablet [facility] HCl 7-31 Vo as needed l 02:46: Celecoxib 2019-0 Yes Marisol 1 capsule [facility] 7-31 Vo with food l 02:46: Celecoxib 2019-0 Yes Marisol 1 capsule [facility] 6-28 Vo with food l 00:00: Celecoxib 2019-0 Yes Marisol 1 capsule [facility] 6-28 Vo with food l 00:00: Celecoxib 2019-0 Yes Marisol 1 capsule [facility] 6-28 Vo with food l 00:00: Celecoxib 2019-0 Yes Marisol 1 capsule [facility] 6-28 Vo with food l 00:00: Celecoxib 2019-0 Yes Marisol 1 capsule [facility] 6-28 Vo with food l 00:00: Celecoxib 2019-0 Yes Marisol 1 capsule [facility] 6-28 Vo with food l 00:00: Celecoxib 2019-0 Yes Marisol 1 capsule [facility]oria 6-28 Vo with food l 00:00: Celecoxib 2019-0 Yes Marisol 1 capsule [facility]oria 6-28 Vo with food l 00:00: Celecoxib 2019-0 Yes Marisol 1 capsule [facility] 6-28 Vo with food l 00:00: Celecoxib 2019-0 Yes Marisol 1 capsule [facility] 6-28 Vo with food l 00:00: Celecoxib 2019-0 Yes Marisol 1 capsule [facility] 6-28 Vo with food l 00:00: Celecoxib 2019-0 Yes Marisol 1 capsule [facility]oria 6-28 Vo with food l 00:00: Celecoxib 2019-0 Yes Marisol 1 capsule [facility] 6-28 Vo with food l 00:00: Celecoxib 2019-0 Yes Marisol 1 capsule [facility] 6-28 Vo with food l 00:00: Celecoxib 2019-0 Yes Marisol 1 capsule [facility] 6-28 Vo with food l 00:00: Celecoxib 2019-0 Yes Marisol 1 capsule [facility] 6-28 Vo with food l 00:00: Methotrexat 2019-0 Yes Marisol as Memoria e 6-03 Vo directed l 00:00: Methotrexat 2019-0 Yes Marisol as Memoria e 6-03 Vo directed l 00:00: Methotrexat 2019-0 Yes Marisol as [facility]oria e 6-03 Vo directed l 00:00: Methotrexat 2019-0 Yes Marisol as Memoria e 6-03 Vo directed l 00:00: Methotrexat 2019-0 Yes Marisol as [facility]oria e 6-03 Vo directed l 00:00: Methotrexat 2019-0 Yes Marisol as Memoria e 6-03 Vo directed l 00:00: Methotrexat 2019-0 Yes Marisol as Memoria e 6-03 Vo directed l 00:00: Methotrexat 2019-0 Yes Marisol as Memoria e 6-03 Vo directed l 00:00: Methotrexat 2019-0 Yes Marisol as Memoria e 6-03 Vo directed l 00:00: Methotrexat 2019-0 Yes Marisol as Memoria e 6-03 Vo directed l 00:00: Methotrexat 2019-0 Yes Marisol as Memoria e 6-03 Vo directed l 00:00: Methotrexat 2019-0 Yes Marisol as Memoria e 6-03 Vo directed l 00:00: Methotrexat 2019-0 Yes Marisol as Memoria e 6-03 Vo directed l 00:00: Methotrexat 2019-0 Yes Marisol as Memoria e 6-03 Vo directed l 00:00: Methotrexat 2019-0 Yes Marisol as Memoria e 6-03 Vo directed l 00:00: Methotrexat 2019-0 Yes Marisol as Memoria e 6-03 Vo directed l 00:00: Folic Acid 2019-0 Yes Marisol 1 tablet Memoria 5-21 Vo l 00:00: Methotrexat 2019-0 Yes Marisol 8 tablets Memoria e 5-21 Vo l 00:00: Folic Acid 2019-0 Yes Marisol 1 tablet Memoria 5-21 Vo l 00:00: Methotrexat 2019-0 Yes Marisol 8 tablets Memoria e 5-21 Vo l 00:00: Folic Acid 2019-0 Yes Marisol 1 tablet [facility]oria 5-21 Vo l 00:00: Methotrexat 2019-0 Yes Marisol 8 tablets Memoria e 5-21 Vo l 00:00: Folic Acid 2019-0 Yes Marisol 1 tablet Memoria 5-21 Vo l 00:00: Methotrexat 2019-0 Yes Marisol 8 tablets Memoria e 5-21 Vo l 00:00: Folic Acid 2019-0 Yes Marisol 1 tablet Memoria 5-21 Vo l 00:00: Methotrexat 2019-0 Yes Marisol 8 tablets Memoria e 5-21 Vo l 00:00: Folic Acid 2019-0 Yes Marisol 1 tablet Memoria 5-21 Vo l 00:00: Methotrexat 2019-0 Yes Marisol 8 tablets Memoria e 5-21 Vo l 00:00: Folic Acid 2019-0 Yes Marisol 1 tablet Memoria 5-21 Vo l 00:00: Methotrexat 2019-0 Yes Marisol 8 tablets Memoria e 5-21 Vo l 00:00: Folic Acid 2019-0 Yes Marisol 1 tablet Memoria 5-21 Vo l 00:00: Methotrexat 2019-0 Yes Marisol 8 tablets Memoria e 5-21 Vo l 00:00: Folic Acid 2019-0 Yes Marisol 1 tablet Memoria 5-21 Vo l 00:00: Methotrexat 2019-0 Yes Marisol 8 tablets Memoria e 5-21 Vo l 00:00: Folic Acid 2019-0 Yes Marisol 1 tablet Memoria 5-21 Vo l 00:00: Methotrexat 2019-0 Yes Marisol 8 tablets Memoria e 5-21 Vo l 00:00: Folic Acid 2019-0 Yes Marisol 1 tablet Memoria 5-21 Vo l 00:00: Methotrexat 2019-0 Yes Marisol 8 tablets Memoria e 5-21 Vo l 00:00: Folic Acid 2019-0 Yes Marisol 1 tablet Memoria 5-21 Vo l 00:00: Methotrexat 2019-0 Yes Marisol 8 tablets Memoria e 5-21 Vo l 00:00: Folic Acid 2019-0 Yes Marisol 1 tablet Memoria 5-21 Vo l 00:00: Methotrexat 2019-0 Yes Marisol 8 tablets Memoria e 5-21 Vo l 00:00: Folic Acid 2019-0 Yes Marisol 1 tablet Memoria 5-21 Vo l 00:00: Methotrexat 2019-0 Yes Marisol 8 tablets Memoria e 5-21 Vo l 00:00: Folic Acid 2019-0 Yes Marisol 1 tablet Memoria 5-21 Vo l 00:00: Methotrexat 2019-0 Yes Marisol 8 tablets Memoria e 5-21 Vo l 00:00: Folic Acid 2019-0 Yes Marisol 1 tablet Memoria 5-21 Vo l 00:00: Methotrexat 2019-0 Yes Marisol 8 tablets Memoria e 5-21 Vo l 00:00: Immunizations Ordered Immunization Filled Immunization Date Status Commen ts Source Name Name PFIZER >12 YR 2022-08-05 Completed [facility] COVID-19 MRNA 00:00:00 Hospital BIVALENT VACCINATION FLUCELVAX QUAD PF 2022-05-[address] [facility] PFIZER COVID-19 MRNA 2021-05-31 Completed [facility] VACCINATION 00:00:00 Hospital PFIZER COVID-19 MRNA 2021-05-31 Completed [facility] VACCINATION 00:00:00 Hospital PFIZER COVID-19 MRNA 2021-05-31 Completed [facility] VACCINATION 00:00:00 [facility] PFIZER COVID-19 MRNA 2021-04-24 Completed Meth odist VACCINATION 00:00:00 [facility] PFIZER COVID-19 MRNA 2020-09-15 Completed [facility] VACCINATION 00:00:00 Hospital PFIZER COVID-19 MRNA 2020-09-15 Completed [facility] VACCINATION 00:00:00 [facility] PFIZER COVID-19 MRNA 2020-09-15 Completed [facility] VACCINATION 00:00:00 [facility] PFIZER COVID-19 MRNA 2020-08-19 Completed [facility] VACCINATION 00:00:00 [facility] PFIZER COVID-19 MRNA 2020-08-19 Completed [facility] VACCINATION 00:00:00 [facility] PFIZER COVID-19 MRNA 2020-08-19 Completed [facility] VACCINATION 00:00:00 [facility] FLUZONE HIGH-DOSE PF 2018-05-09 Completed Meth odist 00:00:00 [facility] Influenza Trivalent 2014-04-23 Completed [facility] 00:00:00 [facility] Zoster 2013-11-21 Completed [facility] 00:00:00 [facility] Pneumococcal 2013-04-23 Completed [facility] Polysaccharide 00:00:00 [facility] H1N1 All Forms 2009 Completed [facility] 00:00:00 Hospital Vital Signs Vital Name Observation Time Observation Value Comments Source Systolic blood 2023-02-15 15:34:00 94 mm[Hg] Univer sity of pressure [facility] Diastolic blood 2023-02-15 15:34:00 56 mm[Hg] Unive rsity of [facility] Heart rate 2023-02-15 15:34:00 93 /min [facility] Respiratory rate 2023-02-15 15:34:00 16 /min [facility] 2023-02-15 15:34:00 163.8 cm per pt [facility] Body weight 2023-02-15 15:34:00 65.913 kg [facility] BMI 2023-02-15 15:34:00 24.56 kg/m2 [facility] Oxygen saturation in 2023-02-15 15:34:00 94 /min [facility] Arterial blood by [facility] Pulse oximetry Branch Systolic blood 2023-01-21 16:49:00 126 mm[Hg] Univer sity of pressure [facility] Diastolic blood 2023-01-21 16:49:00 64 mm[Hg] Unive rsity of pressure [facility] Heart rate 2023-01-21 16:49:00 68 /min [facility] Body temperature 2023-01-21 16:49:00 36.83 Jackie [facility] Respiratory rate 2023-01-21 16:49:00 18 /min [facility] Oxygen saturation in 2023-01-21 16:49:00 94 /min [facility] Arterial blood by [facility] Pulse oximetry Branch Body weight 2023-01-21 08:35:00 67.994 kg [facility] BMI 2023-01-21 08:35:00 25.73 kg/m2 [facility] Body height 2023-01-19 23:46:00 162.6 cm [facility] Systolic blood 2020-03-07 19:39:00 101 mm[Hg] Univer sity of pressure [facility] Diastolic blood 2020-03-07 19:39:00 61 mm[Hg] Unive rsity of pressure [facility] Heart rate 2020-03-07 19:39:00 80 /min [facility] Body temperature 2020-03-07 19:39:00 37 Jackie [facility] Respiratory rate 2020-03-07 19:39:00 18 /min [facility] Body weight 2020-03-07 19:39:00 80.74 kg [facility] Oxygen saturation in 2020-03-07 19:39:00 96 /min [facility] Arterial blood by [facility] Pulse oximetry Branch Systolic blood 2020-03-07 19:39:00 101 mm[Hg] Univer sity of pressure [facility] Diastolic blood 2020-03-07 19:39:00 61 mm[Hg] Unive rsity of pressure [facility] Heart rate 2020-03-07 19:39:00 80 /min [facility] Body temperature 2020-03-07 19:39:00 37 Jackie [facility] Respiratory rate 2020-03-07 19:39:00 18 /min [facility] Body weight 2020-03-07 19:39:00 80.74 kg [facility] Oxygen saturation in 2020-03-07 19:39:00 96 /min [facility] Arterial blood by [facility] Pulse oximetry Branch Systolic blood 2022-11-02 15:40:00 146 mm[Hg] [facility] pressure Diastolic blood 2022-11-02 15:40:00 76 mm[Hg] [facility] pressure Heart rate 2022-11-02 15:40:00 71 /min [facility] Body temperature 2022-11-02 15:40:00 36.28 Jackie [facility] Body height 2022-11-02 15:40:00 162.6 cm [facility] Body weight 2022-11-02 15:40:00 69.4 kg [facility] BMI 2022-11-02 15:40:00 26.26 kg/m2 [facility] Respiratory rate 2022-09-15 01:14:55 17 /min [facility] Oxygen saturation in 2022-09-15 01:14:55 93 /min [facility] Arterial blood by Pulse oximetry Systolic blood 2022-09-15 01:14:55 125 mm[Hg] Method [facility] pressure Diastolic blood 2022-09-15 01:14:55 71 mm[facility]Hg[facility] Heart rate 2022-09-15 01:14:55 82 /min [facility] Body temperature 2022-09-15 01:14:55 36 Jackie [facility] Body height 2022-09-12 16:05:00 163.8 cm [facility] Body weight 2022-09-12 16:05:00 67.586 kg [facility] BMI 2022-09-12 16:05:00 25.18 kg/m2 [facility] Systolic blood 2022-08-25 00:43:00 134 mm[Hg] Method [facility] pressure Diastolic blood 2022-08-25 00:43:00 82 mm[Hg] [facility] Heart rate 2022-08-25 00:43:00 93 /min [facility] Body temperature 2022-08-25 00:43:00 37 Jackie [facility] Respiratory rate 2022-08-25 00:43:00 18 /min [facility] Body height 2022-08-25 00:43:00 162.6 cm [facility] Body weight 2022-08-25 00:43:00 75.297 kg [facility] BMI 2022-08-25 00:43:00 28.49 kg/m2 [facility] Oxygen saturation in 2022-08-25 00:43:00 96 /min [facility] Arterial blood by Pulse oximetry Weight 2022-02-01 19:20:00 [facility] Height 2022-02-01 19:20:00 [facility] Heart Rate 2022-02-01 19:20:00 [facility] Diastolic (mm Hg) 2022-02-01 19:20:00 Mem orial [facility] Systolic (mm Hg) 2022-02-01 19:20:00 [facility] Weight 2021-11-02 19:30:00 [facility] Height 2021-11-02 19:30:00 [facility] Heart Rate 2021-11-02 19:30:00 [facility] Diastolic (mm Hg) 2021-11-02 19:30:00 [facility] Systolic (mm Hg) 2021-11-02 19:30:00 Yung rial [facility] Weight 2021-05-11 19:30:00 [facility] Height 2021-05-11 19:30:00 [facility] Heart Rate 2021-05-11 19:30:00 [facility] Diastolic (mm Hg) 2021-05-11 19:30:00 Mem orial Bennett Systolic (mm Hg) 2021-05-11 19:30:00 [facility] Weight 2021-02-03 18:50:00 [facility] Height 2021-02-03 18:50:00 [facility] Temperature Oral (F) 2021-02-03 18:50:00 97.1 F [facility] Heart Rate 2021-02-03 18:50:00 [facility] Diastolic (mm Hg) 2021-02-03 18:50:00 Mem orial Bennett Systolic (mm Hg) 2021-02-03 18:50:00 Yung rial [facility] Weight 2020-11-04 19:20:00 [facility] Height 2020-11-04 19:20:00 [facility] Heart Rate 2020-11-04 19:20:00 [facility] Diastolic (mm Hg) 2020-11-04 19:20:00 Mem orial [facility] Systolic (mm Hg) 2020-11-04 19:20:00 [facility] Weight 2019-09-19 19:45:00 [facility] Height 2019-09-19 19:45:00 [facility] Heart Rate 2019-09-19 19:45:00 [facility] Diastolic (mm Hg) 2019-09-19 19:45:00 [facility] Systolic (mm Hg) 2019-09-19 19:45:00 Yugn [facility] Weight 2019-06-27 16:15:00 [facility] Height 2019-06-27 16:15:00 [facility] Heart Rate 2019-06-27 16:15:00 [facility] Diastolic (mm Hg) 2019-06-27 16:15:00 Mem orial [facility] Systolic (mm Hg) 2019-06-27 16:15:00 [facility] Heart Rate 2019-03-18 15:30:00 [facility] Diastolic (mm Hg) 2019-03-18 15:30:00 [facility] Systolic (mm Hg) 2019-03-18 15:30:00 Yung rial [facility] Weight 2019-03-18 15:30:00 [facility] Height 2019-03-18 15:30:00 [facility] Weight 2019-01-18 15:30:00 [facility] Height 2019-01-18 15:30:00 [facility] Heart Rate 2019-01-18 15:30:00 [facility] Diastolic (mm Hg) 2019-01-18 15:30:00 Mem orial [facility] Systolic (mm Hg) 2019-01-18 15:30:00 Yung rial [facility] Weight 2018-12-11 16:30:00 [facility] Height 2018-12-11 16:30:00 [facility] Heart Rate 2018-12-11 16:30:00 [facility] Diastolic (mm Hg) 2018-12-11 16:30:00 [facility] Systolic (mm Hg) 2018-12-11 16:30:00 Yung rial [facility] Procedures Procedure Date / Time Performing Clinician Source Performed ASSIGNMENT OF BENEFITS 2023-02-15 15:23:06 Doctor Unassigned, Un [facility] BASIC METABOLIC PANEL 2023-01-21 08:46:00 Idalia Montana [facility] (NA, K, CL, CO2, GLUCOSE, Medica l Branch BUN, CREATININE, CA) CBC WITH DIFF 2023-01-21 08:46:00 Idalia Montana [facility] BASIC METABOLIC PANEL 2023-01-20 09:32:00 Derick Croft [facility] (NA, K, CL, CO2, GLUCOSE, Medica l Branch BUN, CREATININE, CA) CBC WITH DIFF 2023-01-20 09:32:00 Derick Croft Kayenta o f [facility] OCCULT (GUAIAC) BLOOD 2023-01-20 01:52:00 Derick Croft [facility] CLOSTRIDIUM DIFFICILE 2023-01-20 01:52:00 Derick Croft [facility] FECAL PATHOGENS BY PCR 2023-01-20 01:52:00 Derick Croft [facility] XR LUMBAR SPINE 2 OR 3 VW 2022-12-27 19:25[facility] 2 [facility] 3 VW 2022-09-27 18:49:00 [facility] COLOR FUNDUS PHOTOGRAPHY 2022-09-23 21:05:53 Andree Hu [facility] - OU - BOTH EYES POC GLUCOSE 2022-09-14 17:42:00 [facility] 2022-09-14 14:18:[facility] 2022-09-13 23:45[facility] 2022-09-13 17:56:[facility]SE 2022-09-13 14:31:00 [facility] BASIC METABOLIC PANEL 2022-09-13 10:19:00 [facility] CBC WITH PLATELET AND 2022-09-13 10:19:00 [facility] DIFFERENTIAL ESTIMATED GFR 2022-09-13 10:19:00 [facility] SURGICAL PATHOLOGY 2022-09-12 20:51:00 [facility] REQUEST OR FL > 1 HOUR 2022-09-12 19:25:00 [facility] 2022-09-12 19:01:33 Louie Womack spital [facility] CO AN ELECTIVE 2022-09-12 17:52:00 Louie Womack spital ENDOTRACHEAL AIRWAY [facility] HC NERVE BLOCK QUADRATUS 2022-09-12 17:43:55 Louie Womakc [facility] LUMBORUM Oliverio FUSION,LUMBAR,XLIF,WITH 2022-09-12 17:43:00 Sawyer [facility] POSTERIOR FUSION URINE CULTURE 2022-09-08 00:02:00 [facility] osgatotal Angelique URINALYSIS SCREEN AND 2022-09-08 00:02:00 [facility] MICROSCOPY, WITH REFLEX Angelique TO CULTURE TYPE AND SCREEN 2022-09-07 23:22:00 [facility] ospital Angelique PARTIAL THROMBOPLASTIN 2022-09-07 23:22:00 [facility] TIME (PTT) Angelique PROTHROMBIN TIME WITH INR 2022-09-07 23:22:00 [facility] Angelique CBC WITH PLATELET AND 2022-09-07 23:22:00 [facility] DIFFERENTIAL Angelique COMPREHENSIVE METABOLIC 2022-09-07 23:22:00 [facility] PANEL Angelique HEMOGLOBIN A1C 2022-09-07 23:22:00 [facility] ospital Angelique ESTIMATED GFR 2022-09-07 23:22:00 [facility] ospital Angelique ECG PRE/POST OP 2022-09-07 23:17:50 [facility] ospital Angelique CT LUMBAR SPINE WO 2022-08-29 [facility]:01[facility] WO 2022-08-24 21:24:41 Paulette Mendoza [facility] CONTRAST MRI THORACIC SPINE WO 2022-08-24 21:18:02 Mendoza, Paulette [facility] CONTRAST CT SPINE EXTERNAL STUDY 2022-08-17 07:12:00 Jose Gaines [facility] CT SPINE EXTERNAL STUDY 2022-08-17 07:08:00 Jose Gaines [facility] CT HEAD EXTERNAL STUDY 2022-08-17 07:06:00 SawyerJose arriaga [facility] XR SPINE SCOLIOSIS 2-3 2022-08-09 19:10:00 Paulette Mendoza [facility] VIEWS XR THORACIC SPINE 2022-08-09 19:10:00 Paulette Mendoza [facility] COMPLETE 4+ VW XR LUMBAR SPINE AP 2022-08-09 19:09:00 Paulette Mendoza [facility] LATERAL FLEXION AND EXTENSION MRI BRAIN WO CONTRAST 2022 17:45:00 [facility] [place] CBC WITH PLATELET AND 2022-05-13 07:38:00 [facility] DIFFER[facility] COMPREHENSIVE METABOLIC 2022-05-13 07:38:00 [facility] PANEL ESTIMATED GFR 2022-05-13 07:38:00 [facility] ZZCOVID-19 ANTI-SPIKE IGG 2022-05-12 17:56:00 [facility] ANTIBODY TITER Lalo ZZCOVID-19 SEROLOGY 2022-05-12 17:56:00 [facility] PATIENT SURVEILLANCE [place] CBC WITH PLATELET AND 2022-05-12 09:43:00 [facility] DIFFERENTIAL COMPREHENSIVE METABOLIC 2022-05-12 09:43:00 [facility] PANEL ESTIMATED GFR 2022-05-12 09:43:00 [facility]-19 QUALITATIVE 2022-05-12 05:57:00 [facility] RT-PCR Gaudencio Pastrana ECG ED PRELIMINARY 2022-05-11 23:39:32 [facility] INTERPRETATION Gaudencio Pastrana CBC WITH PLATELET AND 2022-05-11 23:01:00 [facility] DIFFERENTIAL Gaudencio Pastrana COMPREHENSIVE METABOLIC 2022-05-11 23:01:00 Maira Perry [facility] PANEL Gaudencio R. ESTIMATED GFR 2022-05-11 23:01:00 Jessica Perry say [place] R. ECG 12-LEAD 2022-05-11 22:00:21 Jessica Perryvivian [place] R. XR CHEST 1 VW COVID 2020-03-07 20:35:42 Brooke Poole [facility] Plan of Care Planned Activity Planned Date Details Comments Source Future Scheduled 2023-02-16 Hepatitis C screening [facility] Test 09:25:17 (procedure) [code = 985881506] Future Scheduled 2023-02-16 SHINGLES VACCINES (2 Met [facility] Test 09:25:17 of 3) [code = SHINGLES VACCINES (2 of 3)] Future Scheduled 2023-02-16 65+ PNEUMOCOCCAL [facility] Test 09:25:17 VACCINE (2 - PCV) [code = 65+ PNEUMOCOCCAL VACCINE (2 - PCV)] Future Scheduled 2023-02-16 COVID-19 VACCINE (6 - [facility] Test 09:25:17 Pfizer series) [code = COVID-19 VACCINE (6 - Pfizer series)] Future Scheduled 2023-02-16 INFLUENZA VACCINE Method [facility] Test 09:25:17 [code = INFLUENZA VACCINE] Future Scheduled 2022-09-20 Hepatitis C screening [facility] Test 07:12:20 (procedure) [code = 621273580] Future Scheduled 2022-09-20 SHINGLES VACCINES (2 Met [facility] Test 07:12:20 of 3) [code = SHINGLES VACCINES (2 of 3)] Future Scheduled 2022-09-20 65+ PNEUMOCOCCAL [facility] Hospital Test 07:12:20 VACCINE (2 - PCV) [code = 65+ PNEUMOCOCCAL VACCINE (2 - PCV)] Future Scheduled 2022-08-30 Hepatitis C screening [facility] Test 10:49:29 (procedure) [code = 147062242] Future Scheduled 2022-08-30 SHINGLES VACCINES (2 Met [facility] Test 10:49:29 of 3) [code = SHINGLES VACCINES (2 of 3)] Future Scheduled 2022-08-30 65+ PNEUMOCOCCAL [facility] Hospital Test 10:49:29 VACCINE (2 - PCV) [code = 65+ PNEUMOCOCCAL VACCINE (2 - PCV)] Future Scheduled 2022-08-30 INFLUENZA VACCINE Method [facility] Test 10:49:29 [code = INFLUENZA VACCINE] Encounters Start End Encounter Admission Attending Care Care Encounter Source Date/Time Date/Time Type Type Clinicians Facility Department ID 2023-02-16 Outpatient [id number] FDCF 88DA-E Memoria 11:48:56 F22I-437O 4A-434F-AC1 44A-434F- A l -TT29-962 9-832PEE489 A01-834VVL Bennett [id number] DD3 [id number] 2023-02-15 Outpatient [id number]- F550HBC3-70 B732 FEF6-8 Memoria 10:36:32 61K6-11Q2 D8-38X8-4Q5 6U3-61L6- 9 l -0W0B-KOI C-HIK2Y370V E0F-ZDU5C6 Bennett [id number] 736 [id number] 2023-02-15 Outpatient 3U38IC6B- 2M94CX3M-D6 5F20 AD7C-F Memoria 07:26:11 L191-51VE 58-41FC-8F1 858-41FC- 8 l -6A70-XL5 9-VT9636AW2 D99-RI0615 Bennett 658KP69QD 2EF CB42EF 2023-01-19 Outpatient [id number]- [id number]-UX C4D6 1681-F Memoria 17:45:37 VU34-092G 68-452A-B27 K96-895A- B l -I89I-06W A-94BDCRU56 27A-32ADBC Bennett [id number] 937 [id number] 2022-12-27 Outpatient [id number]- [id number]-[id number] E165 76BD-2 Memoria 17:24:03 71E9-1212 B2-4056-B85 6O3-2034- B l -C853-XZ7 3-CZ0R06686 853-FB5A51 Bennett [id number] 869 495830 5398-05-01 [facility] ES253793- TG042605-87 FA78 1374-6 Memoria 10:10:17 6704-4FA4 04-2YG7-HL1 704-4FA4- A l -SX3W-J3C E-T9AEF3013 K2Z-N2UUR5 Bennett NN5485V02 F27 039F27 2022-09-27 Outpatient [id number]- 0395T49F-20 7838 E87B-8 Memoria 16:39:42 83BC-4EBD BC-4EBD-A98 3BC-4EBD- A l -K78M-J8D B-C3HK64128 98B-E7AA21 Bennett [id number] 0D3 9650D3 2022-09-23 Outpatient [id number]- 29584H45-51 8682 4B78-1 Memoria 17:05:11 1422-44E8 22-65H6-96V 422-44E8- 9 l -71K5-918 2-7749Y34E3 7A0-7974R4 Bennett 4B08F05X3 1F4 3E31F4 2022-09-22 Outpatient ZR88V6X1- PV06A1D4-E5 FB26 E9C5-D Memoria 12:58:09 Y60V-61A8 3E-59S3-PA4 33E-48B3- A l -LY6D-89V C-04I5KV042 H4U-82D9UT Bennett [id number] 46E 22073L 2022-09-12 Outpatient E0B6G0DU- Z3R4Y7SW-RU A1E4 F9CA-A Memoria 11:54:28 BX15-0509 70-4044-A27 E72-4664- A l -W724-GK1 3-PG3Y264Q6 273-EA9E24 Bennett [id number] 123 6A7806 2022-08-30 Outpatient [id number]- D2U311IK-QI D3F6 03DC-E Memoria 10:49:28 FU89-5BC6 26-0PT9-88B E02-0JF7- 9 l -53H2-X4A 5-J9XR58C3P 0B2-A3QY99 Bennett G57A5P9IY 1AC D2D1AC 2022-08-29 Outpatient [id number]- [id number]-D6 C987 408B-D Memoria 19:07:01 G7Q5-08CV B9-44CB-BC4 3W9-81KS- B l -TW0Z-3B9 E-6N0TBP331 R4O-6I0TAP [place] XDF2410W0 9F6 3989F6 2022-08-24 Outpatient [id number]- [id number]-TA E772 338C-C Memoria 17:24:19 SC6J-048W 8B-414E-A56 L4Z-427J- A l -T05T-853 A-100B79S6U 56A-405A04 Bennett W47P6CC83 B58 D3BB58 2022-08-09 Outpatient 7R4Y8F9N- 2P0T5C0S-31 2A2B 4D5E-8 Memoria 14:23:53 826D-4B61 6D-6Z38-5P1 26D-4B61- 9 l -4Y35-85Q 5-83AMGG822 S26-80RDXE [place] FZS472Y87 A80 027A80 2022 Outpatient 5444S6RT- 6329S4NE-4N 0380 D1CE-0 Memoria 13:47:08 9V72-06Q5 02-43L7-ZN4 C78-86W6- B l -CD57-46A 5-20J8CT80U S52-65I7GD [place] 6WN58UF18 C72 48CC72 2022-05-11 Outpatient [id number]- 6767323I-4L 0745 359C-7 Memoria 18:19:00 0M0B-0E8E 3A-3F6A-85X P3K-2A7K- 8 l -53J7-6ZS 6-6UPA2UKHE 3L9-2UBR4M Bennett F2RQBL624 680 ZQY209 2021-03-16 Outpatient 0OYVMZM9- 7QMPJFY5-K1 3BBE ACF2-F Memoria 14:22:00 A9H3-641C B6-433D-825 0H8-198D- 8 l -8257-F81 7-W58VCK391 257-F81EAD Bennett FLI59908C 55F 32834V 2021-03-03 Outpatient [id number]- B79796AT-64 F806 83BA-1 Memoria 13:19:06 10DB-4ECC DB-4ECC-B96 0DB-4ECC- B l -A517-HER 8-NTSWEDS3N 968-CFBACB Bennett DVYY6I6RH 9EE A6D9EE 2023-06-29 2023-06-29 Outpatient R [facility] [id number] Univers 20:00:00 20:00:00 ity of [facility] 2023-02-15 2023-02-15 Office Betty [facility] 1.2.538.465 5817 53391 Univers 10:30:00 11:00:00 Visit Rocío JJ 350.1.13.10 ity of [place] 4.2.7.2.686 [place] [phone] Vt dical [facility] 2023-02-15 2023-02-15 Outpatient R ROCÍO HERNÁNDEZ [facility] [id number] Univers 10:30:00 10:52:46 [facility] 2023-02-15 Orders Doctor MARVIN 1.2.840.114 [id number] Univers 00:00:00 00:00:00 Only Unassigned, CAYLA 350.1.13.10 [facility] 4.2.7.2.686 Robert as [phone] [address] 2023-01-23 2023-01-23 Refill José Miguel, 1.2.840.1 [id number] 684881 9398 Methodi 00:00:00 00:00:[address] 3.430.2.7 Hospit a .3.765603 l .8 2023-01-23 2023-01-23 Transition EVIE Goldstein 1.2.840.114 104 [id number] Univers 00:00:00 00:00:00 of Care Gee GONZALEZ 350.1.13.10 ity of [place] 4.2.7.2.686 [facility] [id number] [facility] [address] 2023-01-19 2023-01-21 Outpatient [facility] [id number] Univers 17:27:00 16:30:00 DERICK itgregg of [facility] 2023-01-19 2023-01-21 [facility] 1.2.840.114 [id number] 5134 Univers 17:27:00 16:30:00 Encounter Derick JJ 350.1.13.10 ity of [place] 4.2.7.2.686 [facility] [id number] [facility] [address] 2023-01-09 2023-01-09 Telephone José Miguel, 1.2.840.1 [id number] 2100 048933 Methodi 00:00:00 00:00:[address] 3.430.2.7 Hospit a .3.699977 l .8 2022-12-29 2022-12-29 Mary Mendoza 1.2.840.1 [id number] 2100 464535 Methodi 00:00:00 00:00:00 Pau[address] Somers [address] 3.430.2.7 Hospit a .3.829880 l .8 2022-12-27 2022-12-27 Hospital Jose Gaines 1.2.840.1 [id number] 2 [id number] Methodi 14:00:00 23:59:00 Encounter Too [address]8789.1.[address] 3.430.2.7 Hospit a .3.284100 l .8 2022-12-27 2022-12-27 Office Jose Gaines 1.2.840.1 [id number] 21 [id number] Methodi 14:45:00 16:06:03 Visit [place] 11382.1.[address] 3.430.2.7 Hospit a .3.554175 l .8 2022-12-27 2022-12-27 Outpatient JOSE GAINES [facility] 248 [id number] [place] 00:00:00 00:00:[address] 2022-12-27 2022-12-27 Outpatient SAWYERJOSE ARRIAGA [facility] 479 [id number] [place] 00:00:00 00:00:[address] 2022-12-27 2022-12-27 Travel 1.2.840.1 1.2.978.368 6387 430928 Methodi 00:00:00 00:00:[address] 3.430.2.7 0.2.7.3.698 Ho spita .3.696716 084.8 l .8 2022-12-27 2022-12-27 Orders Jose Gaines 1.2.840.1 [id number] 01486302 Methodi 00:00:00 00:00:00 Only [place] 45946.1.[address] 3.430.2.7 Hospit a .3.263804 l .8 2022-12-06 2022-12-06 Travel 1.2.840.1 1.2.005.281 9676 395653 Methodi 00:00:00 00:00:[address] 3.430.2.7 0.2.7.3.698 Ho spita .3.563933 084.8 l .8 2022-12-02 2022-12-02 Orders Mendoza, 1.2.840.1 [id number] 2099 957953 Methodi 00:00:00 00:00:00 Only Paulette Yonis 73735.1.[address] 3.430.2.7 Hospit a .3.183492 l .8 2022-12-02 2022-12-02 Orders Mendoza, 1.2.840.1 [id number] 2099 631211 Methodi 00:00:00 00:00:00 Only Paulette Yonis 02415.1.[address] 3.430.2.7 Hospit a .3.847772 l .8 2022-11-29 2022-11-29 Office Jose Gaines 1.2.840.1 [id number] Methodi 15:15:00 16:09:53 Visit Too 20776.1.[address] 3.430.2.7 Hospit a .3.945272 l .8 2022-11-29 2022-11-29 JOSE Hendrickson [facility] 774 [id number] [place] 00:00:00 00:00:[address] 2022-11-29 2022-11-29 Travel 1.2.840.1 1.2.411.271 9373 316883 Methodi 00:00:00 00:00:[address] 3.430.2.7 0.2.7.3.698 Ho spita .3.527331 084.8 l .8 2022-11-29 2022-11-29 Orders Jose Gaines 1.2.840.1 [id number] Methodi 00:00:00 00:00:00 [place] 50176.1.[address] 3.430.2.7 Hospit a .3.476825 l .8 2022-11-25 2022-11-25 Travel 1.2.840.1 1.2.762.533 4788 828565 Methodi 00:00:00 00:00:[address] 3.430.2.7 0.2.7.3.698 Ho spita .3.650261 084.8 l .8 2022-11-22 2022-11-22 Travel 1.2.840.1 1.2.745.445 6313 252592 Methodi 00:00:00 00:00:[address] 3.430.2.7 0.2.7.3.698 Ho spita .3.031663 084.8 l .8 2022-11-22 2022-11-22 Orders Kelly, 1.2.840.1 [id number] 2099 173307 Methodi 00:00:00 00:00:00 Only Paulette Somers 21678.1.[address] 3.430.2.7 Hospit a .3.444537 l .8 2022-11-02 2022-11-02 Office Siva, 1.2.840.1 [id number] 63982 46630 Methodi 10:30:00 11:47:34 Visit Carina 55672.1.[address] [facility] 3.430.2.7 Hospit a .3.987197 l .8 2022-11-02 2022-11-02 Outpatient [facility] [id number] 5884 [place] 00:00:00 00:00:00 CARINA [address] 2022-11-02 2022-11-02 Travel 1.2.840.1 1.2.998.680 4769 034411 Methodi 00:00:00 00:00:[address] 3.430.2.7 0.2.7.3.698 Ho spita .3.812371 084.8 l .8 2022-09-30 2022-09-30 [facility], 1.2.840.1 [id number] 292656 4423 Methodi 00:00:00 00:00:00 Only Gold 66988.1.[address] 3.430.2.7 Hospit a .3.758371 l .8 2022-09-27 2022-09-27 [facility] Jose Gaines 1.2.840.1 [id number] 2 [id number] Methodi 12:34:46 23:59:00 Encounter Too 68646.1.[address] 3.430.2.7 Hospit a .3.894396 l .8 2022-09-27 2022-09-27 Office Jose Gaines 1.2.840.1 [id number] 21 [id number] Methodi 13:30:00 14:16:06 Visit Too 79947.1.[address] 3.430.2.7 Hospit a .3.961929 l .8 2022-09-27 2022-09-27 Outpatient JOSE GAINES [facility] 187 [id number] [place] 00:00:00 00:00:[address] 2022-09-27 2022-09-27 Outpatient JOSE GAINES [facility] 211 [id number] [place] 00:00:00 00:00:[address] 2022-09-27 2022-09-27 Orders Jose Gaines 1.2.840.1 [id number] 21 [id number] Methodi 00:00:00 00:00:00 Only Too 78945.1.[address] 3.430.2.7 Hospit a .3.442971 l .8 2022-09-26 2022-09-26 Travel 1.2.840.1 1.2.184.265 5841 538431 Methodi 00:00:00 00:00:[address] 3.430.2.7 0.2.7.3.698 Ho spita .3.312761 084.8 l .8 2022-09-23 2022-09-23 Office Nikolai 1.2.840.1 [id number] 915789 5569 Methodi 13:15:00 15:07:40 Visit Andree Mullen 71126.1.[address] 3.430.2.7 Hospit a .3.752458 l .8 2022-09-23 2022-09-23 Outpatient PATRICIA [facility] [id number] 925 [place] 00:00:00 00:00:00 ANDREE [address] 2022-09-23 2022-09-23 Outpatient [facility] [id number] 325 [place] 00:00:00 00:00:[address] 2022-09-21 2022-09-21 Outpatient Marvin Wilde [facility] IAM LA0 [id number] [facility] 12:00:00 12:00:00 55 [facility] 2022-09-19 2022-09-19 Travel 1.2.840.1 1.2.817.892 4159 832377 Methodi 00:00:00 00:00:[address] 3.430.2.7 0.2.7.3.698 Ho spita .3.335106 084.8 l .8 2022-09-19 2022-09-19 Travel 1.2.840.1 1.2.814.402 3090 554740 Methodi 00:00:00 00:00:[address] 3.430.2.7 0.2.7.3.698 Ho spita .3.587207 084.8 l .8 2022-09-16 2022-09-16 Travel 1.2.840.1 1.2.326.634 9835 635778 Methodi 00:00:00 00:00:[address] 3.430.2.7 0.2.7.3.698 Ho spita .3.320997 084.8 l .8 2022-09-16 2022-09-16 Telephone Nikolai, 1.2.840.1 [id number] 2099 440445 Methodi 00:00:00 00:00:00 And[address].1.[address] 3.430.2.7 Hospit a .3.188986 l .8 2022-09-16 2022-09-16 Travel 1.2.840.1 1.2.136.787 9495 838993 Methodi 00:00:00 00:00:[address] 3.430.2.7 0.2.7.3.698 Ho spita .3.769261 084.8 l .8 2022-09-16 2022-09-16 Telephone Nikolai, 1.2.840.1 [id number] 2099783 Methodi 00:00:00 00:00:[address] 3.430.2.7 Hospit a .3.706333 l .8 2022-09-12 2022-09-14 [facility] Jose Gaines 1.2.840.1 [id number] 2 [id number] Methodi 09:32:00 20:06:00 [address]ule[address] G[address] 93861.1.[address] 3.430.2.7 Hospit a .3.221668 l .8 2022-09-14 2022-09-14 Ophth Exam Nikolai, 1.2.840.1 [id number] 285 9898884 Methodi 00:00:00 00:00:[address] 3.430.2.7 Hospit a .3.765093 l .8 2022-09-14 2022-09-14 Ophth Exam Nikolai, 1.2.840.1 780790027 334 7229049 Methodi 00:00:00 00:00:[address] 3.430.2.7 Hospit a .3.968845 l .8 2022-09-12 2022-09-14 [facility] JOSE GAINES 1.2.840.1 [id number] 2 [id number] [place] 00:00:00 00:00:00 Encounter 59279.1.1 [address] .3.165071 .8 2022-09-13 2022-09-13 Telephone Nikolai, 1.2.840.1 [id number] 2099 057799 Methodi 00:00:00 00:00:[address] 3.430.2.7 Hospit a .3.100474 l .8 2022-09-13 2022-09-13 Telephone Nikolai, 1.2.840.1 [id number] 2099 020096 Methodi 00:00:00 00:00:[address] 3.430.2.7 Hospit a .3.740185 l .8 2022-09-12 2022-09-12 Surgery Jose Gaines 1.2.840.1 [id number] 21 14857739 Methodi 11:40:00 16:40:[address] 3.430.2.7 Hospit a .3.456793 l .8 2022-09-12 2022-09-12 Surgery Jose Gaines 1.2.840.1 [id number] 21 66828251 Methodi 11:40:00 16:40:[address] 3.430.2.7 Hospit a .3.813035 l .8 2022-09-12 2022-09-12 Anesthesia Louie Womack 1.2.84 0.1 920579998 3154857206 Methodi 11:44:00 14:01:00 Event Vandana Reis 02488.1.[address] 3.430.2.7 Hospit a .3.984651 l .8 2022-09-12 2022-09-12 Anesthesia Louie Womack 1.2.84 0.1 948929948 [id number] Methodi 11:44:00 14:01:00 Event Vandana Reis 38496.1.[address] 3.430.2.7 Hospit a .3.798031 l .8 2022-09-12 2022-09-12 Travel 1.2.840.1 1.2.290.741 2962 088120 Methodi 00:00:00 00:00:[address] 3.430.2.7 0.2.7.3.698 Ho spita .3.255391 084.8 l .8 2022-09-12 2022-09-12 Travel 1.2.840.1 1.2.529.998 2581 095847 Methodi 00:00:00 00:00:[address] 3.430.2.7 0.2.7.3.698 Ho spita .3.036859 084.8 l .8 2022-09-08 2022-09-08 Evaluation Jose Gaines 1.2.840.1 10 6744755 2794279541 Methodi 14:30:00 15:30:00 Ankit Madrigal 72462.1.[address] 3.430.2.7 Hospit a .3.431327 l .8 2022-09-08 2022-09-08 Evaluation Jose Gaines 1.2.840.1 10 4507000 4211519306 Methodi 14:30:00 15:30:00 Ankit Madrigal 77924.1.[address] 3.430.2.7 Hospit a .3.392811 l .8 2022-09-08 2022-09-08 Plan of 1.2.840.1 253761540 486699 0207 Methodi 00:00:00 00:00:[address] Documentat 3.430.2.7 Hos melania ion .3.170568 l .8 2022-09-08 2022-09-08 Orders Mendoza, 1.2.840.1 050579000 2100 315212 Methodi 00:00:00 00:00:00 Only Paulette Yonis 49029.1.[address] 3.430.2.7 Hospit a .3.152554 l .8 2022-09-08 2022-09-08 Plan of 1.2.840.1 [id number] 322030 6084 Methodi 00:00:00 00:00:[address] Documentat 3.430.2.7 Hos melania ion .3.178313 l .8 2022-09-08 2022-09-08 Orders Mendoza, 1.2.840.1 [id number] 2099 859884 Methodi 00:00:00 00:00:00 Only Paulette Yonis 10416.1.[address] 3.430.2.7 Hospit a .3.054373 l .8 2022-09-07 2022-09-07 Pre-Admiss Jose Gaines 1.2.840.1 10 8228444 3866735234 Methodi 16:10:00 17:10:00 ion Arina Zavala 30485.1.[address] Testing 3.430.2.7 Hospit a .3.461726 l .8 2022-09-07 2022-09-07 Pre-Admiss Jose Gaines 1.2.840.1 10 0282676 4427332110 Methodi 16:10:00 17:10:00 ion Arina Zavala 02060.1.[address] Testing 3.430.2.7 Hospit a .3.008864 l .8 2022-09-07 2022-09-07 Travel 1.2.840.1 1.2.612.376 3999 144068 Methodi 00:00:00 00:00:[address] 3.430.2.7 0.2.7.3.698 Ho spita .3.661171 084.8 l .8 2022-09-07 2022-09-07 Travel 1.2.840.1 1.2.540.939 3080 144068 Methodi 00:00:00 00:00:[address] 3.430.2.7 0.2.7.3.698 Ho spita .3.912728 084.8 l .8 2022-09-02 2022-09-02 Travel 1.2.840.1 1.2.404.361 0448 143685 Methodi 00:00:00 00:00:[address] 3.430.2.7 0.2.7.3.698 Ho spita .3.373982 084.8 l .8 2022-09-02 2022-09-02 Travel 1.2.840.1 1.2.894.778 8811 143685 Methodi 00:00:00 00:00:[address] 3.430.2.7 0.2.7.3.698 Ho spita .3.190269 084.8 l .8 2022-09-01 2022-09-01 Documentat Provider, 1.2.840.1 [id number] 2 [id number] Methodi 00:00:00 00:00:00 ion Unknown 11526.1.[address] 3.430.2.7 Hospit a .3.187394 l .8 2022-09-01 2022-09-01 Documentat Provider, 1.2.840.1 [id number] 2 [id number] Methodi 00:00:00 00:00:00 ion Unknown 20117.1.[address] 3.430.2.7 Hospit a .3.643016 l .8 2022-08-30 2022-08-30 [facility] Jose Gaines 1.2.840.1 [id number] 2 [id number] Methodi 10:31:34 23:59:00 Encounter [place] 51958.1.[address] 3.430.2.7 Hospit a .3.025116 l .8 2022-08-30 2022-08-30 [facility] Jose Gaines 1.2.840.1 [id number] 2 [id number] Methodi 10:30:59 10:30:59 Encounter Too [address]90.1.[address] 3.430.2.7 Hospit a .3.848701 l .8 2022-08-30 2022-08-30 [facility] Jose Gaines 1.2.840.1 [id number] 2 [id number] Methodi 10:28:48 10:29:00 Encounter [place] 51703.1.[address] 3.430.2.7 Hospit a .3.997990 l .8 2022-08-30 2022-08-30 [facility] 1.2.840.1 [id number] 21 [id number] Methodi 09:30:00 10:16:10 [place] [address]78.1.[address] 3.430.2.7 Hospit a .3.668566 l .8 2022-08-30 2022-08-30 [facility] 1.2.840.1 [id number] 21 [id number] Methodi 09:30:00 10:16:10 [place] [address]92.1.[address] 3.430.2.7 Hospit a .3.998119 l .8 2022-08-30 2022-08-30 [facility] JOSE GAINES 1.2.840.1 [id number] 2 [id number] [place] 00:00:00 00:00:00 Encounter 24428.1.1 [address] .3.130903 .8 2022-08-30 2022-08-30 [facility]2.840.1 [id number] 2 [id number] [place] 00:00:00 00:00:00 Encounter 13283.1.1 [address] .3.010325 .8 2022-08-30 2022-08-30 [facility] JOSE GAINES 1.2.840.1 [id number] 2 [id number] [place] 00:00:00 00:00:00 Encounter 89444.1.1 [address] .3.679381 .8 2022-08-29 2022-08-29 [facility] Jose Gaines 1.2.840.1 [id number] 2 [id number] Methodi 16:14:51 23:59:00 Encounter Too 09708.1.[address] 3.430.2.7 Hospit a .3.844309 l .8 2022-08-29 2022-08-29 [facility] [id number] [facility] 12:00:00 12:00:00 21 [facility] 2022-08-29 2022-08-29 Travel 1.2.840.1 1.2.751.072 6404 552512 Methodi 00:00:00 00:00:[address] 3.430.2.7 0.2.7.3.698 Ho spita .3.550366 084.8 l .8 2022-08-29 2022-08-29 [facility] JOSE GAINES 1.2.840.1 [id number] 2 [id number] [place] 00:00:00 00:00:00 Encounter 97577.1.1 [address].2.7 [address] .3.141412 .8 2022-08-29 2022-08-29 Travel 1.2.840.1 1.2.402.507 6715 626651 Methodi 00:00:00 00:00:[address] 3.430.2.7 0.2.7.3.698 Ho spita .3.104016 084.8 l .8 2022-08-26 2022-08-26 Travel 1.2.840.1 1.2.000.535 9620 770959 Methodi 00:00:00 00:00:[address] 3.430.2.7 0.2.7.3.698 Ho spita .3.166141 084.8 l .8 2022-08-26 2022-08-26 Documentat Mendoza, 1.2.840.1 [id number] 2 [id number] Methodi 00:00:00 00:00:00 ion Paulette Yonis 57606.1.[address] 3.430.2.7 Hospit a .3.467311 l .8 2022-08-26 2022-08-26 Travel 1.2.840.1 1.2.339.475 6291 719270 Methodi 00:00:00 00:00:[address] 3.430.2.7 0.2.7.3.698 Ho spita .3.905302 084.8 l .8 2022-08-26 2022-08-26 Documentat Mendoza, 1.2.840.1 [id number] 2 [id number] Methodi 00:00:00 00:00:00 ion Paulette Yonis 73382.1.[address] 3.430.2.7 Hospit a .3.572830 l .8 2022-08-24 2022-08-24 [facility] 1.2.840.1 [id number] 21 [id number] Methodi 18:25:00 22:54:[address] 3.430.2.7 Hospit a .3.535397 l .8 2022-08-24 2022-08-24 Travel 1.2.840.1 1.2.328.476 5173 356787 Methodi 00:00:00 00:00:[address] 3.430.2.7 0.2.7.3.698 Ho spita .3.039110 084.8 l .8 2022-08-24 2022-08-24 Outpatient [facility] [id number] 947 [place] 00:00:00 00:00:[address] 2022-08-24 2022-08-24 Outpatient [facility] [id number] 947 [place] 00:00:00 00:00:[address] 2022-08-24 2022-08-24 Emergency KAYLEE, [facility] 064 [id number] 0470 [place] 00:00:00 00:00:00 ELBERT [address] 2022-08-24 2022-08-24 Travel 1.2.840.1 1.2.343.427 6528 765684 Methodi 00:00:00 00:00:[address] 3.430.2.7 0.2.7.3.698 Ho spita .3.429453 084.8 l .8 2022-08-12 2022-08-12 Outpatient HAM Marvin Patel [facility] IAM LA0 [id number] [facility] 12:00:00 12:00:00 46 [facility] 2022-08-09 2022-08-09 [facility] Jose Gaines 1.2.840.1 [id number] 2 [id number] Methodi 12:35:00 23:59:00 Encounter [place] [address]42.1.[address] 3.430.2.7 Hospit a .3.648983 l .8 2022-08-09 2022-08-09 [facility] Jose Gaines 1.2.840.1 [id number] 2 [id number] Methodi 12:30:00 12:34:00 Encounter Too [address]2988.1.[address] 3.430.2.7 Hospit a .3.225510 l .8 2022-08-09 2022-08-09 [facility] Jose Gaines 1.2.840.1 [id number] 2 [id number] Methodi 12:15:00 12:29:00 [place] [address].1.[address] 3.430.2.7 Hospit a .3.038540 l .8 2022-08-09 2022-08-09 [facility] Jose Gaines 1.2.840.1 [id number] 21 [id number] Methodi 10:30:00 11:31:33 Visit Too 68277.1.[address] 3.430.2.7 Hospit a .3.459227 l .8 2022-08-09 2022-08-09 [facility] Jose Gaines 1.2.840.1 [id number] 21 [id number] Methodi 10:30:00 11:31:33 Visit Too 41095.1.[address] 3.430.2.7 Hospit a .3.881770 l .8 2022-08-09 2022-08-09 Travel 1.2.840.1 1.2.035.630 9906 906187 Methodi 00:00:00 00:00:[address] 3.430.2.7 0.2.7.3.698 Ho spita .3.661351 084.8 l .8 2022-08-09 2022-08-09 [facility] JOSE GAINES 1.2.840.1 [id number] 2 [id number] [place] 00:00:00 00:00:00 Encounter 05401.1.1 [address] .3.525135 .8 2022-08-09 2022-08-09 [facility] JOSE GAINES 1.2.840.1 [id number] [place] 00:00:00 00:00:00 Encounter 10460.1.1 [address] .3.292729 .8 2022-08-09 2022-08-09 [facility] JOSE GAINES 1.2.840.1 [id number] [place] 00:00:00 00:00:00 Encounter 94959.1.1 [address] .3.435537 .8 2022-08-09 2022-08-09 Travel 1.2.840.1 1.2.537.342 2186 [id number] Methodi 00:00:00 00:00:[address] 3.430.2.7 0.2.7.3.698 Ho spita .3.643295 084.8 l .8 2022-08-01 2022-08-01 Travel 1.2.840.1 1.2.649.746 2443 810277 Methodi 00:00:00 00:00:[address] 3.430.2.7 0.2.7.3.698 Ho spita .3.179124 084.8 l .8 2022-08-01 2022-08-01 Travel 1.2.840.1 1.2.684.197 6584 838769 Methodi 00:00:00 00:00:[address] 3.430.2.7 0.2.7.3.698 Ho spita .3.795795 084.8 l .8 2022-07-31 2022-07-31 Refill [facility], 1.2.840.1 [id number] 90067 Methodi 00:00:00 00:00:[address] [place] 3.430.2.7 Hospit a .3.062648 l .8 2022-07-31 2022-07-31 Refill [facility], 1.2.840.1 [id number] 21001 85238 Methodi 00:00:00 00:00:[address] Obad[place] 3.430.2.7 Hospit a .3.543433 l .8 2022-06-22 2022-06-22 Travel 1.2.840.1 1.2.064.586 3218 568734 Methodi 00:00:00 00:00:[address] 3.430.2.7 0.2.7.3.698 Ho spita .3.537591 084.8 l .8 2022-06-22 2022-06-22 Travel 1.2.840.1 1.2.612.202 6750 517365 Methodi 00:00:00 00:00:[address] 3.430.2.7 0.2.7.3.698 Ho spita .3.935978 084.8 l .8 2022 2022 Outpatient SIVA, [facility] [id number] 5524 [place] 00:00:00 00:00:00 CARINA [address] 2022-06-03 2022-06-03 Documentat [facility], 1.2.840.1 [id number] 473 [id number] Methodi 00:00:00 00:00:00 ion [address] 97240.1.[address] 3.430.2.7 Hospit a .3.287518 l .8 2022-06-03 2022-06-03 Documentat [facility], 1.2.840.1 [id number] 802 [id number] Methodi 00:00:00 00:00:00 [address]44.1.[address] 3.430.2.7 Hospit a .3.284246 l .8 2022-05-27 2022-05-27 Orders [facility], 1.2.840.1 [id number] 6669 Methodi 00:00:00 00:00:00 Only Khadija 23983.1.[address] 3.430.2.7 Hospit a .3.421003 l .8 2022-05-27 2022-05-27 Orders [facility], 1.2.840.1 [id number] 4856 Methodi 00:00:00 00:00:00 Only Khadija 23032.1.[address] 3.430.2.7 Hospit a .3.486964 l .8 2022-05-26 2022-05-26 Orders [facility], 1.2.840.1 [id number] [id number] 2582 Methodi 00:00:00 00:00:00 Only Khadija 22841.1.[address] 3.430.2.7 Hospit a .3.818626 l .8 2022-05-26 2022-05-26 [facility] 1.2.840.1 [id number] 17009 Methodi 00:00:00 00:00:00 Only Mohammad 77699.1.[address] [place]ad[place] 3.430.2.7 Hospit a .3.500263 l .8 2022-05-26 2022-05-26 Orders Shannan, 1.2.840.1 [id number] 6433 Methodi 00:00:00 00:00:00 Only Khadija 44051.1.[address] 3.430.2.7 Hospit a .3.994337 l .8 2022-05-26 2022-05-26 [facility], 1.2.840.1 [id number] 91615 Methodi 00:00:00 00:00:00 Only Mohammad 31473.1.[address] [place] 3.430.2.7 Hospit a .3.106404 l .8 2022-05-16 2022-05-16 [facility] 1.2.840.1 [id number] 2099 693315 Methodi 00:00:00 00:00:[address] 3.430.2.7 Hospit a .3.151229 l .8 2022-05-16 2022-05-16 [facility] 1.2.840.1 [id number] 2099 531618 Methodi 00:00:00 00:00:[address] 3.430.2.7 Hospit a .3.124756 l .8 2022-05-11 2022-05-13 Emergency Gaudencio Perry 1.2.8 40.1 [id number] Methodi 16:23:00 11:56:00 Brodie Ross 00807.1.1 035 Supa Poe 3.430.2.7 Hospita .3.360728 l .8 2022-05-11 2022-05-13 Emergency Gaudencio Perry 1.2.8 40.1 [id number] Methodi 16:23:00 11:56:00 Brodie Ross 81534.1.1 035 Supa Poe 3.430.2.7 Hospita .3.669301 l .8 2022-05-11 2022-05-11 Travel 1.2.840.1 1.2.089.384 4074 796994 Methodi 00:00:00 00:00:[address] 3.430.2.7 0.2.7.3.698 Ho spita .3.437655 084.8 l .8 2022-05-11 2022-05-11 Documentat [facility], 1.2.840.1 [id number] 413 [id number] Methodi 00:00:00 00:00:[address]ija [address]481.1.[address] 3.430.2.7 Hospit a .3.941511 l .8 2022-05-11 2022-05-11 Travel 1.2.840.1 1.2.501.896 3903 956509 Methodi 00:00:00 00:00:[address] 3.430.2.7 0.2.7.3.698 Ho spita .3.964033 084.8 l .8 2022-05-11 2022-05-11 Documentat [facility], 1.2.840.1 [id number] 685 [id number] Methodi 00:00:00 00:00:00 [address]ija 73031.1.[address] 3.430.2.7 Hospit a .3.305655 l .8 2022-05-10 2022-05-10 Transcribe Asked, No 1.2.840.1 [id number] 2 [id number] Methodi 00:00:00 00:00:00 Orders Pcp 05494.1.[address] 3.430.2.7 Hospit a .3.701926 l .8 2022-05-10 2022-05-10 Transcribe Asked, No 1.2.840.1 [id number] 2 [id number] Methodi 00:00:00 00:00:00 Orders Pcp 81251.1.[address] 3.430.2.7 Hospit a .3.226433 l .8 2022-05-03 2022-05-03 Office [facility], 1.2.840.1 [id number] Methodi 11:00:00 12:42:30 Visit Mohammad 75071.1.[address] [place] 3.430.2.7 Hospit a .3.483358 l .8 2022-05-03 2022-05-03 Office [facility], 1.2.840.1 [id number] Methodi 11:00:00 12:42:30 Visit Mohammad 60085.1.[address] [place] 3.430.2.7 Hospit a .3.911053 l .8 2022-05-03 2022-05-03 Refill [place], 1.2.840.1 [id number] 2099 176003 Methodi 00:00:00 00:00:[address] [place] 3.430.2.7 Hospit a .3.575397 l .8 2022-05-03 2022-05-03 Travel 1.2.840.1 1.2.883.277 2069 199570 Methodi 00:00:00 00:00:[address] 3.430.2.7 0.2.7.3.698 Ho spita .3.850552 084.8 l .8 2022-05-03 2022-05-03 Refill [place], 1.2.840.1 [id number] 2099 236282 Methodi 00:00:00 00:00:[address] [place] 3.430.2.7 Hospit a .3.120968 l .8 2022-05-03 2022-05-03 Travel 1.2.840.1 1.2.952.633 7967 422320 Methodi 00:00:00 00:00:[address] 3.430.2.7 0.2.7.3.698 Ho spita .3.683058 084.8 l .8 2022-02-07 2022-02-07 Refill José Miguel, 1.2.840.1 [id number] 012043 2789 Methodi 00:00:00 00:00:[address] 3.430.2.7 Hospit a .3.702968 l .8 2022-02-01 2022-02-01 Outpatient PRL - PRL - [id number] eClinic 14:20:00 14:20:00 Rheumatol Rheumatolog alWorks ogy [facility] 2021-11-02 2021-11-02 Outpatient PRL - PRL - [id number] eClinic 14:30:00 14:30:00 Rheumatol Rheumatolog [facility] 2021-10-07 2021-10-07 Travel 1.2.840.1 1.2.481.455 7981 853855 Methodi 00:00:00 00:00:[address] 3.430.2.7 0.2.7.3.698 Ho spita .3.378780 084.8 l .8 2021-09-30 2021-09-30 Office [place], 1.2.840.1 [id number] 65938 90474 Methodi 10:00:00 11:22:34 Visit Carina 04441.1.[address] [place] 3.430.2.7 Hospit a .3.662924 l .8 2021-09-30 2021-09-30 Travel 1.2.840.1 1.2.176.977 7452 709981 Methodi 00:00:00 00:00:[address] 3.430.2.7 0.2.7.3.698 Ho spita .3.874914 084.8 l .8 2021-09-29 2021-09-29 Travel 1.2.840.1 1.2.923.048 2613 132867 Methodi 00:00:00 00:00:[address] 3.430.2.7 0.2.7.3.698 [facility] .[facility] 084.8 l .8 2021-08-09 2021-08-09 Outpatient PRL - PRL - [id number] eClinic 21:26:00 21:26:00 Rheumatol Rheumatolog alWorks ogy [facility] 2021-08-09 2021-08-09 Outpatient PRL - PRL - [id number] eClinic 21:26:00 21:26:00 Rheumatol Rheumatolog alWorks [facility] 2021-05-31 2021-05-31 Outpatient [facility] [id number] 2763 [place] 00:00:00 00:00:00 [address]AD [address] 2021-05-31 2021-05-31 Outpatient [facility] [id number] 428 [place] 00:00:00 00:00:[address] 2021-05-11 2021-05-11 Outpatient JESSICA COLLINSU - [id number] eClinic 13:56:00 13:56:00 [facility] 2021-05-11 2021-05-11 Outpatient PRL - PRL - [id number] eClinic 13:30:00 13:30:00 [facility] 2021-03-16 Outpatient DEONNA, [facility] [id number] 19983 [place] 00:00:00 00:00:00 NEEHARIKA [address] 2021-03-03 2021-03-03 Outpatient DEONNA, [facility] [id number] 26068 [place] 00:00:00 00:00:00 NEEHARIKA [address] 2021-02-22 2021-02-22 Outpatient MANE, [facility] [id number] 3082 [place] 00:00:00 00:00:[address] 2021-02-03 2021-02-03 Outpatient JESSICA Akosua JESSICA - [id number] eClinic 13:50:00 13:50:00 Rheumatol Rheumatolog alWorks ogy y [facility] 2020-12-14 2020-12-14 Outpatient DEONNA, [facility] [id number] 20528 [place] 00:00:00 00:00:00 NEEHARIKA [address] 2020-11-18 2020-11-19 Outpatient MANE, [facility] [id number] 3931 [place] 00:00:00 00:00:00 MOHAMMAD [address] 2020-11-18 2020-11-19 Outpatient [facility] [id number] 487 [place] 00:00:00 00:00:[address] 2020-11-04 2020-11-04 Outpatient JESSICA Akosua JESSICA - [id number] eClinic 14:20:00 14:20:00 Rheumatol Rheumatolog alWorks ogy y [facility] 2020-09-15 2020-09-15 Outpatient [facility] [id number] 400 [place] 00:00:00 00:00:[address] 2020-08-19 2020-08-19 Outpatient [facility] [id number] 755 [place] 00:00:00 00:00:[address] 2020-08-17 2020-08-17 Outpatient MANE, [facility] [id number] 4912 [place] 00:00:00 00:00:00 MOHAMMAD [address] 2020 2020 Outpatient JESSICA - JESSICA - [id number] eClinic 15:10:00 15:10:00 Rheumatol Rheumatolog alWorks ogy y [facility] 2020-05-21 2020-05-21 Outpatient JESSICA - JESSICA - [id number] eClinic 13:24:00 13:24:00 Rheumatol Rheumatolog alWorks ogy y [facility] 2020-03-29 2020-03-29 Mary Poole [facility] 1.2.364.425 0552 5764 00:00:00 00:00:00 Brooke [facility] 350.1.13.10 [place] 4.2.7.2.686 Professio [phone] nal 044 [address] One 2020-03-29 2020-03-29 [facility] 1.2.497.540 9912 5764 Univers 00:00:00 00:00:00 Lorenaqiangreg [facility] 350.1.13.10 ity of [place] 4.2.7.2.686 Robert Professio [phone] Vt dical nal 044 Branch Office [address] 2020-03-24 2020-03-24 Outpatient DARIO, [facility] [id number] [address] [place] [address] 00:00:00 00:00:00 KELSEY [address] 2020-03-19 2020-03-19 Outpatient JESSICA - JESSICA - [id number] eClinic 13:30:00 13:30:00 Rheumatol Rheumatolog alWorks ogy y [facility] 2020-03-07 2020-03-07 [facility] 1.2.840.114 775 40957 15:27:39 23:59:00 Encounter Brooke [place]on[place] 350.1.13.10 [place] 4.2.7.2.686 [place] [id number] [facility] 2020-03-07 2020-03-07 [facility] 1.2.840.114 [id number] [id number] [facility] 15:27:39 23:59:00 Encounter Lorenaqiangreg Carmonaton 350.1.13.10 ity of [place] 4.2.7.2.686 [facility] [id number] [address] 2020-03-07 2020-03-07 Urgent Pob1, Acute [facility] 1.2.840.114 77 [id number] 14:21:25 15:42:30 Care [facility] 350.1.13.10 [place] 4.2.7.2.686 Professio [phone] nal 044 Office [address] 2020-03-07 2020-03-07 Urgent Pob1, Acute Care Clinic [facility] 1. 2.840.114 [id number] [facility] 14:21:25 15:42:30 Care Anejos, Melissa [facility] 350.1.13.10 ity of [place] 4.2.7.2.686 Robert as Professio [phone] Vt dical [facility] 044 [address] 2020-03-07 2020-03-07 Outpatient Ramiro JASSO, [facility] [id number] [facility] 14:20:00 14:20:00 MELISSA ity of [facility] 2020-03-07 2020-03-07 Letter Doctor MARVIN 1.2.840.114 [id number] 00:00:00 00:00:00 (Out) Unassigned, CAYLA 350.1.13.10 [place] [facility] 4.2.7.2.686 [id number] 044 2020-03-07 2020-03-07 Letter Doctor MARVIN 1.2.840.114 [id number] Univers 00:00:00 00:00:00 (Out) Unassigned, CAYLA 350.1.13.10 [facility] 4.2.7.2.686 Robert as [id number] [address] 2020-02-11 2020-02-11 Outpatient [facility] [id number] 4607 [place] 00:00:00 00:00:00 MOHAMMAD 995 [address] 2020-02-11 2020-02-11 Outpatient [facility] [id number] 3556 [place] 00:00:00 00:00:00 MOHAMMAD 318 Meth[address] 2020-01-27 2020-01-27 Outpatient [facility] [id number] 7670 [place] 00:00:00 00:00:00 MOHAMMAD 012 Meth[address] di 2020-01-27 2020-01-27 Outpatient [facility] [id number] 8988 [place] 00:00:00 00:00:00 MOHAMMAD [address] 2020-01-14 2020-01-14 Outpatient PRL - PRL - [id number] eClinic 22:52:00 22:52:00 Rheumatol Rheumatolog alWorks ogy y [facility] 2019-12-30 2019-12-30 Outpatient PRL - PRL - [id number] eClinic 13:29:00 13:29:00 Rheumatol Rheumatolog alWorks ogy y [facility] 2019-12-19 2019-12-19 Outpatient JESSICA - JESSICA - [id number] eClinic 09:45:00 09:45:00 Rheumatol Rheumatolog alWorks ogy y [facility] 2019-10-25 2019-10-25 Outpatient JESSICA Akosua JESSICA - [id number] eClinic 12:17:00 12:17:00 Rheumatol Rheumatolog alWorks ogy y [facility] 2019-09-19 2019-09-19 Outpatient PRL - PRL - [id number] eClinic 13:45:00 13:45:00 Rheumatol Rheumatolog alWorks ogy y [facility] 2019-06-27 2019-06-27 Outpatient PRL - PRL - [id number] eClinic 10:15:00 10:15:00 Rheumatol Rheumatolog alWorks ogy y [facility] 2019-06-07 2019-06-07 Outpatient JESSICA Akosua COLLINSU - [id number] eClinic 09:32:00 09:32:00 Rheumatol Rheumatolog alWorks ogy y [facility] 2019-03-18 2019-03-18 Outpatient PRL - PRL - [id number] eClinic 10:30:00 10:30:00 Rheumatol Rheumatolog alWorks ogy y [facility] 2019-01-18 2019-01-18 Outpatient PRL - PRL - [id number] eClinic 10:30:00 10:30:00 Rheumatol Rheumatolog alWorks ogy y [facility] 2018-12-24 2018-12-24 Outpatient JESSICA Akosua JESSICA - [id number] eClinic 09:36:00 09:36:00 Rheumatol Rheumatolog alWorks ogy y [facility] 2018-12-20 2018-12-20 Outpatient PRL - PRL - [id number] eClinic 16:08:00 16:08:00 Rheumatol Rheumatolog alWorks ogy y [facility] 2018-12-11 2018-12-11 Outpatient PRL - PRL - [id number] eClinic 11:30:00 11:30:00 Rheumatol Rheumatolog alWorks ogy y [facility] Results Test Description Test Time Test Comments Results Result Comments Source SURGICAL OUTREACH 2022-09-23 15:20:00 Test Item Value Reference Range Interpretation Comme nts SURGICAL RUN OUTREACH DATE: 09/23/22 [facility] Itz osborne - LAB PAGE 1 RUN TIME: 1520 Specimen Inquiry RUN USER: (test INTERFACE code = JUDITH WEBBER) NT: ALISSA JACKMAN LOC: [facility] U #: [id number] AGE/SX: 77/F ROOM: RE09/21/22[facility] DR: Marvin Patel III, MD : 43 BED: DIS: STATUS: DEP REF TLOC: SPEC #: [id number] RECD: STATUS: LUCIANO BOBBY #: [id number] BAUTISTA: 09/21/22-1352 [facility] DR: Marvin Patel III, MD ENTERED: 09/22/22 SP TYPE: SURGICAL OTHR DR: ORDERED: [id number], ANATOMIC SPEC, SPECIMEN TRACK PROCEDU RES: [id number] (03/03/23-1222) SPECIMEN TRACK (09/22/22-08) TISSUES: A. BREAST BIOPSY, FEMALE RIGHT - RIGHT BREAST CALCIFICATIONS;STEREOTACTIC FINAL DIAGNOSIS Breast, right, 0.8 x 1.9 cm lesion a t 11 o'clock, 8 cm from nipple, stereotacticbiopsy for calcs:- Benign breast parenchyma; stromal f ibrosis, duct ectasia, focal intraductal papilloma andbenign ducts and glands with focal microc alcifications GROSS DESCRIPTION Right breast 11:00 8 cm from nipple. Received separately are 2 fi brofatty tissue segmentsmeasuring 1 and 1.1 cm in length. They are submitted entirely as A1. Al so present in thesame container are additional pieces of fibrofatty tissue measuring aggregate o f 2 x 1.5 x0.2 cm. All as A2. Excised time: 1:53 p.m. 09/21/2022 Formalin time: 2:11 p.m.Form serjio fixation duration: >24 hours- <48 hours Technical tissue processing and slide prepara tion performed at [facility],[id number] , [place] [address] Unless gross only, the diagn osis is based upon microscopic examination.Immunohistochemistry: This test was developed and its p erformance characteristicsdetermined by this laboratory. It has not been approved nor does it ne ed approval by the USFDA. Appropriate positive and negative controls are reviewed and judged to b e acceptable.This laboratory is certified under the Clinical Laboratory Improvement Amend ments (CLIA-88)as qualified to perform high complexity clinical laboratory testing. --- Signed Gracia Mercado 09/23/22 1520 END OF REPORT Surgical pathology [id number] 00:01:23 Test Item Value Reference Range Interpretation Comments Case number (test code = [id number]) Surgical pathology See link below for report (test code = PDF Lab Report 2255) Result status (test code This is Final Report = [id number]) [id number] [facility] [id number] 00:01:23 Test Item Value Reference Range Interpretation Comments Case number (test code = [id number]) Surgical pathology See link below for report (test code = PDF Lab Report 2255) Result status (test code This is Final Report = [id number]) for [id number] [facility]2023-02-22 17:43:00 Test Item Value Reference Range Interpretation Comments POC glucose (test 91 mg/dL 65-99 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 derek: Gisel code = 50079-4) MarvellousDe vice ID: [id number] able: [facility] Notified RN [facility] [id number] 17:43:00 Test Item Value Reference Range Interpretation Comments POC glucose (test 91 mg/dL 65-99 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 derek: Gisel code = 75534-0) MarvellousDe vice ID: [id number] able: [facility] Notified RN [facility] Pre/Post [id number] 01:11:50 Test Item Value Reference Range Interpretation Comments Ventricular rate (test 78 code = 253) Atrial rate (test code 78 = 255) CO interval (test code 154 = 266) QRSD interval (test 78 code = 260) QT interval (test code 376 = 264) QTC interval (test code 428 = 265) P axis 1 (test code = 29 267) QRS axis 1 (test code = 78 268) T wave axis (test code 68 = 270) EKG impression (test Poor data code = 273) quality-Normal sinus rhythm with sinus arrhythmia-Normal ECG-In automated comparison with ECG of 11-MAY-2022 17:00,-No significant change was found- [facility] Pre/Post [id number] 01:11:50 Test Item Value Reference Range Interpretation Comments Ventricular rate (test 78 code = 253) Atrial rate (test code 78 = 255) CO interval (test code 154 = 266) QRSD interval (test 78 code = 260) QT interval (test code 376 = 264) QTC interval (test code 428 = 265) P axis 1 (test code = 29 267) QRS axis 1 (test code = 78 268) T wave axis (test code 68 = 270) EKG impression (test Poor data code = 273) quality-Normal sinus rhythm with sinus arrhythmia-Normal ECG-In automated comparison with ECG of 11-MAY-2022 17:00,-No significant change was found- [address]2022-10-21 01:28:19 Test Item Value Reference Range Interpretation Comments Ventricular rate (test 75 code = 253) Atrial rate (test code = 75 255) CO interval (test code = 158 266) QRSD interval (test code 74 = 260) QT interval (test code = 400 264) QTC interval (test code 446 = 265) P axis 1 (test code = 49 267) QRS axis 1 (test code = 76 268) T wave axis (test code = 83 270) EKG impression (test Normal sinus code = 273) rhythm-Normal ECG-- [address]2022-10-21 01:28:19 Test Item Value Reference Range Interpretation Comments Ventricular rate (test 75 code = 253) Atrial rate (test code = 75 255) CO interval (test code = 158 266) QRSD interval (test code 74 = 260) QT interval (test code = 400 264) QTC interval (test code 446 = 265) P axis 1 (test code = 49 267) QRS axis 1 (test code = 76 268) T wave axis (test code = 83 270) EKG impression (test Normal sinus code = 273) rhythm-Normal [facility]-- [facility] [id number] 01:28:19 Test Item Value Reference Range Interpretation Comments Ventricular rate (test 75 code = 253) Atrial rate (test code = 75 255) CO interval (test code = 158 266) QRSD interval (test code 74 = 260) QT interval (test code = 400 264) QTC interval (test code 446 = 265) P axis 1 (test code = 49 267) QRS axis 1 (test code = 76 268) T wave axis (test code = 83 270) EKG impression (test Normal sinus code = 273) rhythm-Normal ECG-- Hindu JoxdwpbvJEAK-YqO-6 (COVID-19) RNA [Presence] in Respiratory specimen by LEIA with probe [id number] 04:12:11 Test Item Value Reference Range Interpretation Comments SARS-CoV-2 (COVID-19) RNA Not detected [Presence] in Respiratory specimen by LEIA with probe detection (test code = 21461-3) Whether patient is employed in a Unknown healthcare setting (test code = 43815-1) Whether the patient has symptoms Unknown related to condition of interest (test code = 04871-2) Whether the patient was Unknown hospitalized for condition of interest (test code = 46492-0) Whether the patient was admitted Unknown to intensive care unit (ICU) for condition of interest (test code = 75142-3) Whether patient resides in a Unknown congregate care setting (test code = 79588-2) status (test code = Unknown 59561-2) Date and time of symptom onset Unknown (test code = 53705-2) [facility] CHEST 1 VW [id number] 20:42:05 1. No evidence for acute cardiopulmonary abnormality or infection. Disclaimer: Generally, the findings on chest imaging in COVID-19 are notspecific, and overlap with other infections, including influenza, H1N1,SARS and MERS.According to the Centers for Disease Control (CDC) and the [employer], viral testing remains the only specific method of diagnosiseven if CXR or CT findings are suggestive of COVID-19. PROCEDURE: CHEST XRAY , CLINICAL INDICATION: cough/congestion, suspected covid COMPARISON: None FINDINGS: Lungs: Expanded and clear. Pleura: No pleural effusion or pneumothorax is seen. The heart is normal insize.Mild osteoarthritic changes noted at shoulders [facility], Radiant Results Inft User - 03/07/2020 3:43 PM CDTPROCEDURE: CHEST XRAY , CLINICAL INDICATION: cough/congestion, suspected covid COMPARISON: NoneFINDINGS:Lungs: Expanded and clear.Pleura: No pleural effusion or pneumothorax is seen. The heart is normal insize.Mild osteoarthritic changes noted at shoulders IMPRESSION1. No evidence for acute cardiopulmonary abnormality or infection.Disclaimer: Generally, the findings on chest imaging in COVID-19 are notspecific, and overlap with other infections, including influenza, H1N1,SARS and MERS.According to the Centers for Disease Control (CDC) and the [employer], viral testing remains the only specific method of diagnosiseven if CXR or CT findings are s uggestive of COVID-19.Joint [facility] between [facility]
[2023-02-16] MEDS ORDERED: NA CHLORIDE 0.9% 500 ML ONE (12:21)
[2023-02-16] MEDS ORDERED: MORPHINE 4 MG/ML SYR ONE (12:21)
[2023-02-16] MEDS ORDERED: ONDANSETRON 4 MG/2 ML VIAL ONE (12:21)
[2023-02-16 13:13] LABS: C.diff Antigen/Toxin Ag pos : Tox neg (NEG : NEG)
[2023-02-16 13:23] LABS: Absolute Lymphocytes (CBC) 1.2 K/uL (0.7-4.9); Hematocrit 36.4 % (36.0-45.0); Lymphocytes % 16.8 % (15.3-44.8); MCV 90.2 fL (80-100); MPV 8.9 fL (7.6-11.3); RBC Red Blood Cell Count 4.04 M/uL (3.86-4.86)
[2023-02-16 13:26] LABS: Protime INR 1.59
[2023-02-16 13:27] LABS: Specific Gravity 1.017 (1.005-1.030); Urine Bacteria <20 /HPF (<20); Urine Bilirubin NEGATIVE (Negative); Urine Blood Negative (Negative); Urine Clarity Extremely Turbid (Clear); Urine Color Yellow (Yellow); Urine Glucose NEGATIVE (Negative); Urine Mucus 1+ /HPF (None Seen); Urine Protein 1+ (Negative); Urine RBC <5 /HPF (None Seen); Urine Urobilinogen Normal (Normal); Urine pH 5.5 (5.0-7.0)
[2023-02-16 13:51] LABS: Albumin 3.1 g/dL (3.4-5.0); Bilirubin Total 0.5 mg/dL (0.2-1.0); Potassium 3.7 mEq/L (3.5-5.1); Protein, Total 6.5 g/dL (6.4-8.2); Troponin High Sensitivity 6.2 pg/mL (<58.9)
--- NOTE | 2023-02-16 14:29 | RAD REPORT ---
EXAM DESCRIPTION: CTAbdomen Pelvis W Contrast - 02/16/2023 2:08 pm CLINICAL HISTORY: ABD PAIN COMPARISON: No comparisons TECHNIQUE: CT of the abdomen and pelvis was performed with IV contrast. All CT scans are performed using dose optimization technique as appropriate and may include automated exposure control or mA/KV adjustment according to patient size. FINDINGS: Lower chest: No acute abnormality. Moderate hiatal hernia. Liver: No acute abnormality or suspicious lesions. Biliary: Cholecystectomy. Extrahepatic biliary duct dilatation which may be related to the postcholec ystectomy state. Stomach: No significant focal abnormality. Duodenum: No significant focal abnormality. Pancreas: Pancreatic atrophy. Spleen: No significant abnormality. Adrenal: No suspicious lesions. Kidney/ureter: No hydronephrosis. No renal calculi. Right lower pole renal cyst. Probable right extra renal pelvis. Retroperitoneum: No retroperitoneal adenopathy. Vascular: No aneurysm. Bowel: Diverticulosis. No evidence of acute diverticulitis. Mild colonic wall thickening extending fr om the transverse colon to the rectum. . Peritoneum: No ascites or free air. Fat containing left lateral ventral hernia. Bladder: Grossly unremarkable. Reproductive: No adnexal masses. Hysterectomy . Bones: No acute fracture. Other: n/a IMPRESSION: No acute intra-abdominal or pelvic finding. Mild colonic wall thickening could indicate a mild colitis. No bowel obstruction.
--- NOTE | 2023-02-16 14:38 | EDPHYS ---
Physician Documentation [facility] Name: Dread Thompson Age: 77 yrs Sex: Female : 1945 Arrival Date: 02/16/2023 Time: 11:45 Bed 16 Private MD: John Montana B ED Physician Araseli Petit HPI: 02/16 12:20 This 77 yrs old Female presents to ER via Ambulatory with complaints of Abdominal Pain, sp3 Diarrhea. 12:20 77-year-old female with history of atrial fibrillation, hyperlipidemia, hypertension sp3 presents to the ED with chief complaint mild abdominal cramping and severe diarrhea. Patient states she recently got off medication p.o. vancomycin for C. difficile that she has had for quite some time. It went undiagnosed "for over a year". Patient states that she feels similar to those prior symptoms. She denies vomiting, melena, blood in her stool, chest pain, back pain, shortness of breath, fever, international travel, undercooked food, known sick contacts, or any other signs or symptoms on ROS at this time.. Historical: - Allergies: 12:00 Sulfa (Sulfonamide Antibiotics); iw - PMHx: 12:00 Atrial fibrillation; Heart Murmur; High Cholesterol; Hypertension; iw - Immunization history:: Adult Immunizations up to date. - Social history:: Smoking status: Patient denies any tobacco usage or history of. ROS: 12:21 Constitutional: Negative for fever, chills, and weight loss, Eyes: Negative for injury, sp3 pain, redness, and discharge, ENT: Negative for injury, pain, and discharge, Neck: Negative for injury, pain, and swelling, Cardiovascular: Negative for chest pain, palpitations, and edema, Respiratory: Negative for shortness of breath, cough, wheezing, and pleuritic chest pain, Back: Negative for injury and pain, MS/Extremity: Negative for injury and deformity, Skin: Negative for injury, rash, and discoloration, Neuro: Negative for headache, weakness, numbness, tingling, and seizure, Psych: Negative for depression, anxiety, suicide ideation, homicidal ideation, and hallucinations, Allergy/Immunology: Negative for hives, rash, and allergies, Endocrine: Negative for neck swelling, polydipsia, polyuria, polyphagia, and marked weight changes. 12:21 All other systems are negative. Exam: 12:21 Constitutional: This is a well developed, well nourished patient who is awake, alert, sp3 and in no acute distress. Head/Face: Normocephalic, atraumatic. Eyes: Pupils equal round and reactive to light, extra-ocular motions intact. Lids and lashes normal. Conjunctiva and sclera are non-icteric and not injected. Cornea within normal limits. Periorbital areas with no swelling, redness, or edema. Neck: Trachea midline, no thyromegaly or masses palpated, and no cervical lymphadenopathy. Supple, full range of motion without nuchal rigidity, or vertebral point tenderness. No Meningismus. Chest/axilla: Normal chest wall appearance and motion. Nontender with no deformity. No lesions are appreciated. Cardiovascular: Regular rate and rhythm with a normal S1 and S2. No gallops, murmurs, or rubs. Normal PMI, no JVD. No pulse deficits. Respiratory: Lungs have equal breath sounds bilaterally, clear to auscultation and percussion. No rales, rhonchi or wheezes noted. No increased work of breathing, no retractions or nasal flaring. Back: No spinal tenderness. No costovertebral tenderness. Full range of motion. Skin: Warm, dry with normal turgor. Normal color with no rashes, no lesions, and no evidence of cellulitis. MS/ Extremity: Pulses equal, no cyanosis. Neurovascular intact. Full, normal range of motion. Neuro: Awake and alert, GCS 15, oriented to person, place, time, and situation. Cranial nerves II-XII grossly intact. Motor strength 5/5 in all extremities. Sensory grossly intact. Cerebellar exam normal. Normal gait. Psych: Awake, alert, with orientation to person, place and time. Behavior, mood, and affect are within normal limits. 12:21 Abdomen/GI: Mild cramping noted without peritoneal signs, rebound or guarding.. 13:07 ECG was reviewed by the Attending Physician. EKG demonstrates normal sinus rhythm at 66 sp3 bpm with normal intervals, normal QRS, normal axis, normal ST/T-segment's without evidence of acute ischemia. Vital Signs: 11:58 BP 103 / 53; Pulse 76; Resp 16; Pulse Ox 99% on R/A; iw 13:56 BP 96 / 49; Pulse 73; Resp 16; Pulse Ox 98% ; bp 14:57 BP 121 / 59; Pulse 78; Resp 16; Temp 97.9; Pulse Ox 98% ; bp MDM: 12:01 Patient medically screened. sp3 12:21 Data reviewed: vital signs, nurses notes, lab test result(s), radiologic studies. ED sp3 course: 77-year-old female with a history of recent C. difficile now presents again for abdominal cramping and diarrhea. Differential diagnosis includes C. difficile, other gastroenteritis, abdominal pain, viral syndrome, among others. I am not highly concerned for sepsis, shock, aortic pathology including aneurysm or dissection, retroperitoneal pathology, or BOWLING BALL MOLDER pathology, or any other critical illness at this time.. 14:37 ED course: Patient positive for C. difficile. CT and labs demonstrate no significant sp3 abnormality. I have filled out the patient hardship forms from [employer] for the Dificid medication. We will safely discharge patient home at this time.. 02/16 12:07 Order name: CBC with Diff; Complete Time: 13:50 3 02/16 12:07 Order name: CMP; Complete Time: 13:54 02/16 12:07 Order name: Lipase; Complete Time: 13:54 02/16 12:07 Order name: Urinalysis w/ reflexes; Complete Time: 13:50 02/16 12:07 Order name: Troponin High Sensitivity; Complete Time: 13:54 02/16 12:07 Order name: PT-INR; Complete Time: 13:50 02/16 12:14 Order name: Stool Culture 02/16 12:14 Order name: Fecal Leukocyte Stain; Complete Time: 13:50 02/16 12:14 Order name: CDIFF; Complete Time: 13:50 02/16 12:07 Order name: CT Abd/Pelvis - IV Contrast Only; Complete Time: 14:37 02/16 12:07 Order name: EKG; Complete Time: 12:08 02/16 12:07 Order name: IV Saline Lock; Complete Time: 13:11 02/16 12:07 Order name: Labs collected and sent; Complete Time: 13:11 02/16 12:07 Order name: EKG - Nurse/Tech; Complete Time: 12:47 sp3 02/16 13:22 Order name: Coty. Order: recollect stool if possible, not enough to test for parasites iw .; Complete Time: 13:44 Administered Medications: 13:12 Drug: Ondansetron IVP 4 mg Route: IVP; Site: left forearm; bp 14:58 Follow up: Response: No adverse reaction bp 13:13 Drug: morphine IVP or IV 4 mg Route: IVP; Infused Over: 4 mins; Site: left forearm; bp 14:58 Follow up: Response: No adverse reaction bp Disposition Summary: 02/16/23 14:38 Discharge Ordered Location: Home sp3 Condition: Stable sp3 Diagnosis - C. difficile colitis sp3 Followup: sp3 - With: Private Physician - When: Upon discharge from the Emergency Department - Reason: Continuance of care Discharge Instructions: - Discharge Summary Sheet sp3 - Clostridioides Difficile Infection sp3 Forms: - Medication Reconciliation Form sp3 - Thank You Letter sp3 - Antibiotic Education sp3 - Prescription Opioid Use sp3 - Patient Portal Instructions sp3 Prescriptions: - Dificid 200 mg Oral tablet - take 1 tablet by ORAL route every 12 hours for 10 days; 20 tablet; Refills: 0, sp3 Product Selection Permitted Signatures: Dispatcher [employer] Alisha Brunner RN Sandip Esparza RN RN Araseli Dahl MD MD sp3 Corrections: (The following items were deleted from the chart) 13:23 12:15 C.difficile Real-time PCR+MOL.LAB.BRZ ordered. EDMS EDMS 13:25 12:15 Ova and Parasites+MR.LAB.BRZ ordered. EDMS EDMS
--- NOTE | 2023-02-16 14:38 | ER ---
Nurse's Notes [facility] Name: Dread Thompson Age: 77 yrs Sex: Female : 1945 Arrival Date: 02/16/2023 Time: 11:45 Bed 16 Private MD: John Montana B Diagnosis: C. difficile colitis Presentation: 02/16 11:58 Chief complaint: Patient's son or daughter states: diarrhea X4 days, has hx of C diff, iw got off antibiotics earlier this month, she also has severe abd cramping. Coronavirus screen: At this time, the client does not indicate any symptoms associated with coronavirus-19. Ebola Screen: Patient negative for fever greater than or equal to 101.5 degrees Fahrenheit, and additional compatible Ebola Virus Disease symptoms Patient denies exposure to infectious person. Patient denies travel to an Ebola-affected area in the 21 days before illness onset. No symptoms or risks identified at this time. Initial Sepsis Screen: Does the patient meet any 2 criteria? No. Patient's initial sepsis screen is negative. Does the patient have a suspected source of infection? No. Patient's initial sepsis screen is negative. Risk Assessment: Do you want to hurt yourself or someone else? Patient reports no desire to harm self or others. Onset of symptoms was February 12, 2023. 11:58 Method Of Arrival: Ambulatory 11:58 Acuity: MAGALY 3 iw Triage Assessment: 12:00 General: Appears uncomfortable, Behavior is calm, cooperative. Pain: Complains of pain bp in abdomen. EENT: No deficits noted. Neuro: No deficits noted. Cardiovascular: No deficits noted. Respiratory: No deficits noted. GI: Reports cramping, diarrhea. : No signs and/or symptoms were reported regarding the genitourinary system. Derm: No deficits noted. Musculoskeletal: No deficits noted. Historical: - Allergies: 12:00 Sulfa (Sulfonamide Antibiotics); iw - PMHx: 12:00 Atrial fibrillation; Heart Murmur; High Cholesterol; Hypertension; iw - Immunization history:: Adult Immunizations up to date. - Social history:: Smoking status: Patient denies any tobacco usage or history of. Screenin:00 [facility] ED Fall Risk Assessment (Adult) History of falling in the last 3 months, bp including since admission No falls in past 3 months (0 pts). Abuse screen: Denies threats or abuse. Denies injuries from another. Nutritional screening: No deficits noted. Tuberculosis screening: No symptoms or risk factors identified. Assessment: 12:00 General: SEE TRIAGE NOTE. bp 13:30 Reassessment: No changes from previously documented assessment. Patient is alert, bp oriented x 3, equal unlabored respirations, skin warm/dry/pink. 14:57 Reassessment: DC HOME AMBULATORY. bp Vital Signs: 11:58 BP 103 / 53; Pulse 76; Resp 16; Pulse Ox 99% on R/A; iw 13:56 BP 96 / 49; Pulse 73; Resp 16; Pulse Ox 98% ; bp 14:57 BP 121 / 59; Pulse 78; Resp 16; Temp 97.9; Pulse Ox 98% ; bp ED Course: 11:47 Patient arrived in ED. am2 11:47 John Montana MD is Private Physician. am2 12:00 Triage completed. iw 12:00 Arm band placed on. iw 12:00 Patient has correct armband on for positive identification. Bed in low position. Call bp light in reach. Side rails up X2. 12:01 Araseli Petit MD is Attending Physician. sp3 12:06 Sandip Sanchez, NIKA is Primary Nurse. bp 12:38 Stool Culture Sent. aw1 12:47 EKG done, by ED staff. aw1 13:10 Inserted saline lock: 22 gauge in left forearm, using aseptic technique. Blood bp collected. 14:10 CT Abd/Pelvis - IV Contrast Only In Process Unspecified. EDMS 14:57 No provider procedures requiring assistance completed. IV discontinued, intact, bp bleeding controlled, No redness/swelling at site. Pressure dressing applied. Administered Medications: 13:12 Drug: Ondansetron IVP 4 mg Route: IVP; Site: left forearm; bp 14:58 Follow up: Response: No adverse reaction bp 13:13 Drug: morphine IVP or IV 4 mg Route: IVP; Infused Over: 4 mins; Site: left forearm; bp 14:58 Follow up: Response: No adverse reaction bp Medication: 12:00 VIS not applicable for this client. bp Outcome: 14:38 Discharge ordered by . sp3 14:57 Discharged to home ambulatory, with family. bp 14:57 Condition: stable 14:57 Discharge instructions given to patient, family, Instructed on discharge instructions, follow up and referral plans. medication usage, Demonstrated understanding of instructions, follow-up care, medications, Prescriptions given X 1. 14:58 Patient left the ED. bp Signatures: Dispatcher [employer] EDAlisha Glynn, RN Theresa Samuel am2 Sandip Sanchez RN RN Araseli Dahl MD MD sp3 Vickie Rogers aw1
[2023-02-16 15:25] VITALS: O2SAT 98
[2023-02-16 15:31] VITALS: BP 121/59; TEMP 97.9
--- NOTE | 2023-02-17 13:27 | EKG ---
Test Date: 2023-02-16 Test Time: 12:43:14 [employer]: BUCK MEASUREMENT RESULTS: Intervals: Rate: 66 NH: 156 QRSD: 76 QT: 398 QTc: 417 [place]: P: 81 NH: 156 QRS: 78 T: 77 INTERPRETIVE STATEMENTS: Normal sinus rhythm Normal ECG Compared to ECG 09/21/2016 16:08:23 No significant changes Electronically Signed On 02-17-23 13:24:48 CDT by Zaid Forbes
== END 2023-02-16 14:58 | disposition home or self-care (01) ==
LOC: ER 11:45
DX: A04.72 Enterocolitis due to Clostridium difficile, not specified as recurrent (principal); I48.91 Unspecified atrial fibrillation; I10 Essential (primary) hypertension; Z88.2 Allergy status to sulfonamides
CPT/HCPCS: 93005; 87045; 85025; 81001; 36415; 89055; 85610; 87046; 87324; 84484; 83690; 80053; 74177; 96375; 96374; 99284; Q9967; J2405; J7040

== ENCOUNTER 2023-03-17 19:43 | Emergency (ER) | payer OTHER ==
--- OUTSIDE RECORDS SUMMARY | 2023-03-17 19:55 | XMS REPORT | Continuity of Care Document ---
:1945 Author Organization [facility] t Address [address] [facility] [address] [place] [id number] Care Team Providers Name Role Phone EMILYANYAGregg Blount Primary Care Physician Unavailable Rocío Hernández MD Attending Clinician ROCÍO HERNÁNDEZ Attending Clinician Unavailable ROCÍO HERNÁNDEZ Attending Clinician Unavailable Doctor Unassigned, Declo Attending Clinician Unavailable José Miguel MAHER, Gold Attending Clinician Unavailable Triston MAHER, Gee Pena Attending Clinician Unavailable DERICK CROFT Attending Clinician Unavailable Derick Croft DO Attending Clinician Kelly ARCOS, Paulette Somers Attending Clinician Jose Gaines MD Attending Clinician Mane RICHARDSON, Carina Walden Attending Clinician [phone] Camryn Hu MD Attending Clinician Marvin Patel Attending Clinician Unavailable Louie Womack MD Attending Clinician [phone] Vandana Reis Attending Clinician Unavailable Ankit Madrigal PT Attending Clinician Unavailable Frank Gillette NP, Arina Merino Attending Clinician Provider, Unknown Attending Clinician Unavailable Kaylee RICHARDSON, Elbert Attending Clinician Orlando RICHARDSON, Gaudencio Pastrana Attending Clinician [phone] Brodie Ross MD Attending Clinician Ric RICHARDSON, Supa Hidalgo Attending Clinician Asked, No Pcp Attending Clinician Unavailable Deonna RICHARSDON, Michael Martinez Attending Clinician [phone] Virgilio BUCHANANP, Brooke Laird Attending Clinician [phone] KELSEY BISHOP Attending Clinician Unavailable [facility] Attending Clinician Unavailable Jenny SOFIA, Melissa Attending Clinician MELISSA JASSO Attending Clinician Unavailable DERICK CROFT Admitting Clinician Unavailable Derick Croft DO Admitting Clinician Marvin Patel Admitting Clinician Unavailable JOSE GAINES Admitting Clinician Unavailable BRODIE ROSS Admitting Clinician Unavailable Payers Payer Name Policy Type Policy Number Effective Date Expiration Date Lauri machado [employer] MANAGED [id number] 2022 MEDICARE PPO-COLE 00:00:00 Problems Condition Condition Condition Status Onset Resolution Last Treating Co mments Source Name Details Category Date Date Treatment Clinician Date Pancolitis Pancolitis Disease Active U nivers 6-29 ity of 00:00: [address] Pseudophak Pseudophak Disease Active 0 M ethodi ia ia 09-23 st 00:00: Hospita 00 l Cupping of Cupping of Disease Active 0 M ethodi optic optic 09-23 disc, left disc, left 00:00: Ho spita 00 l Degenerati Degenerati Disease Active 0 M ethodi ve drusen ve drusen 09-23 st of both of both 00:00: Hospita eyes eyes 00 l History of History of Disease Active 0 M 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 00:00: Hospit a endothelia endothelia 00 l l l keratoplas keratoplas ty (DMEK) ty (DMEK) 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 2-20 st 00:00: [...] 0-14 ity of feces feces 00:00: [place] [facility] Bladder Bladder Disease Active 2018-07 Univers dysfunctio dysfunctio 0-14 it y of n n 00:00: [place] [facility] Fibromyalg Fibromyalg Disease Active 0 U araceli ia ia 8-17 ity of 00:00: [place] [facility] Myalgia Myalgia Disease Active 2016 Univers 4-13 ity of 00:00: [place] 00 [facility] 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 5-05 it y of itis of itis of 00:00: [place] hand hand 00 Medical Branch Pinguecula Pinguecula Disease Active 20150 U araceli 3-23 ity of 00:00: [place] [facility] Ischial Ischial Disease Active 2015-0 Univers bursitis bursitis 2-05 ity of 00:00: [place] 00 [facility] Enteropath Enteropath Disease Active 0 U araceli ic ic 8-05 ity of arthritis arthritis [place] Dermatocha Dermatocha Disease Active 20140 U araceli lasis lasis 4-30 ity of 00:00: [place] [facility] Conjunctiv Conjunctiv Disease Active 0 U araceli al lesion al lesion 4-17 ity of 00:00: [place] 00 [facility] Conjunctiv Conjunctiv Disease Active 0 [...] Active 2022-02-02 Memoria Active 02:45:38 l Problem [place] 02/02/2022 [facility] Inflammato Inflammat Problem Active 2022-02-02 Memoria ry ory 02:45:38 l polyarthro polyarthro He rmann mehdi mehdi Active Problem 02/02/2022 [facility] Elevated Elevated Problem Active 2022-02-02 Memoria C-reactive C-reactive 02:45:38 l protein protein [place] (CRP) (CRP) Active Problem 02/02/2022 [facility] Adverse Adverse Problem Active 2022-02-02 Me moria [...] Yung jad loss loss 02:45:38 l Active [place] Problem 02/02/2022 [facility] Rheumatoid [...] Active 2022-02-02 Memoria Active 02:45:38 l Diagnosis [place] 02/02/2022 [facility] Elevated Elevated Diagnosis Active 2020-08-28 Memoria sedimentat sedimentat 03:46:39 l ion rate ion rate Himasnhu n Active Diagnosis 08/28/2020 [facility] [...] right hand right hand 03:45:07 l Active [place] Diagnosis 06/03/2021 [facility] Asymptomat Diagnosis Active 2022-02-02 Memoria ic Asymptomat 02:45:38 l postmenopa ic Himanshu n usal state postmenopa usal state Active Diagnosis 02/02/2022 [facility] Shortness Shortness Diagnosis Active 2019-03-19 Memoria of breath of breath 02:45:36 l Active [place] Diagnosis 03/19/2019 [facility] Heartburn Heartburn Diagnosis Active 2019-03-19 Memoria Active 02:45:36 l Diagnosis [place] 03/19/2019 [facility] Osteoarthr Osteoarth Problem Active 2022-02-02 Memoria itis ritis 02:45:38 l Active [place] Problem 02/02/2022 [facility] Major [...] to depressed drug Sulfa Propensi Active Hives 2019-0 Univers (Sulfona ty to 8-15 ity of [...] oprim reaction 00 l s to drug Adhesive Propensi Active Other (See Me thodi Tape-Monika ty to Comments) 3-27 st icones adverse 00:00: Hospita reaction 00 l s to drug adhesive DA Active [place] [facility] tape 3-27 [facility] 00:[facility]: [facility] 00 [facility] [place] adhesive DA Active [place] REDNESS, 2012-0 [facility] tape IRRITATION 3-27 Pearla n 00:[facility] NO KNOWN Drug Active Univers ALLERGIE Class ity of [facility] [place] [facility] Family History Family Member Diagnosis Comments Start Date Stop Date Source [facility] daughter Cristal[facility] Natural daughter ADD / [facility]neur[facility]m [facility] Natural father Heart disease [facility] Maternal Mental illness [facility] mother Arthritis [facility] Natural mother Diabetes [facility] Natural mother Irritable bowel [facility] Natural mother Obesity [facility] Paternal [facility] Paternal [facility]al [facility] sister [facility] sister [facility]ammatory bowel [facility] son [facility] Social History Social Habit Start Date Stop Date Quantity Comments Source History SDOH University o f Alcohol Std Drinks [place] [facility] History SDOH University o f Alcohol Binge [place] [facility] History SDOH Social Unive rsity of Connections [facility] Med ical Together Branch History SDOH Social Unive rsity of Connections [facility] Medical Branch History SDOH Social Unive rsity of Connections [place] [facility] Membership [facility] History SDOH Social Unive rsity of Connections [place] [facility] Meet[facility] Gender identity [facility] [place] [facility] Sexual orientation Univer [facility] [place] [facility] Exposure to Not sure University of SARS-CoV-2 (event) [place] [facility] History SDOH 2023-01-20 2023-01-20 1 University o f Alcohol Frequency 00:00:00 00:00:00 [place] [facility] History SDOH Social 2023-01-20 2023-01-20 5 Unive rsity of Connections Phone 00:00:00 00:00:00 [place] [facility] History SDOH Social 2023-01-20 2023-01-20 4 Unive rsity of Connections Living 00:00:00 00:00:00 [place] [facility] History SDOH 2023-01-20 2023-01-20 3 University o f Physical Activity 00:00:00 00:00:00 [place] [facility] DPW Branch History SDOH 2023-01-20 2023-01-20 1 University o f Physical Activity 00:00:00 00:00:00 [place] [facility] MPS Branch History SDOK 2023-01-20 2023-01-20 5 University o f Financial 00:00:00 00:00:00 [place] [facility] History SDOH Food 2023-01-20 2023-01-20 1 Univers ity of Worry 00:00:00 00:00:00 [place] [facility] History SDOH Food 2023-01-20 2023-01-20 1 Univers ity of Scarcity 00:00:00 00:00:00 [place] [facility] History SDOH 2023-01-20 2023-01-20 2 University o f Transport Med 00:00:00 00:00:00 [place] [facility] History SDOK 2023-01-20 2023-01-20 2 University o f Transport Non-Med 00:00:00 00:00:00 [place] [facility] History SDOK 2023-01-20 2023-01-20 2 University o f Housing Unable to 00:00:00 00:00:00 [place] [facility] Pay Branch History [facility] 2023-01-20 2023-01-20 1 University o f Housing Places 00:00:00 00:00:00 [place] [facility] luis [facility]ernando Lived Branch History [facility] 2023-01-20 2023-01-20 2 University o f Housing Homeless 00:00:00 00:00:00 [place] [facility] Last Year Branch Tobacco use and 2023-01-19 2023-01-19 Smokeless Universit y of exposure 00:00:00 00:00:00 tobacco non-user [place] [facility] Alcohol intake 2022-11-02 2022-11-02 Ex-drinker [facility] 00:00:00 00:00:00 (finding) Hospital History of Social 2022-11-02 2022-11-[address] function 00:00:00 00:00:00 Hospital Tobacco Comment 2022-05-03 2022-05-03 smoked Metho dist 00:00:00 00:00:00 Hospital Education 2020-02-10 2020-02-10 13 [facility] 00:00:00 00:00:00 Hospital Sex Assigned At [birth year] Universit y of 00:00:00 00:00:00 [facility] Smoking Status Start Date Stop Date Source Unknown if ever smoked [facility] Never smoked tobacco [facility] Medications Ordered Filled Start Stop Current Ordering Indication Dosage Frequency Signature Comments Components Source Medication Medication Date Date Medication? Clinician (SIG) Name Name rivastigmin 2023- Yes [id number] 1{patch QD Place 1 Methodi e (EXELON) 01-23 } patch on st 9.5 mg/24 00:00: 04:59 the skin Hos melania hour 00 :00 daily. l rivastigmin 2023- Yes [id number] 1{patch QD Place 1 Methodi e (EXELON) 01-23 } patch on st 9.5 mg/24 00:00: 04:59 the skin Hos melania hour 00 :00 daily. l lactobacill Yes .5mg 0.5 mg, Uni vers us 01-22 Oral, ity of acidophilus 14:00: [place] 0.5 00 First dose Med ical mg on [place] Branch 01/22/23 at 0900, Until Discontinu ed, Routine lactobacill 2022- Yes [id number] .5mg Take 1 [facility] 01-22 02 tablet by ity of acidophilus 00:00: 04:59 [place] :[place] the Medical morning Branch for 10 days. lactobacill 2022- Yes [id number] .5mg Take 1 [facility] 01-22 02 tablet by ity of acidophilus 00:00: 04:59 [place] 00 :00 the Medical morning Branch for 10 days. candesartan 2022-0 Yes 4mg Take 1 Univ ers 4 mg tablet - tablet by ity of 16:39: mouth at [place] [address] bedtime. Medical Took last Branch dose at bedtime 01/18/23 ETODOLAC 2022-0 Yes 400mg Take 400 Univ ers ORAL 7-01 mg by ity of 16:39: mouth in [place] [address] the Medical morning. Branch Takes it in the morning BABY 2022-0 Yes 81mg Take 81 mg Univers ASPIRIN 01 by mouth ity of ORAL 16:39: in the [place] [address] morning. Medical Last dose Branch taken at bedtime last night Cholestyram 2023-0 Yes 4g Take 1 Univ ers ine Light 4 7- Packet by ity of gram powder 16:39: mouth in [place] 11 the Medical morning Branch and 1 Packet at noon and 1 Packet in the evening. Take with meals. Pt reported she takes it NEEDED before meals; last dose unrecalled leflunomide Yes leflunomid Univers 20 mg 7-01 e 20 mg ity of tablet 16:39: tablet [place] [address] Medical Branch pravastatin 0 Yes pravastati Univers 20 mg 7- n 20 mg ity of tablet 16:39: tablet [place] [address] Medical Branch prednisoLON 0 Yes 1[drp] Place 1 U nivers E acetate 1 - Drop in ity o f % 16:39: both eyes [place] [address] at [facility] bedtime. Branc h drops foLIC acid Yes 1mg Take 1 Unive rs 1 mg tablet 01-21 tablet by ity of 16:39: mouth in [place] [address] the Medical morning. Branch pantoprazol Yes 20mg Take 1 Univ ers e 20 mg EC - tablet by ity of tablet 16:39: mouth in [place] [address] the Medical morning. Branch lamoTRIgine Yes 100mg Take 1 Uni vers 100 mg - tablet by ity of tablet 16:39: mouth in [place] [address] the Medical morning Branch and 1 tablet in the evening. Takes 1 tab in AM and at bedtime buPROPion 0 Yes 300mg Take 1 Unive rs XL 300 mg - tablet by ity o f 24 hr 16:39: mouth in [place] [address] the Medical morning. Branch rivastigmin Yes 1{patch Apply 1 Univers e 9.5 mg/24 01-21 } Patch to ity of hour patch 16:39: skin at [place] [address] bedtime. Medical Pt Branch reported it was placed last night at bedtime traZODone 0 Yes 50mg Take 1 Univer s 50 mg 7- tablet by ity of tablet 16:39: mouth at [place] [address] bedtime. Medical Branch candesartan 0 Yes 4mg Take 1 Univ ers 4 mg tablet 7- tablet by ity of 16:39: mouth at [place] [address] bedtime. Medical Took last Branch dose at bedtime 01/18/23 ETODOLAC 2022-0 Yes 400mg Take 400 Univ ers ORAL 7- mg by ity of 16:39: mouth in [place] [address] the Medical morning. Branch Takes it in the morning BABY Yes 81mg Take 81 mg Univers ASPIRIN 01-21 by mouth ity of ORAL 16:39: in the [place] [address] morning. Medical Last dose Branch taken at bedtime last night Cholestyram 0 Yes 4g Take 1 Univ ers ine Light 4 01-21 Packet by ity of gram powder 16:39: mouth in [place] [address] the Medical morning Branch and 1 Packet at noon and 1 Packet in the evening. Take with meals. Pt reported she takes it NEEDED before meals; last dose unrecalled leflunomide Yes leflunomid Univers 20 mg 7- e 20 mg ity of tablet 16:39: tablet [address] pravastatin 0 Yes pravastati Univers 20 mg - n 20 mg ity of tablet 16:39: tablet [address] prednisoLON Yes 1[drp] Place 1 U nivers E acetate 1 01-21 Drop in ity o f % 16:39: both eyes [place] [address] at [facility] bedtime. Branc h drops foLIC acid Yes 1mg Take 1 Unive rs 1 mg tablet 01-21 tablet by ity of 16:39: mouth in [place] [address] the Medical morning. Branch pantoprazol 0 Yes 20mg Take 1 Univ ers e 20 mg EC 01-21 tablet by ity of tablet 16:39: mouth in [place] [address] the Medical morning. Branch lamoTRIgine 0 Yes 100mg Take 1 Uni vers 100 mg - tablet by ity of tablet 16:39: mouth in [place] [address] the Medical morning Branch and 1 tablet in the evening. Takes 1 tab in AM and at bedtime buPROPion 2022-0 Yes 300mg Take 1 Unive rs XL 300 mg - tablet by ity o f 24 hr 16:39: mouth in [place] [address] the Medical morning. Branch rivastigmin Yes 1{patch Apply 1 Univers e 9.5 mg/24 01-21 } Patch to ity of hour patch 16:39: skin at [place] [address] bedtime. Medical Pt Branch reported it was placed last night at bedtime traZODone 2022-0 Yes 50mg Take 1 Univer s 50 mg 7- tablet by ity of tablet 16:39: mouth at [place] [address] bedtime. Medical Branch candesartan 2022-0 Yes 4mg Take 1 Univ ers 4 mg tablet 7- tablet by ity of 16:39: mouth at [place] [address] bedtime. Medical Took last Branch dose at bedtime 01/18/23 ETODOLAC 2022-0 Yes 400mg Take 400 Univ ers ORAL 7- mg by ity of 16:39: mouth in [place] [address] the Medical morning. Branch Takes it in the morning BABY 2022-0 Yes 81mg Take 81 mg Univers ASPIRIN 701 by mouth ity of ORAL 16:39: in the [place] [address] morning. Medical Last dose Branch taken at bedtime last night Cholestyram 2022-0 Yes 4g Take 1 Univ ers ine Light 4 - Packet by ity of gram powder 16:39: mouth in [place] [address] the Medical morning Branch and 1 Packet at noon and 1 Packet in the evening. Take with meals. Pt reported she takes it NEEDED before meals; last dose unrecalled leflunomide 2022-0 Yes leflunomid Univers 20 mg 7- e 20 mg ity of tablet 16:39: tablet [place] [address] Medical [place] pravastatin 2022-0 Yes pravastati Univers 20 mg - n 20 mg ity of tablet 16:39: tablet [place] [address] Medical [place] prednisoLON 2022-0 Yes 1[drp] Place 1 U nivers E acetate 1 - Drop in ity o f % 16:39: both eyes [place] [address] at Medical suspension bedtime. Branc h drops foLIC acid 2022-0 Yes 1mg Take 1 Unive rs 1 mg tablet 7- tablet by ity of 16:39: mouth in [place] [address] the Medical morning. Branch pantoprazol 2022-0 Yes 20mg Take 1 Univ ers e 20 mg EC 7- tablet by ity of tablet 16:39: mouth in [place] [address] the Medical morning. Branch lamoTRIgine 2022-0 Yes 100mg Take 1 Uni vers 100 mg 7- tablet by ity of tablet 16:39: mouth in [place] [address] the Medical morning Branch and 1 tablet in the evening. Takes 1 tab in AM and at bedtime buPROPion 0 Yes 300mg Take 1 Unive rs XL 300 mg 01-21 tablet by ity o f 24 hr 16:39: mouth in [place] [address] the Medical morning. Branch rivastigmin 0 Yes 1{patch Apply 1 Univers e 9.5 mg/24 01-21 } Patch to ity of hour patch 16:39: skin at [place] [address] bedtime. Medical Pt Branch reported it was placed last night at bedtime traZODone 2022-0 Yes 50mg Take 1 Univer s 50 mg - tablet by ity of tablet 16:39: mouth at [place] [address] bedtime. Medical Branch candesartan 0 Yes 4mg Take 1 Univ ers 4 mg tablet 01-21 tablet by ity of 16:39: mouth at [place] [address] bedtime. Medical Took last Branch dose at bedtime 01/18/23 ETODOLAC 2022-0 Yes 400mg Take 400 Univ ers ORAL 7- mg by ity of 16:39: mouth in [place] [address] the Medical morning. Branch Takes it in the morning BABY 0 Yes 81mg Take 81 mg Univers ASPIRIN 01-21 by mouth ity of ORAL 16:39: in the [place] [address] morning. Medical Last dose Branch taken at bedtime last night Cholestyram 0 Yes 4g Take 1 Univ ers ine Light 4 01-21 Packet by ity of gram powder 16:39: mouth in [place] [address] the Medical morning Branch and 1 Packet at noon and 1 Packet in the evening. Take with meals. Pt reported she takes it NEEDED before meals; last dose unrecalled leflunomide 0 Yes leflunomid Univers 20 mg - e 20 mg ity of tablet 16:39: tablet [place] [address] Medical [place] pravastatin 2022-0 Yes pravastati Univers 20 mg - n 20 mg ity of tablet 16:39: tablet [place] [address] Medical [place] prednisoLON Yes 1[drp] Place 1 U nivers E acetate 1 - Drop in ity o f % 16:39: both eyes [facility] 11 at [facility] bedtime. Branc h drops foLIC acid 2022-0 Yes 1mg Take 1 Unive rs 1 mg tablet 01-21 tablet by ity of 16:39: mouth in [place] [address] the Medical morning. Branch pantoprazol 0 Yes 20mg Take 1 Univ ers e 20 mg EC 7- tablet by ity of tablet 16:39: mouth in [place] [address] the Medical morning. Branch lamoTRIgine 2022-0 Yes 100mg Take 1 Uni vers 100 mg 7- tablet by ity of tablet 16:39: mouth in [place] [address] the Medical morning Branch and 1 tablet in the evening. Takes 1 tab in AM and at bedtime buPROPion 2022-0 Yes 300mg Take 1 Unive rs XL 300 mg - tablet by ity o f 24 hr 16:39: mouth in [place] [address] the Medical morning. Branch rivastigmin 0 Yes 1{patch Apply 1 Univers e 9.5 mg/24 01-21 } Patch to ity of hour patch 16:39: skin at [place] [address] bedtime. Medical Pt Branch reported it was placed last night at bedtime traZODone 2022-0 Yes 50mg Take 1 Univer s 50 mg - tablet by ity of tablet 16:39: mouth at [place] [address] bedtime. Medical Branch candesartan 0 Yes 4mg Take 1 Univ ers 4 mg tablet 01-21 tablet by ity of 16:39: mouth at [place] [address] bedtime. Medical Took last Branch dose at bedtime 01/18/23 ETODOLAC 2022-0 Yes 400mg Take 400 Univ ers ORAL 7- mg by ity of 16:39: mouth in [place] [address] the Medical morning. Branch Takes it in the morning BABY 0 Yes 81mg Take 81 mg Univers ASPIRIN 01-21 by mouth ity of ORAL 16:39: in the [place] [address] morning. Medical Last dose Branch taken at bedtime last night Cholestyram 2022-0 Yes 4g Take 1 Univ ers ine Light 4 - Packet by ity of gram powder 16:39: mouth in [place] [address] the Medical morning Branch and 1 Packet at noon and 1 Packet in the evening. Take with meals. Pt reported she takes it NEEDED before meals; last dose unrecalled leflunomide 2022-0 Yes leflunomid Univers 20 mg 7-01 e 20 mg ity of tablet 16:39: tablet [place] [address] Medical Branch pravastatin 2022-0 Yes pravastati Univers 20 mg 7-01 n 20 mg ity of tablet 16:39: tablet [place] [address] Medical Branch prednisoLON 2022-0 Yes 1[drp] Place 1 U nivers E acetate 1 - Drop in ity o f % 16:39: both eyes [place] [facility] 11 at Medical suspension bedtime. Branc h drops foLIC acid 2022-0 Yes 1mg Take 1 Unive rs 1 mg tablet 01-21 tablet by ity of 16:39: mouth in [place] [address] the Medical morning. Branch pantoprazol 0 Yes 20mg Take 1 Univ ers e 20 mg EC 01-21 tablet by ity of tablet 16:39: mouth in [place] [address] the Medical morning. Branch lamoTRIgine 0 Yes 100mg Take 1 Uni vers 100 mg 01-21 tablet by ity of tablet 16:39: mouth in [place] [address] the Medical morning Branch and 1 tablet in the evening. Takes 1 tab in AM and at bedtime buPROPion 2022-0 Yes 300mg Take 1 Unive rs XL 300 mg 01-21 tablet by ity o f 24 hr 16:39: mouth in [place] [address] the Medical morning. Branch rivastigmin Yes 1{patch Apply 1 Univers e 9.5 mg/24 01-21 } Patch to ity of hour patch 16:39: skin at [place] [address] bedtime. Medical Pt Branch reported it was placed last night at bedtime traZODone 0 Yes 50mg Take 1 Univer s 50 mg 01-21 tablet by ity of tablet 16:39: mouth at [place] [address] bedtime. Medical Branch leflunomide 0 Yes 20mg 20 mg, Univ ers (ARAVA) 01-21 Oral, ity of tablet 20 14:00: DAILY, [place] mg 00 First dose Medical on Sat Branch 01/21/23 at 0900, Until Discontinu ed, Routine dicyclomine 2022-0 2022- Yes [id number] 10mg Take 1 Univers 10 mg 01-21 02 capsule by ity of capsule 00:00: 04:59 mouth 3 [place] 00 :00 (three) Medical times Branch daily as needed for Abdominal pain for up to 10 days. dicyclomine 2022-0 2022- Yes [id number] 10mg Take 1 Univers 10 mg 01-21 02 capsule by ity of capsule 00:00: 04:59 mouth 3 [place] 00 :00 (three) Medical [facility] daily as needed for Abdominal pain for up to 10 days. vancomycin 2022- Yes [id number] 125mg Take 1 Univers 125 mg 01-21 02 capsule by ity of capsule 00:00: 04:59 mouth 4 [place] 00 :00 (four) Medical [facility] daily for 9 days. fidaxomicin 2022- Yes [id number] 200mg Take 1 Univers 200 mg 01-21 02 tablet by ity of tablet 00:00: 04:59 mouth in [place] 00 :00 the [facility] morning [place] and 1 tablet in the evening. Do all this for 8 days. fidaxomicin 2022- Yes [id number] 200mg Take 1 Univers 200 mg 01-21 02 tablet by ity of tablet 00:00: 04:59 mouth in [place] 00 :00 the [facility] and 1 tablet in the evening. Do all this for 8 days. potassium 2022- No 10meq 10 mEq, IV Univers chloride in 01-20 Piggyback, i ty of water 10 20:00: 20:44 ONCE, 1 [place] mEq/100 mL 00 :43 dose, On Medic al RTU 10 mEq Mon [place] 01/20/23 at 1500, Administer over 60 Minutes, 100 mL fidaxomicin 2022- Yes 200mg 200 mg, U nivers (DIFICID) 01-2010 Oral, BID, ity of tablet 200 16:45: 12:59 20 doses, [place] mg 00 :00 First dose Medical (after Branch last modificati on) on Mon01/20/23 at 1145, Last dose on Mon01/29/23 at 2000, Routine
Reason for Anti-Infec tive: Documented Infection< br>Documen donovan Infection Site: Abdominal< br>Duratio n of Therapy: 14 days potassium No 10meq 10 mEq, IV Univers chloride in 01-20 Piggyback, i ty of water 10 14:15: 17:59 Q1H, 4 [place] mEq/100 mL 00 :00 doses, Medical RTU 10 mEq First dose Bra nch on Mon01/20/23 at 0915, Last dose on Mon01/20/23 at 1200, Administer over 60 Minutes, 100 mL pantoprazol 2022-0 Yes 20mg 20 mg, Univ ers e 01-20 Oral, ity of (PROTONIX) 14:00: DAILY, [place] EC tablet 00 First dose Medi luis fernando 20 mg on Mon Branch 01/20/23 at 0900, Until Discontinu ed, Routine foLIC acid 2022-0 Yes 1mg 1 mg, Univer s (FOLATE) 01-20 Oral, ity of tablet 1 mg 14:00: [place] First dose Medical on [facility] 01/20/23 at 0900, Until Discontinu ed, Routine etodolac 2022-0 Yes 300mg 300 mg, Unive rs (LODINE) 01-20 Oral, ity of capsule 300 14:00: [place] 00 First dose [facility] on [facility] 01/20/23 at 0900, Until Discontinu ed losartan 0 Yes 50mg 50 mg, Univers (COZAAR) 01-20 Oral, ity of tablet 50 14:00: DAILY, [place] mg 00 First dose Medical on Mon [facility] 01/20/23 at 0900, Until Discontinu ed buPROPion 2022-0 Yes 300mg 300 mg, Univ ers XL 01-20 Oral, ity of (WELLBUTRIN 14:00: [place] XL[place] tablet 00 First dose Med ical 300 mg on Mon [facility] 01/20/23 at 0900, Until Discontinu ed, Routine aspirin 2022-0 Yes 81mg 81 mg, Univers chewable 01-20 Oral, ity of tablet 81 14:00: DAILY, [place] mg 00 First dose Medical on Mon [place] 01/20/23 at 0900, Until Discontinu ed leflunomide 2022-0 2023- No 20mg 20 mg, Uni vers (ARAVA) 01-2030 Oral, ity of tablet 20 14:00: 18:07 DAILY, [place] mg 00 :00 First dose Medical on Mon [place] 01/20/23 at 0900, Until Discontinu ed, Routine heparin 2022-0 Yes 5000U 5,000 Univers (porcine) 630 Units, ity of injection 03:00: [place] 5,000 Units 00 us, Q8H, Medi luis fernando First dose Branch on [facility] 01/19/23 at 2200, Until Discontinu ed, Routine prednisoLON 0 Yes 1[drp] 1 Drop, U nivers E acetate 630 Both Eyes, ity of (PRED-FORTE 02:00: QHS, First [place] ) 1 % 00 dose on Medical ophthalmic [place] suspension 01/19/23 at drops 1 2100, Drop Until Discontinu ed, Routine traZODone Yes 50mg 50 mg, Univer s (DESYREL) 6-30 Oral, QHS, ity of tablet 50 02:00: [place] mg 00 on [facility] 01/19/23 at Branch 2100, Until Discontinu ed, Routine pravastatin Yes 20mg 20 mg, Univ ers (PRAVACHOL) 6-30 Oral, QHS, it y of tablet 20 02:00: [place] 00 on [facility] 01/19/23 at Branch 2100, Until Discontinu ed, Routine metroNIDAZO No 500mg 500 mg, IV Univers LE in NaCl 01-2030 Infusion, ity of (iso-os) 01:30: 14:05 Q12H [...] br>Duratio n of therapy: 5 days lamoTRIgine Yes 100mg 100 mg, Un sanam (LAMICTAL) 6-30 Oral, BID, ity of tablet 100 01:00: First dose [place] mg 00 on [facility] 01/19/23 at Branch 2000, Until Discontinu ed, Routine cefTRIAXone 2022- No 1000mg 1,000 mg, Univers (ROCEPHIN) 01-20 06-30 IV ity of 1,000 mg in 00:45: 14:05 [place], [place] NaCl 0.9% 00 :13 Q24H ABX, Medic al (NS) 100 mL 5 doses, Bran ch MINI-BAG First dose on [place] 01/19/23 at 1945, Last dose on 01/23/23 at 1945, Administer over 30 Minutes, 100 [...] mg ity of capsule 18:51: 00:00 capsule [place] 12 :00 [facility] pantoprazol 2022- No 40mg Take 40 mg Univers e 40 mg EC 01-19 by mouth. ity of tablet 18:51: 00:00 [place] 12 :00 [facility] celecoxib 2022- No celecoxib Un sanam 200 mg 01-19 200 mg ity of capsule 18:51: 00:00 capsule [place] 12 :00 [facility] traMADoL Yes TAKE 1 Methodi (ULTRAM) 50 6-[address] mg tablet 00:00: MOUTH Hospita 00 EVERY 6 l HOURS NEEDED FOR MODERATE ACUTE PAIN FOR UP TO 10 DAYS traMADoL Yes TAKE 1 [facility]i (ULTRAM) 50 6-[address] mg tablet 00:00: MOUTH Hospita 00 EVERY 6 l HOURS NEEDED FOR MODERATE ACUTE PAIN FOR UP TO 10 DAYS traMADoL 202- No [id number] 50mg Q6H Take 1 Metho di (Ultram) 50 5-12 05-23 tablet (50 s t mg tablet 00:00: 04:59 mg total) Ho spita 00 :00 by mouth l every 6 (six) hours as needed for moderate pain for up to 10 days .acute pain. traMADoL 2022-0 2022- No [id number] 50mg Q6H Take 1 Metho di (Ultram) 50 5-12 05-23 tablet (50 s t mg tablet 00:00: 04:59 mg total) Ho spita 00 :00 by mouth l every 6 (six) hours as needed for moderate pain for up to 10 days .acute pain. traMADoL 2022-0 2022- [place] [id number] 50mg Q6H Take 1 Metho di (Ultram) 50 5-12 05-12 tablet (50 s t mg tablet 00:00: 00:00 mg total) Ho spita 00 :00 by mouth l every 6 (six) hours as needed for moderate pain for up to 10 days .acute pain. traMADoL 2022-0 2022- No [id number] 50mg Q6H Take 1 Metho di (Ultram) 50 5-12 05-12 tablet (50 s t mg tablet 00:00: 00:00 mg total) Ho spita 00 :00 by mouth l every 6 (six) hours as needed for moderate pain for up to 10 days .acute pain. methocarbam 2022-0 2022- No 500mg Q.25D Take 1 M ethodi oL 11-29- tablet st (ROBAXIN) 00:00: 04:59 (500 mg Hosp kelly 500 MG 00 :00 total) by l tablet mouth 4 (four) times a day for 30 days. methocarbam 2022-0 2022- No 500mg Q.25D Take 1 M ethodi oL 11-29- tablet st (ROBAXIN) 00:00: 04:59 (500 mg Hosp kelly 500 MG 00 :00 total) by l tablet mouth 4 (four) times a day for 30 days. traMADoL 2022-0 2022- No [id number] 50mg Q6H Take 1 Metho di (Ultram) 50 5-09 05-12 tablet (50 s t mg tablet 00:00: 00:00 mg total) Ho spita 00 :00 by mouth l every 6 (six) hours as needed for moderate pain for up to 10 days .acute pain. traMADoL 2022-0 3- No [id number] 50mg Q6H Take 1 Metho di (Ultram) 50 11-29 05-12 tablet (50 s t mg tablet 00:00: 00:00 mg total) Ho spita 00 :00 by mouth l every 6 (six) hours as needed for moderate pain for up to 10 days .acute pain. buPROPion 2023-0 Yes 300mg QD Take 1 Metho di XL 4-[address] (WELLBUTRIN 17:36: (300 mg Hos melania XL) 300 MG 42 total) by l 24 hr mouth tablet daily. buPROPion 2023-0 Yes 300mg QD Take 1 Metho di XL 4-[address] (WELLBUTRIN 17:36: (300 mg Hos melania XL) 300 MG 42 total) by l 24 hr mouth tablet daily. cholecalcif 2022-0 3- No [id number] Q30D Take Met hodi melinda, 11-02 50,000 st vitamin D3, 11:17: 00:00 Units by H ospita (VITAMIN D3 29 :00 mouth l ORAL) every 30 (thirty) days. cholecalcif 3-0 3- No [id number] Q30D Take Met hodi melinda, 11-02 50,000 st vitamin D3, 11:17: 00:00 Units by H ospita (VITAMIN D3 29 :00 mouth l ORAL) every 30 (thirty) days. galantamine 2023-0 Yes [id number] 8mg QD Take 1 Methodi ER 4-12 capsule (8 st (RAZADYNE 00:00: mg total) Hos melania ER) 8 MG 24 00 by mouth l hr capsule daily with breakfast. galantamine 2023-0 Yes [id number] 8mg QD Take 1 [facility] ER 4-12 capsule (8 st (RAZADYNE 00:00: mg total) Hos melania ER) 8 MG 24 00 by mouth l hr capsule daily with breakfast. olopatadine 2023-0 Yes 1[drp] QD Apply 1 M ethodi (Pataday 3-[address] Once Daily 00:00: eye daily. H ospita Relief) 0.7 00 l % drops olopatadine 3-0 Yes 1[drp] QD Apply 1 M ethodi (Pataday 3-[address] Once Daily 00:00: eye daily. H ospita Relief) 0.7 00 l % drops vit 2023- No 1{capsu Q.5D Take 1 Methodi C,E-Zn-alexia 3-03 -03 le} capsule by s t r-lutein-ze 00:00: 05:59 mouth 2 Ho spita axan 00 :00 (two) l 250-90-40-1 times a mg capsule day. vit 2023- No 1{capsu Q.5D Take 1 Methodi C,E-Zn-alexia 3-09 23-03 le} capsule by s t r-lutein-ze 00:00: 05:59 mouth 2 Ho spita axan 00 :00 (two) l 250-90-40-1 times a mg capsule day. fluorometho 3-0 Yes 1[drp] Q.25D 1 drop 4 Methodi lone (FML) 2-23 (four) st 0.25 % 20:06: times a Hospita ophthalmic 05 day. l suspension fluorometho 3-0 Yes 1[drp] Q.25D 1 drop 4 Methodi lone (FML) 2-23 (four) st 0.25 % 20:06: times a Hospita ophthalmic 05 day. l suspension fluorometho 2023-0 Yes 1[drp] Q.25D 1 drop 4 Methodi lone (FML) 2-23 (four) st 0.25 % 20:06: times a Hospita ophthalmic 05 day. l suspension rivastigmin 2022- No 1{patch QD Place 1 Methodi e (EXELON) 09-15 } patch on st 13.3 mg/24 20:06: 00:00 the skin Ho spita hour 05 :00 daily. l rivastigmin 2022-2022- No 1{patch QD Place 1 Methodi e (EXELON) 09-15 } patch on st 13.3 mg/24 20:06: 00:00 the skin Ho spita hour 05 :00 daily. l rivastigmin 2022-2022- No 1{patch QD Place 1 Methodi e [...] Yes 1[drp] QD Administer Methodi E acetate 09-[address] (PRED 20:06: both eyes Hospita FORTE) 1 % 25 nightly. 1 l ophthalmic drop each suspension eye daily pravastatin 2022-0 Yes 20mg QD Take 1 Meth kiana (PRAVACHOL) - tablet (20 st 20 MG 20:06: mg total) Hospita tablet 25 by mouth l nightly. lamoTRIgine 2022-0 Yes 100mg Q.5D Take 1 Met hodi (LaMICtal) - tablet st 100 MG 20:06: (100 mg Hospita tablet 25 total) by l mouth 2 (two) times a day. ipratropium 2022-0 Yes 2{puff} Q.5D Inhale 2 Methodi (ATROVENT 2-[address] HFA) 17 20:06: (two) Hospita mcg/actuati 25 times a l on inhaler day. 17 mcg as needed traZODone 2022-0 Yes 50mg QD Take 1 Method i (DESYREL) 2-22 tablet (50 st 50 MG 20:06: mg total) Hospita tablet 25 by mouth l nightly as needed. cholestyram 2022-0 Yes 1{packe Q.[id number] Take 1 Methodi ine 2-22 t} [id number] packet by st (QUESTRAN) 20:06: 3D mouth [...] (two) times a day. cholecalcif 2022-0 Yes [id number] Q30D Take Meth kiana melinda, 2-22 50,000 st vitamin D3, 20:06: Units by Dickson laguerre (VITAMIN D3 25 mouth l ORAL) every 30 (thirty) days. ipratropium 3-0 Yes 2{puff} Q.5D Inhale 2 Method[facility] (ATROVENT 2-[address] HFA) 17 20:06: (two) Hospita mcg/actuati 25 times a l on inhaler day. 17 mcg as needed traZODone 2022-0 Yes 50mg QD Take 1 Method i (DESYREL) 2-22 tablet (50 st 50 MG 20:06: mg total) Hospita tablet 25 by mouth l nightly as needed. cholestyram 202-0 Yes 1{packe Q.[id number] Take 1 Methodi ine 2-22 t} [id number] packet by st (QUESTRAN) 20:06: 3D mouth [...] nightly as needed. cholestyram 2022-0 Yes 1{packe Q.[id number] Take 1 Methodi ine 2-22 t} [id number] packet by st (QUESTRAN) 20:06: 3D mouth 3 Hosp kelly 4 gram 25 (three) l packet times a day with meals. dicyclomine 2023-0 Yes 20mg Q.25D Take 1 Met hodi (BENTYL) 20 2-22 tablet (20 st mg tablet 20:06: mg total) Hos melania 25 by mouth 4 l (four) times a day as needed. folic acid 3-0 Yes 1mg QD Take 1 Metho di [...] Q.25D Take 1 M ethodi oL 2-22 - tablet st (ROBAXIN) 18:51: 00:00 (500 mg Hosp kelly 500 MG 19 :00 total) by l tablet mouth 4 (four) times a day. methocarbam 2023-0 2023- No 500mg Q.25D Take 1 M ethodi oL 2-22 -[address] (ROBAXIN) 18:51: 00:00 (500 mg Hosp kelly 500 MG 19 :00 total) by l tablet mouth 4 (four) times a day. methocarbam 2023-0 2023- No 500mg Q.25D Take 1 M ethodi oL 2-22 -[address] (ROBAXIN) 18:51: 00:00 (500 mg Hosp kelly 500 MG 19 :00 total) by l tablet mouth 4 (four) times a day. methocarbam 2023-0 Yes 500mg Q8H Take 1 Met hodi oL 2-[address] (ROBAXIN) 00:00: (500 mg Hospi ta 500 MG 00 total) by l tablet mouth every 8 (eight) hours as needed for muscle spasms. methocarbam 2023-0 Yes 500mg Q8H Take 1 Met hodi oL 2-[address] (ROBAXIN) 00:00: (500 mg Hospi ta 500 MG 00 total) by l tablet mouth every 8 (eight) hours as needed for muscle spasms. methocarbam 0 Yes 500mg Q8H Take 1 Met hodi oL 2-[address] (ROBAXIN) 00:00: (500 mg Hospi ta 500 MG 00 total) by l tablet mouth every 8 (eight) hours as needed for muscle spasms. acetamin[place] 2022- [place] [id number] 1{tbl} Q4H Take 1 Methodi en-codeine 09-14 [...] day for 7 days. acetaminoph 2022- [place] [id number] 1{tbl} Q4H Take 1 Methodi en-codeine 09-14 [...] day for 7 days. acetaminoph 2022- [place] [id number] 1{tbl} Q4H Take 1 Methodi en-codeine 09-14 [...] day for 7 days. acetaminoph 2022- No [id number] 1{tbl} Q4H Take 1 Methodi en-codeine 09-14 [...] l solution (two) times a day. methocarbam 2022-2022- No 500mg Q8H Take 1 Me thodi oL 09-[address] (ROBAXIN) 00:00: 00:00 (500 mg Hosp kelly 500 MG 00 :00 total) by l tablet mouth every 8 (eight) hours as needed for muscle spasms (0.5 tab (250 mg) to 1 tab (500mg)). acetaminoph 2022- No [id number] 1{tbl} Q4H Take 1 [facility] en-codeine 09-[address] (TYLENOL 00:00: 00:00 mouth Hospita WITH 00 :00 every 4 l CODEINE #3) (four) 300-30 mg hours as per tablet needed for moderate pain for up to 7 days .acute pain. olopatadine 2022-0 2022- No 1[drp] Q.5D Administer Methodi (PATANOL) 09-[address] 0.1 % 00:00: 00:00 the right Hospit a ophthalmic 00 :00 eye 2 l solution (two) times a day. methocarbam 2022-2022- No 500mg Q8H Take 1 Me thodi oL 09-[address] (ROBAXIN) 00:00: 00:00 (500 mg Hosp kelly 500 MG 00 :00 total) by l tablet mouth every 8 (eight) hours as needed for muscle spasms (0.5 tab (250 mg) to 1 tab (500mg[place] [id number] 1{tbl} Q4H Take 1 Methodi en-codeine 09-14 [...] (250 mg) to 1 tab (500mg)). losartan 2022- No 25mg QD Take 25 mg Me thodi (COZAAR) 25 2-15 02-[address] MG tablet 17:19: 00:00 daily. Hospi ta 01 :00 l losartan 2022-0 2022- No 25mg QD Take 25 mg Me thodi (COZAAR) 25 2-15 02-[address] MG tablet 17:19: 00:00 daily. Hospi ta 01 :00 l losartan 2022-0 2022- No 25mg QD Take 25 mg Me thodi (COZAAR) 25 2-15 02-[address] MG tablet 17:19: 00:00 daily. Hospi ta 01 :00 l predniSONE 2022- No 50mg QD Take 5 Meth kiana (DELTASONE) 08-[address] 10 mg 00:00: 05:59 (50 mg Hospita tablet 00 :00 total) by l mouth daily for 5 days. predniSONE 2022- No 50mg QD Take 5 Meth kiana (DELTASONE) 2-[address] 10 mg 00:00: 05:59 (50 mg Hospita tablet 00 :00 total) by l mouth daily for 5 days. predniSONE 2022- No 50mg QD Take 5 Meth kiana (DELTASONE) 08-24 02-[address] 10 mg 00:00: 05:59 (50 mg Hospita tablet 00 :00 total) by l mouth daily for 5 days. predniSONE 2022- No 50mg QD Take 5 Meth kiana (DELTASONE) 08-24-[address] 10 mg 00:00: 05:59 (50 mg Hospita tablet 00 :00 total) by l mouth daily for 5 days. rivastigmin Yes [id number] APPLY 1 Methodi e (EXELON) 1-[address] 9.5 mg/24 00:00: EVERY DAY Hos melania hour 00 l rivastigmin Yes [id number] APPLY 1 Methodi e (EXELON) 1-[address] 9.5 mg/24 00:00: EVERY DAY Hos melania hour 00 l rivastigmin 2022-0 2022- No [id number] APPLY 1 Methodi e (EXELON) 1-10 04-[address] 9.5 mg/24 00:00: 00:00 EVERY DAY Ho spita hour 00 :00 l rivastigmin 0 2022- No [id number] APPLY 1 Methodi e (EXELON) 1-10 04-[address] 9.5 mg/24 00:00: 00:00 EVERY DAY Ho spita hour 00 :00 l cholestyram 2021-07 Yes 1{packe Q.[id number] Take 1 Methodi ine 0-22 t} [id number] packet by st (QUESTRAN) 11:56: 3D mouth 3 Hosp kelly 4 gram 02 (three) l packet times a day with meals. dicyclomine 2021-07 Yes 20mg Q.25D Take 1 Met hodi (BENTYL) 20 0-22 tablet (20 st mg tablet 11:56: mg total) Hos melania 02 by mouth 4 l (four) times a day as needed. cholecalcif 2021-07 Yes [id number] Q30D Take Meth kiana melinda, 0-21 50,000 [...] as Hospit a tablet 49 needed. l prednisoLON 2021-07 Yes 1[drp] QD Administer Methodi [...] tablet 49 (two) l times a day. traMADoL 2021-07 Yes [id number] 50mg Q6H Take 1 Method i (ULTRAM) [...] as directed by physician. traMADoL 2021-07 Yes [id number] 50mg Q6H Take 1 Method i (ULTRAM) 50 0-21 tablet (50 st mg tablet 00:00: mg total) Hos melania 00 by mouth l every 6 (six) hours as needed for moderate pain or severe pain .acute pain. traMADoL 2021-07- No [id number] 50mg Q6H Take 1 Metho di (ULTRAM) 50 0-21 05-12 tablet (50 s t mg tablet 00:00: 00:00 mg total) Ho spita 00 :00 by mouth l every 6 (six) hours as needed for moderate pain or severe pain .acute pain. traMADoL 2021-07- No [id number] 50mg Q6H Take 1 Metho di (ULTRAM) [...] or as directed by physician. lidocaine 4 2021-[address] 1 Me thodi % adhesive 0-21 02-[address] patch,medic 00:00: 00:00 the skin H ospita ated 00 :00 daily. l Remove and discard patch within 12 hours or as directed by physician. lidocaine 4 2021-[address] 1 Me thodi % adhesive 0-21 02-[address] patch,medic 00:00: 00:00 the skin H ospita ated 00 :00 daily. l Remove and discard patch within 12 hours or as directed by physician. methocarbam 2021-07 No 500mg Q.25D Take 1 M ethodi oL 0-21 05-[address] (ROBAXIN) 00:00: 04:59 (500 mg Hosp kelly 500 MG 00 :00 total) by l tablet mouth 4 (four) times a day for 10 days. methocarbam 2021-07 No 500mg Q.25D Take 1 M ethodi oL 0-21 11-[address] (ROBAXIN) 00:00: 04:59 (500 mg Hosp kelly 500 MG 00 :00 total) by l tablet mouth 4 (four) times a day for 10 days. methocarbam 2021-07 No 500mg Q.25D Take 1 M ethodi oL 0-21 11-[address] (ROBAXIN) 00:00: 04:59 (500 mg Hosp kelly 500 MG 00 :00 total) by l tablet mouth 4 (four) times a day for 10 days. methocarbam 2021-07 No 500mg Q.25D Take 1 M ethodi oL 0-21 11-[address] (ROBAXIN) 00:00: 04:59 (500 mg Hosp kelly 500 MG 00 :00 total) by l tablet mouth 4 (four) times a day for 10 days. pantoprazol 2021-07 Yes [id number] TAKE 1 Methodi e 0-[address] (PROTONIX) 00:00: MOUTH Hospit a 20 MG EC 00 EVERY DAY l tablet pantoprazol 2021-07 Yes [id number] TAKE 1 Methodi e 0-[address] (PROTONIX) 00:00: MOUTH Hospit a 20 MG EC 00 EVERY DAY l tablet pantoprazol 2021-07 Yes [id number] TAKE 1 Methodi e 0-[address] (PROTONIX) 00:00: MOUTH Hospit a 20 MG EC 00 EVERY DAY l tablet pantoprazol 2021-07 Yes [id number] TAKE 1 Methodi e 0-[address] (PROTONIX) 00:00: MOUTH Hospit a 20 MG EC 00 EVERY DAY l tablet baclofen 2021-07- No [id number] 10mg QD Take 1 Me thodi (LIORESAL) 0-11 10-21 tablet (10 st 10 MG 00:00: 00:00 mg total) Hospit a tablet 00 :00 by mouth l nightly as needed for muscle spasms. baclofen 2021-07- No [id number] 10mg QD Take 1 Me thodi (LIORESAL) 0-11 10-21 tablet (10 st 10 MG 00:00: 00:00 mg total) Hospit a tablet 00 :00 by mouth l nightly as needed for muscle spasms. baclofen 2021-07- No [id number] 10mg QD Take 1 Me thodi (LIORESAL) 0-11 10-21 tablet (10 st 10 MG 00:00: 00:00 mg total) Hospit a tablet 00 :00 by mouth l nightly as needed for muscle spasms. baclofen 2021-07- No [id number] 10mg QD Take 1 Me thodi (LIORESAL) 0-11 10-21 tablet (10 st 10 MG 00:00: 00:00 mg total) Hospit a tablet 00 :00 by mouth l nightly as needed for muscle spasms. rivastigmin 2022- No [id number] 1{patch QD Place 1 Methodi e (EXELON) 02-07 } patch on st 9.5 mg/24 00:00: 00:00 the skin Hos melania hour 00 :00 daily. l rivastigmin 2022- No [id number] 1{patch QD Place 1 Methodi e (EXELON) 02-07 } patch on st 9.5 mg/24 00:00: 00:00 the skin Hos melania hour 00 :00 daily. l rivastigmin 2022- No [id number] 1{patch QD Place 1 Methodi e (EXELON) 02-07 } patch on st 9.5 mg/24 00:00: 00:00 the skin Hos melania hour 00 :00 daily. l rivastigmin 2022- No [id number] 1{patch QD Place 1 Methodi e (EXELON) 02-07 } patch on st 9.5 mg/24 00:00: 00:00 the skin Hos melania hour 00 :00 daily. l Rivastigmin Yes [place] 1 patch to Memoria e 7-13 [place] skin l 02:45: [place] 38 Hydroxychlo Yes [place] 1 tablets Memoria roquine 7- [place] with food l Sulfate 02:45: or milk [place] 38 Lamotrigine Yes [place] 2 tablets Memoria 7-13 [place] l 02:45: [place] 38 Vitamin D Yes [place] 1 capsule M emoria (Ergocalcif 7-13 [place] l melinda) 02:45: [place] 38 Pantoprazol Yes [place] 1 tablet Memoria e Sodium 7-13 [place] l 02:45: [place] 38 PredniSONE 0 Yes [place] 1-2 Memor ia 7-13 [place] tablets as l 02:45: needed for [place] 38 joint pain Atrovent Yes [place] INHALE 2 Mem oria HFA 7-13 [place] PUFF BY l 02:45: MOUTH [place] 38 TWICE A DAY Leflunomide Yes [place] 1 tablet Memoria 7-13 [place] l 02:45: 38 Fluorometho Yes [place] 1 drop Me moria lone 7-13 [place] into l 02:45: affected 38 eye Wellbutrin Yes Daniel 1 tablet M emoria XL 7-13 [place] in the l 02:45: morning [place] 38 Losartan Yes Daniel 1 tablet Mem oria Potassium 7-13 [place] l 02:45: [place] 38 Cholestyram Yes [place] 1 packet Memoria ine 7-13 [place] mixed with l 02:45: water or 38 non-carbon ated drink Stool Yes Daniel not Memoria Softener 7-13 [place] defined l 02:45: 38 Trazodone Yes [place] 1 tablet Me moria HCl 7-13 [place] at bedtime l 02:45: as needed [place] 38 Fluoxetine Yes [place] 3 capsule Memoria HCl 7-13 [place] l 02:45: [place] 38 Pravastatin Yes [place] 1 tablet Memoria Sodium 7-13 [place] l 02:45: 38 Fluorometho Yes [place] 1 drop Me moria lone 7-13 [place] into l 02:45: affected 38 eye Lamotrigine Yes [place] 2 tablets Memoria 7-13 [place] l 02:45: 38 Rivastigmin Yes [place] 1 patch to [facility]oria e 7-13 [place] skin l 02:45: [place] 38 Hydroxychlo 2022-0 Yes [place] 1 tablets Memoria roquine 7-13 [place] with food l Sulfate 02:45: or milk 38 Vitamin D Yes [place] 1 capsule M emoria (Ergocalcif 7-13 [place] l melinda) 02:45: 38 Pantoprazol Yes [place] 1 tablet Memoria e Sodium 7-13 [place] l 02:45: [place] 38 PredniSONE Yes [place] 1-2 Memor ia 7-13 [place] tablets as l 02:45: needed for joint pain Atrovent Yes [place] INHALE 2 Mem oria HFA 7-13 [place] PUFF BY l 02:45: MOUTH TWICE A DAY Leflunomide Yes [place] 1 tablet Memoria 7-13 [place] l 02:45: Wellbutrin Yes [place] 1 tablet M emoria XL 7-13 [place] in the l 02:45: morning [place] 38 Losartan Yes Daniel 1 tablet Mem oria Potassium 7-13 [place] l 02:45: Cholestyram Yes [place] 1 packet [facility]oria ine 7-13 [place] mixed with l 02:45: water or [place] 38 non-carbon ated drink Stool Yes Daniel not [facility]oria Softener 7-13 [place] defined l 02:45: Trazodone Yes [place] 1 tablet Me moria HCl 7-13 [place] at bedtime l 02:45: as needed [place] 38 Fluoxetine Yes Daniel 3 capsule Memoria HCl 7-13 [place] l 02:45: Pravastatin Yes [place] 1 tablet [facility]oria Sodium 7-13 [place] l 02:45: 38 Fluorometho Yes [place] 1 drop Me moria lone 7-13 [place] into l 02:45: affected eye Lamotrigine Yes [place] 2 tablets Memoria 7-13 [place] l 02:45: 38 Rivastigmin Yes [place] 1 patch to [facility] e 7-13 [place] skin l 02:45: Hydroxychlo Yes [place] 1 tablets [facility]oria roquine 7-13 [place] with food l Sulfate 02:45: or milk 38 Vitamin D Yes Daniel 1 capsule M emoria (Ergocalcif 7-13 [place] l melinda) 02:45: 38 Pantoprazol Yes [place] 1 tablet Memoria e Sodium 7-13 [place] l 02:45: [place] 38 PredniSONE Yes [place] 1-2 Memor ia 7-13 [place] tablets as l 02:45: needed for 38 joint pain Atrovent Yes [place] INHALE 2 Mem oria HFA 7-13 [place] PUFF BY l 02:45: MOUTH [place] 38 TWICE A DAY Leflunomide Yes [place] 1 tablet Memoria 7-13 [place] l 02:45: 38 Wellbutrin Yes [place] 1 tablet M emoria XL 7-13 [place] in the l 02:45: morning [place] 38 Losartan Yes Daniel 1 tablet Mem oria Potassium 7-13 [place] l 02:45: 38 Cholestyram Yes [place] 1 packet [facility]oria ine 7-13 [place] mixed with l 02:45: water or [place] 38 non-carbon ated drink Stool Yes [place] not [facility]oria Softener 7-13 [place] defined l 02:45: 38 Trazodone Yes [place] 1 tablet Me moria HCl 7-13 [place] at bedtime l 02:45: as needed [place] 38 Fluoxetine Yes Daniel 3 capsule Memoria HCl 7-13 [place]ugent l 02:45: 38 Pravastatin Yes [place] 1 tablet [facility]oria Sodium 7-13 [place] l 02:45: 38 Fluorometho Yes [place] 1 drop Me moria lone 7-13 [place] into l 02:45: affected 38 eye Lamotrigine Yes Daniel 2 tablets Memoria 7-13 [place] l 02:45: 38 Rivastigmin Yes [place] 1 patch to [facility] e 7-13 [place] skin l 02:45: [place] 38 Hydroxychlo Yes [place] 1 tablets Memoria roquine 7-13 [place] with food l Sulfate 02:45: or milk [place] 38 Vitamin D Yes [place] 1 capsule M emoria (Ergocalcif 7-13 [place] l melinda) 02:45: [place] 38 Pantoprazol Yes Daniel 1 tablet Memoria e Sodium 7-13 [place] l 02:45: [place] 38 PredniSONE 0 Yes [place] 1-2 Memor ia 7-13 [place] tablets as l 02:45: needed for [place] 38 joint pain Atrovent Yes [place] INHALE 2 Mem oria HFA 7-13 [place] PUFF BY l 02:45: MOUTH [place] TWICE A DAY Leflunomide Yes Daniel 1 tablet Memoria 7-13 [place] l 02:45: [place] 38 Wellbutrin Yes [place] 1 tablet M emoria XL 7-13 [place] in the l 02:45: morning [place] 38 Losartan Yes [place] 1 tablet Mem oria Potassium 7-13 [place] l 02:45: [place] 38 Pravastatin Yes [place] 1 tablet Memoria Sodium 7-13 [place] l 02:45: [place] 38 Fluorometho Yes [place] 1 drop Me moria lone 7-13 [place] into l 02:45: affected [place] 38 eye Lamotrigine Yes [place] 2 tablets Memoria 7-13 [place] l 02:45: [place] 38 Rivastigmin Yes [place] 1 patch to Memoria e 7-13 [place] skin l 02:45: [place] 38 Hydroxychlo Yes Daniel 1 tablets Memoria roquine 7-13 [place] with food l Sulfate 02:45: or milk [place] 38 Vitamin D Yes Daniel 1 capsule M emoria (Ergocalcif 7-13 [place] l melinda) 02:45: [place] 38 Pantoprazol Yes Daniel 1 tablet Memoria e Sodium 7-13 [place] l 02:45: [place] 38 PredniSONE 0 Yes [place] 1-2 Memor ia 7-13 [place] tablets as l 02:45: needed for [place] 38 joint pain Atrovent Yes [place] INHALE 2 Mem oria HFA 7-13 [place] PUFF BY l 02:45: MOUTH [place] 38 TWICE A DAY Leflunomide 0 Yes [place] 1 tablet Memoria 7-13 [place] l 02:45: [place] 38 Wellbutrin 0 Yes [place] 1 tablet M emoria XL 7-13 [place] in the l 02:45: morning [place] 38 Losartan 0 Yes [place] 1 tablet Mem oria Potassium 7-13 [place] l 02:45: [place] 38 Cholestyram Yes [place] 1 packet Memoria ine 7-13 [place] mixed with l 02:45: water or [place] 38 non-carbon ated drink Stool Yes [place] not Memoria Softener 7-13 [place] defined l 02:45: [place] 38 Trazodone Yes [place] 1 tablet Me moria HCl 7-13 [place] at bedtime l 02:45: as needed [place] 38 Fluoxetine 0 Yes [place] 3 capsule Memoria HCl 7-13 [place] l 02:45: 38 Cholestyram Yes [place] 1 packet Memoria ine 7-13 [place] mixed with l 02:45: water or [place] 38 non-carbon ated drink Stool Yes Daniel not Memoria Softener 7-13 [place] defined l 02:45: 38 Trazodone 0 Yes Daniel 1 tablet Me moria HCl 7-13 [place] at bedtime l 02:45: as needed [place] 38 Fluoxetine 0 Yes Daniel 3 capsule Memoria HCl 7-13 [place] l 02:45: [place] 38 Pravastatin 0 Yes Daniel 1 tablet Memoria Sodium 7-13 [place] l 02:45: [place] 38 Fluorometho 0 Yes [place] 1 drop Me moria lone 7-13 [place] into l 02:45: affected 38 eye Lamotrigine 0 Yes Daniel 2 tablets Memoria 7-13 [place] l 02:45: 38 Rivastigmin 0 Yes Daniel 1 patch to Memoria e 7-13 [place] skin l 02:45: [place] 38 Hydroxychlo Yes [place] 1 tablets Memoria roquine 7-13 [place] with food l Sulfate 02:45: or milk [place] 38 Vitamin D Yes [place] 1 capsule M emoria (Ergocalcif 7-13 [place] l melinda) 02:45: [place] 38 Pantoprazol Yes [place] 1 tablet Memoria e Sodium 7-13 [place] l 02:45: [place] 38 PredniSONE 0 Yes [place] 1-2 Memor ia 7-13 [place] tablets as l 02:45: needed for [place] 38 joint pain Atrovent Yes [place] INHALE 2 Mem oria HFA 7-13 [place] PUFF BY l 02:45: MOUTH [place] 38 TWICE A DAY Leflunomide Yes Daniel 1 tablet Memoria 7-13 [place] l 02:45: [place] 38 Wellbutrin Yes [place] 1 tablet M emoria XL 7-13 [place] in the l 02:45: morning [place] 38 Losartan 0 Yes [place] 1 tablet Mem oria Potassium 7-13 [place] l 02:45: [place] 38 Cholestyram Yes [place] 1 packet Memoria ine 7-13 [place] mixed with l 02:45: water or [place] 38 non-carbon ated drink Stool Yes [place] not Memoria Softener 7-13 [place] defined l 02:45: [place] 38 Trazodone Yes Daniel 1 tablet Me moria HCl 7-13 [place] at bedtime l 02:45: as needed [place] 38 Fluoxetine 0 Yes [place] 3 capsule Memoria HCl 7-13 [place] l 02:45: [place] 38 Pravastatin Yes [place] 1 tablet Memoria Sodium 7-13 [place] l 02:45: [place] 38 Fluorometho Yes [place] 1 drop Me moria lone 7-13 [place] into l 02:45: affected [place] 38 eye Lamotrigine 0 Yes [place] 2 tablets Memoria 7-13 [place] l 02:45: [place] 38 Rivastigmin Yes [place] 1 patch to Memoria e 7-13 [place] skin l 02:45: [place] 38 Hydroxychlo Yes [place] 1 tablets Memoria roquine 7-13 [place] with food l Sulfate 02:45: or milk [place] 38 Vitamin D Yes [place] 1 capsule M emoria (Ergocalcif 7-13 [place] l melinda) 02:45: [place] 38 Pantoprazol Yes [place] 1 tablet Memoria e Sodium 7-13 [place] l 02:45: [place] 38 PredniSONE 0 Yes Daniel 1-2 Memor ia 7-13 [place] tablets as l 02:45: needed for [place] 38 joint pain Atrovent Yes [place] INHALE 2 Mem oria HFA 7-13 [place] PUFF BY l 02:45: MOUTH [place] 38 TWICE A DAY Leflunomide Yes Daniel 1 tablet Memoria 7-13 [place] l 02:45: [place] 38 Wellbutrin Yes Daniel 1 tablet M emoria XL 7-13 [place] in the l 02:45: morning [place] 38 Losartan Yes Daniel 1 tablet Mem oria Potassium 7-13 [place] l 02:45: [place] 38 Cholestyram Yes [place] 1 packet Memoria ine 7-13 [place] mixed with l 02:45: water or [place] 38 non-carbon ated drink Stool Yes [place] not Memoria Softener 7-13 [place] defined l 02:45: [place] 38 Trazodone Yes [place] 1 tablet Me moria HCl 7-13 [place] at bedtime l 02:45: as needed [place] 38 Fluoxetine Yes [place] 3 capsule Memoria HCl 7-13 [place] l 02:45: [place] 38 Pravastatin Yes [place] 1 tablet Memoria Sodium 7-13 Nug[place] l 02:45: [place] 38 Fluorometho Yes [place] 1 drop Me moria lone 7-13 [place] into l 02:45: affected [place] 38 eye Lamotrigine Yes [place] 2 tablets Memoria 7-13 [place] l 02:45: [place] 38 Rivastigmin Yes [place] 1 patch to Memoria e 7-13 [place] skin l 02:45: [place] 38 Hydroxychlo Yes [place] 1 tablets Memoria roquine 7-13 [place] with food l Sulfate 02:45: or milk [place] 38 Vitamin D Yes [place] 1 capsule M emoria (Ergocalcif 7-13 [place] l melinda) 02:45: [place] 38 Pantoprazol Yes [place] 1 tablet Memoria e Sodium 7-13 [place] l 02:45: [place] 38 PredniSONE 0 Yes Daniel 1-2 Memor ia 7-13 [place] tablets as l 02:45: needed for [place] 38 joint pain Atrovent Yes Daniel INHALE 2 Mem oria HFA 7-13 [place] PUFF BY l 02:45: MOUTH TWICE A DAY Leflunomide Yes Daniel 1 tablet Memoria 7-13 [place] l 02:45: Wellbutrin Yes Daniel 1 tablet M emoria XL 7-13 [place] in the l 02:45: morning [place] 38 Losartan Yes Daniel 1 tablet Mem oria Potassium 7-13 [place] l 02:45: Cholestyram Yes [place] 1 packet Memoria ine 7-13 [place] mixed with l 02:45: water or [place] 38 non-carbon ated drink Stool Yes [place] not Memoria Softener 7-13 [place] defined l 02:45: [place] 38 Trazodone Yes Daniel 1 tablet Me moria HCl 7-13 [place] at bedtime l 02:45: as needed [place] 38 Fluoxetine Yes Daniel 3 capsule Memoria HCl 7-13 [place] l 02:45: [place] 38 Pravastatin Yes [place] 1 tablet Memoria Sodium 7-13 [place] l 02:45: 38 Rivastigmin Yes [place] 1 patch to Memoria e 7-13 [place] skin l 02:45: 38 Hydroxychlo Yes Daniel 1 tablets Memoria roquine 7-13 [place] with food l Sulfate 02:45: or milk Lamotrigine Yes [place] 2 tablets Memoria 7-13 [place] l 02:45: 38 Vitamin D Yes [place] 1 capsule M emoria (Ergocalcif 7-13 [place] l melinda) 02:45: 38 Pantoprazol Yes [place] 1 tablet Memoria e Sodium 7-13 [place] l 02:45: [place] 38 PredniSONE Yes [place] 1-2 Memor ia 7-13 [place] tablets as l 02:45: needed for [place] 38 joint pain Atrovent Yes Daniel INHALE 2 Mem oria HFA 7-13 [place] PUFF BY l 02:45: MOUTH [place] 38 TWICE A DAY Leflunomide Yes [place] 1 tablet Memoria 7-13 [place] l 02:45: 38 Fluorometho Yes Daniel 1 drop Me moria lone 7-13 [place] into l 02:45: affected eye Wellbutrin Yes [place] 1 tablet M emoria XL 7-13 [place] in the l 02:45: morning [place] 38 Losartan Yes Daniel 1 tablet Mem oria Potassium 7-13 [place] l 02:45: Cholestyram Yes Daniel 1 packet Memoria ine 7-13 [place] mixed with l 02:45: water or non-carbon ated drink Stool Yes [place] not Memoria Softener 7-13 [place] defined l 02:45: 38 Trazodone Yes [place] 1 tablet Me moria HCl 7-13 [place] at bedtime l 02:45: as needed [place] 38 Fluoxetine Yes Daniel 3 capsule Memoria HCl 7-13 [place] l 02:45: [place] 38 Pravastatin Yes [place] 1 tablet Memoria Sodium 7-13 [place] l 02:45: 38 Rivastigmin Yes [place] 1 patch to Memoria e 7-13 [place] skin l 02:45: 38 Hydroxychlo Yes Daniel 1 tablets Memoria roquine 7-13 [place] with food l Sulfate 02:45: or milk [place] 38 Lamotrigine Yes Daniel 2 tablets Memoria 7-13 [place] l 02:45: [place] 38 Vitamin D 0 Yes Daniel 1 capsule M emoria (Ergocalcif 7-13 [place] l melinda) 02:45: [place] 38 Pantoprazol 0 Yes [place] 1 tablet Memoria e Sodium 7-13 [place] l 02:45: [place] 38 PredniSONE Yes [place] 1-2 Memor ia 7-13 [place] tablets as l 02:45: needed for [place] 38 joint pain Atrovent Yes [place] INHALE 2 Mem oria HFA 7-13 [place] PUFF BY l 02:45: MOUTH [place] 38 TWICE A DAY Leflunomide Yes Daniel 1 tablet Memoria 7-13 [place] l 02:45: [place] 38 Fluorometho Yes [place] 1 drop Me moria lone 7-13 [place] into l 02:45: affected [place] 38 eye Wellbutrin Yes Daniel 1 tablet M emoria XL 7-13 [place] in the l 02:45: morning [place] 38 Losartan Yes Daniel 1 tablet Mem oria Potassium 7-13 [place] l 02:45: [place] 38 Cholestyram Yes Daniel 1 packet Memoria ine 7-13 [place] mixed with l 02:45: water or [place] 38 non-carbon ated drink Stool Yes Daniel not Memoria Softener 7-13 [place] defined l 02:45: [place] 38 Trazodone Yes Daniel 1 tablet Me moria HCl 7-13 [place] at bedtime l 02:45: as needed [place] 38 Fluoxetine Yes [place] 3 capsule Memoria HCl 7-13 N[place] l 02:45: [place] 38 Pravastatin Yes [place] 1 tablet Memoria Sodium 7-13 [place] l 02:45: [place] 38 Rivastigmin 0 Yes Daniel 1 patch to Memoria e 7-13 [place] skin l 02:45: [place] 38 Hydroxychlo Yes [place] 1 tablets Memoria roquine 7-13 [place] with food l Sulfate 02:45: or milk [place] 38 Lamotrigine Yes [place] 2 tablets Memoria 7-13 [place] l 02:45: [place] 38 Vitamin D 0 Yes [place] 1 capsule M emoria (Ergocalcif 7-13 [place] l melinda) 02:45: [place] 38 Pantoprazol Yes [place] 1 tablet Memoria e Sodium 7-13 [place] l 02:45: [place] 38 PredniSONE 0 Yes [place] 1-2 Memor ia 7-13 [place] tablets as l 02:45: needed for [place] 38 joint pain Atrovent Yes [place] INHALE 2 Mem oria HFA 7-13 [place] PUFF BY l 02:45: MOUTH [place] 38 TWICE A DAY Leflunomide Yes [place] 1 tablet Memoria 7-13 [place] l 02:45: [place] 38 Fluorometho Yes [place] 1 drop Me moria lone 7-13 [place] into l 02:45: affected [place] 38 eye Wellbutrin Yes Daniel 1 tablet M emoria XL 7-13 [place] in the l 02:45: morning [place] 38 Losartan Yes [place] 1 tablet Mem oria Potassium 7-13 [place] l 02:45: Cholestyram Yes [place] 1 packet Memoria ine 7-13 [place] mixed with l 02:45: water or [place] 38 non-carbon ated drink Stool Yes [place] not Memoria Softener 7-13 [place] defined l 02:45: [place] 38 Trazodone Yes Daniel 1 tablet Me moria HCl 7-13 [place] at bedtime l 02:45: as needed [place] 38 Fluoxetine 0 Yes [place] 3 capsule Memoria HCl 7-13 [place] l 02:45: [place] 38 Pravastatin 0 Yes [place] 1 tablet Memoria Sodium 7-13 [place] l 02:45: [place] 38 Rivastigmin Yes Daniel 1 patch to Memoria e 7-13 [place] skin l 02:45: [place] 38 Hydroxychlo Yes [place] 1 tablets Memoria roquine 7-13 [place] with food l Sulfate 02:45: or milk Lamotrigine Yes [place] 2 tablets Memoria 7-13 [place] l 02:45: [place] 38 Vitamin D Yes [place] 1 capsule M emoria (Ergocalcif 7-13 [place] l melinda) 02:45: [place] 38 Pantoprazol Yes [place] 1 tablet Memoria e Sodium 7-13 [place] l 02:45: [place] 38 PredniSONE Yes [place] 1-2 Memor ia 7-13 [place] tablets as l 02:45: needed for joint pain Atrovent Yes Daniel INHALE 2 Mem oria HFA 7-13 [place] PUFF BY l 02:45: MOUTH [place] 38 TWICE A DAY Leflunomide Yes [place] 1 tablet Memoria 7-13 [place] l 02:45: [place] 38 Fluorometho Yes [place] 1 drop Me moria lone 7-13 [place] into l 02:45: affected eye Wellbutrin Yes [place] 1 tablet M emoria XL 7-13 [place] in the l 02:45: morning [place] 38 Losartan Yes Daniel 1 tablet Mem oria Potassium 7-13 [place] l 02:45: Cholestyram Yes [place] 1 packet Memoria ine 7-13 [place] mixed with l 02:45: water or [place] 38 non-carbon ated drink Stool Yes Daniel not Memoria Softener 7-13 [place] defined l 02:45: Trazodone Yes [place] 1 tablet Me moria HCl 7-13 [place] at bedtime l 02:45: as needed [place] 38 Fluoxetine Yes Daniel 3 capsule Memoria HCl 7-13 [place] l 02:45: 38 Pravastatin Yes Daniel 1 tablet Memoria Sodium 7-13 [place] l 02:45: [place] 38 Rivastigmin Yes Daniel 1 patch to Memoria e 7-13 [place] skin l 02:45: 38 Hydroxychlo Yes Daniel 1 tablets Memoria roquine 7-13 [place] with food l Sulfate 02:45: or milk [place] 38 Lamotrigine Yes [place] 2 tablets Memoria 7-13 [place] l 02:45: [place] 38 Vitamin D Yes [place] 1 capsule M emoria (Ergocalcif 7-13 [place] l melinda) 02:45: [place] 38 Pantoprazol Yes [place] 1 tablet Memoria e Sodium 7-13 Nug[place] l 02:45: [place] 38 PredniSONE Yes Daniel 1-2 Memor ia 7-13 [place] tablets as l 02:45: needed for 38 joint pain Atrovent Yes [place] INHALE 2 Mem oria HFA 7-13 [place] PUFF BY l 02:45: MOUTH [place] 38 TWICE A DAY Leflunomide Yes [place] 1 tablet Memoria 7-13 [place] l 02:45: [place] 38 Fluorometho Yes [place] 1 drop Me moria lone 7-13 [place] into l 02:45: affected eye Wellbutrin Yes Daniel 1 tablet M emoria XL 7-13 [place] in the l 02:45: morning [place] 38 Losartan Yes [place] 1 tablet Mem oria Potassium 7-13 [place] l 02:45: Cholestyram Yes [place] 1 packet Memoria ine 7-13 [place] mixed with l 02:45: water or [place] 38 non-carbon ated drink Stool Yes [place] not Memoria Softener 7-13 [place] defined l 02:45: 38 Trazodone Yes Daniel 1 tablet Me moria HCl 7-13 [place] at bedtime l 02:45: as needed [place] 38 Fluoxetine 0 Yes [place] 3 capsule Memoria HCl 7-13 [place] l 02:45: [place] 38 Pravastatin Yes Daniel 1 tablet Memoria Sodium 7-13 [place] l 02:45: [place] 38 Rivastigmin Yes [place] 1 patch to Memoria e 7-13 [place] skin l 02:45: [place] 38 Hydroxychlo Yes Daniel 1 tablets Memoria roquine 7-13 [place] with food l Sulfate 02:45: or milk [place] 38 Lamotrigine Yes [place] 2 tablets Memoria 7-13 [place] l 02:45: [place] 38 Vitamin D Yes [place] 1 capsule M emoria (Ergocalcif 7-13 [place] l melinda) 02:45: [place] 38 Pantoprazol Yes [place] 1 tablet Memoria e Sodium 7-13 [place] l 02:45: [place] 38 PredniSONE 0 Yes [place] 1-2 Memor ia 7-13 [place] tablets as l 02:45: needed for [place] 38 joint pain Atrovent Yes Daniel INHALE 2 Mem oria HFA 7-13 [place] PUFF BY l 02:45: MOUTH [place] 38 TWICE A DAY Leflunomide Yes [place] 1 tablet Memoria 7-13 [place] l 02:45: [place] 38 Fluorometho Yes Daniel 1 drop Me moria lone 7-13 [place] into l 02:45: affected [place] 38 eye Wellbutrin Yes [place] 1 tablet M emoria XL 7-13 [place] in the l 02:45: morning [place] 38 Losartan Yes Daniel 1 tablet Mem oria Potassium 7-13 [place] l 02:45: [place] 38 Cholestyram Yes [place] 1 packet Memoria ine 7-13 [place] mixed with l 02:45: water or [place] 38 non-carbon ated drink Stool Yes Daniel not Memoria Softener 7-13 [place] defined l 02:45: [place] 38 Trazodone Yes [place] 1 tablet Me moria HCl 7-13 [place] at bedtime l 02:45: as needed [place] 38 Fluoxetine Yes [place] 3 capsule Memoria HCl 7-13 [place] l 02:45: [place] 38 Pravastatin 0 Yes [place] 1 tablet Memoria Sodium 7-13 [place] l 02:45: [place] 38 Rivastigmin Yes [place] 1 patch to Memoria e 7-13 [place] skin l 02:45: [place] 38 Hydroxychlo Yes Daniel 1 tablets Memoria roquine 7-13 [place] with food l Sulfate 02:45: or milk [place] 38 Lamotrigine Yes [place] 2 tablets Memoria 7-13 [place] l 02:45: [place] 38 Vitamin D 0 Yes [place] 1 capsule M emoria (Ergocalcif 7-13 [place] l melinda) 02:45: [place] 38 Pantoprazol Yes Daniel 1 tablet Memoria e Sodium 7-13 [place] l 02:45: [place] 38 PredniSONE 0 Yes [place] 1-2 Memor ia 7-13 [place] tablets as l 02:45: needed for 38 joint pain Atrovent Yes [place] INHALE 2 Mem oria HFA 7-13 [place] PUFF BY l 02:45: MOUTH [place] 38 TWICE A DAY Leflunomide Yes Daniel 1 tablet Memoria 7-13 [place] l 02:45: [place] 38 Fluorometho Yes [place] 1 drop Me moria lone 7-13 [place] into l 02:45: affected [place] 38 eye Wellbutrin Yes [place] 1 tablet M emoria XL 7-13 [place] in the l 02:45: morning [place] 38 Losartan 0 Yes [place] 1 tablet Mem oria Potassium 7-13 [place] l 02:45: [place] 38 Cholestyram Yes [place] 1 packet Memoria ine 7-13 [place] mixed with l 02:45: water or [place] 38 non-carbon ated drink Stool Yes [place] not Memoria Softener 7-13 [place] defined l 02:45: [place] 38 Trazodone 0 Yes [place] 1 tablet Me moria HCl 7-13 [place] at bedtime l 02:45: as needed [place] 38 Fluoxetine 0 Yes [place] 3 capsule Memoria HCl 7-13 [place] l 02:45: [place] 38 Pravastatin 0 Yes [place] 1 tablet Memoria Sodium 7-13 [place] l 02:45: 38 Rivastigmin 0 Yes [place] 1 patch to Memoria e 7-13 [place] skin l 02:45: [place] 38 Hydroxychlo Yes [place] 1 tablets Memoria roquine 7-13 [place] with food l Sulfate 02:45: or milk 38 Lamotrigine Yes [place] 2 tablets Memoria 7-13 [place] l 02:45: [place] 38 Vitamin D Yes [place] 1 capsule M emoria (Ergocalcif 7-13 [place] l melinda) 02:45: [place] 38 Pantoprazol Yes Daniel 1 tablet Memoria e Sodium 7-13 [place] l 02:45: [place] 38 PredniSONE 0 Yes Daniel 1-2 Memor ia 7-13 [place] tablets as l 02:45: needed for 38 joint pain Atrovent Yes [place] INHALE 2 Mem oria HFA 7-13 [place] PUFF BY l 02:45: MOUTH [place] 38 TWICE A DAY Leflunomide Yes Daniel 1 tablet Memoria 7-13 [place] l 02:45: [place] 38 Fluorometho Yes Daniel 1 drop Me moria lone 7-13 [place] into l 02:45: affected eye Wellbutrin Yes Daniel 1 tablet M emoria XL 7-13 [place] in the l 02:45: morning [place] 38 Losartan Yes Daniel 1 tablet Mem oria Potassium 7-13 [place] l 02:45: 38 Cholestyram Yes [place] 1 packet Memoria ine 7-13 [place] mixed with l 02:45: water or [place] 38 non-carbon ated drink Stool Yes [place] not Memoria Softener 7-13 [place] defined l 02:45: 38 Trazodone Yes [place] 1 tablet Me moria HCl 7-13 [place] at bedtime l 02:45: as needed [place] 38 Fluoxetine Yes [place] 3 capsule Memoria HCl 7-13 [place] l 02:45: 38 Pravastatin Yes [place] 1 tablet Memoria Sodium 7-13 [place] l 02:45: [place] 38 Rivastigmin Yes [place] 1 patch to Memoria e 7-13 [place] skin l 02:45: [place] 38 Hydroxychlo 2022-0 Yes [place] 1 tablets Memoria roquine 7-13 [place] with food l Sulfate 02:45: or milk 38 Lamotrigine Yes Daniel 2 tablets Memoria 7-13 [place] l 02:45: 38 Vitamin D Yes [place] 1 capsule M emoria (Ergocalcif 7-13 [place] l melinda) 02:45: 38 Pantoprazol Yes [place] 1 tablet Memoria e Sodium 7-13 [place] l 02:45: [place] 38 PredniSONE 0 Yes Daniel 1-2 Memor ia 7-13 [place] tablets as l 02:45: needed for joint pain Atrovent Yes [place] INHALE 2 Mem oria HFA 7-13 [place] PUFF BY l 02:45: MOUTH [place] 38 TWICE A DAY Leflunomide Yes [place] 1 tablet Memoria 7-13 [place] l 02:45: 38 Fluorometho Yes [place] 1 drop Me moria lone 7-13 [place] into l 02:45: affected eye Wellbutrin Yes [place] 1 tablet M emoria XL 7-13 [place] in the l 02:45: morning [place] 38 Losartan Yes [place] 1 tablet Mem oria Potassium 7-13 [place] l 02:45: Cholestyram Yes [place] 1 packet [facility]oria ine 7-13 [place] mixed with l 02:45: water or [place] 38 non-carbon ated drink Stool Yes [place] not Memoria Softener 7-13 [place] defined l 02:45: Trazodone Yes [place] 1 tablet Me moria HCl 7-13 [place] at bedtime l 02:45: as needed [place] 38 Fluoxetine Yes [place] 3 capsule Memoria HCl 7-13 [place] l 02:45: [place] 38 Pravastatin 0 Yes Daniel 1 tablet [facility]oria Sodium 7-13 [place] l 02:45: 38 Rivastigmin Yes [place] 1 patch to [facility] e 7-13 [place] skin l 02:45: [place] 38 Hydroxychlo Yes [place] 1 tablets [facility]oria roquine 7-13 [place] with food l Sulfate 02:45: or milk [place] 38 Lamotrigine Yes [place] 2 tablets Memoria 7-13 [place] l 02:45: [place] 38 Vitamin D Yes [place] 1 capsule M emoria (Ergocalcif 7-13 [place] l melinda) 02:45: [place] 38 Pantoprazol Yes Daniel 1 tablet Memoria e Sodium 7-13 [place] l 02:45: [place] 38 PredniSONE Yes [place] 1-2 Memor ia 7-13 [place] tablets as l 02:45: needed for [place] 38 joint pain Atrovent Yes [place] INHALE 2 Mem oria HFA 7-13 [place] PUFF BY l 02:45: MOUTH [place] 38 TWICE A DAY Leflunomide Yes [place] 1 tablet [facility]oria 7-13 [place] l 02:45: [place] 38 Fluorometho Yes [place] 1 drop Me moria lone 7-13 [place] into l 02:45: affected [place] 38 eye Wellbutrin Yes [place] 1 tablet M emoria XL 7-13 [place] in the l 02:45: morning [place] 38 Losartan Yes [place] 1 tablet Mem oria Potassium 7-13 [place] l 02:45: [place] 38 Cholestyram Yes [place] 1 packet [facility]oria ine 7-13 [place] mixed with l 02:45: water or [place] 38 non-carbon ated drink Stool Yes [place] not Memoria Softener 7-13 [place] defined l 02:45: [place] 38 Trazodone Yes Daniel 1 tablet Me moria HCl 7-13 [place] at bedtime l 02:45: as needed [place] 38 Fluoxetine Yes [place] 3 capsule Memoria HCl 7-13 [place] l 02:45: [place] 38 Pravastatin Yes Daniel 1 tablet Memoria Sodium 7-13 [place] l 02:45: [place] 38 Folic Acid Yes [place] 1 tablet M emoria 7-12 [place] l 00:00: [place] 00 Folic Acid 2022-0 Yes [place] 1 tablet M emoria 7-12 [place] l 00:00: Folic Acid 2022-0 Yes [place] 1 tablet M emoria 7-12 [place] l 00:00: Folic Acid 2022-0 Yes [place] 1 tablet M emoria 7-12 [place] l 00:00: Folic Acid 2022-0 Yes [place] 1 tablet M emoria 7-12 [place] l 00:00: Folic Acid 2022-0 Yes [place] 1 tablet M emoria 7-12 [place] l 00:00: Folic Acid 2022-0 Yes Adniel 1 tablet M emoria 7-12 [place] l 00:00: Folic Acid 2022-0 Yes Daniel 1 tablet M emoria 7-12 [place] l 00:00: Folic Acid 2022-0 Yes Daniel 1 tablet M emoria 7-12 [place] l 00:00: Folic Acid 2022-0 Yes [place] 1 tablet M emoria 7-12 [place] l 00:00: Folic Acid 2022-0 Yes Daniel 1 tablet M emoria 7-12 [place] l 00:00: Folic Acid 2022-0 Yes [place] 1 tablet M emoria 7-12 [place] l 00:00: Folic Acid 2022-0 Yes [place] 1 tablet M emoria 7-12 [place] l 00:00: Folic Acid 2022-0 Yes [place] 1 tablet M emoria 7-12 [place] l 00:00: Folic Acid 2022-0 Yes Daniel 1 tablet M emoria 7-12 [place] l 00:00: Folic Acid 2022-0 Yes Daniel 1 tablet M emoria 7-12 [place] l 00:00: Folic Acid 2022-0 Yes Daniel 1 tablet M emoria 7-12 [place] l 00:00: Folic Acid 2022-0 Yes Daniel 1 tablet M emoria 7-12 [place] l 00:00: Fluoxetine 2-0 Yes [place] 3 capsule Memoria HCl 4-13 [place]ug[place] l 02:46: [place] 20 Fluoxetine 2022-0 Yes [place] 3 capsule Memoria HCl 4-13 [place] l 02:46: 20 Fluoxetine 0 Yes Daniel 3 capsule Memoria HCl 4-13 [place] l 02:46: 20 Fluoxetine 0 Yes Daniel 3 capsule Memoria HCl 4-13 [place] l 02:46: 20 Fluoxetine 0 Yes Daniel 3 capsule Memoria HCl 4-13 [place] l 02:46: Fluoxetine 0 Yes Daniel 3 capsule Memoria HCl 4-13 [place] l 02:46: Fluoxetine 0 Yes [place] 3 capsule Memoria HCl 4-13 [place] l 02:46: Fluoxetine 0 Yes [place] 3 capsule Memoria HCl 4-13 [place] l 02:46: Fluoxetine 0 Yes [place] 3 capsule Memoria HCl 4-13 [place] l 02:46: Fluoxetine 0 Yes [place] 3 capsule Memoria HCl 4-13 N[place] l 02:46: Fluoxetine 0 Yes Daniel 3 capsule Memoria HCl 4-13 [place] l 02:46: Fluoxetine 0 Yes [place] 3 capsule Memoria HCl 4-13 [place] l 02:46: Fluoxetine 0 Yes [place] 3 capsule Memoria HCl 4-13 [place] l 02:46: Fluoxetine 0 Yes Daniel 3 capsule Memoria HCl 4-13 [place] l 02:46: Fluoxetine 0 Yes [place] 3 capsule Memoria HCl 4-13 [place] l 02:46: Fluoxetine 0 Yes Daniel 3 capsule Memoria HCl 4-13 [place] l 02:46: Fluoxetine 0 Yes [place] 3 capsule [facility]oria HCl 4-13 [place] l 02:46: Fluoxetine 0 Yes Daniel 3 capsule [facility]oria HCl 4-13 [place] l 02:46: Flurbip-Domingo 0 Yes [place] as Yung jad ap-Cyclob-L 4-12 [place] directed l nora-Dex 00:00: Flurbip-Domingo 0 Yes [place] as Yung jad ap-Cyclob-L 4-12 [place] directed l nora-Dex 00:[facility] [place] [facility] Yung jad ap-Cyclob-L 4-12 [place] directed l nora-Dex 00:00[facility] Daniel as Yung jad ap-Cyclob-L 4-12 [place] directed l nora-Dex 00:00[facility] [place] as Yung jad ap-Cyclob-L 4-12 [place] directed l nora-Dex 00:00[facility] [place] as Yung jad ap-Cyclob-L 4-12 [place] directed l nora-Dex 00:00: [facility] Yes [place] as Yung jad ap-Cyclob-L 4-12 [place] directed l nora-Dex 00:00: [facility] Yes [place] as Yung jad ap-Cyclob-L 4-12 [place] directed l nora-Dex 00:00: [facility] 0 Yes Daniel as Yung jad ap-Cyclob-L 4-12 [place] directed l nora-Dex 00:00: [facility] Yes [place] as Yung jad ap-Cyclob-L 4-12 [place] directed l nora-Dex 00:00: [facility] 0 Yes [place] as Yung jad ap-Cyclob-L 4-12 [place] directed l nora-Dex 00:00[facility] [place] as Yung jad ap-Cyclob-L 4-12 [place] directed l nora-Dex 00:00[facility] [place] as Yung jad ap-Cyclob-L 4-12 [place] directed l nora-Dex 00:00: [facility] [place] as Yung jad ap-Cyclob-L 4-12 [place] directed l nora-Dex 00:[facility] [place] as Yung jad ap-Cyclob-L 4-12 [place] directed l nora-Dex 00:00: Flurbip-Domingo Yes [place] as Yung jad ap-Cyclob-L 4-12 [place] directed l nora-Dex 00:00: Flurbip-[place] 0 Yes [place] as Yung ajd ap-Cyclob-L 4-12 [place] directed l nora-Dex 00:00: Flurbip-Domingo 0 Yes [place] as Yung jad ap-Cyclob-L 4-12 Nugent directed [...] ta 23 :00 l pantoprazol 2021- No [id number] 20mg QD Take 1 [facility] 10-12 tablet (20 st (PROTONIX) 00:00: 00:00 mg total) H ospita 20 MG EC 00 :00 by mouth l tablet daily. pantoprazol 2021- No [id number] 20mg QD Take 1 Method[facility] 8-24 10-12 tablet (20 st (PROTONIX) 00:00: 00:00 mg total) H ospita 20 MG EC 00 :00 by mouth l tablet daily. pantoprazol 2021- No [id number] 20mg QD Take 1 Method[facility] 8-24 10-12 tablet (20 st (PROTONIX) 00:00: 00:00 mg total) H ospita 20 MG EC 00 :00 by mouth l tablet daily. pantoprazol 2021- No [id number] 20mg QD Take 1 [facility] 8-24 10-12 tablet (20 st (PROTONIX) 00:00: 00:00 mg total) H ospita 20 MG EC 00 :00 by mouth l tablet daily. buPROPion Yes [id number] TAKE 1 M ethodi XL 7-[address] (WELLBUTRIN 00:00: MOUTH [facility] XL) 150 MG 00 EVERY DAY l 24 hr tablet buPROPion Yes [id number] TAKE 1 M ethodi XL 7-[address] (WELLBUTRIN 00:00: MOUTH Hospi ta XL) 150 MG 00 EVERY DAY l 24 hr tablet buPROPion 2022- No [id number] TAKE 1 [facility] XL 7-15 04-[address] (WELLBUTRIN 00:00: 00:00 MOUTH [facility] XL) 150 MG 00 :00 EVERY DAY l 24 hr tablet buPROPion 2022- No [id number] TAKE 1 [facility] XL 7-15 04-12 TABLET BY st (WELLBUTRIN 00:00: 00:00 [facility]OUTH [facility] XL) 150 MG 00 :00 EVERY DAY l 24 hr tablet cholestyram 2021- No [id number] 1{packe Q.[id number] Take 1 [facility] ine 5-24 05-25 t} [id number] packet by st (Questran) 00:00: 04:59 3D mouth 3 Hos melania 4 gram 00 :00 (three) l packet times a day with meals. dicyclomine 2021- No [id number] 20mg Q.25D Take 1 [facility] (BENTYL) 20 5-24 05-25 tablet (20 s t mg tablet 00:00: 04:59 mg total) Ho spita 00 :00 by mouth 4 l (four) times a day. cholestyram 2021- No [id number] 1{packe Q.[id number] Take 1 [facility] ine 5-24 05-25 t} [id number] packet by st (Questran) 00:00: 04:59 3D mouth 3 [facility]ia 4 gram 00 :00 (three) l packet times a day with meals. dicyclomine 2021- No [id number] 20mg Q.25D Take 1 [facility] (BENTYL) 20 5-24 05-25 tablet (20 s t mg tablet 00:00: 04:59 mg total) Ho spita 00 :00 by mouth 4 l (four) times a day. rivastigmin 2021- No [id number] 1{patch QD Place 1 Method[facility] e (EXELON) 11-18 } patch on st 9.5 mg/24 00:00: 04:59 the skin Hos melania hour 00 :00 daily. l rivastigmin 2021- No [id number] 1{patch QD Place 1 Method[facility] e (EXELON) 11-18 } patch on st 9.5 mg/24 00:00: 04:59 the skin Hos melania hour 00 :00 daily. l Methotrexat Yes Huma 6 tablets Memoria e 2-05 Michael l 03:46: [place] 39 Trazodone 0 Yes Huma 1 tablet [facility]oria HCl 2-05 Michael at bedtime l 03:46: [place] 39 Lorazepam Yes Huma 1 tablet Memoria 2-05 Michael as needed l 03:46: [place] 39 Dexilant 0 Yes Huma 1 capsule Memoria 2-05 Michael l 03:46: [place] 39 Myrbetriq 0 Yes Huma 1 tablet Memoria 2-05 Michael l 03:46: [place] 39 Creon 0 Yes Huma as Memoria 2-05 Michael directed l 03:46: [place] 39 Aspir-81 Yes Huma 1 tablet Memoria 2-05 Michael l 03:46: [place] 39 Metoprolol 2020-0 Yes Huma 1 capsule [facility] Succinate 2-05 Michael l 03:46: [place] 39 Sulfasalazi 0 Yes Huma 1 tablet Memoria ne 2-05 Michael l 03:46: [place] 39 Hyoscyamine 0 Yes Huma 1 tablet [facility] Sulfate 2-05 Michael as needed l 03:46: [place] 39 Amoxicillin 2020-0 Yes Huma 1 tablet Memoria 2-05 Michael l 03:46: [place] 39 Nitrofurant 0 Yes Huma not M emoria oin 2-05 [...] 2-05 Michael l 03:46: [place] 39 Creon 0 Yes Huma as Memoria 2-05 Michael directed l 03:46: [place] 39 Aspir-81 2020-0 Yes Huma 1 tablet Memoria 2-05 Michael l 03:46: [place] 39 Metoprolol 0 Yes Huma 1 capsule [facility] Succinate 2-05 Michael l 03:46: [place] 39 Sulfasalazi 2020-0 Yes Huma 1 tablet [facility]oria ne 2-05 Michael l 03:46: [place] 39 Hyoscyamine 0 Yes Huma 1 tablet [facility] Sulfate 2-05 Michael as needed l 03:46: [place] 39 Amoxicillin 2020-0 Yes Huma 1 tablet Memoria 2-05 Michael l 03:46: [place] 39 Nitrofurant 0 Yes Huma not M emoria oin 2-05 [...] 2-05 Michael l 03:46: [place] 39 Myrbetriq 0 Yes Huma 1 tablet Memoria 2-05 Michael l 03:46: [place] 39 Creon 2020-0 Yes uHma as Memoria 2-05 Michael directed l 03:46: [place] 39 Aspir-81 2020-0 Yes Huma 1 tablet Memoria 2-05 Michael l 03:46: [place] 39 Metoprolol 2020-0 Yes Huma 1 capsule [...] Yes Huma not M emoria oin 2-05 Micahel defined l 03:46: [place] 39 Methotrexat 2020-0 [...] as Memoria 2-05 Michael directed l 03:46: [place] 39 Aspir-81 2020-0 Yes Huma 1 tablet [...] 1 capsule Memoria 2-05 Michael l 03:46: [place] 39 Myrbetriq 2020-0 Yes Huma 1 tablet Memoria 2-05 Michael l 03:46: [place] 39 Creon 2020-0 Yes Huma as [facility]oria 2-05 Michael directed l 03:46: [place] 39 Aspir-81 2020-0 Yes Huma 1 tablet Memoria 2-05 Michael l 03:46: [place] 39 Metoprolol 2020-0 Yes Huma 1 capsule [...] tablets Memoria e 2-05 Michael l 03:46: [place] 39 Trazodone 2020-0 Yes Huma 1 tablet [...] 1 tablet Memoria 2-05 Michael l 03:46: [place] 39 Nitrofurant 2020-0 Yes Huma not M [...] as needed l 03:46: [place] 39 Hyoscyamine 0 Yes Huma 1 tablet [facility]oria Sulfate 2-05 [...] 1 tablet Memoria 2-05 Michael l 03:46: [place] 39 Amoxicillin 2020-0 Yes Huma 1 tablet Memoria 2-05 Michael l 03:46: [place] 39 Nitrofurant 2020-0 Yes Huma not M emoria oin 2-05 Michael defined l 03:46: [place] 39 Methotrexat 2020-0 Yes Huma 6 tablets Memoria e 2-05 Michael l 03:46: [place] 39 Metoprolol 2020-0 Yes Huma 1 capsule [facility] Succinate 2-05 Michael l 03:46: [place] 39 Creon 2020-0 Yes Huma as [facility]oria 2-05 Michael directed l 03:46: [place] 39 Trazodone 2020-0 Yes Huma 1 tablet Memoria HCl 2-05 Michael at bedtime l 03:46: [place] 39 Lorazepam 2020-0 Yes Huma 1 tablet [...] as Memoria 2-05 Michael directed l 03:46: [place] 39 Aspir-81 2020-0 Yes Huma 1 tablet Memoria 2-05 Michael l 03:46: [place] 39 Metoprolol 2020-0 Yes Huma 1 capsule [facility] Succinate 2-05 Michael l 03:46: [place] 39 Sulfasalazi 2020-0 Yes Huma 1 tablet Memoria ne 2-05 Michael l 03:46: [place] 39 Hyoscyamine 2021-0 Yes Huma 1 tablet Memoria Sulfate 2-05 [...] Memoria 2-05 Michael as needed l 03:46: [place] 39 Dexilant 2020-0 Yes Huma 1 capsule Memoria 2-05 Michael l 03:46: [place] 39 Myrbetriq 2020-0 Yes Huma 1 tablet Memoria 2-05 Michael l 03:46: [place] 39 Creon 2020-0 Yes Huma as Memoria 2-05 Michael directed l 03:46: [place] 39 Aspir-81 2020-0 Yes Huma 1 tablet [...] emoria oin 2-05 Michael defined l 03:46: [place] 39 Myrbetriq 2020-0 Yes Huma 1 tablet Memoria 2-05 Michael l 03:46: [place] 39 Creon 2020-0 Yes Huma as Memoria 2-05 Michael directed l 03:46: [place] 39 Aspir-81 2020-0 Yes Huma 1 tablet Memoria 2-05 Michael l 03:46: [place] 39 Metoprolol 2020-0 Yes Huma 1 capsule [facility] Succinate 2-05 Michael l 03:46: [place] 39 Sulfasalazi 2020-0 Yes Huma 1 tablet Memoria ne 2-05 Michael l 03:46: [place] 39 Hyoscyamine 2020-0 Yes Huma 1 tablet [facility]oria Sulfate 2-05 Michael as needed l 03:46: [place] 39 Amoxicillin 2020-0 Yes Huma 1 tablet Memoria 2-05 Michael l 03:46: [place] 39 Nitrofurant 2020-0 Yes Huma not M emoria oin 2-05 Michael defined l 03:46: [place] 39 Methotrexat 0 Yes Huma 6 tablets Memoria e 2-05 Michael l 03:46: [place] 39 Trazodone 2020-0 Yes Huma 1 tablet [facility]oria HCl 2-05 Michael at bedtime l 03:46: [place] 39 Lorazepam 2020-0 Yes Huma 1 tablet Memoria 2-05 Michael as needed l 03:46: [place] 39 Dexilant 2020-0 Yes Huma 1 capsule Memoria 2-05 Michael l 03:46: [place] 39 Methotrexat 0 Yes Marisol 8 tablets Memoria [...] tablets Memoria e 2-05 Vo l 03:46: [place] 38 Methotrexat 2020-0 Yes Marisol 8 tablets Memoria e 2-05 Vo l 03:46: [place] 38 Methotrexat 2020-0 Yes Marisol 8 tablets Memoria e 2-05 Vo l 03:46: [place] 38 Methotrexat 2020-0 Yes Marisol 8 tablets Memoria e 2-05 Vo l 03:46: [place] 38 Methotrexat 2020-0 Yes Marisol 8 tablets Memoria e 2-05 Vo l 03:46: [place] 38 Methotrexat 2020-0 Yes Marisol 8 tablets Memoria e 2-05 Vo l 03:46: [place] 38 Methotrexat 2020-0 Yes Marisol 8 tablets Memoria e 2-05 Vo l 03:46: [place] 38 PredniSONE 2020-1 Yes Marquez 1-2 Mem oria 1-25 Brandan tablets as l 00:00: needed for [place] 00 joint pain PredniSONE 2020-1 Yes Marquez 1-2 Mem oria 1-25 Brandan tablets as l 00:00: needed for [place] 00 joint pain PredniSONE 2020-1 Yes Marquez 1-2 Mem oria 1-25 Brandan tablets as l 00:00: needed for [place] 00 joint pain PredniSONE 2020-1 Yes Marquez 1-2 Mem oria 1-25 Brandan tablets as l 00:00: needed for [place] 00 joint pain PredniSONE 2020-1 Yes Marquez 1-2 Mem oria 1-25 Brandan tablets as l 00:00: needed for [place] 00 joint pain PredniSONE 2020-1 Yes Marquez 1-2 Mem oria 1-25 Brandan tablets as l 00:00: needed for [place] 00 joint pain PredniSONE 2020-1 Yes Marquez 1-2 Mem oria 1-25 Brandan tablets as l 00:00: needed for [place] 00 joint pain PredniSONE 2020-1 Yes Marquez 1-2 Mem oria 1-25 Brandan tablets as l 00:00: needed for [place] 00 joint pain PredniSONE 2020-1 Yes Marquez 1-2 Mem oria 1-25 Brandan tablets as l 00:00: needed for [place] 00 joint pain PredniSONE 2020-1 Yes Marquez 1-2 Mem oria 1-25 Brandan tablets as l 00:00: needed for [place] 00 joint pain PredniSONE 2020-1 Yes Marquez 1-2 Mem oria 1-25 Brandan tablets as l 00:00: needed for [place] 00 joint pain PredniSONE 2020-1 Yes Marquez 1-2 Mem oria 1-25 Brandan tablets as l 00:00: needed for [place] 00 joint pain PredniSONE 2020-1 Yes Marquez 1-2 Mem oria 1-25 Brandan tablets as l 00:00: needed for [place] 00 joint pain PredniSONE 2020-1 Yes Marquez 1-2 Mem oria 1-25 Brandan tablets as l 00:00: needed for [place] 00 joint pain PredniSONE 2020-1 Yes Marquez 1-2 Mem oria 1-25 Brandan tablets as l 00:00: needed for [place] 00 joint pain PredniSONE 2020-1 Yes Marquez 1-2 Mem oria 1-25 Brandan tablets as l 00:00: needed for [place] 00 joint pain PredniSONE 2020- Yes Marquez 1-2 Mem oria 1-25 Brandan tablets as l 00:00: needed for [place] 00 joint pain PredniSONE 2020-1 Yes Marquez 1-2 Mem oria 1-25 Brandan tablets as l 00:00: needed for [place] 00 joint pain Donepezil 2020-1 Yes Viki 1 tablet Mem oria Hydrochlori 1-20 Vilardo at bedtime l de 03:45: [place] 50 Rivastigmin 2020-1 Yes Viki 1 patch to Memoria e 1-20 [place] skin l 03:45: 50 Celecoxib 2020-1 Yes Viki 1 capsule Me moria 1-20 [place] with food l 03:45: 50 Donepezil 2020- Yes Viki 1 tablet Mem oria Hydrochlori 1-20 [place] at bedtime l de 03:45: 50 Rivastigmin 2020- Yes Viki 1 patch to Memoria e 1-20 [place] skin l 03:45: 50 Celecoxib 2020- Yes Viki 1 capsule Me moria 1-20 [place] with food l 03:45: 50 Donepezil 2020- Yes Viki 1 tablet [...] [place] skin l 03:45: Bennett Olivares Celecoxib 2019-07 Yes Viki 1 capsule Me [...] with food l 03:45: [place] Olivares Donepezil 2019-07 Yes Viki 1 tablet Mem oria Hydrochlori 1-20 [place] at bedtime l de 03:45: [place] Olivares Rivastigmin 2020- Yes Viki 1 patch to Memoria e 1-20 [place] skin l 03:45: [place] Olivares Celecoxib 2019- Yes Viki 1 capsule Me moria 1-20 [place] with food l 03:45: [place] Olivares Donepezil 2019- Yes Viki 1 tablet Mem [...] with food l 03:45: [place] 50 Donepezil 2019-07 Yes Viki 1 tablet Mem oria Hydrochlori 1-20 [place] at bedtime l de 03:45: [place] Rivastigmin 2019- Yes Viki 1 patch to Memoria e 1-20 [place] skin l 03:45: [place] Celecoxib 2019-07 Yes Viki 1 capsule Me moria 1-20 [place] with food l 03:45: [place] Donepezil 2019-07 Yes Viki 1 tablet Mem oria Hydrochlori 1-20 [place] at bedtime l de 03:45: [place] Rivastigmin 2019-07 Yes Viki 1 patch to Memoria e 1-20 [place] skin l 03:45: [place] Olivares Celecoxib 2019-07 Yes Viki 1 capsule Me moria 1-20 [place] with food l 03:45: Bennett Donepezil 2019-07 Yes Viki 1 tablet Mem oria Hydrochlori 1-20 [place] at bedtime l de 03:45: Bennett Rivastigmin 2019-07 Yes Viki 1 patch to Memoria e 1-20 [place] skin l 03:45: Bennett Olivares Celecoxib 2019-07 Yes Viki 1 capsule Me moria 1-20 [place] with food l 03:45: Bennett Donepezil 2019-07 Yes Viki 1 tablet Mem oria Hydrochlori 1-20 [place] at bedtime l de 03:45: Bennett Rivastigmin 2019-07 Yes Viki 1 patch to Memoria e 1-20 [place] skin l 03:45: Bennett Celecoxib 2019-07 Yes Viki 1 capsule Me moria 1-20 [place] with food l 03:45: Bennett Donepezil 2019-07 Yes Viki 1 tablet Mem oria Hydrochlori 1-20 [place] at bedtime l de 03:45: Bennett Rivastigmin 2019-07 Yes Viki 1 patch to Memoria e 1-20 [place] skin l 03:45: [place] 50 Celecoxib 2019-07 Yes Viki 1 capsule Me moria 1-20 [place] with food l 03:45: [place] 50 leflunomide 2019-07 Yes 20mg QD 20 mg Metho di (ARAVA) 20 1-[address] MG tablet 00:00: needed Hospit a 00 l leflunomide 2020-1 Yes 20mg QD 1 tablet Me thodi (ARAVA) 20 1-20 ([address] MG tablet 00:00: total) Hospit a 00 daily. As l needed leflunomide 2020-1 Yes 20mg QD 1 tablet Me th[facility] (ARAVA) 20 1-20 ([address] MG tablet 00:00: total) Hospit a 00 daily. As l needed leflunomide 2020-1 Yes 20mg QD 1 tablet Me thodi (ARAVA) 20 1-20 ([address] MG tablet 00:00: total) Hospit a 00 daily. As l needed hydrOXYchlo 2020-1 Yes QD daily. Meth kiana roQUINE 1-17 st (PLAQUENIL) 00:00: Hospit a 200 mg 00 l tablet etodolac 2020-1 Yes as needed. Met hodi (LODINE) 1-17 st 400 MG 00:00: Hospita tablet 00 l Etodolac 2020-1 Yes [place] 1 tablet Mem oria 1-17 [place] l 00:00: [place] 00 Hydroxychlo 2020-1 Yes Viki 1 tablets Memoria roquine 1-17 [place] with food l Sulfate 00:00: or milk [place] 00 Etodolac 2020-1 Yes [place] 1 tablet Mem oria 1-17 [place] l 00:00: Hydroxychlo 2020-1 Yes Viki 1 tablets Memoria roquine 1-17 [place] with food l Sulfate 00:00: or milk [place] 00 Etodolac 2020-1 Yes [place] 1 tablet Mem oria 1-17 [place]ug[place] l 00:00: [place] Hydroxychlo 2020-1 Yes Viki 1 tablets Memoria roquine 1-17 [place] with food l Sulfate 00:00: or milk [place] Etodolac 2020-1 Yes Daniel 1 tablet Mem oria 1-17 [place] l 00:00: [place] Hydroxychlo 2020-1 Yes Viki 1 tablets Memoria roquine 1-17 [place] with food l Sulfate 00:00: or milk [place] Etodolac 2020-1 Yes [place] 1 tablet Mem oria 1-17 Nugent l 00:00: [place] Hydroxychlo 2020-1 Yes Viki 1 tablets Memoria roquine 1-17 [place] with food l Sulfate 00:00: or milk Etodolac 2020-1 Yes [place] 1 tablet Mem oria 1-17 [place]ug[place] l 00:00: Hydroxychlo 2020- Yes Ivki 1 tablets Memoria roquine 1-17 [place] with food l Sulfate 00:00: or milk Etodolac 2020-1 Yes Daniel 1 tablet Mem oria 1-17 [place]ug[place] l 00:00: Hydroxychlo 2020- Yes Viki 1 tablets Memoria roquine 1-17 [place] with food l Sulfate 00:00: or milk Etodolac 2020- Yes [place] 1 tablet Mem oria 1-17 [place] l 00:00: Hydroxychlo 2020- Yes Viki 1 tablets Memoria roquine 1-17 [place] with food l Sulfate 00:00: or milk Etodolac 2020- Yes [place] 1 tablet Mem oria 1-17 [place] l 00:00: Hydroxychlo 2020- Yes Viki 1 tablets Memoria roquine 1-17 [place] with food l Sulfate 00:00: or milk Etodolac 2020-1 Yes [place] 1 tablet Mem oria 1-17 [place] l 00:00: Hydroxychlo 2020- Yes Viki 1 tablets Memoria roquine 1-17 [place] with food l Sulfate 00:00: or milk Etodolac 2020-1 Yes [place] 1 tablet Mem oria 1-17 [place] l 00:00: Hydroxychlo 2020-1 Yes Viki 1 tablets Memoria roquine 1-17 [place] with food l Sulfate 00:00: or milk Etodolac 2020-1 Yes [place] 1 tablet Mem oria 1-17 [place] l 00:00: Hydroxychlo 2020-1 Yes Viki 1 tablets Memoria roquine 1-17 [place] with food l Sulfate 00:00: or milk Etodolac 2020-1 Yes Daniel 1 tablet Mem oria 1-17 [place] l 00:00: Hydroxychlo 2020-1 Yes Viki 1 tablets Memoria roquine 1-17 [place] with food l Sulfate 00:00: or milk Etodolac 2020- Yes [place] 1 tablet Mem oria 1-17 [place] l 00:00: [place] 00 Hydroxychlo 2020- Yes Viki 1 tablets Memoria roquine 1-17 [place] with food l Sulfate 00:00: or milk [place] 00 Etodolac 2020- Yes Daniel 1 tablet Mem oria 1-17 [place] l 00:00: [place] 00 Hydroxychlo 2020- Yes Viki 1 tablets Memoria roquine 1-17 [place] with food l Sulfate 00:00: or milk [place] 00 Etodolac 2020- Yes [place] 1 tablet Mem oria 1-17 [place]ug[place] l 00:00: [place] 00 Hydroxychlo 2020- Yes Viki 1 tablets Memoria roquine 1-17 [place] with food l Sulfate 00:00: or milk [place] 00 Etodolac 2020- Yes [place] 1 tablet Mem oria 1-17 [place] l 00:00: [place] 00 Hydroxychlo 2020- Yes Viki 1 tablets Memoria roquine 1-17 [place] with food l Sulfate 00:00: or milk Etodolac 2020- Yes [place] 1 tablet Mem oria 1-17 [place]ug[place] l 00:00: [place] 00 Hydroxychlo 2020- Yes Viki 1 tablets Memoria roquine 1-17 [place] with food l Sulfate 00:00: or milk etodolac 2019-2022- No as needed. [facility] (LODINE) 08-09- st 400 MG 00:00: 00:00 Hospita tablet 00 :00 l etodolac 2019-2022- No as needed. [facility] (LODINE) 08-09- st 400 MG 00:00: 00:00 Hospita tablet 00 :00 l etodolac 2019-2022- No as needed. [facility] (LODINE) 08-09- st 400 MG 00:00: 00:00 Hospita tablet 00 :00 l hydrOXYchlo 2019-2022- No QD daily. [facility] roQUINE 1-17 -15 st (PLAQUENIL) 00:00: 00:00 Hospi ta 200 mg 00 :00 l tablet hydrOXYchlo 2020-1 2022- No QD daily. [facility] roQUINE 08-0915 st (PLAQUENIL) 00:00: 00:00 Hospi ta 200 mg 00 :00 l tablet hydrOXYchlo 2020-1 2022- No QD daily. Met [facility] roQUINE 08-0915 st (PLAQUENIL) 00:00: 00:00 Hospi ta 200 mg 00 :00 l tablet Trazodone 2020-0 Yes Marquez 1 tablet Memoria HCl 8-28 Brandan at bedtime l 02:45: [place] 12 Lorazepam 2020-0 Yes Marquez 1 tablet Memoria 8-28 Brandan as needed l 02:45: [place] 12 Dexilant 2020-0 Yes Marquez 1 capsule Memoria 8-28 Brandan l 02:45: [place] 12 Trazodone 2020-0 Yes Marquez 1 tablet Memoria HCl 8-28 Brandan at bedtime l 02:45: [place] 12 Lorazepam 2020-0 Yes Marquez 1 tablet Memoria 8-28 Brandan as needed l 02:45: [place] 12 Dexilant 2020-0 Yes Marquez 1 capsule Memoria 8-28 Brandan l 02:45: [place] 12 Trazodone 2020-0 Yes Marquez 1 tablet Memoria HCl 8-28 Brandan at bedtime l 02:45: [place] 12 Lorazepam 2020-0 Yes Marquez 1 tablet Memoria 8-28 Brandan as needed l 02:45: [place] 12 Dexilant 2020-0 Yes Marquez 1 capsule Memoria 8-28 Brandan l 02:45: [place] 12 Trazodone 2020-0 Yes Marquez 1 tablet Memoria HCl 8-28 Brandan at bedtime l 02:45: [place] 12 Lorazepam 2020-0 Yes Marquez 1 tablet Memoria 8-28 Brandan as needed l 02:45: [place] 12 Dexilant 2020-0 Yes Marquez 1 capsule Memoria 8-28 Brandan l 02:45: [place] 12 Trazodone 2020-0 Yes Mar[place] 1 tablet Memoria HCl 8-28 Brandan at bedtime l 02:45: [place] 12 Lorazepam 2020-0 Yes Marquez 1 tablet Memoria 8-28 Brandan as needed l 02:45: [place] 12 Dexilant 2020-0 Yes Marquez 1 capsule Memoria 8-28 Brandan l 02:45: [place] 12 Trazodone 2020-0 Yes Marquez 1 tablet Memoria HCl 8-28 Brandan at bedtime l 02:45: [place] 12 Lorazepam 2020-0 Yes Marquez 1 tablet Memoria 8-28 Brandan as needed l 02:45: [place] 12 Dexilant 2020-0 Yes Marquez 1 capsule Memoria 8-28 Brandan l 02:45: [place] 12 Trazodone 2020-0 Yes Marquez 1 tablet Memoria HCl 8-28 Brandan at bedtime l 02:45: [place] 12 Lorazepam 2020-0 Yes Mar[place] 1 tablet Memoria 8-28 Brandan as needed l 02:45: [place] 12 Dexilant 2020-0 Yes Mar[place] 1 capsule Memoria 8-28 Brandan l 02:45: [place] 12 Trazodone 2020-0 Yes [place] 1 tablet Memoria HCl 8-28 Brandan at bedtime l 02:45: [place] 12 Lorazepam 2020-0 Yes [place] 1 tablet Memoria 8-28 Brandan as needed l 02:45: [place] 12 Dexilant 2020-0 Yes Marquez 1 capsule Memoria 8-28 Brandan l 02:45: [place] 12 Trazodone 2020-0 Yes Mar[place] 1 tablet [facility]oria HCl 8-28 Brandan at bedtime l 02:45: [place] 12 Lorazepam 2020-0 Yes Mar[place] 1 tablet Memoria 8-28 Brandan as needed l 02:45: [place] 12 Dexilant 2020-0 Yes Mar[place] 1 capsule Memoria 8-28 Brandan l 02:45: [place] 12 Trazodone 2020-0 Yes Marquez 1 tablet Memoria HCl 8-28 Brandan at bedtime l 02:45: [place] 12 Lorazepam 2020-0 Yes [place] 1 tablet Memoria 8-28 Brandan as needed l 02:45: [place] 12 Dexilant 2020-0 Yes Mar[place] 1 capsule Memoria 8-28 Brandan l 02:45: [place] 12 Trazodone 2020-0 Yes Marquez 1 tablet Memoria HCl 8-28 Brandan at bedtime l 02:45: [place] 12 Lorazepam 2020-0 Yes Mar[place] 1 tablet Memoria 8-28 Brandan as needed l 02:45: [place] 12 Dexilant 2020-0 Yes Marquez 1 capsule Memoria 8-28 Brandan l 02:45: [place] 12 Trazodone 2020-0 Yes Mar[place] 1 tablet Memoria HCl 8-28 Brandan at bedtime l 02:45: [place] 12 Lorazepam 2020-0 Yes [place] 1 tablet Memoria 8-28 Brandan as needed l 02:45: [place] 12 Dexilant 2020-0 Yes Marquez 1 capsule Memoria 8-28 Brandan l 02:45: [place] 12 Trazodone 2020-0 Yes Marquez 1 tablet Memoria HCl 8-28 Brandan at bedtime l 02:45: [place] 12 Lorazepam 2020-0 Yes [place] 1 tablet Memoria 8-28 Brandan as needed l 02:45: [place] 12 Dexilant 2020-0 Yes Mar[place] 1 capsule Memoria 8-28 Brandan l 02:45: [place] 12 Trazodone 2020-0 Yes Mar[place] 1 tablet Memoria HCl 8-28 Brandan at bedtime l 02:45: [place] 12 Lorazepam 2020-0 Yes [place] 1 tablet Memoria 8-28 Brandan as needed l 02:45: [place] 12 Dexilant 2020-0 Yes [place] 1 capsule Memoria 8-28 Brandan l 02:45: [place] 12 Trazodone 2020-0 Yes Mar[place] 1 tablet Memoria HCl 8-28 Brandan at bedtime l 02:45: [place] 12 Lorazepam 2020-0 Yes [place] 1 tablet Memoria 8-28 Brandan as needed l 02:45: [place] 12 Dexilant 2020-0 Yes Marquez 1 capsule Memoria 8-28 Brandan l 02:45: [place] 12 Trazodone 2020-0 Yes Marquez 1 tablet Memoria HCl 8-28 Brandan at bedtime l 02:45: [place] 12 Lorazepam 2020-0 Yes [place] 1 tablet Memoria 8-28 Brandan as needed l 02:45: [place] 12 Dexilant 2020-0 Yes [place] 1 capsule Memoria 8-28 Brandan l 02:45: [place] 12 Trazodone 2020-0 Yes Mar[place] 1 tablet Memoria HCl 8-28 Brandan at bedtime l 02:45: Lorazepam 2020-0 Yes [place] 1 tablet Memoria 8-28 Brandan as needed l 02:45: [place] 12 Dexilant 2020-0 Yes [place] 1 capsule Memoria 8-28 Brandan l 02:45: [place] 12 Trazodone 2020-0 Yes Mar[place] 1 tablet Memoria HCl 8-28 Brandan at bedtime l 02:45: [place] 12 Lorazepam 2020-0 Yes [place] 1 tablet Memoria 8-28 Brandan as needed l 02:45: Dexilant 2020-0 Yes [place] 1 capsule Memoria 8-28 Brandan l 02:45: Celecoxib 2020-0 Yes [place] 1 capsule Memoria 8-26 Brandan with food l 00:00: Celecoxib 2020-0 Yes [place] 1 capsule Memoria 8-26 [place] with food l 00:00: Celecoxib 2020-0 Yes [...] 8-26 Brandan with food l 00:00: FLUoxetine 2019-0 Yes fluoxetine U nivers 40 mg 8-15 40 mg ity of capsule 19:42: capsule [address] leflunomide 2019- Yes leflunomid [facility] 20 mg 8-15 e 20 mg ity of tablet 19:42: tablet [address] pantoprazol Yes 40mg Take 40 mg Univers e 40 mg EC 8-15 by mouth. ity of tablet 19:42: [address] pravastatin 2019-0 Yes pravastati [facility] 20 mg 8-15 n 20 mg ity of tablet 19:42: tablet [address] prednisoLON 0 Yes 1[drp] 1 Drop. U nivers E acetate 1 8-15 ity of % 19:42: [address] drops celecoxib 2019-0 Yes celecoxib Uni vers 200 mg 8-15 200 mg ity of capsule 19:42: capsule [address] foLIC acid 2019-0 Yes 1mg Take 1 mg Un sanam 1 mg tablet 8-15 by mouth ity of 19:42: daily. [address] FLUoxetine 2019-0 Yes fluoxetine U nivers 40 mg 8-15 40 mg ity of capsule 19:42: capsule [address] leflunomide 0 Yes leflunomid [facility] 20 mg 8-15 e 20 mg ity of tablet 19:42: tablet [address] pantoprazol 2019-0 Yes 40mg Take 40 mg Univers e 40 mg EC 8-15 by mouth. ity of tablet 19:42: [address] pravastatin 2020-0 Yes pravastati [facility] 20 mg 8-15 n 20 mg ity of tablet 19:42: tablet [address] prednisoLON 2020-0 Yes 1[drp] 1 Drop. U nivers E acetate 1 8-15 ity of % 19:42: [place] [id number] Medical suspension Branch drops celecoxib 2020-0 Yes celecoxib Uni vers 200 mg 8-15 200 mg ity of capsule 19:42: capsule [address] foLIC acid 2020-0 Yes 1mg Take 1 mg Un sanam 1 mg tablet 8-15 by mouth ity of 19:42: daily. [address] FLUoxetine 2020-0 Yes fluoxetine U nivers 40 mg 8-15 40 mg ity of capsule 19:42: capsule [address] leflunomide 2020-0 Yes leflunomid [facility] 20 mg 8-15 e 20 mg ity of tablet 19:42: tablet [address] pantoprazol 2020-0 Yes 40mg Take 40 mg Univers e 40 mg EC 8-15 by mouth. ity of tablet 19:42: [address] pravastatin 2020-0 Yes pravastati [facility] 20 mg 8-15 n 20 mg ity of tablet 19:42: tablet [address] prednisoLON 2020-0 Yes 1[drp] 1 Drop. U nivers E acetate 1 8-15 ity of % 19:42: [address] suspension [place] drops celecoxib 2020-0 Yes celecoxib Uni vers 200 mg 8-15 200 mg ity of capsule 19:42: capsule [address] foLIC acid 2020-0 Yes 1mg Take 1 mg Un sanam 1 mg tablet 8-15 by mouth ity of 19:42: daily. [address] pantoprazol 2020-0 2020- No [id number] 40mg Take 1 Univers e 8-15 09-15 tablet by ity of (PROTONIX) 00:00: 04:59 mouth [place] 40 mg EC 00 :00 daily for Medica l tablet 30 days. Branch pantoprazol 2020-0 2020- No [id number] 40mg Take 1 Univers e 8-15 09-15 tablet by ity of (PROTONIX) 00:00: 04:59 mouth [place] 40 mg EC 00 :00 daily for Medica l tablet 30 days. Branch pantoprazol 2020-0 2020- No [id number] 40mg Take 1 Univers e 8-15 09-15 tablet by ity of (PROTONIX) 00:00: 04:59 mouth [place] 40 mg EC 00 :00 daily for Medica l tablet 30 days. Branch benzonatate 2020-0 2020- No [id number] 100mg Take 1 Univers (TESSALON 8-15 08-21 capsule by ity of PERLES) 100 00:00: 04:59 mouth [place] mg capsule 00 :00 (three) Medica l times Branch daily as needed for Cough for up to 5 days. dicyclomine 2020-0 2020- No [id number] 10mg Take 1 [facility] (BENTYL) 10 8-15 08-21 capsule by i ty of mg capsule 00:00: 04:59 mouth 3 [place] as 00 :00 (three) Medical times Branch daily as needed for Abdominal pain for up to 5 days. benzonatate 2020-0 2020- No [id number] 100mg Take 1 [facility] (TESSALON 8-15 08-21 capsule by ity of PERLES) 100 00:00: 04:59 mouth 3 [place] mg capsule 00 :00 (three) Medica l times Branch daily as needed for Cough for up to 5 days. dicyclomine 2019-0 2020- No [id number] 10mg Take 1 [facility] (BENTYL) 10 8-15 -21 capsule by i ty of mg capsule 00:00: 04:59 mouth 3 Robert as 00 :00 (three) Medical times Branch daily as needed for Abdominal pain for up to 5 days. FLUoxetine 2020-0 Yes Univers 10 mg 8-04 ity of capsule 00:00: [place] 00 [facility] Branch FLUoxetine 2020-0 Yes Univers 10 mg 8-04 ity of capsule 00:00: [place] 00 [facility] FLUoxetine 2020-0 Yes Univers 10 mg 8-04 ity of capsule 00:00: [place] 00 [facility] Branch FLUoxetine 2020-0 2023- No Univer s 10 mg 8-04 06-29 ity of capsule 00:00: 00:00 [place] 00 :00 Medical Branch Folic Acid 2020-0 Yes Marquez 1 capsule Memoria 7-27 Brandan l 00:00: [place] 00 Folic Acid 2020-0 Yes Marquez 1 capsule Memoria 7-27 Brandan l 00:00: Folic Acid 2020-0 Yes Marquez 1 capsule Memoria 7-27 Brandan l 00:00: [place] 00 Folic Acid 2020-0 Yes Marquez 1 capsule Memoria 7-27 Brandan l 00:00: [place] 00 Folic Acid 2020-0 Yes Marquez 1 capsule Memoria 7-27 Brandan l 00:00: [place] 00 Folic Acid 2020-0 Yes Marquez 1 capsule Memoria 7-27 Brandan l 00:00: [place] 00 Folic Acid 2020-0 Yes Marquez 1 capsule Memoria 7-27 Brandan l 00:00: [place] 00 Folic Acid 2020-0 Yes Marquez 1 [...] 1 capsule Memoria 7-27 Brandan l 00:00: [place] 00 Folic Acid 2020-0 Yes Marquez 1 capsule Memoria 7-27 Brandan l 00:00: [place] 00 Folic Acid 2020-0 Yes Marquez 1 capsule Memoria 7-27 Brandan l 00:00: [place] 00 Folic Acid 2020-0 Yes Marquez 1 capsule Memoria 7-27 Brandan l 00:00: [place] 00 Folic Acid 2020-0 Yes Marquez 1 capsule Memoria 7-27 Brandan l 00:00: [place] 00 Folic Acid 2020-0 Yes Marquez 1 capsule Memoria 7-27 Brandan l 00:00: [place] 00 donepezil 5 2020-0 Yes TAKE 1 Univ ers mg tablet 7-21 TABLET BY ity o f 00:00: MOUTH EVERY DAY Medical AT NIGHT Branch donepezil 5 2020-0 Yes TAKE 1 Univ ers mg tablet 7-21 TABLET BY ity o f 00:00: MOUTH EVERY DAY Medical AT NIGHT Branch donepezil 5 2020-0 Yes TAKE 1 Univ ers mg tablet 7-21 TABLET BY ity o f 00:00: MOUTH EVERY DAY Medical AT NIGHT Branch donepezil 5 2020-0 3- No TAKE 1 Uni vers mg tablet 02-10 TABLET BY ity of 00:00: 00:00 MOUTH [place] 00 :00 EVERY DAY Medical AT NIGHT Branch losartan 25 2020-0 Yes 25mg Take 25 mg Univers mg tablet 12-25 by mouth ity of 00:00: daily. [place] [facility] losartan 25 2020-0 Yes 25mg Take 25 mg Univers mg tablet 12-25 by mouth ity of 00:00: daily. [place] [facility] losartan 25 2020-0 Yes 25mg Take 25 mg Univers mg tablet 12-25 by mouth ity of 00:00: daily. [place] [address] Medical Branch losartan 25 2020-0 3- No 25mg Take 25 mg Univers mg tablet 12-25 by mouth ity o f 00:00: 00:00 daily. [place] 00 :00 Medical Branch PredniSONE 2020-0 Yes [...] Vo tablets as l 00:00: needed for [place] 00 joint pain Leflunomide 2020-0 Yes Marquez 1 [...] 2020-0 Yes Marquez 1 tablet Memoria 5-28 Branadn l 00:00: PredniSONE 2020-0 Yes Marisol 1-2 [...] 2020-0 Yes Huma 3 tablets Memoria 5-27 Michale l 00:00: Celecoxib 2020-0 Yes Huma 1 [...] Memoria 5-27 Michael with food l 00:00: [place] 00 Folic Acid 2020-0 Yes Huma 3 [...] 3 tablets Memoria 2-03 Vo l 00:00: [place] 00 Folic Acid 2020-0 Yes Marisol 3 tablets Memoria 2-03 Vo l 00:00: [place] 00 Folic Acid 2020-0 Yes Marisol 3 tablets Memoria 2-03 Vo l 00:00: [place] 00 Folic Acid 2020-0 Yes Marisol 3 tablets Memoria 2-03 Vo l 00:00: [place] 00 Folic Acid 2020-0 Yes Marisol 3 tablets Memoria 2-03 Vo l 00:00: [place] 00 Folic Acid 2020-0 Yes Marisol 3 tablets Memoria 2-03 Vo l 00:00: [place] 00 Folic Acid 2020-0 Yes Marisol 3 tablets Memoria 2-03 Vo l 00:00: [place] 00 Folic Acid 2020-0 Yes Marisol 3 tablets Memoria 2-03 Vo l 00:00: [place] 00 Folic Acid 2020-0 Yes Marisol 3 tablets Memoria 2- Vo l 00:00: Folic Acid 2020-0 Yes Marisol 3 tablets Memoria 2-03 Vo l 00:00: [place] 00 Folic Acid 2020-0 Yes Marisol 3 tablets Memoria 2-03 Vo l 00:00: Folic Acid 2020-0 Yes Marisol 3 tablets Memoria 2- Vo l 00:00: Folic Acid 2020-0 Yes Marisol 3 tablets Memoria 2- Vo l 00:00: Folic Acid 2020-0 Yes Marisol 3 tablets Memoria 2- Vo l 00:00: Folic Acid 2020-0 Yes Marisol 3 tablets Memoria 2- Vo l 00:00: fluorometho 2019-1 2020- No fluorometh Univers lone 0.1 % 2-26 08-15 olone 0.1 ity of ophthalmic 00:00: 00:00 [...] 3 tablets Memoria 2- Vo l 00:00: [place] 00 Folic Acid 2019-1 Yes Marisol 3 tablets Memoria 2- Vo l 00:00: [place] 00 Folic Acid 2019-1 Yes Marisol 3 tablets Memoria 2- Vo l 00:00: [place] 00 Folic Acid 2019-1 Yes Marisol 3 tablets Memoria 2- Vo l 00:00: [place] 00 Folic Acid 2019-1 Yes Marisol 3 tablets Memoria 2- Vo l 00:00: [place] 00 Folic Acid 2019-1 Yes Marisol 3 tablets Memoria 2- Vo l 00:00: [place] 00 Folic Acid 2019-1 Yes Marisol 3 tablets Memoria 2- Vo l 00:00: [place] 00 Folic Acid 2019-1 Yes Marisol 3 tablets Memoria 2- Vo l 00:00: [place] 00 Folic Acid 2019-1 Yes Marisol 3 tablets Memoria 2- Vo l 00:00: [place] 00 Folic Acid 2019-1 Yes Marisol 3 tablets [...] 3 tablets Memoria 1-24 Vo l 00:00: [place] 00 Folic Acid 2019-1 Yes Marisol 3 tablets Memoria 1-24 Vo l 00:00: [place] 00 Folic Acid 2019-1 Yes Marisol 3 tablets Memoria 1-24 Vo l 00:00: [place] 00 Folic Acid 2019-1 Yes Marisol 3 tablets Memoria 1-24 Vo l 00:00: [place] 00 Folic Acid 2019-1 Yes Marisol 3 tablets Memoria 1-24 Vo l 00:00: [place] 00 Folic Acid 2019-1 Yes Marisol 3 tablets Memoria 1-24 Vo l 00:00: [place] 00 Folic Acid 2019-1 Yes Marisol 3 tablets [...] 7-31 Vo as needed l 02:46: [place] Celecoxib 2019- Yes Marisol 1 capsule Memoria 7-31 Vo with food l 02:46: [place] Tramadol 2019 Yes Marisol 1 tablet Memoria HCl 7-31 Vo as needed l 02:46: [place] Shirley Celecoxib 2019-0 Yes Marisol 1 capsule Memoria 7-31 Vo with food l 02:46: [place] Shirley Tramadol 2019- Yes Marisol 1 tablet Memoria HCl 7-31 Vo as needed l 02:46: [place] Shirley Celecoxib 2019-0 Yes Marisol 1 capsule Memoria 7-31 Vo with food l 02:46: [place] Shirley Tramadol 2019- Yes Marisol 1 tablet Memoria HCl 7-31 Vo as needed l 02:46: [place] Shirley Celecoxib 2019-0 Yes Marisol 1 capsule Memoria 7-31 Vo with food l 02:46: [place] Shirley Tramadol 2019-0 Yes Marisol 1 tablet Memoria HCl 7-31 Vo as needed l 02:46: [place] Shirley Celecoxib 2019-0 Yes Marisol 1 capsule Memoria 7-31 Vo with food l 02:46: [place] Shirley Tramadol 2019-0 Yes Marisol 1 tablet Memoria HCl 7-31 Vo as needed l 02:46: [place] Shirley Celecoxib 2019-0 Yes Marisol 1 capsule Memoria 7-31 Vo with food l 02:46: [place] Shirley Tramadol 2019-0 Yes Marisol 1 tablet Memoria [...] with food l 02:46: [place] Shirley Tramadol 2019- Yes Marisol 1 tablet Memoria HCl 7-31 [...] tablets Memoria e 5-21 Vo l 00:00: [place] 00 Immunizations Ordered Immunization Filled Immunization Date Status Commen ts Source Name Name PFIZER >12 YR 2022-08-05 Completed [facility] COVID-19 MRNA 00:00:00 Hospital BIVALENT VACCINATION PFIZER >12 YR 2022-08-05 Completed [facility] COVID-19 MRNA 00:00:00 Hospital BIVALENT VACCINATION FLUCELVAX QUAD PF 2022-05-[address] 00:[facility] Hospital FLUCELVAX QUAD PF 2022-05-[address] 00:00:00 [facility] PFIZER COVID-19 MRNA 2021-05-31 Completed Meth odist VACCINATION 00:00:00 [facility] PFIZER COVID-19 MRNA 2021-05-31 Completed Meth odist VACCINATION 00:00:00 [facility] PFIZER COVID-19 MRNA 2021-05-31 Completed Meth odist VACCINATION 00:00:00 [facility] PFIZER COVID-19 MRNA 2021-05-31 Completed Meth odist VACCINATION 00:00:00 [facility] PFIZER COVID-19 MRNA 2021-04-24 Completed Meth odist VACCINATION 00:00:00 [facility] PFIZER COVID-19 MRNA 2021-04-24 Completed Meth odist VACCINATION 00:00:00 [facility] PFIZER COVID-19 MRNA 2020-09-15 Completed Meth odist VACCINATION 00:00:00 [facility] PFIZER COVID-19 MRNA 2020-09-15 Completed Meth odist VACCINATION 00:00:00 [facility] PFIZER COVID-19 MRNA 2020-09-15 Completed Meth odist VACCINATION 00:00:00 [facility] PFIZER COVID-19 MRNA 2020-09-15 Completed Meth odist VACCINATION 00:00:00 [facility] PFIZER COVID-19 MRNA 2020-08-19 Completed Meth odist VACCINATION 00:00:00 [facility] PFIZER COVID-19 MRNA 2020-08-19 Completed Meth odist VACCINATION 00:00:00 [facility] PFIZER COVID-19 MRNA 2020-08-19 Completed Meth odist VACCINATION 00:00:00 [facility] PFIZER COVID-19 MRNA 2020-08-19 Completed Meth odist VACCINATION 00:00:00 [facility] FLUZONE HIGH-DOSE PF 2018-05-09 Completed Meth odist 00:00:00 [facility] FLUZONE HIGH-DOSE PF 2018-05-09 Completed Meth odist 00:00:00 [facility] Influenza Trivalent 2014-04-23 Completed [facility] 00:00:00 Hospital Influenza Trivalent 2014-04-23 Completed [facility] 00:00:00 Hospital Zoster 2013-11-21 Completed [facility] 00:00:00 Hospital Zoster 2013-11-21 Completed [facility] 00:00:00 Hospital Pneumococcal 2013-04-23 Completed [facility] Polysaccharide 00:00:00 Hospital Pneumococcal 2013-04-23 Completed [facility] Polysaccharide 00:00:00 Hospital H1N1 All Forms 2009 Completed [facility] 00:00:00 Hospital H1N1 All Forms 2009 Completed [facility] 00:00:00 Hospital Vital Signs Vital Name Observation Time Observation Value Comments Source Systolic blood 2023-02-15 15:34:00 94 mm[Hg] Univer sity of pressure [facility] Diastolic blood 2023-02-15 15:34:00 56 mm[Hg] Unive rsity of [facility] Heart rate 2023-02-15 15:34:00 93 /min Universi ty [facility] Respiratory rate 2023-02-15 15:34:00 16 /min [facility] Body height 2023-02-15 15:34:00 [facility] Body weight 2023-02-15 15:34:00 65.913 kg [facility] BMI 2023-02-15 15:34:00 24.56 kg/m2 [facility] Oxygen saturation in 2023-02-15 15:34:00 94 /min University of Arterial blood by [facility] Pulse oximetry Branch Systolic blood 2023-01-21 16:49:00 126 mm[Hg] Univer sity of pressure [facility] Diastolic blood 2023-01-21 16:49:00 64 mm[Hg] Unive rsity of pressure [facility] Heart rate 2023-01-21 16:49:00 68 /min Universi ty [facility] Body temperature 2023-01-21 16:49:00 36.83 Jackie [facility] 2023-01-21 16:49:00 18 /min [facility] O[facility] saturation in 2023-01-21 16:49:00 94 /min University of Arterial blood by [facility] Pulse oximetry Branch Body weight 2023-01-21 08:35:00 67.994 kg Universi ty of [place] [facility] BMI 2023-01-21 08:35:00 25.73 kg/m2 Universi ty of [facility] Body height 2023-01-19 23:46:00 162.6 cm Universi ty of [place] [facility] Systolic blood 2020-03-07 19:39:00 101 mm[Hg] Univer sity of pressure [facility] Diastolic blood 2020-03-07 19:39:00 61 mm[Hg] Unive rsity of pressure [facility] Heart rate 2020-03-07 19:39:00 80 /min Universi ty of [facility] Body temperature 2020-03-07 19:39:00 37 Jackie Univ ersity of [facility] Respiratory rate 2020-03-07 19:39:00 18 /min Univ ersity of [place] [facility] Body weight 2020-03-07 19:39:00 80.74 kg Universi ty of [facility] Oxygen saturation in 2020-03-07 19:39:00 96 /min University of Arterial blood by [facility] luis fernando Pulse oximetry Branch Systolic blood 2020-03-07 19:39:00 101 mm[Hg] Univer sity of pressure [place] [facility] Diastolic blood 2020-03-07 19:39:00 61 mm[Hg] Unive rsity of pressure [facility] Heart rate 2020-03-07 19:39:00 80 /min Universi ty of [place] [facility] [place] Body temperature 2020-03-07 19:39:00 37 Jackie Univ ersity of [facility] Respiratory rate 2020-03-07 19:39:00 18 /min Univ ersity of [facility] Body weight 2020-03-07 19:39:00 80.74 kg Universi ty of [facility] Oxygen saturation in 2020-03-07 19:39:00 96 /min University of Arterial blood by [facility] luis fernando Pulse oximetry Branch Systolic blood 2022-11-02 15:40:00 146 mm[Hg] Method ist [facility] pressure Diastolic blood 2022-11-02 15:40:00 76 mm[Hg] [facility] pressure Heart rate 2022-11-02 15:40:00 71 /min Method[facility] Body temperature 2022-11-02 15:40:00 36.28 [facility] 2022-11-02 15:40:00 162.6 cm [facility] Body weight 2022-11-02 15:40:00 69.4 kg [facility] BMI 2022-11-02 15:40:00 26.26 kg/m2 [facility] Systolic blood 2022-09-15 01:14:55 125 mm[Hg] Method ist Hospital pressure Diastolic blood 2022-09-15 01:14:55 71 mm[Hg] [facility] pressure Heart rate 2022-09-15 01:14:55 82 /min [facility] Body temperature 2022-09-15 01:14:55 36 Jackie [facility] Respiratory rate 2022-09-15 01:14:55 17 /min [facility] Oxygen saturation in 2022-09-15 01:14:55 93 /min [facility] Arterial blood by Pulse oximetry Body height 2022-09-12 16:05:00 163.8 cm [facility] Body weight 2022-09-12 16:05:00 67.586 kg [facility] BMI 2022-09-12 16:05:00 25.18 kg/m2 [facility] Systolic blood 2022-08-25 00:43:00 134 mm[Hg] Method ist Hospital pressure Diastolic blood 2022-08-25 00:43:00 82 [facility] Heart rate 2022-08-25 00:43:00 93 /min [facility] Body temperature 2022-08-25 00:43:00 37 Jackie [facility] Respiratory rate 2022-08-25 00:43:00 18 /min [facility] Body height 2022-08-25 00:43:00 162.6 cm [facility] Body weight 2022-08-25 00:43:00 75.297 kg [facility] BMI 2022-08-25 00:43:00 28.49 kg/m2 [facility] Oxygen saturation in 2022-08-25 00:43:00 96 /min [facility] Arterial blood by Pulse oximetry Weight 2022-02-01 19:20:00 [facility] Height 2022-02-01 19:20:00 [facility] Heart Rate 2022-02-01 19:20:00 [facility] Diastolic (mm Hg) 2022-02-01 19:20:00 Mem orial [place] Systolic (mm Hg) 2022-02-01 19:20:00 Yung rial [place] Weight 2021-11-02 19:30:00 [facility] [place] Height 2021-11-02 19:30:00 [facility] [place] Heart Rate 2021-11-02 19:30:00 [facility] [place] Diastolic (mm Hg) 2021-11-02 19:30:00 Mem orial [place] Systolic (mm Hg) 2021-11-02 19:30:00 Yung rial [place] Weight 2021-05-11 19:30:00 [facility] [place] Height 2021-05-11 19:30:00 [facility] [place] Heart Rate 2021-05-11 19:30:00 [facility] [place] Diastolic (mm Hg) 2021-05-11 19:30:00 Mem orial [place] Systolic (mm Hg) 2021-05-11 19:30:00 Yung rial [place] Weight 2021-02-03 18:50:00 [facility] [place] Height 2021-02-03 18:50:00 [facility] [place] Temperature Oral (F) 2021-02-03 18:50:00 97.1 F [facility] [place] Heart Rate 2021-02-03 18:50:00 [facility] [place] Diastolic (mm Hg) 2021-02-03 18:50:00 Mem orial [place] Systolic (mm Hg) 2021-02-03 18:50:00 Yung rial [place] Weight 2020-11-04 19:20:00 [facility] [place] Height 2020-11-04 19:20:00 [facility] [place] Heart Rate 2020-11-04 19:20:00 [facility] [place] Diastolic (mm Hg) 2020-11-04 19:20:00 Mem orial [place] Systolic (mm Hg) 2020-11-04 19:20:00 Yung rial [place] Weight 2019-09-19 19:45:00 [facility] [place] Height 2019-09-19 19:45:00 [facility] [place] Heart Rate 2019-09-19 19:45:00 [facility] [place] Diastolic (mm Hg) 2019-09-19 19:45:00 Mem orial [place] Systolic (mm Hg) 2019-09-19 19:45:00 Yung rial [place] Weight 2019-06-27 16:15:00 [facility] [place] Height 2019-06-27 16:15:00 [facility] [place] Heart Rate 2019-06-27 16:15:00 [facility] [place] Diastolic (mm Hg) 2019-06-27 16:15:00 Mem orial [place] Systolic (mm Hg) 2019-06-27 16:15:00 Yung rial [place] Heart Rate 2019-03-18 15:30:00 [facility] [place] Diastolic (mm Hg) 2019-03-18 15:30:00 Mem orial [place] Systolic (mm Hg) 2019-03-18 15:30:00 Yung rial [place] Weight 2019-03-18 15:30:00 [facility] [place] Height 2019-03-18 15:30:00 [facility] [place] Weight 2019-01-18 15:30:00 [facility] [place] Height 2019-01-18 15:30:00 [facility] [place] Heart Rate 2019-01-18 15:30:00 [facility] [place] Diastolic (mm Hg) 2019-01-18 15:30:00 Mem orial [place] Systolic (mm Hg) 2019-01-18 15:30:00 Yung rial [place] Weight 2018-12-11 16:30:00 [facility] [place] Height 2018-12-11 16:30:00 [facility] [place] Heart Rate 2018-12-11 16:30:00 [facility] [place] Diastolic (mm Hg) 2018-12-11 16:30:00 Mem orial [place] Systolic (mm Hg) 2018-12-11 16:30:00 Yung rial [place] Procedures Procedure Date / Time Performing Clinician Source Performed ASSIGNMENT OF BENEFITS 2023-02-15 15:23:06 Doctor Unassigned, Un [facility] Declo Medical Branch BASIC METABOLIC PANEL 2023-01-21 08:46:00 Idalia [place] [facility] (NA, K, CL, CO2, GLUCOSE, Medica l Branch BUN, CREATININE, CA) CBC WITH DIFF 2023-01-21 08:46:00 Idalia Montana [facility] Medical Branch BASIC METABOLIC PANEL 2023-01-20 09:32:00 [facility] [place] [facility], K, CL, CO2, GLUCOSE, Medica l Branch BUN, CREATININE, CA) CBC WITH DIFF 2023-01-20 09:32:00 Derick Croft o f [facility] OCCULT (GUAIAC) BLOOD 2023-01-20 01:52:00 [facility] CLOSTRIDIUM DIFFICILE 2023-01-20 01:52:00 [facility] FECAL PATHOGENS BY PCR 2023-01-20 01:52:00 Derick Croft [facility] XR LUMBAR SPINE 2 OR 3 VW 2022-12-27 19:25:00 Sawyer, [facility] XR LUMBAR SPINE 2 OR 3 VW 2022-09-27 18:49:00 Sawyer, [facility] COLOR FUNDUS PHOTOGRAPHY 2022-09-23 21:05:53 [facility] POC GLUCOSE 2022-09-14 17:42:00 Sawyer, [facility] POC GLUCOSE 2022-09-14 14:18:00 [facility] 2022-09-13 23:45:00 Sawyer, [facility] POC GLUCOSE 2022-09-13 [facility]:56[facility] 2022-09-13 14:31:00 [facility] BASIC METABOLIC PANEL 2022-09-13 10:19:00 [facility] CBC WITH PLATELET AND 2022-09-13 10:19:00 [facility] DIFFERENTIAL ESTIMATED GFR 2022-09-13 10:19:00 [facility] SURGICAL PATHOLOGY 2022-09-12 20:51:00 [facility] REQUEST OR FL > 1 HOUR 2022-09-12 19:25:00 [facility] ARTERIAL LINE 2022-09-12 19:01:33 Louie Womacktal Oliverio PA AN ELECTIVE 2022-09-12 17:52:00 Louie Womack spital ENDOTRACHEAL AIRWAY Oliverio HC NERVE BLOCK QUADRATUS 2022-09-12 17:43:55 Louie Womack [facility] LUMBORUM Oliverio FUSION,LUMBAR,XLIF,WITH 2022-09-12 17:43:00 Sawyer [facility] POSTERIOR FUSION URINE CULTURE 2022-09-08 00:02:00 [facility] ospital Angelique URINALYSIS SCREEN AND 2022-09-08 00:02:00 [facility] MICROSCOPY, WITH REFLEX Angelique TO CULTURE TYPE AND SCREEN 2022-09-07 23:22:00 [facility] ospital Angelique PARTIAL THROMBOPLASTIN 2022-09-07 23:22:00 [facility] TIME (PTT) Angelique PROTHROMBIN TIME WITH INR 2022-09-07 23:22:00 [facility] Angelique CBC WITH PLATELET AND 2022-09-07 23:22:00 [facility] DIFFERENTIAL Angelique COMPREHENSIVE METABOLIC 2022-09-07 23:22:00 [facility] PANEL Angelique HEMOGLOBIN A1C 2022-09-07 23:22:00 [facility] ospital Angelique ESTIMATED GFR 2022-09-07 23:22:00 [facility] ospital Angelique ECG PRE/POST OP 2022-09-07 23:17:50 [facility] ospital Angelique CT LUMBAR SPINE WO 2022-08-29 23:01:20 Jose Gaines [facility] CONTRAST MRI LUMBAR SPINE WO 2022-08-24 21:24:[address] [facility] CONTRAST MRI THORACIC SPINE WO 2022-08-24 21:18:02 Paulette Mendoza [facility] CONTRAST CT SPINE EXTERNAL STUDY 2022-08-17 07:12:00 Sawyer [facility] CT SPINE EXTERNAL STUDY 2022-08-17 07:08:00 Sawyer [facility] CT HEAD EXTERNAL STUDY 2022-08-17 07:06[facility] SCOLIOSIS 2-3 2022-08-09 19:10:00 Mendoza, Jill [facility] VIEWS XR THORACIC SPINE 2022-08-09 19:10:00 Paulette Mendoza [facility] COMPLETE 4+ VW XR LUMBAR SPINE AP 2022-08-09 19:09:[address] [facility] LATERAL FLEXION AND EXTENSION MRI BRAIN WO CONTRAST 2022 17:45:00 Carina Gilliam [facility] [place] CBC WITH PLATELET AND 2022-05-13 07:38[facility]OL[facility] 2022-05-13 07:38:00 [facility] PANEL ESTIMATED GFR 2022-05-13 07:38:00 Cody [facility] spital ZZCOVID-19 ANTI-SPIKE IGG 2022-05-12 17:56:00 [facility] ANTIBODY TITER Lalo ZZCOVID-19 SEROLOGY 2022-05-12 17:56:[address] [facility] [place] [place] PATIENT SURVEILLANCE [place] CBC WITH PLATELET AND 2022-05-12 09:43:00 [facility]ENSIVE METABOLIC 2022-05-12 09:43:00 Cody [facility] PANEL ESTIMATED GFR 2022-05-12 09:43:00 Cody [facility] spital COVID-19 QUALITATIVE 2022-05-12 05:57:00 [facility] RT-PCR Gaudencio R. ECG ED PRELIMINARY 2022-05-11 23:39:[address] [facility] INTERPRETATION Gaudencio R. CBC WITH PLATELET AND 2022-05-11 23:01:00 [facility] DIFFERENTIAL Gaudencio R. COMPREHENSIVE METABOLIC 2022-05-11 23:01:00 [facility] PANEL Gaudencio R. ESTIMATED GFR 2022-05-11 23:01[facility] spital Gaudencio R. ECG 12-LEAD 2022-05-11 22:00:21 [facility] Gaud[facility] R. XR CHEST 1 VW COVID 2020-03-07 20:35:42 Brooke Poole [facility] Plan of Care Planned Activity Planned Date Details Comments Source Future Scheduled 2023-02-27 Hepatitis C screening Me [facility] Test 09:41:30 (procedure) [code = 611697119] Future Scheduled 2023-02-27 SHINGLES VACCINES (2 Met [facility] Test 09:41:30 of 3) [code = SHINGLES VACCINES (2 of 3)] Future Scheduled 2023-02-27 65+ PNEUMOCOCCAL [facility] Test 09:41:30 VACCINE (2 - PCV) [code = 65+ PNEUMOCOCCAL VACCINE (2 - PCV)] Future Scheduled 2023-02-27 COVID-19 [facility]30 Pfizer series) [code = COVID-19 VACCINE (6 - Pfizer series)] Future Scheduled 2023-02-27 ZZZ INFLUENZA VACCINE Me [facility]di Hospital Test 09:41:30 [code = ZZZ INFLUENZA VACCINE] Future Scheduled 2023-02-16 Hepatitis C screening [facility] Test 09:25:17 (procedure) [code = [id number]] Future Scheduled 2023-02-16 SHINGLES VACCINES (2 Met [facility] Test 09:25:17 of 3) [code = SHINGLES VACCINES (2 of 3)] Future Scheduled 2023-02-16 65+ PNEUMOCOCCAL [facility] Test 09:25:17 VACCINE (2 - PCV) [code = 65+ PNEUMOCOCCAL VACCINE (2 - PCV)] Future Scheduled 2023-02-16 COVID-19 [facility]ACCINE [facility] 09:25:17 Pfizer series) [code = COVID-19 VACCINE (6 - Pfizer series)] Future Scheduled 2023-02-16 INFLUENZA VACCINE Method [facility] Test 09:25:17 [code = INFLUENZA VACCINE] Future Scheduled 2022-09-20 Hepatitis C screening Me [facility] Test 07:12:20 (procedure) [code = [id number]] Future Scheduled 2022-09-20 SHINGLES VACCINES (2 Met [facility] Test 07:12:20 of 3) [code = SHINGLES VACCINES (2 of 3)] Future Scheduled 2022-09-20 65+ PNEUMOCOCCAL [facility] Test 07:12:20 VACCINE (2 - PCV) [code = 65+ PNEUMOCOCCAL VACCINE (2 - PCV)] Future Scheduled 2022-08-30 Hepatitis C screening Me [facility] Test 10:49:29 (procedure) [code = 691515450] Future Scheduled 2022-08-30 SHINGLES VACCINES (2 [facility] Test 10:49:29 of 3) [code = SHINGLES VACCINES (2 of 3)] Future Scheduled 2022-08-30 65+ PNEUMOCOCCAL [facility] Test 10:49:29 VACCINE (2 - PCV) [code = 65+ PNEUMOCOCCAL VACCINE (2 - PCV)] Future Scheduled 2022-08-30 INFLUENZA VACCINE [facility] Test 10:49:29 [code = INFLUENZA VACCINE] Encounters Start End Encounter Admission Attending Care Care Encounter Source Date/Time Date/Time Type Type Clinicians Facility Department ID 2023-03-17 Outpatient [id number] A9D6 62B0-9 Memoria 19:45:48 40K9-84EE A3-44BF-A8F 6F0-28JO- A l -Z5B5-7LK 7-6QR4S6N94 5D3-0XH7G6 Bennett [id number] 433 P03831 2023-02-28 Outpatient [id number]- K3S73P60-9U E3A1 9F55-5 Memoria 15:17:05 5DAF-4488 AF-4488-B5B DAF-4488- B l -A4AZ-09G E-08HT8122H 5BE-16FD34 Bennett V1150MRU7 DA6 98CDA6 2023-02-16 Outpatient IIEF10HP- MUGL19FX-J1 FDCF 88DA-E Memoria 11:48:56 X41A-875N 4A-434F-AC1 44A-434F- A l -DX12-826 9-687OSJ703 P67-800WPR Bennett LYQ637WO9 DD3 764DD3 2023-02-15 Outpatient Q000DCF7- C739FRW1-74 B732 FEF6-8 Memoria 10:36:32 35B1-53Q1 D8-39M3-4K3 6W6-78W6- 9 l -4W8L-JNX C-HZB0R662O Z0C-CAR6Z9 Bennett [id number] 736 07D997 2023-02-15 Outpatient 1M42XF8B- 2D42WW8J-R2 5F20 AD7C-F Memoria 07:26:11 X863-92ER 58-41FC-8F1 858-41FC- 8 l -3Q59-QT9 9-DZ7166YR4 P55-BR4789 Bennett 917PV82VS 2EF CB42EF 2023-01-19 Outpatient [id number]- K3X52759-MK C4D6 1681-F Memoria 17:45:37 HL54-330O 68-452A-B27 G45-227E- B l -K64K-08T A-76HETJD16 27A-32ADBC Bennett [id number] 937 W75346 2022-12-27 Outpatient [id number]- J06243TN-[id number] E165 76BD-2 Memoria 17:24:03 31Z4-5811 B2-4056-B85 5V9-1661- B l -Q634-II5 3-SS3X28204 853-FB5A51 Bennett [id number] 869 915048 5406-05-01 [facility] [id number]- KD702695-80 FA78 1374-6 Memoria 10:10:17 6704-4FA4 04-0XJ6-IB7 704-4FA4- A l -ZX6B-T2X E-R7URE7512 V8U-C2XZM6 Bennett [id number] F27 039F27 2022-09-27 Outpatient [id number]- 3607F63G-28 7838 E87B-8 Memoria 16:39:42 83BC-4EBD BC-4EBD-A98 3BC-4EBD- A l -Y68C-E5G B-E9IW67554 98B-E7AA21 Bennett L196337T9 0D3 9650D3 2022-09-23 Outpatient [id number]- 33514I34-90 8682 4B78-1 Memoria 17:05:11 1422-44E8 22-61Y8-72P 422-44E8- 9 l -61N7-525 2-6041G85X6 7L0-5074P0 Bennett 3M88G30M7 1F4 3E31F4 2022-09-22 Outpatient WO76S8Q9- WB36P4N4-F0 FB26 E9C5-D Memoria 12:58:09 U19W-61Q4 3E-72X7-TF9 33E-48B3- A l -CJ1R-24N C-05C8MG439 T6Q-37N9NW Bennett 8HG47593O 46E 04822H 2022-09-12 Outpatient M3Z3E5HL- J9J6B9XK-QH A1E4 F9CA-A Memoria 11:54:28 NK54-2309 70-4044-A27 D13-3720- A l -B424-OT9 3-MV4S582V0 273-EA9E24 Bennett T873M4916 123 6L9027 2022-08-30 Outpatient T7G072MX- H4R575RX-CK D3F6 03DC-E Memoria 10:49:28 XO75-6IW9 26-7LG2-10M J66-9IC1- 9 l -14R1-S5L 5-M5QQ14O3K 9Z2-S4WA76 Bennett Y92J0B8AG 1AC D2D1AC 2022-08-29 Outpatient [id number]- E088641T-R4 C987 408B-D Memoria 19:07:01 U7F0-08VB B9-44CB-BC4 2A5-62KU- B l -PR7L-4X0 E-7W3JJE944 E0P-2K0ZAW Bennett KDX5363K0 9F6 3989F6 2022-08-24 Outpatient [id number]- [id number]-MG E772 338C-C Memoria 17:24:19 OZ0E-980I 8B-414E-A56 Z3I-111T- A l -M40V-335 A-779W76M6W 56A-405A04 Bennett T88W0YX74 B58 D3BB58 2022-08-09 Outpatient 9G5V0X1Y- 9B9X6T3O-62 2A2B 4D5E-8 Memoria 14:23:53 826D-4B61 6D-6C55-6S0 26D-4B61- 9 l -1M04-41U 5-54DSLI350 C16-82PUKV Bennett VWV344M09 A80 027A80 2022 Outpatient 0824F6WG- 9559N7IJ-3S 0380 D1CE-0 Memoria 13:47:08 4K69-82X4 02-76P5-FR4 C98-37L6- B l -HU43-55I 5-09U6CA33L V24-39L3YF Bennett 8VW86QY50 C72 48CC72 2022-05-11 Outpatient [id number]- 4437871Q-7F 0745 359C-7 Memoria 18:19:00 2Y4N-4B0Y 3A-6O6P-20W W1W-8Q6A- 8 l -03M0-1KB 6-2XBH9MRMN 7J5-2EKV9F Bennett Q6COSM885 680 CCH412 2021-03-16 Outpatient 6ODSEQP2- 9QWVPAW7-G6 3BBE ACF2-F Memoria 14:22:00 X4D5-020A B6-433D-825 6A3-221U- 8 l -8257-F81 7-N12TMS827 257-F81EAD Bennett WMD69279F 55F 41016K 2021-03-03 Outpatient T29126OE- J33284KA-38 F806 83BA-1 Memoria 13:19:06 10DB-4ECC DB-4ECC-B96 0DB-4ECC- B l -R830-FIU 8-OCZWIOA9H 968-CFBACB Bennett EFOA1F7NY 9EE A6D9EE 2023-06-29 2023-06-29 Outpatient R [facility] [id number] Univers 20:00:00 20:00:00 [facility] 2023-06-29 2023-06-29 Outpatient R [facility] [id number] Univers 20:00:00 20:00:00 [facility] 2023-03-21 2023-03-21 Outpatient R [facility] [id number] Univers 20:00:00 20:00:00 [facility] 2023-03-10 2023-03-10 Outpatient R [facility] [id number] Univers 20:00:00 20:00:00 ity of [facility] 2023-02-15 2023-02-[address] [facility] 1.2.945.844 [id number] Univers 10:30:00 11:00:00 Visit Rocío JJ 350.1.13.10 [place] [phone] Co dical NAL 085 [facility] 2023-02-15 2023-02-15 Outpatient R ROCÍO HERNÁNDEZ [facility] [id number] Univers 10:30:00 10:52:46 DUKE HERNÁNDEZAKIlene ity of [facility] 2023-02-15 2023-02-15 Orders Doctor MARVIN 1.2.840.114 [id number] Univers 00:00:00 00:00:00 Only Unassigned, CAYLA 350.1.13.10 ity of Declo [facility] 4.2.7.2.686 Robert as [phone] [facility] [address] 2023-01-23 2023-01-23 Refill Shannan, 1.2.840.1 [id number] 5973 Methodi 00:00:00 00:00:[address] 3.430.2.7 Hospit a .3.231834 l .8 2023-01-23 2023-01-23 Refill Shannan, 1.2.840.1 [id number] 828911 4593 Methodi 00:00:00 00:00:[address] 3.430.2.7 Hospit a .3.380332 l .8 2023-01-23 2023-01-23 Transition EVIE Goldstein 1.2.840.114 104 [id number] Univers 00:00:00 00:00:00 of Care Gee GONZALEZ 350.1.13.10 ity [place] [id number] [facility] [address] 2023-01-19 2023-01-21 Outpatient Guy [facility] [id number] Univers 17:27:00 16:30:00 DERICK itgregg of [facility] 2023-01-19 2023-01-21 [facility] 1.2.840.114 [id number] Univers 17:27:00 16:30:00 Encounter Derick JJ 350.1.13.10 itLola 4.2.7.2.686 [facility] [phone] [address] 2023-01-09 2023-01-09 Telephone José Miguel, 1.2.840.1 [id number] 2099 [id number] Methodi 00:00:00 00:00:[address] 3.430.2.7 Hospit a .3.299652 l .8 2023-01-09 2023-01-09 Telephone José Miguel, 1.2.840.1 [id number] 2099 [id number] Methodi 00:00:00 00:00:[address] 3.430.2.7 Hospit a .3.003663 l .8 2022-12-29 2022-12-29 Refill Mendoza, 1.2.840.1 [id number] 2099 571245 Methodi 00:00:00 00:00:00 [address]is [address] 3.430.2.7 Hospit a .3.186608 l .8 2022-12-29 2022-12-29 Refill Mendoza, 1.2.840.1 [id number] 2099 760836 Methodi 00:00:00 00:00:00 [address]au[address]onis [address] 3.430.2.7 Hospit a .3.984614 l .8 2022-12-27 2022-12-27 Hospital Jose Gaines 1.2.840.1 [id number] 2 [id number] Methodi 14:00:00 23:59:00 Encounter Too 46433.1.[address] 3.430.2.7 Hospit a .3.539675 l .8 2022-12-27 2022-12-27 [facility] Jose Gaines 1.2.840.1 [id number] 2 [id number] Methodi 14:00:00 23:59:00 Encounter Too 64906.1.[address] 3.430.2.7 Hospit a .3.450659 l .8 2022-12-27 2022-12-27 Office Sawyer, Jose 1.2.840.1 [id number] 21 [id number] Methodi 14:45:00 16:06:03 Visit Too 03663.1.[address] 3.430.2.7 Hospit a .3.647817 l .8 2022-12-27 2022-12-27 Office Sawyer, Jose 1.2.840.1 [id number] 21 [id number] Methodi 14:45:00 16:06:03 Visit Too 38991.1.[address] 3.430.2.7 Hospit a .3.360986 l .8 2022-12-27 2022-12-27 Travel 1.2.840.1 1.2.916.665 9995 989449 Methodi 00:00:00 00:00:[address] 3.430.2.7 0.2.7.3.698 Ho spita .3.465047 084.8 l .8 2022-12-27 2022-12-27 Orders Sawyer, Jose 1.2.840.1 [id number] 21 [id number] Methodi 00:00:00 00:00:00 Only Too 00867.1.[address] 3.430.2.7 Hospit a .3.122898 l .8 2022-12-27 2022-12-27 Travel 1.2.840.1 1.2.246.275 1129 648671 Methodi 00:00:00 00:00:[address] 3.430.2.7 0.2.7.3.698 Ho spita .3.266688 084.8 l .8 2022-12-27 2022-12-27 Orders Sawyer, Jose 1.2.840.1 [id number] 21 [id number] Methodi 00:00:00 00:00:00 Only Too 73685.1.[address] 3.430.2.7 Hospit a .3.426153 l .8 2022-12-06 2022-12-06 Travel 1.2.840.1 1.2.652.763 8193 308683 Methodi 00:00:00 00:00:[address] 3.430.2.7 0.2.7.3.698 Ho spita .3.058553 084.8 l .8 2022-12-06 2022-12-06 Travel 1.2.840.1 1.2.680.004 3167 886057 Methodi 00:00:00 00:00:[address] 3.430.2.7 0.2.7.3.698 Ho spita .3.626380 084.8 l .8 2022-12-02 2022-12-02 Orders Mendoza, 1.2.840.1 [id number] 2099 984905 Methodi 00:00:00 00:00:00 Only Paulette Yonis 10581.1.[address] 3.430.2.7 Hospit a .3.559146 l .8 2022-12-02 2022-12-02 Orders Mendoza, 1.2.840.1 [id number] 2099 565808 Methodi 00:00:00 00:00:00 Only Paulette Yonis 86970.1.[address] 3.430.2.7 Hospit a .3.592579 l .8 2022-12-02 2022-12-02 Orders Mendoza, 1.2.840.1 [id number] 2099 687253 Methodi 00:00:00 00:00:00 Only Paulette Yonis 97415.1.[address] 3.430.2.7 Hospit a .3.426294 l .8 2022-12-02 2022-12-02 Orders Mendoza, 1.2.840.1 [id number] 2099 494022 Methodi 00:00:00 00:00:00 Only Paulette Yonis 58915.1.[address] 3.430.2.7 Hospit a .3.380137 l .8 2022-11-29 2022-11-29 Office Jose Gaines 1.2.840.1 [id number] 27402616 Methodi 15:15:00 16:09:53 Visit Too 20438.1.[address] 3.430.2.7 Hospit a .3.618464 l .8 2022-11-29 2022-11-29 Office Jose Gaines 1.2.840.1 [id number] 86013075 Methodi 15:15:00 16:09:53 Visit Too 67802.1.[address] 3.430.2.7 Hospit a .3.000381 l .8 2022-11-29 2022-11-29 Travel 1.2.840.1 1.2.008.091 8135 517438 Methodi 00:00:00 00:00:[address] 3.430.2.7 0.2.7.3.698 Ho spita .3.013620 084.8 l .8 2022-11-29 2022-11-29 Orders Jose Gaines 1.2.840.1 [id number] 46781406 Methodi 00:00:00 00:00:00 Only Too 66181.1.[address] 3.430.2.7 Hospit a .3.292839 l .8 2022-11-29 2022-11-29 Travel 1.2.840.1 1.2.888.895 6124 498013 Methodi 00:00:00 00:00:[address] 3.430.2.7 0.2.7.3.698 Ho spita .3.165798 084.8 l .8 2022-11-29 2022-11-29 Jose Pennington 1.2.840.1 176644733 49315410 Methodi 00:00:00 00:00:00 Only Too 25492.1.[address] 3.430.2.7 Hospit a .3.933859 l .8 2022-11-25 2022-11-25 Travel 1.2.840.1 1.2.289.361 3837 150034 Methodi 00:00:00 00:00:[address] 3.430.2.7 0.2.7.3.698 Ho spita .3.776269 084.8 l .8 2022-11-25 2022-11-25 Travel 1.2.840.1 1.2.517.776 2572 330283 Methodi 00:00:00 00:00:[address] 3.430.2.7 0.2.7.3.698 Ho spita .3.607614 084.8 l .8 2022-11-22 2022-11-22 Travel 1.2.840.1 1.2.046.349 7892 939192 Methodi 00:00:00 00:00:[address] 3.430.2.7 0.2.7.3.698 Ho spita .3.977567 084.8 l .8 2022-11-22 2022-11-22 Orders Kelly, 1.2.840.1 [id number] 2099 768329 Methodi 00:00:00 00:00:00 Only Paulette Yonis 45748.1.[address] 3.430.2.7 Hospit a .3.120207 l .8 2022-11-22 2022-11-22 Travel 1.2.840.1 1.2.365.395 8653 607555 Methodi 00:00:00 00:00:[address] 3.430.2.7 0.2.7.3.698 Ho spita .3.550182 084.8 l .8 2022-11-22 2022-11-22 Orders Mendoza, 1.2.840.1 [id number] 2099 817978 Methodi 00:00:00 00:00:00 Only Paulette Somers 98987.1.[address] 3.430.2.7 Hospit a .3.586280 l .8 2022-11-02 2022-11-02 Office [facility], 1.2.840.1 [id number] Methodi 10:30:00 11:47:34 [facility] 301[facility]1.[address] [place] 3.430.2.7 Hospit a .3.946925 l .8 2022-11-02 2022-11-02 Office [facility], 1.2.840.1 680858326 Methodi 10:30:00 11:47:34 Visit Stoneyd 00789.1.[address] [place] 3.430.2.7 Hospit a .3.435452 l .8 2022-11-02 2022-11-02 Travel 1.2.840.1 1.2.347.153 1879 322462 Methodi 00:00:00 00:00:[address] 3.430.2.7 0.2.7.3.698 Ho spita .3.590425 084.8 l .8 2022-11-02 2022-11-02 Travel 1.2.840.1 1.2.676.064 6638 164794 Methodi 00:00:00 00:00:[address] 3.430.2.7 0.2.7.3.698 Ho spita .3.158483 084.8 l .8 2022-09-30 2022-09-30 Orders Jinna, 1.2.840.1 [id number] 745002 4906 Methodi 00:00:00 00:00:00 Only Khadija 71699.1.[address] 3.430.2.7 Hospit a .3.745228 l .8 2022-09-30 2022-09-30 Orders Jinnah, 1.2.840.1 338583658 234554 1211 Methodi 00:00:00 00:00:00 Only Gold 97765.1.[address] 3.430.2.7 Hospit a .3.748324 l .8 2022-09-27 2022-09-27 [facility] Jose Gaines 1.2.840.1 [id number] 2 768095939 Methodi 12:34:46 23:59:00 Encounter oTo 33531.1.[address] 3.430.2.7 Hospit a .3.374981 l .8 2022-09-27 2022-09-27 [facility] Jose Gaines 1.2.840.1 315847258 2 224926305 Methodi 12:34:46 23:59:00 Encounter Too 36247.1.[address] 3.430.2.7 Hospit a .3.829208 l .8 2022-09-27 2022-09-27 Office Jose Gaines 1.2.840.1 [id number] 21 [id number] Methodi 13:30:00 14:16:06 Visit Too 66639.1.[address] 3.430.2.7 Hospit a .3.971549 l .8 2022-09-27 2022-09-27 [facility] Jose Gaines 1.2.840.1 198384378 21 19337878 Methodi 13:30:00 14:16:06 Visit Too 50462.1.[address] 3.430.2.7 Hospit a .3.796107 l .8 2022-09-27 2022-09-27 [facility] Sawyer Jose 1.2.840.1 921605824 21 99717884 Methodi 00:00:00 00:00:00 Only Too 87922.1.[address] 3.430.2.7 Hospit a .3.335877 l .8 2022-09-27 2022-09-27 [facility] Jose Gaines 1.2.840.1 389176559 21 52507211 Methodi 00:00:00 00:00:00 Only Too 94733.1.[address] 3.430.2.7 Hospit a .3.666579 l .8 2022-09-26 2022-09-26 Travel 1.2.840.1 1.2.425.561 7561 946610 Methodi 00:00:00 00:00:[address] 3.430.2.7 0.2.7.3.698 Ho spita .3.002228 084.8 l .8 2022-09-26 2022-09-26 Travel 1.2.840.1 1.2.123.213 4649 022601 Methodi 00:00:00 00:00:[address] 3.430.2.7 0.2.7.3.698 Ho spita .3.707738 084.8 l .8 2022-09-23 2022-09-23 Office Mi'Kmaq, 1.2.840.1 096825757 943362 9053 Methodi 13:15:00 15:07:40 Visit Camryn PenaNeli 48645.1.[address] 3.430.2.7 Hospit a .3.129551 l .8 2022-09-23 2022-09-23 Office Mi'Kmaq, 1.2.840.1 750818523 410936 8115 Methodi 13:15:00 15:07:40 Visit Camryn PenaNeli 86213.1.[address] 3.430.2.7 Hospit a .3.744131 l .8 2022-09-23 2022-09-23 Outpatient [facility] [id number] [address] [place] [address] 00:00:00 00:00:[address] 2022-09-21 2022-09-21 Outpatient HAM GreggydMarvin [facility] IAM LA0 [id number] [facility] 12:00:00 12:00:00 55 [facility] 2022-09-19 2022-09-19 Travel 1.2.840.1 1.2.209.592 9725 631230 Methodi 00:00:00 00:00:[address] 3.430.2.7 0.2.7.3.698 Ho spita .3.258335 084.8 l .8 2022-09-19 2022-09-19 Travel 1.2.840.1 1.2.487.995 1454 706787 Methodi 00:00:00 00:00:[address] 3.430.2.7 0.2.7.3.698 Ho spita .3.977605 084.8 l .8 2022-09-16 2022-09-16 Travel 1.2.840.1 1.2.555.371 6580 651561 Methodi 00:00:00 00:00:[address] 3.430.2.7 0.2.7.3.698 Ho spita .3.361651 084.8 l .8 2022-09-16 2022-09-16 Telephone Mi'Kmaq, 1.2.840.1 [id number] 2099 722141 Methodi 00:00:00 00:00:[address]00.[address] 3.430.2.7 Hospit a .3.030632 l .8 2022-09-16 2022-09-16 Travel 1.2.840.1 1.2.657.382 6446 934909 Methodi 00:00:00 00:00:[address] 3.430.2.7 0.2.7.3.698 Ho spita .3.824895 084.8 l .8 2022-09-16 2022-09-16 Telephone Mi'Kmaq, 1.2.840.1 872123939 2099 103065 Methodi 00:00:00 00:00:[address] 3.430.2.7 Hospit a .3.749301 l .8 2022-09-12 2022-09-14 [facility] Jose Gaines 1.2.840.1 462041469 2 100541101 Methodi 09:32:00 20:06:00 Zulema Gage 61416.1.[address] 3.430.2.7 Hospit a .3.864147 l .8 2022-09-12 2022-09-14 [facility] Sawyer Jose 1.2.840.1 421424002 2 592398056 Methodi 09:32:00 20:06:[address] Zule[address]461.1.[address] 3.430.2.7 Hospit a .3.441294 l .8 2022-09-14 2022-09-14 Ophth Exam Mi'Kmaq, 1.2.840.1 865764921 930 7254922 Methodi 00:00:00 00:00:00 [address]Neli [address] 3.430.2.7 Hospit a .3.749806 l .8 2022-09-14 2022-09-14 Ophth Exam Mi'Kmaq, 1.2.840.1 984059300 115 2578105 Methodi 00:00:00 00:00:00 [address]Neli [address].1.[address] 3.430.2.7 Hospit a .3.432737 l .8 2022-09-13 2022-09-13 Telephone Mi'Kmaq, 1.2.840.1 [id number] 2099 453615 Methodi 00:00:00 00:00:00 Cam[address] JeanNeli [address].1.[address] 3.430.2.7 Hospit a .3.624889 l .8 2022-09-13 2022-09-13 Telephone Mi'Kmaq, 1.2.840.1 354961649 2099 168622 Methodi 00:00:00 00:00:00 [address] JeanNeli [address] 3.430.2.7 Hospit a .3.436479 l .8 2022-09-12 2022-09-12 Surgery Jose Gaines 1.2.840.1 091239494 21 84601764 Methodi 11:40:00 16:40:[address] 3.430.2.7 Hospit a .3.094144 l .8 2022-09-12 2022-09-12 Surgery Jose Gaines 1.2.840.1 803367015 21 93017150 Methodi 11:40:00 16:40:[address] 3.430.2.7 Hospit a .3.994838 l .8 2022-09-12 2022-09-12 Anesthesia Louie Womack 1.2.84 0.1 [id number] Methodi 11:44:00 14:01:00 Event Vandana Reis 15466.1.[address] 3.430.2.7 Hospit a .3.860446 l .8 2022-09-12 2022-09-12 Anesthesia Louie Womack 1.2.84 0.1 [id number] Methodi 11:44:00 14:01:00 Event Vandana Reis 85387.1.[address] 3.430.2.7 Hospit a .3.537659 l .8 2022-09-12 2022-09-12 Travel 1.2.840.1 1.2.665.036 7997 211589 Methodi 00:00:00 00:00:[address] 3.430.2.7 0.2.7.3.698 Ho spita .3.860089 084.8 l .8 2022-09-12 2022-09-12 Travel 1.2.840.1 1.2.387.811 1811 902831 Methodi 00:00:00 00:00:[address] 3.430.2.7 0.2.7.3.698 Ho spita .3.336808 084.8 l .8 2022-09-08 2022-09-08 Evaluation Jose Gaines 1.2.840.1 10 [id number] Methodi 14:30:00 15:30:00 Ankit Madrigal 13575.1.[address] 3.430.2.7 Hospit a .3.046660 l .8 2022-09-08 2022-09-08 Evaluation Jose Gaines 1.2.840.1 10 [id number] Methodi 14:30:00 15:30:00 Ankit Madrigal 82920.1.[address] 3.430.2.7 Hospit a .3.939640 l .8 2022-09-08 2022-09-08 Plan of 1.2.840.1 [id number] 782408 9485 Methodi 00:00:00 00:00:[address] Documentat 3.430.2.7 Hos melania ion .3.794420 l .8 2022-09-08 2022-09-08 Orders Mendoza, 1.2.840.1 [id number] 2099 294198 Methodi 00:00:00 00:00:00 Only Paulette Yonis 51922.1.[address] 3.430.2.7 Hospit a .3.932894 l .8 2022-09-08 2022-09-08 Plan of 1.2.840.1 [id number] 593586 4677 Methodi 00:00:00 00:00:[address] Documentat 3.430.2.7 Hos melania ion .3.968507 l .8 2022-09-08 2022-09-08 Orders Mendoza, 1.2.840.1 [id number] 2099 597007 Methodi 00:00:00 00:00:00 Only Paulette Yonis 74090.1.[address] 3.430.2.7 Hospit a .3.975537 l .8 2022-09-07 2022-09-07 Pre-Admiss Jose Gaines 1.2.840.1 10 [id number] [id number] Methodi 16:10:00 17:10:00 ion Arina Zavala 14406.1.[address] Testing 3.430.2.7 Hospit a .3.056237 l .8 2022-09-07 2022-09-07 Pre-Admiss Jose Gaines 1.2.840.1 10 [id number] [id number] Methodi 16:10:00 17:10:00 ion Arina Zavala 33572.1.[address] Testing 3.430.2.7 Hospit a .3.847139 l .8 2022-09-07 2022-09-07 Travel 1.2.840.1 1.2.358.701 8568 159811 Methodi 00:00:00 00:00:[address] 3.430.2.7 0.2.7.3.698 Ho spita .3.397073 084.8 l .8 2022-09-07 2022-09-07 Travel 1.2.840.1 1.2.738.815 0922 144068 Methodi 00:00:00 00:00:[address] 3.430.2.7 0.2.7.3.698 Ho spita .3.111177 084.8 l .8 2022-09-02 2022-09-02 Travel 1.2.840.1 1.2.070.585 6558 143685 Methodi 00:00:00 00:00:[address] 3.430.2.7 0.2.7.3.698 Ho spita .3.357554 084.8 l .8 2022-09-02 2022-09-02 Travel 1.2.840.1 1.2.557.613 1164 143685 Methodi 00:00:00 00:00:[address] 3.430.2.7 0.2.7.3.698 Ho spita .3.047091 084.8 l .8 2022-09-01 2022-09-01 Documentat Provider, 1.2.840.1 [id number] 2 [id number] Methodi 00:00:00 00:00:00 ion Unknown 27611.1.[address] 3.430.2.7 Hospit a .3.797603 l .8 2022-09-01 2022-09-01 Documentat Provider, 1.2.840.1 [id number] 2 [id number] Methodi 00:00:00 00:00:00 ion Unknown 86351.1.[address] 3.430.2.7 Hospit a .3.241018 l .8 2022-08-30 2022-08-30 [facility]1 [id number] 2 774242057 Methodi 10:31:34 23:59:00 [place] 54148.1.[address] 3.430.2.7 Hospit a .3.457891 l .8 2022-08-30 2022-08-30 [facility].2.840[facility]1 871250052 2 [id number] Methodi 10:31:34 23:59:00 Encounter [place] [address]3553.1.[address] 3.430.2.7 Hospit a .3.878117 l .8 2022-08-30 2022-08-30 [facility] 1.2.840.1 [id number] 2 [id number] Methodi 10:30:59 10:30:59 Encounter Too 01899.1.[address] 3.430.2.7 Hospit a .3.749097 l .8 2022-08-30 2022-08-30 [facility] 1.2.840.1 [id number] 2 [id number] Methodi 10:30:59 10:30:59 Encounter [place] 48991.1.[address] 3.430.2.7 Hospit a .3.398312 l .8 2022-08-30 2022-08-30 [facility] 1.2.840.1 [id number] 2 [id number] Methodi 10:28:48 10:29:00 Encounter Too 76341.1.[address] 3.430.2.7 Hospit a .3.922519 l .8 2022-08-30 2022-08-30 [facility] 1.2.840.1 [id number] 2 [id number] Methodi 10:28:48 10:29:00 [place]counter [place] 38881.1.[address] 3.430.2.7 Hospit a .3.560551 l .8 2022-08-30 2022-08-30 Office Jose Gaines 1.2.840.1 [id number] 45538142 Methodi 09:30:00 10:16:10 Visit Too [address]6900.1.[address] 3.430.2.7 Hospit a .3.449675 l .8 2022-08-30 2022-08-30 Office Jose Gaines 1.2.840.1 [id number] 58292557 Methodi 09:30:00 10:16:10 [place] [address]11.1.[address] 3.430.2.7 Hospit a .3.023338 l .8 2022-08-29 2022-08-29 [facility] Jose Gaines 1.2.840.1 [id number] 2 [id number] Methodi 16:14:51 23:59:00 Encounter Too [address]3917.1.[address] 3.430.2.7 Hospit a .3.551948 l .8 2022-08-29 2022-08-29 [facility] Jose Gaines 1.2.840.1 [id number] 2 [id number] Methodi 16:14:51 23:59:00 Encounter Too 60214.1.[address] 3.430.2.7 Hospit a .3.260076 l .8 2022-08-29 2022-08-29 Outpatient HAM GreggydMarvin [facility] [place]0 [id number] [facility] 12:00:00 12:00:00 21 [facility] 2022-08-29 2022-08-29 Travel 1.2.840.1 1.2.482.382 9644 669076 Methodi 00:00:00 00:00:[address] 3.430.2.7 0.2.7.3.698 Ho spita .3.016766 084.8 l .8 2022-08-29 2022-08-29 Travel 1.2.840.1 1.2.867.740 6381 105858 Methodi 00:00:00 00:00:[address] 3.430.2.7 0.2.7.3.698 Ho spita .3.177456 084.8 l .8 2022-08-26 2022-08-26 Travel 1.2.840.1 1.2.270.362 3908 296501 Methodi 00:00:00 00:00:[address] 3.430.2.7 0.2.7.3.698 Ho spita .3.906981 084.8 l .8 2022-08-26 2022-08-26 Documentat Mendoza, 1.2.840.1 [id number] 2 [id number] Methodi 00:00:00 00:00:00 ion Paulette Yonis 22958.1.[address] 3.430.2.7 Hospit a .3.359155 l .8 2022-08-26 2022-08-26 Travel 1.2.840.1 1.2.735.536 0589 771621 Methodi 00:00:00 00:00:[address] 3.430.2.7 0.2.7.3.698 Ho spita .3.406877 084.8 l .8 2022-08-26 2022-08-26 Documentat Mendoza, 1.2.840.1 [id number] 2 [id number] Methodi 00:00:00 00:00:00 ion Paulette Yonis 88387.1.[address] 3.430.2.7 Hospit a .3.437834 l .8 2022-08-24 2022-08-24 [facility]840[facility]1 [id number] 21 [id number] Methodi 18:25:00 22:54:[address] 3.430.2.7 Hospit a .3.056413 l .8 2022-08-24 2022-08-24 [facility] 1.2.840.1 [id number] 21 [id number] Methodi 18:25:00 22:54:[address] 3.430.2.7 Hospit a .3.767419 l .8 2022-08-24 2022-08-24 Travel 1.2.840.1 1.2.220.481 9177 438407 Methodi 00:00:00 00:00:[address] 3.430.2.7 0.2.7.3.698 Ho spita .3.863653 084.8 l .8 2022-08-24 2022-08-24 Outpatient [facility] [id number] [address] [place] [address] 00:00:00 00:00:[address] 2022-08-24 2022-08-24 Outpatient [facility] [id number] [address] [place] [address] 00:00:00 00:00:[address] 2022-08-24 2022-08-24 Travel 1.2.840.1 1.2.171.074 4032 143007 Methodi 00:00:00 00:00:00 30733.1.1 350.1.13.[address] 3.430.2.7 0.2.7.3.698 Ho spita .3.764492 084.8 l .8 2022-08-12 2022-08-12 Outpatient HAM Marvin Patel [facility] IAM LA0 [id number] [facility] 12:00:00 12:00:00 46 [facility] 2022-08-09 2022-08-09 [facility] Jose Gaines 1.2.840.1 [id number] 2 [id number] Methodi 12:35:00 23:59:00 Encounter Too 70699.1.[address] 3.430.2.7 Hospit a .3.681447 l .8 2022-08-09 2022-08-09 [facility] Jose Gaines 1.2.840.1 [id number] 2 [id number] Methodi 12:35:00 23:59:00 Encounter Too [address]3335.1.[address] 3.430.2.7 Hospit a .3.466314 l .8 2022-08-09 2022-08-09 [facility] Jose Gaines 1.2.840.1 [id number] 2 [id number] Methodi 12:30:00 12:34:00 Encounter Too 75897.1.[address] 3.430.2.7 Hospit a .3.666903 l .8 2022-08-09 2022-08-09 [facility] Jose Gaines 1.2.840.1 [id number] 2 [id number] Methodi 12:30:00 12:34:00 Encounter Too 09900.1.[address] 3.430.2.7 Hospit a .3.440701 l .8 2022-08-09 2022-08-09 [facility] Joes Gaines 1.2.840.1 [id number] 2 [id number] Methodi 12:15:00 12:29:00 Encounter [place] [address]45.1.[address] 3.430.2.7 Hospit a .3.772897 l .8 2022-08-09 2022-08-09 [facility] Jose Gaines 1.2.840.1 [id number] 2 [id number] Methodi 12:15:00 12:29:00 [place]counter [place] 46535.1.[address] 3.430.2.7 Hospit a .3.691501 l .8 2022-08-09 2022-08-09 [facility] Jose Gaines 1.2.840.1 [id number] 21 [id number] Methodi 10:30:00 11:31:33 Visit Too 97661.1.[address] 3.430.2.7 Hospit a .3.008184 l .8 2022-08-09 2022-08-09 [facility] Jose Gaines 1.2.840.1 [id number] 21 [id number] Methodi 10:30:00 11:31:33 Visit Too 91957.1.[address] 3.430.2.7 Hospit a .3.256822 l .8 2022-08-09 2022-08-09 Travel 1.2.840.1 1.2.600.656 0153 119061 Methodi 00:00:00 00:00:[address] 3.430.2.7 0.2.7.3.698 Ho spita .3.596901 084.8 l .8 2022-08-09 2022-08-09 Travel 1.2.840.1 1.2.199.293 1074 673826 Methodi 00:00:00 00:00:[address] 3.430.2.7 0.2.7.3.698 Ho spita .3.216441 084.8 l .8 2022-08-01 2022-08-01 Travel 1.2.840.1 1.2.059.865 6667 542151 Methodi 00:00:00 00:00:[address] 3.430.2.7 0.2.7.3.698 Ho spita .3.281850 084.8 l .8 2022-08-01 2022-08-01 Travel 1.2.840.1 1.2.264.316 2031 798000 Methodi 00:00:00 00:00:[address] 3.430.2.7 0.2.7.3.698 Ho spita .3.149279 084.8 l .8 2022-07-31 2022-07-[facility] 1.[facility].840.1 [id number] 90 Methodi 00:00:00 00:00:[address] Obadah 3.430.2.7 Hospit a .3.267441 l .8 2022-07-31 2022-07-31 [facility], 1.2.840.1 [id number] 90 Methodi 00:00:00 00:00:[address] Obadah 3.430.2.7 Hospit a .3.132511 l .8 2022-06-22 2022-06-22 Travel 1.2.840.1 1.2.431.944 9687 733732 Methodi 00:00:00 00:00:[address] 3.430.2.7 0.2.7.3.698 Ho spita .3.185032 084.8 l .8 2022-06-22 2022-06-22 Travel 1.2.840.1 1.2.171.655 6654 521731 Methodi 00:00:00 00:00:[address] 3.430.2.7 0.2.7.3.698 Ho spita .3.960406 084.8 l .8 2022 2022 Outpatient [facility], [facility] [id number] [place] 00:00:00 00:00:00 CARINA Magaña Metho di st 2022-06-03 2022-06-03 Documentat [facility], 1.2.840.1 [id number] 178 [id number] Methodi 00:00:00 00:00:00 ion Khadija 06569.1.[address] 3.430.2.7 Hospit a .3.972954 l .8 2022-06-03 2022-06-03 Documentat [facility], 1.2.840.1 [id number] 884 4928427 Methodi 00:00:00 00:00:00 [address]01.1.[address] 3.430.2.7 Hospit a .3.677838 l .8 2022-05-27 2022-05-27 Orders [facility], 1.2.840.1 [id number] 167863 3674 Methodi 00:00:00 00:00:00 Only Khadija 07078.1.[address] 3.430.2.7 Hospit a .3.687444 l .8 2022-05-27 2022-05-27 Orders [facility], 1.2.840.1 [id number] 562104 9788 Methodi 00:00:00 00:00:00 Only Khadija 14980.1.[address] 3.430.2.7 Hospit a .3.286841 l .8 2022-05-26 2022-05-26 Orders Jin, 1.2.840.1 [id number] 333200 5225 Methodi 00:00:00 00:00:00 Only Khadija 65312.1.[address] 3.430.2.7 Hospit a .3.741031 l .8 2022-05-26 2022-05-26 [facility], 1.2.840.1 [id number] 23112 Methodi 00:00:00 00:00:00 Only Mohammad 59735.1.[address] Obadah 3.430.2.7 Hospit a .3.477079 l .8 2022-05-26 2022-05-26 Orders Shannan, 1.2.840.1 [id number] 770336 7986 Methodi 00:00:00 00:00:00 Only Khadija 35161.1.[address] 3.430.2.7 Hospit a .3.051503 l .8 2022-05-26 2022-05-26 Orders [facility], 1.2.840.1 [id number] 33440 Methodi 00:00:00 00:00:00 Only Mohammad 55241.1.[address] Obadah 3.430.2.7 Hospit a .3.197303 l .8 2022-05-16 2022-05-16 Telephone Shannan, 1.2.840.1 [id number] 2099 975597 Methodi 00:00:00 00:00:[address] 3.430.2.7 Hospit a .3.831576 l .8 2022-05-16 2022-05-16 Telephone Shannan, 1.2.840.1 [id number] 2099 188343 Methodi 00:00:00 00:00:[address] 3.430.2.7 Hospit a .3.977335 l .8 2022-05-11 2022-05-13 Emergency Gaudencio Perry.2.8 40.1 151520240 [id number] Methodi 16:23:00 11:56:00 Brodie Ross 52350.1.1 035 s Supa Mayen 3.430.2.7 Hospita .3.827124 l .8 2022-05-11 2022-05-13 Emergency Gaudencio Perry 1.2.8 40.1 125135079 [id number] Methodi 16:23:00 11:56:00 Brodie Ross 81531.1.1 035 Supa Poe 3.430.2.7 Hospita .3.158523 l .8 2022-05-11 2022-05-11 Travel 1.2.840.1 1.2.997.082 1838 303595 Methodi 00:00:00 00:00:[address] 3.430.2.7 0.2.7.3.698 Ho spita .3.424634 084.8 l .8 2022-05-11 2022-05-11 [facility]at [facility], 1.2.840.1 [id number] 925 [id number] Methodi 00:00:00 00:00:00 ion Judiadija 55793.1.[address] 3.430.2.7 Hospit a .3.638966 l .8 2022-05-11 2022-05-11 Travel 1.2.840.1 1.2.634.982 7994 614845 Methodi 00:00:00 00:00:[address] 3.430.2.7 0.2.7.3.698 Ho spita .3.276567 084.8 l .8 2022-05-11 2022-05-11 Documentat [facility], 1.2.840.1 [id number] 550 2036238 Methodi 00:00:00 00:00:00 ion Jud[address]adija 24373.1.[address] 3.430.2.7 Hospit a .3.197349 l .8 2022-05-10 2022-05-10 Transcribe Asked, No 1.2.840.1 [id number] 2 [id number] Methodi 00:00:00 00:00:00 Orders Pcp 13045.1.[address] 3.430.2.7 Hospit a .3.823560 l .8 2022-05-10 2022-05-10 Transcribe Asked, No 1.2.840.1 642248561 2 [id number] Methodi 00:00:00 00:00:00 Orders Pcp 49132.1.[address] 3.430.2.7 Hospit a .3.339081 l .8 2022-05-03 2022-05-03 Office [facility], 1.2.840.1 [id number] Methodi 11:00:00 12:42:30 Visit Carina 36762.1.[address] Obadah 3.430.2.7 Hospit a .3.143368 l .8 2022-05-03 2022-05-03 Office [facility], 1.2.840.1 [id number] Methodi 11:00:00 12:42:30 Visit Carina 42279.1.[address] Obadah 3.430.2.7 Hospit a .3.786751 l .8 2022-05-03 2022-05-03 Refill [place], 1.2.840.1 [id number] 2099 358112 Methodi 00:00:00 00:00:[address] Martinez 3.430.2.7 Hospit a .3.599775 l .8 2022-05-03 2022-05-03 Travel 1.2.840.1 1.2.365.853 1039 453818 Methodi 00:00:00 00:00:[address] 3.430.2.7 0.2.7.3.698 Ho spita .3.613074 084.8 l .8 2022-05-03 2022-05-03 Refill [place], 1.2.840.1 [id number] 2099 347474 Methodi 00:00:00 00:00:[address] Maritnez 3.430.2.7 Hospit a .3.204066 l .8 2022-05-03 2022-05-03 Travel 1.2.840.1 1.2.881.610 4720 736718 Methodi 00:00:00 00:00:[address] 3.430.2.7 0.2.7.3.698 Ho spita .3.119125 084.8 l .8 2022-02-07 2022-02-07 Refill Shannan, 1.2.840.1 [id number] 640509 7445 Methodi 00:00:00 00:00:[address] 3.430.2.7 Hospit a .3.479393 l .8 2022-02-01 2022-02-01 Outpatient PRL - PRL - [id number] eClinic 14:20:00 14:20:00 [facility] 2021-11-02 2021-11-02 Outpatient PRL - PRL - [id number] eClinic 14:30:00 14:30:00 [facility] 2021-10-07 2021-10-07 Travel 1.2.840.1 1.2.045.994 4346 616659 Methodi 00:00:00 00:00:[address] 3.430.2.7 0.2.7.3.698 Ho spita .3.746090 084.8 l .8 2021-09-30 2021-09-30 Office [place], 1.2.840.1 [id number] 01653 24862 Methodi 10:00:00 11:22:34 Visit Carina 84094.1.[address] [place] 3.430.2.7 Hospit a .3.577317 l .8 2021-09-30 2021-09-30 Travel 1.2.840.1 1.2.292.332 6708 013510 Methodi 00:00:00 00:00:[address] 3.430.2.7 0.2.7.3.698 Ho spita .3.283731 084.8 l .8 2021-09-29 2021-09-29 Travel 1.2.840.1 1.2.369.577 0523 480043 Methodi 00:00:00 00:00:[address] 3.430.2.7 0.2.7.3.698 Ho spita .3.947272 084.8 l .8 2021-08-09 2021-08-09 Outpatient PRL - PRL - [id number] eClinic 21:26:00 21:26:00 Rheumatol Rheumatolog alWorks ogy y [facility] 2021-08-09 2021-08-09 Outpatient PRL - PRL - [id number] eClinic 21:26:00 21:26:00 Rheumatol Rheumatolog alWorks ogy y [facility] 2021-05-31 2021-05-31 [facility] [id number] 0393 [place] 00:00:00 00:00:[address]INA [address] 2021-05-31 2021-05-31 Outpatient [facility] [id number] 428 [place] 00:00:00 00:00:[address] 2021-05-11 2021-05-11 Outpatient JESSICA - JESSICA - [id number] eClinic 13:56:00 13:56:00 [facility] 2021-05-11 2021-05-11 Outpatient PRL - PRL - [id number] eClinic 13:30:00 13:30:00 Rheumatol Rheumatolog alWorks ogy y [facility] 2021-03-16 2021-03-16 [facility] [id number] 60013 [place] 00:00:00 00:00:00 MICHAEL [address] 2021-03-03 2021-03-03 [facility] [id number] 12396 [place] 00:00:00 00:00:00 MICHAEL [address] 2021-02-22 2021-02-22 Outpatient MANE, [facility] [id number] 8841 [place] 00:00:00 00:00:[address] 2021-02-03 2021-02-03 Outpatient JESSICA COLLINSU - [id number] eClinic 13:50:00 13:50:00 Rheumatol [facility]olog [facility]Works ogy y [facility] 2020-12-14 2020-12-14 Outpatient DEONNA, [facility] [id number] 80588 [place] 00:00:00 00:00:00 MICHAEL [address] 2020-11-18 2020-11-19 Outpatient MANE, [facility] [id number] 1312 [place] 00:00:00 00:00:00 MOHAMMAD [address] 2020-11-18 2020-11-19 Outpatient [facility] [id number] 487 [place] 00:00:00 00:00:[address] 2020-11-04 2020-11-04 Outpatient JESSICA COLLINSU - [id number] eClinic 14:20:00 14:20:00 [facility] 2020-09-15 2020-09-15 Outpatient [facility] [id number] 400 [place] 00:00:00 00:00:[address] 2020-08-19 2020-08-19 Outpatient [facility] [id number] 755 [place] 00:00:00 00:00:[address] 2020-08-17 2020-08-17 Outpatient MANE, [facility] [id number] 2492 [place] 00:00:00 00:00:00 [address]AD [address] 2020 2020 Outpatient JESSICA COLLINSU - [id number] eClinic 15:10:00 15:10:00 Rheumatol Rheumatolog alWorks ogy y [facility] 2020-05-21 2020-05-21 Outpatient JESSICA WOODRUFF - [id number] eClinic 13:24:00 13:24:00 Rheumatol Rheumatolog [facility]Works ogy y [facility] 2020-03-29 2020-03-29 [facility] 1.2.938.324 0648 5764 00:00:00 00:00:00 [facility] 350.1.13.10 [place] 4.2.7.2.686 Professio [phone] nal [facility] Office Building One 2020-03-29 2020-03-29 [facility] 1.2.697.462 8182 5764 [facility] 00:00:00 00:00:00 [facility] 350.1.13.10 [place] 4.2.7.2.686 Robert Professio [phone] [facility] nal [address] [place] [address] 2020-03-24 2020-03-24 Outpatient JUDITDAVID, [facility] [id number] [address] [place] [address] 00:00:00 00:00:[address]SEY [address] 2020-03-19 2020-03-19 Outpatient JESSICA - JESSICA - [id number] eClinic 13:30:00 13:30:00 Rheumatol [facility]umatolog [facility]Works ogy y [facility] 2020-03-07 2020-03-07 [facility] 1.2.840.114 [id number] 65320 15:27:39 23:59:00 Encounter Brooke Carmonaton 350.1.13.10 Reader [address] [place] [address] [phone] [facility] 2020-03-07 2020-03-07 [facility] 1.2.840.114 775 [id number] [facility] 15:27:39 23:59:00 Encounter Brooke Carmonaton 350.1.13.10 ity of [place] 4.2.7.2.686 [facility] [phone] [address] 2020-03-07 2020-03-07 Urgent Pob1, Acute [facility] 1.2.840.114 [id number] 14:21:25 15:42:30 Formerly [facility] Health 350.1.13.10 [place] 4.2.7.2.686 Professio [phone] [place] [address] [address] 2020-03-07 2020-03-07 Urgent Pob1, Acute Care Clinic [facility] 1. 2.840.114 [id number] Univers 14:21:25 15:42:30 Melissa Hankins 350.1.13.10 ity of [place] 4.2.7.2.686 Robert as Professio [phone] Co dical [address] Office [address] One 2020-03-07 2020-03-07 Outpatient Ramiro JASSO, [facility] [id number] [facility] 14:20:00 14:20:00 MELISSA ity of [facility] 2020-03-07 2020-03-07 Letter Doctor MARVIN 1.2.840.114 [id number] 00:00:00 00:00:00 (Out) Unassigned, CAYLA 350.1.13.10 Declo [facility] 4.2.7.2.686 [phone] [facility] 2020-03-07 2020-03-07 Letter Doctor MARVIN 1.2.840.114 [id number] Univers 00:00:00 00:00:00 (Out) Unassigned, CAYLA 350.[facility].13.10 [facility] 4.2.7.2.686 Robert as [phone] [address] 2020-02-11 2020-02-11 Outpatient [facility] [id number] 2973 [place] 00:00:00 00:00:00 MOHAMMAD 995 [address] 2020-02-11 2020-02-11 Outpatient [facility] [id number] 8020 [place] 00:00:00 00:00:00 MOHAMMAD 318 Meth[address] di 2020-01-27 2020-01-27 Outpatient [facility] [id number] 8835 [place] 00:00:00 00:00:00 MOHAMMAD 012 Metho di 2020-01-27 2020-01-27 Outpatient [facility] [id number] 4395 [place] 00:00:00 00:00:00 MOHAMMAD 138 Meth[address] 2020-01-14 2020-01-14 Outpatient PRL - PRL - [id number] eClinic 22:52:00 22:52:00 Rheumatol Rheumatolog alWorks ogy y [facility] 2019-12-30 2019-12-30 Outpatient PRL - PRL - [id number] eClinic 13:29:00 13:29:00 Rheumatol Rheumatolog alWorks ogy y [facility] 2019-12-19 2019-12-19 Outpatient JESSICA Akosua JESSICA - [id number] eClinic 09:45:00 09:45:00 Rheumatol Rheumatolog alWorks ogy y [facility] 2019-10-25 2019-10-25 Outpatient JESSICA Akosua JESSICA - [id number] eClinic 12:17:00 12:17:00 Rheumatol Rheumatolog alWorks ogy y [facility] 2019-09-19 2019-09-19 Outpatient PRL - PRL - [id number] eClinic 13:45:00 13:45:00 Rheumatol Rheumatolog alWorks ogy y [facility] 2019-06-27 2019-06-27 Outpatient PRL - PRL - [id number] eClinic 10:15:00 10:15:00 Rheumatol Rheumatolog alWorks ogy y [facility] 2019-06-07 2019-06-07 Outpatient JESSICA Akosua JESSICA - [id number] eClinic 09:32:00 09:32:00 Rheumatol Rheumatolog alWorks ogy y [facility] 2019-03-18 2019-03-18 Outpatient PRL - PRL - [id number] eClinic 10:30:00 10:30:00 Rheumatol Rheumatolog alWorks ogy y [facility] 2019-01-18 2019-01-18 Outpatient PRL - PRL - [id number] eClinic 10:30:00 10:30:00 Rheumatol Rheumatolog alWorks ogy y [facility] 2018-12-24 2018-12-24 Outpatient JESSICA COLLINSU - [id number] eClinic 09:36:00 09:36:00 Rheumatol Rheumatolog alWorks ogy y [facility] 2018-12-20 2018-12-20 Outpatient PRL - PRL - [id number] eClinic 16:08:00 16:08:00 Rheumatol Rheumatolog alWorks ogy y [facility] 2018-12-11 2018-12-11 Outpatient PRL - PRL - [id number] eClinic 11:30:00 11:30:00 Rheumatol Rheumatolog alInez zackary y [facility] Results Test Description Test Time Test Comments Results Result Comments Source SURGICAL OUTREACH 2022-09-23 15:20:00 Test Item Value Reference Range Interpretation Comme nts SURGICAL RUN OUTREACH DATE: 09/23/22 [facility] [place] - LAB PAGE 1 RUN TIME: 1520 Specimen Inquiry RUN USER: (test INTERFACE code = PIETER SO) ENT: ALISSA JACKMAN LOC: VELASQUEZ #: [id number] AGE/SX: 77/F ROOM: RE09/21/22[facility] DR: Marvin Patel III, MD : 43 BED: DIS: STATUS: BRIANA REF TLOC: SPEC #: [id number] RECD: STATUS: LUCIANO BOBBY #: [id number] BAUTISTA: 09/21/[address] [facility] [address]: Marvin Patel III, MD ENT RED: 09/22/22 SP TYPE: SURGICAL OTHR DR: ORDERED: [id number], ANATOMIC SPEC, SPECIMEN TRAC K PROCEDURES: 11625 (09/23/22-1221) SPECIMEN TRACK (09/22/22) TISSUES: A. BREAST BIOPSY, F EMALE RIGHT - RIGHT BREAST CALCIFICATIONS;STEREOTACTIC FINAL DIAGNOSIS Breast, right, 0.8 x 1.9 cm lesion at 11 o'clock, 8 cm from nipple, stereotacticbiopsy for calcs:- Benign breast pa renchyma; stromal fibrosis, duct ectasia, focal intraductal papilloma andbenign ducts an d glands with focal microcalcifications GROSS DESCRIPTION Right breast 11:00 8 cm from nippl e. Received separately are 2 fibrofatty tissue segmentsmeasuring 1 and 1.1 cm in length. They a re submitted entirely as A1. Also present in thesame container are additional pieces of fibrofa tty tissue measuring aggregate of 2 x 1.5 x0.2 cm. All as A2. Excised time: 1:53 p.m. 2022 Formalin time: 2:11 p.m.Formalin fixation duration: >24 hours- <48 hours Technical tissue p rocessing and slide preparation performed at [facility],[place] [address] [address] , [place], [place] [address] Unless gross only, the diagnosis is based upon microscopic examination.Immunohistochemistry: This test was developed and its performance characteristicsdetermined by this laboratory. It has not been approved nor does it need approval by the USFDA. Appropriate po sitive and negative controls are reviewed and judged to be acceptable.This laboratory i s certified under the Clinical Laboratory Improvement Amendments (CLIA-88)as qualified to perform high complexity clini luis fernando laboratory testing. ---- Signed RogelioGracia 09/23/22 1520 END OF REPORT Surgical pathology [id number] 00:01:23 Test Item Value Reference Range Interpretation Comments Case number (test code = [id number]) Surgical pathology See link below for report (test code = PDF Lab Report 2255) Result status (test code This is Final Report = [id number]) for [address] pathology [id number] 00:01:23 Test Item Value Reference Range Interpretation Comments Case number (test code = [id number]) Surgical pathology See link below for report (test code = PDF Lab Report 2255) Result status (test code This is Final Report = [id number]) for [address] pathology [id number] 00:01:23 Test Item Value Reference Range Interpretation Comments Case number (test code = [id number]) Surgical pathology See link below for report (test code = PDF Lab Report 2255) Result status (test code This is Final Report = [id number]) for [address] [id number] 17:43:00 Test Item Value Reference Range Interpretation Comments POC glucose (test 91 mg/dL 65-99 Electronic Assembly N derek: Gisel code = 80265-4) DarlousYash vice ID: [id number] able: [facility] Notified RN [facility] [id number] 17:43:00 Test Item Value Reference Range Interpretation Comments POC glucose (test 91 mg/dL 65-99 Electronic Assembly N derek: Gisel code = 07003-3) DarlousDe vice ID: [id number] able: [facility] Notified RN [facility] [id number] 17:43:00 Test Item Value Reference Range Interpretation Comments POC glucose (test 91 mg/dL 65-99 Electronic Assembly N derek: Gisel code = 41814-1) MarvellousDe vice ID: [id number] able: TM Notified RN [facility] Pre/Post [id number] 01:11:50 Test Item Value Reference Range Interpretation Comments Ventricular rate (test 78 code = 253) Atrial rate (test code 78 = 255) PA interval (test code 154 = 266) QRSD [...] of 11-MAY-2022 17:00,-No significant change was found- [facility] Pre/Post [id number] 01:11:50 Test Item Value Reference Range Interpretation Comments Ventricular rate (test 78 code = 253) Atrial rate (test code 78 = 255) PA interval (test code 154 = 266) QRSD [...] of 11-MAY-2022 17:00,-No significant change was found- [facility] Pre/Post [id number] 01:11:50 Test Item Value Reference Range Interpretation Comments Ventricular rate (test 78 code = 253) Atrial rate (test code 78 = 255) PA interval (test code 154 = 266) QRSD [...] of 11-MAY-2022 17:00,-No significant change was found- [address]2022-10-21 01:28:19 Test Item Value Reference Range Interpretation Comments Ventricular rate (test 75 code = 253) Atrial rate (test code = 75 255) PA interval (test code = 158 266) QRSD interval (test code 74 = 260) QT interval (test code = 400 264) QTC interval (test code 446 = 265) P axis 1 (test code = 49 267) QRS axis 1 (test code = 76 268) T wave axis (test code = 83 270) EKG impression (test Normal sinus code = 273) rhythm-Normal ECG-- [address]2022-10-21 01:28:19 Test Item Value Reference Range Interpretation Comments Ventricular rate (test 75 code = 253) Atrial rate (test code = 75 255) PA interval (test code = 158 266) QRSD interval (test code 74 = 260) QT interval (test code = 400 264) QTC interval (test code 446 = 265) P axis 1 (test code = 49 267) QRS axis 1 (test code = 76 268) T wave axis (test code = 83 270) EKG impression (test Normal sinus code = 273) rhythm-Normal ECG-- [address]2022-10-21 01:28:19 Test Item Value Reference Range Interpretation Comments Ventricular rate (test 75 code = 253) Atrial rate (test code = 75 255) PA interval (test code = 158 266) QRSD interval (test code 74 = 260) QT interval (test code = 400 264) QTC interval (test code 446 = 265) P axis 1 (test code = 49 267) QRS axis 1 (test code = 76 268) T wave axis (test code = 83 270) EKG impression (test Normal sinus code = 273) rhythm-Normal [facility] 12 [id number] 01:28:19 Test Item Value Reference Range Interpretation Comments Ventricular rate (test 75 code = 253) Atrial rate (test code = 75 255) PA interval (test code = 158 266) QRSD interval (test code 74 = 260) QT interval (test code = 400 264) QTC interval (test code 446 = 265) P axis 1 (test code = 49 267) QRS axis 1 (test code = 76 268) T wave axis (test code = 83 270) EKG impression (test Normal sinus code = 273) rhythm-Normal ECG-- [facility] [id number] (COVID-19) RNA [Presence] in Respiratory specimen by LEIA with probe [id number] 04:12:11 Test Item Value Reference Range Interpretation Comments SARS-CoV-2 (COVID-19) RNA Not detected [Presence] in Respiratory specimen by [facility] with probe detection (test code = 07312-7) Whether patient is employed in a Unknown healthcare setting (test code = 58789-7) Whether the patient has symptoms Unknown related to condition of interest (test code = 98422-3) Whether the patient was Unknown hospitalized for condition of interest (test code = 29155-3) Whether the patient was admitted Unknown to intensive care unit (ICU) for condition of interest (test code = 04404-1) Whether patient resides in a Unknown congregate care setting (test code = 43158-5) status (test code = Unknown 73673-2) Date and time of symptom onset Unknown (test code = 49080-0) [facility] CHEST 1 VW [id number] 20:42:05 1. No evidence for acute cardiopulmonary abnormality or infection. Disclaimer: Generally, the findings on chest imaging in COVID-19 are notspecific, and overlap with other infections, including influenza, H1N1,SARS and MERS.According to the Centers for Disease Control (CDC) and the [employer] [employer], viral testing remains the only specific [...] Centers for Disease Control (CDC) and the [place] [employer], viral testing remains the only specific method of diagnosiseven if CXR or CT findings are s uggestive of COVID-19.[facility]
--- NOTE | 2023-03-17 21:21 | RAD REPORT ---
EXAM DESCRIPTION: CT - Abdomen Pelvis Wo Contrast - 03/17/2023 9:10 pm CLINICAL HISTORY: Abdominal pain COMPARISON: January 2023 TECHNIQUE: Computed axial tomography of the abdomen and pelvis was obtained. IV and oral contrast we re not requested. All CT scans are performed using dose optimization technique as appropriate and may include automated exposure control or mA/KV adjustment according to patient size. FINDINGS: The evaluation of solid organs, vessels and bowel is limited secondary to the lack of con trast administration. The liver, spleen, pancreas, adrenals and left kidney appear grossly normal Small right renal cyst. Mild dilatation of an extra renal pelvis right kidney. The dilatation has dim inished since the prior exam. This probably is physiologic. There is no evidence diverticulitis. Hernia with a neck 4.5 centimeters left lateral abdominal wall just above the level of the iliac aracelis t. It contains a portion of descending colon. Hysterectomy. No adnexal mass seen Postsurgical changes involve the lumbar spine IMPRESSION: Left lateral abdominal wall hernia containing a portion of nondilated descending colon.
[2023-03-17] MEDS ORDERED: NA CHLORIDE 0.9% 500 ML ONE (21:56)
[2023-03-17] MEDS ORDERED: HYDROCODONE/APAP 10/325 TAB ONE (21:56)
[2023-03-17] MEDS ORDERED: ONDANSETRON 4 MG/2 ML VIAL ONE (21:56)
[2023-03-17 22:28] LABS: Absolute Lymphocytes (CBC) 2.3 K/uL (0.7-4.9); Hematocrit 35.7 % (36.0-45.0); Lymphocytes % 30.1 % (15.3-44.8); MCV 90.2 fL (80-100); MPV 8.8 fL (7.6-11.3); Platelets 190 thou/uL (152-406); RBC Red Blood Cell Count 3.96 M/uL (3.86-4.86)
[2023-03-17 22:38] LABS: Specific Gravity 1.022 (1.005-1.030); Urine Bacteria None Seen /HPF (<20); Urine Bilirubin NEGATIVE (Negative); Urine Blood Negative (Negative); Urine Clarity Turbid (Clear); Urine Color Yellow (Yellow); Urine Glucose NEGATIVE (Negative); Urine Mucus Slight /HPF (None Seen); Urine Protein NEGATIVE (Negative); Urine RBC <5 /HPF (None Seen); Urine Urobilinogen Normal (Normal)
[2023-03-17 22:41] LABS: Albumin 3.4 g/dL (3.4-5.0); Bilirubin Total 0.3 mg/dL (0.2-1.0); Potassium 4.4 mEq/L (3.5-5.1); Protein, Total 6.8 g/dL (6.4-8.2)
--- NOTE | 2023-03-17 23:50 | ER ---
Nurse's Notes [facility] Name: Dread Thompson Age: 77 yrs Sex: Female : 1945 Arrival Date: 03/17/2023 Time: 19:43 Bed 4 Private MD: Diagnosis: Enterocolitis due to Clostridium difficile;Diarrhea, unspecified;Infectious gastroenteritis and colitis, unspecified Presentation: 03/17 20:05 Chief complaint: Patient states: history of c diff x February 16 reports 3 episodes of kl diarrhea today taking medication for diarrhea. Coronavirus screen: Vaccine status: Patient reports receiving the 2nd dose of the covid vaccine. Ebola Screen: Patient negative for fever greater than or equal to 101.5 degrees Fahrenheit, and additional compatible Ebola Virus Disease symptoms. Initial Sepsis Screen: Does the patient meet any 2 criteria? No. Patient's initial sepsis screen is negative. Does the patient have a suspected source of infection? No. Patient's initial sepsis screen is negative. Risk Assessment: Do you want to hurt yourself or someone else? Patient reports no desire to harm self or others. Onset of symptoms was March 17, 2023. 20:05 Method Of Arrival: Ambulatory kl 20:05 Acuity: MAGALY 3 kl Triage Assessment: 20:11 General: Appears in no apparent distress. Behavior is calm, cooperative. Pain: kl Complains of pain in abdomen. GI: Reports cramping, diarrhea, gaseousness. Historical: - Allergies: 20:09 Sulfa (Sulfonamide Antibiotics); kl - PMHx: 20:09 Atrial fibrillation; Heart Murmur; High Cholesterol; Hypertension; c diff; Dementia; kl - PSHx: 20:09 Cholecystectomy; Appendectomy; Total abdominal hysterectomy; corneal trnsplant; knee kl replacement; - Immunization history:: Adult Immunizations up to date. - Social history:: Smoking status: Patient denies any tobacco usage or history of. - Family history:: not pertinent. Screenin:28 [facility] ED Fall Risk Assessment (Adult) History of falling in the last 3 months, rv including since admission No falls in past 3 months (0 pts) Confusion or Disorientation No (0 pts) Intoxicated or Sedated No (0 pts) Impaired Gait No (0 pts) Mobility Assist Device Used No (0 pt) Altered Elimination No (0 pt) Score/Fall Risk Level 0 - 2 = Low Risk Oriented to surroundings, Maintained a safe environment, Educated pt \T\ family on fall prevention, incl call for assistance when getting out of bed, Assessed \T\ reinforced patient's understanding of fall precautions, Provided non-skid footwear, Hourly rounding (assess needs \T\ fall precautionary measures) done, Used ambulatory aids as needed (educated on \T\ assisted with), Used gait belt as appropriate. Abuse screen: Denies threats or abuse. Denies injuries from another. Nutritional screening: No deficits noted. Tuberculosis screening: No symptoms or risk factors identified. Assessment: 22:32 General: Appears in no apparent distress. comfortable, Behavior is calm, cooperative. rv 22:32 Pain: Complains of pain in abdomen. Neuro: Level of Consciousness is awake, alert, rv obeys commands, Oriented to person, place, time, situation. Cardiovascular: Capillary refill < 3 seconds. Respiratory: Airway is patent Respiratory effort is even, unlabored. GI: Abdomen is flat, non-distended. Derm: Skin is intact. Vital Signs: 20:05 BP 121 / 69; Pulse 63; Resp 18; Temp 98.2(TE); Pulse Ox 97% on R/A; Weight 65.32 kg kl (R); Height 5 ft. 4 in. ; Pain 310; 03/18 00:10 BP 118 / 68; Pulse 68; Resp 16; Temp 98; Pulse Ox 98% on R/A; rv 03/17 20:05 Body Mass Index 24.72 (65.32 kg, 162.56 cm) 03/17 20:05 Pain Scale: Adult Erin Coma Score: 03/17 23:28 Eye Response: spontaneous(4). Motor Response: obeys commands(6). Verbal Response: rv oriented(5). Total: 15. 03/18 00:10 Eye Response: spontaneous(4). Motor Response: obeys commands(6). Verbal Response: rv oriented(5). Total: 15. ED Course: 03/17 19:44 Patient arrived in ED. jj6 20:09 Triage completed. 20:09 Ben Marcus MD is Attending Physician. sp4 21:11 CT Abd/Pelvis - Without Contrast In Process Unspecified. EDMS 21:37 Paul, Forrest, RN is Primary Nurse. rv 22:18 Troponin HS Sent. cm10 22:18 CBC with Diff Sent. cm10 22:18 CMP Sent. cm10 22:18 Lipase Sent. cm10 22:18 Urinalysis w/ reflexes Sent. cm10 22:18 Initial lab(s) drawn, by pa, sent to lab. Inserted saline lock: 18 gauge in left cm10 antecubital area, using aseptic technique. Blood collected. 23:28 No provider procedures requiring assistance completed. rv 23:28 Patient has correct armband on for positive identification. Bed in low position. Call rv light in reach. Side rails up X 1. Adult w/ patient. Provided Education on: ct scan. Client placed on continuous cardiac and pulse oximetry monitoring. NIBP monitoring applied. 23:28 Arm band placed on right wrist. rv 23:48 Ronal Leyva MD is Referral Physician. sp4 03/18 00:10 IV discontinued, intact, bleeding controlled, No redness/swelling at site. Pressure rv dressing applied. Administered Medications: 03/17 22:18 Drug: [place] PO 10 mg-325 mg 1 tabs Route: PO; cm10 22:18 Drug: Ondansetron IVP 4 mg Route: IVP; Site: left antecubital; cm10 22:18 Drug: NS 0.9% IV 500 ml Route: IV; Rate: bolus; Site: left antecubital; cm10 22:46 Not Given (not availablee): Hyoscyamine Sublingual 0.125 mg 1 tablet Sublingual once rv Medication: 23:28 VIS not applicable for this client. rv Outcome: 23:49 Discharge ordered by . sp4 03/18 00:10 Discharged to home ambulatory, with family. rv Condition: stable Discharge instructions given to patient, family, Instructed on discharge instructions, follow up and referral plans. medication usage, Demonstrated understanding of instructions, follow-up care, medications, Prescriptions given X 4. 00:11 Patient left the ED. rv Signatures: Dispatcher [employer] EDMS Esthela Dasilva, RN NIKA Forrest Miller RN RN Cathleen Ramos Sergey, MD MD sp4 Loraine Dixon RN RN cm10
--- NOTE | 2023-03-17 23:50 | EDPHYS ---
Physician Documentation [facility] Name: Dread Thompson Age: 77 yrs Sex: Female : 1945 Arrival Date: 03/17/2023 Time: 19:43 Bed 4 Private MD: ED Physician Ben Marcus HPI: 03/17 20:09 This 77 yrs old Female presents to ER via Ambulatory with complaints of sp4 Diarrhea, Abdominal Pain, General Weakness, Epigastric Pain, Abdominal Swelling. 21:04 Patient was here on 02/16/2023 for diarrhea and was diagnosed with C. difficile sp4 colitis. Patient was- Prescriptions: Dificid 200 mg Oral tablet take 1 tablet by ORAL route every 12 hours for 10 days; 20 tablet;. Patient states Dificid did help her significantly but since then patient has developed recurrence of black watery diarrhea associated with lower abdominal pain without fever or nausea. Patient denied grossly bloody stools. Patient reports diarrhea is explosive and watery and has been present since last week. Patient desires evaluation for recurrence of Clostridium colitis. At home patient took Bentyl, tramadol, morphine, and probiotic prior to arrival. Patient's primary doctor is Dr. [place]. . Historical: - Allergies: 20:09 Sulfa (Sulfonamide Antibiotics); kl - PMHx: 20:09 Atrial fibrillation; Heart Murmur; High Cholesterol; Hypertension; c diff; Dementia; kl - PSHx: 20:09 Cholecystectomy; Appendectomy; Total abdominal hysterectomy; corneal trnsplant; knee kl replacement; - Immunization history:: Adult Immunizations up to date. - Social history:: Smoking status: Patient denies any tobacco usage or history of. - Family history:: not pertinent. ROS: 21:04 Constitutional: Negative for fever, chills, and weight loss, Abdomen/GI: Positive for sp4 lower abdominal pain, positive for watery diarrhea, positive for black diarrhea, negative for bloody stools, negative for constipation, positive for abdominal cramp 21:04 All other systems are negative. Exam: 21:04 Constitutional: This is a well developed, well nourished patient who is awake, alert, sp4 and in no acute distress. Head/Face: Normocephalic, atraumatic. Eyes: Pupils equal round and reactive to light, extra-ocular motions intact. Lids and lashes normal. Conjunctiva and sclera are not injected. Cornea within normal limits. Periorbital areas with no swelling, redness, or edema. ENT: Nares patent. No nasal discharge, no septal abnormalities noted. Tympanic membranes are normal and external auditory canals are clear. Oropharynx with no redness, swelling, or masses, exudates, or evidence of obstruction, uvula midline. Mucous membranes moist. Neck: Trachea midline, no thyromegaly or masses palpated, and no cervical lymphadenopathy. Supple, full range of motion without nuchal rigidity, or vertebral point tenderness. Chest/axilla: Normal chest wall appearance and motion. Nontender with no deformity. No lesions are appreciated. Cardiovascular: Regular rate and rhythm with a normal S1 and S2. No gallops, murmurs, or rubs. Normal PMI, no JVD. No pulse deficits. Respiratory: Lungs have equal breath sounds bilaterally, clear to auscultation and percussion. No rales, rhonchi or wheezes noted. No increased work of breathing, no retractions or nasal flaring. Abdomen/GI: Soft, non-tender, with normal bowel sounds. No distension or tympany. No guarding or rebound. No evidence of tenderness throughout. Back: No spinal tenderness. No costovertebral tenderness. Skin: Warm, dry with normal turgor. Normal color with no rashes, no lesions, and no evidence of cellulitis. MS/ Extremity: Pulses equal, no cyanosis. Neurovascular intact. Full, normal range of motion. Neuro: Awake and alert, GCS 15, oriented to person, place, time, and situation. Cranial nerves II-XII grossly intact. Motor strength 5/5 in all extremities. Sensory grossly intact. Psych: Awake, alert, with orientation to person, place and time. Behavior, mood, and affect are within normal limits 03/18 02:30 ECG was reviewed by the Attending Physician. EKG at 2221, there is normal sinus rhythm, sp4 rate 71, no ST elevation or depression, there is no ectopy Vital Signs: 03/17 20:05 BP 121 / 69; Pulse 63; Resp 18; Temp 98.2(TE); Pulse Ox 97% on R/A; Weight 65.32 kg kl (R); Height 5 ft. 4 in. ; Pain 3/10; 03/18 00:10 BP 118 / 68; Pulse 68; Resp 16; Temp 98; Pulse Ox 98% on R/A; rv 03/17 20:05 Body Mass Index 24.72 (65.32 kg, 162.56 cm) kl 03/17 20:05 Pain Scale: Adult kl Erin Coma Score: 03/17 23:28 Eye Response: spontaneous(4). Motor Response: obeys commands(6). Verbal Response: rv oriented(5). Total: 15. 03/18 00:10 Eye Response: spontaneous(4). Motor Response: obeys commands(6). Verbal Response: rv oriented(5). Total: 15. MDM: 03/17 20:14 Patient medically screened. [facility] 03/18 02:30 Differential diagnosis: Nonspecific abd pain, gastritis, pancreatitis, appendicitis, sp4 diverticulitis, viral gastroenteritis, gastroenteritis. Data reviewed: vital signs, nurses notes, lab test result(s), EKG, radiologic studies, CT scan. 02:31 ED course: Patient probably has recurrence of her C. difficile colitis and worsening sp4 persistent diarrhea. Renew the prescription for Dificid, patient was referred to local materials and processes manager Dr. Ronal Huber will advise clear liquid diet for the next 24 hours., Bentyl, tramadol as needed, and ondansetron as needed.. 03/17 20:11 Order name: CBC with Diff; Complete Time: 23:41 [facility] 03/17 20:11 Order name: CMP; Complete Time: 23:41 [facility] 03/17 20:11 Order name: Lipase; Complete Time: 23:41 [facility] 03/17 20:11 Order name: Urinalysis w/ reflexes; Complete Time: 23:41 [facility] 03/17 20:14 Order name: Troponin HS; Complete Time: 23:41 [facility] 03/17 20:36 Order name: CT Abd/Pelvis - Without Contrast; Complete Time: 23:41 [facility] 03/17 20:14 Order name: EKG; Complete Time: 20:14 [facility] 03/17 20:11 Order name: IV Saline Lock; Complete Time: 22:18 [facility] 03/17 20:11 Order name: Labs collected and sent; Complete Time: 22:18 [facility] 03/17 20:14 Order name: Cardiac monitoring; Complete Time: 22:18 [facility] 03/17 20:14 Order name: EKG - Nurse/Tech; Complete Time: 22:18 sp4 03/17 20:14 Order name: O2 Per Protocol; Complete Time: :18 sp4 03/17 20:14 Order name: O2 Sat Monitoring; Complete Time: :18 sp4 EC:30 Rate is 71 beats/min. Rhythm is regular, Normal Sinus Rhythm. QRS [place] is Normal. [place] sp4 interval is normal. QRS interval is normal. QT interval is normal. T waves are Normal. No ST changes noted. Clinical impression: Normal ECG. Interpreted by me. Administered Medications: 03/17 22:18 Drug: [place] PO 10 mg-325 mg 1 tabs Route: PO; cm10 22:18 Drug: Ondansetron IVP 4 mg Route: IVP; Site: left antecubital; cm10 22:18 Drug: NS 0.9% IV 500 ml Route: IV; Rate: bolus; Site: left antecubital; cm10 22:46 Not Given (not availablee): Hyoscyamine Sublingual 0.125 mg 1 tablet Sublingual once rv Disposition Summary: 03/17/23 23:49 Discharge Ordered Location: Home sp4 Problem: new sp4 Symptoms: have improved sp4 Condition: Stable sp4 Diagnosis - Enterocolitis due to Clostridium difficile sp4 - Diarrhea, unspecified sp4 - Infectious gastroenteritis and colitis, unspecified sp4 Followup: sp4 - With: Ronal Leyva MD - When: 7 - 10 days - Reason: Recheck today's complaints Discharge Instructions: - Discharge Summary Sheet sp4 - Clostridioides Difficile Infection, [id number] sp4 Forms: - Antibiotic Education sp4 - Patient Portal Instructions sp4 Prescriptions: - Dificid 200 mg Oral tablet - take 1 tablet by ORAL route every 12 hours for 10 days for Clostridial Colitis; sp4 20 tablet; Refills: 0, Product Selection Permitted - ondansetron 4 mg Oral Tablet,disintegrating - take 1 tablet by ORAL route every 6 hours for 30 days PRN nausea; 30 tablet; sp4 Refills: 0, Product Selection Permitted - Tramadol 50 mg Oral Tablet - take 1 tablet by ORAL route every 6 hours as needed for pain; 20 tablet; sp4 Refills: 0, Product Selection Permitted - dicyclomine 20 mg Oral Tablet - take 1 tablet by ORAL route every 8 hours PRN cramps; 30 tablet; Refills: 0, sp4 Product Selection Permitted Signatures: Dispatcher [employer] Esthela Hubbard, RN RN kl Ben Marcus MD MD sp4 Loraine Dixon RN RN cm10 Forrest Miller RN rv
[2023-03-18 01:04] VITALS: BP 118/68; TEMP 98; O2SAT 98
--- NOTE | 2023-03-20 12:16 | EKG ---
Test Date: 2023-03-17 Test Time: 22:21:10 Shrinking Machine Operator: WILLIAMS MEASUREMENT RESULTS: Intervals: Rate: 71 ME: 186 QRSD: 76 QT: 410 QTc: 445 [place]: P: 62 ME: 186 QRS: 81 T: 71 INTERPRETIVE STATEMENTS: Normal sinus rhythm Normal ECG Compared to ECG 02/16/2023 12:43:14 No significant changes Electronically Signed On 03-20-23 12:13:35 CDT by Zaid Forbes
== END 2023-03-18 00:11 | disposition home or self-care (01) ==
LOC: ER 19:43
DX: A04.72 Enterocolitis due to Clostridium difficile, not specified as recurrent (principal); A09 Infectious gastroenteritis and colitis, unspecified; I10 Essential (primary) hypertension; F03.90 Unspecified dementia, unspecified severity, without behavioral disturbance, psychotic disturbance, mood disturbance, and anxiety; Z88.2 Allergy status to sulfonamides
CPT/HCPCS: 85025; 81001; 36415; 84484; 83690; 80053; 74176; 96374; 99284; J2405; J7040; 93005

== ENCOUNTER 2023-09-17 13:33 | Observation (INO) | payer OTHER ==
[2023-09-17] MEDS ORDERED: NA CHLORIDE 0.9% 1,000 ML ONE (13:55)
[2023-09-17 14:22] LABS: Absolute Lymphocytes (CBC) 2.1 K/uL (0.7-4.9); Hematocrit 36.9 % (36.0-45.0); MPV 8.9 fL (7.6-11.3); Platelets 163 thou/uL (152-406)
[2023-09-17 14:32] LABS: Protime INR 1.09
[2023-09-17 15:04] LABS: Albumin 3.3 g/dL (3.4-5.0); Bilirubin Total 0.4 mg/dL (0.2-1.0); Potassium 3.8 mEq/L (3.5-5.1); Protein, Total 6.5 g/dL (6.4-8.2); Troponin High Sensitivity 6.6 pg/mL (<58.9)
[2023-09-17 16:09] LABS: SARS-CoV-2 Antigen Rapid Res Positive (Negative)
--- NOTE | 2023-09-17 17:04 | RAD REPORT ---
EXAM DESCRIPTION: CT - Head Brain Wo Cont - 09/17/2023 4:55 pm CLINICAL HISTORY: Alteration of awareness/confusion COMPARISON: 2019 TECHNIQUE: Computed axial tomography of the head was obtained. IV contrast was not requested. All CT scans are performed using dose optimization technique as appropriate and may include automated exposure control or mA/KV adjustment according to patient size. FINDINGS: An intracranial bleed is not seen The ventricles are normal in caliber No extra-axial fluid collection is noted. No significant hypodensity within the brain noted Fluid within the sinuses/ mastoids is not seen. IMPRESSION: No acute intracranial abnormality is seen If patient's symptoms persist MRI of the brain would be recommended
--- NOTE | 2023-09-17 17:09 | RAD REPORT ---
EXAM DESCRIPTION: CT - Chest For Pe Angio - 09/17/2023 4:54 pm CLINICAL HISTORY: sob COMPARISON: 2016 TECHNIQUE: Dynamically enhanced axial 3 mm thick images of the chest were obtained during administra tion of 100 mL Isovue 370 IV contrast. Coronal and oblique reconstruction images were generated and r eviewed. Exam utilizes a protocol for optimal evaluation of pulmonary arterial tree. Maximum intensity projections 3D imaging was utilized All CT scans are performed using dose optimization technique as appropriate and may include automated exposure control or mA/KV adjustment according to patient size. FINDINGS: A pulmonary embolus is not seen. A thoracic aortic aneurysm is not noted. A pleural effusion is not seen. A pericardial effusion is not seen. A lung consolidation is not present. Moderate to large hiatal hernia IMPRESSION: Negative for a pulmonary embolism.
--- NOTE | 2023-09-17 17:15 | RAD REPORT ---
EXAM DESCRIPTION: Seth Single View09/17/2023 2:07 pm CLINICAL HISTORY: cough COMPARISON: 2019 FINDINGS: The lungs appear clear of acute infiltrate. The heart is normal size. A moderate hiatal h ernia IMPRESSION: No acute abnormalities displayed
--- NOTE | 2023-09-17 17:43 | ER ---
Nurse's Notes [facility] Name: Dread Thompson Age: 78 yrs Sex: Female : 1945 Arrival Date: 09/17/2023 Time: 13:33 Bed 11 Private MD: Diagnosis: Coronavirus infection, unspecified;Syncope;Diarrhea, unspecified;Muscle weakness (generalized);Dehydration Presentation: 09/17 13:39 Chief complaint: Daughter reports severe weakness, unable to hold up head in car just hb [employer]ALL[employer]AK[employer], concerned it was her blood sugar so she gave her a hard candy. Pt reports worsening generalized weakness over last 3-4 days + chronic diarrhea. Tested COVID + yesterday. BGL 93 in triage. Coronavirus screen: At this time, the client does not indicate any symptoms associated with coronavirus-19. Ebola Screen: No symptoms or risks identified at this time. Initial Sepsis Screen: Does the patient meet any 2 criteria? No. Patient's initial sepsis screen is negative. Does the patient have a suspected source of infection? No. Patient's initial sepsis screen is negative. Risk Assessment: Do you want to hurt yourself or someone else? Patient reports no desire to harm self or others. Onset of symptoms was September 15, 2023. 13:39 Method Of Arrival: Wheelchair hb 13:39 Acuity: MAGALY 2 hb Historical: - Allergies: 13:42 Sulfa (Sulfonamide Antibiotics); hb - Home Meds: 13:42 aspirin 81 mg Oral TbEC 1 tab once daily [Active]; Celebrex Oral [Active]; Dexilant 30 hb mg Oral CpDB for Gastroesophageal reflux [Active]; Lamictal Oral [Active]; pravastatin Oral [Active]; Prozac 10 mg Oral cap [Active]; unknown hormone pill [Active]; - PMHx: 13:42 Atrial fibrillation; C DIFF; Dementia; Heart Murmur; High Cholesterol; Hypertension; hb - PSHx: 13:42 Appendectomy; Cholecystectomy; corneal trnsplant; knee replacement; Total abdominal hb hysterectomy; - Immunization history:: Adult Immunizations up to date. - Social history:: Smoking status: Patient denies any tobacco usage or history of. Screenin:10 [facility] ED Fall Risk Assessment (Adult) History of falling in the last 3 months, ll1 including since admission Yes- physiologic fall (2 pts) Impaired Gait Yes (1 pt) Altered Elimination Yes (1 pt) Score/Fall Risk Level 3 or more points = High Risk Oriented to surroundings, Maintained a safe environment, Educated pt \T\ family on fall prevention, incl call for assistance when getting out of bed, Implemented a Fall Risk Plan of Care, Offered frequent toileting (1:1 observation), Utilized family, sitter, or virtual cable splicing technician as indicated. Abuse screen: Denies threats or abuse. Nutritional screening: No deficits noted. Tuberculosis screening: No symptoms or risk factors identified. Assessment: 13:50 General: Appears uncomfortable, ill, Behavior is calm, cooperative, appropriate for ll1 age. Pain: Denies pain. Neuro: Reports a syncopal episode weakness. GI: Reports diarrhea. 14:10 Reassessment: No changes from previously documented assessment. Patient and/or family ll1 updated on plan of care and expected duration. Pain level reassessed. Patient is alert, oriented x 3, equal unlabored respirations, skin warm/dry/pink. 14:46 Reassessment: No changes from previously documented assessment. Patient and/or family ll1 updated on plan of care and expected duration. Pain level reassessed. Patient is alert, oriented x 3, equal unlabored respirations, skin warm/dry/pink. diaper cleaned of brown stool, new diaper applied, tolerated well. 15:25 Reassessment: No changes from previously documented assessment. Patient and/or family ll1 updated on plan of care and expected duration. Pain level reassessed. Patient is alert, oriented x 3, equal unlabored respirations, skin warm/dry/pink. 16:10 Reassessment: No changes from previously documented assessment. Patient and/or family ll1 updated on plan of care and expected duration. Pain level reassessed. Patient is alert, oriented x 3, equal unlabored respirations, skin warm/dry/pink. 17:50 Reassessment: No changes from previously documented assessment. Patient and/or family ll1 updated on plan of care and expected duration. Pain level reassessed. Patient is alert, oriented x 3, equal unlabored respirations, skin warm/dry/pink. given sandwich, chips, drinks. 18:23 Reassessment: No changes from previously documented assessment. Patient and/or family ll1 updated on plan of care and expected duration. Pain level reassessed. Patient is alert, oriented x 3, equal unlabored respirations, skin warm/dry/pink. 20:37 Reassessment: Patient appears in no apparent distress at this time. as6 Vital Signs: 13:39 BP 94 / 60; Pulse 55; Resp 16; Temp 98.3; Pulse Ox 96% on R/A; Pain 0/10; hb 15:16 BP 102 / 54; Pulse 59; Resp 15; ll1 15:25 BP 107 / 59; ll1 16:25 BP 111 / 61; Pulse 58; ll1 17:15 BP 115 / 64; Pulse 58; Resp 15; Pulse Ox 97% on R/A; ll1 18:21 BP 129 / 84; Pulse 60; Resp 15; Temp 97.4; Pulse Ox 97% on R/A; Pain 2/10; ll1 20:36 BP 136 / 88; Pulse 62; Resp 18 S; Pulse Ox 99% on R/A; as6 13:39 Pain Scale: Adult hb 18:21 Pain Scale: Adult ll1 NIH Stroke Scale Scores: 13:39 NIHSS Score: 0 [facility] ED Course: 13:37 Patient arrived in ED. rg4 13:40 Arm band placed on Patient placed in an exam room, on a stretcher. ll1 13:40 Provided Education on: ER process and procdures. ll1 13:42 Triage completed. hb 13:43 Cathleen Gottlieb FNP [facility]. jh7 13:43 Mane Harmon MD is Attending Physician. jh7 13:53 Inserted saline lock: 20 gauge in right antecubital area, using aseptic technique. 1 Blood collected. 13:54 Nimisha Dasilva, RN is Primary Nurse. ll1 14:07 Blood Culture Adult (2) Sent. ll1 14:08 Chest Single View XRAY In Process Unspecified. EDMS 16:56 CT Chest For PE Angio In Process Unspecified. EDMS 16:57 CT Head Brain wo Cont In Process Unspecified. EDMS 17:39 Miller Echevarria MD is Hospitalizing Provider. jh7 18:11 Patient has correct armband on for positive identification. Bed in low position. Call 1 light in reach. Client placed on continuous cardiac and pulse oximetry monitoring. NIBP monitoring applied. manager monitoring on. 21:25 No provider procedures requiring assistance completed. Patient admitted, IV remains in as6 place. Administered Medications: 14:07 Drug: NS 0.9% IV 1000 ml IV at 1 bolus Per protocol; 1000 mL bolus Route: IV; Rate: 1 ll1 bolus; Site: right antecubital; 18:12 Follow up: Response: No adverse reaction; IV Status: Completed infusion; IV Intake: ll1 1000ml Medication: 18:11 VIS not applicable for this client. ll1 Intake: 18:12 IV: 1000ml; Total: 1000ml. ll1 Outcome: 17:43 Decision to Hospitalize by Provider. [facility] 21:25 Admitted to Med/surg accompanied by tech, family with patient, via wheelchair, room as6 221, with chart, Report called to Diana MAHER 21:25 Condition: stable 21:25 Instructed on the need for admit, 21:45 Patient left the ED. as6 NIH Stroke Scale - NIH Stroke Score Date: 09/17/2023 Time: 13:39 Total Score = 0 10. Dysarthria (speech clarity - read or repeat words) - 0(Normal) 11. Extinction and Inattention (visual/tactile/auditory/spatial/personal) - 0(No abnormality) 1a. Level of Consciousness (LOC) - 0(Alert) 1b. Level of Consciousness (LOC) (Month \T\ Age) - 0(Both) 1c. LOC Commands (Open \T\ Closes Eyes/Bioinformatics Computer Scientist) - 0(Both) 2. Best Gaze (Lateral Gaze Paresis) - 0(Normal) 3. Visual Field Loss - 0(No visual loss) 4. Facial Palsy - 0(Normal) 5a. Left Arm: Motor (10-second hold) - 0(No drift) 5b. Right Arm: Motor (10-second hold) - 0(No drift) 6a. Left Leg: Motor (5-second hold - always test supine) - 0(No drift) 6b. Right Leg: Motor (5-second hold - always test supine) - 0(No drift) 7. Limb Ataxia (finger/nose \T\ heel/aparicio - test with eyes open) - 0(Absent) 8. Sensory Loss (pinprick arms/legs/face) - 0(Normal) 9. Best Language: Aphasia (description/naming/reading) - 0(No aphasia) Initials: [facility] Signatures: Dispatcher [facility], Venita, RN RN Maya Grayson rg4 Nimisha Dasilva RN RN ll1 Da Moffett RN RN as6 Cathleen Gottlieb FNP FNP 7 Corrections: (The following items were deleted from the chart) 15:20 14:46 Reassessment: No changes from previously documented assessment. Patient ll1 and/or family updated on plan of care and expected duration. Pain level reassessed. Patient is alert, oriented x 3, equal unlabored respirations, skin warm/dry/pink. ll1
--- NOTE | 2023-09-17 17:43 | EDPHYS ---
Physician Documentation [facility] Name: Dread Thompson Age: 78 yrs Sex: Female : 1945 Arrival Date: 09/17/2023 Time: 13:33 Bed 11 Private MD: ED Physician Mane Harmon HPI: 09/17 13:39 This 78 yrs old Female presents to ER via Wheelchair with complaints of Passed Out jh7 Prior To Arrival. 13:39 The patient has experienced syncope, became unresponsive. Onset: The symptoms/episode jh7 began/occurred acutely. Duration: This was a single episode. Context: the episode(s) was witnessed, Daughter, occurred in the car. 78-year-old female with a past medical history of atrial fibrillation, hypertension, high cholesterol, and C. difficile presents to the ER post unresponsive episode. The patient was diagnosed with COVID yesterday after 3 days of weakness and diarrhea. The patient's daughter states that they were in the car and she noticed that her mom's head was hanging. She reports that her mom was unresponsive and she had to shake her to wake her up. Reports that she turned pale and aguilar. She states that she eventually woke up and that oral glucose was given in the case of hypoglycemia. Patient A\T\O x 4 in the ER but very weak.. Historical: - Allergies: 13:42 Sulfa (Sulfonamide Antibiotics); hb - Home Meds: 13:42 aspirin 81 mg Oral TbEC 1 tab once daily [Active]; Celebrex Oral [Active]; Dexilant 30 hb mg Oral CpDB for Gastroesophageal reflux [Active]; Lamictal Oral [Active]; pravastatin Oral [Active]; Prozac 10 mg Oral cap [Active]; unknown hormone pill [Active]; - PMHx: 13:42 Atrial fibrillation; C DIFF; Dementia; Heart Murmur; High Cholesterol; Hypertension; hb - PSHx: 13:42 Appendectomy; Cholecystectomy; corneal trnsplant; knee replacement; Total abdominal hb hysterectomy; - Immunization history:: Adult Immunizations up to date. - Social history:: Smoking status: Patient denies any tobacco usage or history of. ROS: 13:39 Eyes: Negative for injury, pain, redness, and discharge, Neck: Negative for injury, jh7 pain, and swelling, Cardiovascular: Negative for chest pain, palpitations, and edema, Back: Negative for injury and pain, MS/Extremity: Negative for injury and deformity, Skin: Negative for injury, rash, and discoloration, 13:39 Constitutional: Positive for malaise, 13:39 Respiratory: Positive for cough, Negative for shortness of breath, wheezing, 13:39 Abdomen/GI: Positive for diarrhea, Negative for abdominal pain, 13:39 Neuro: Positive for loss of consciousness, syncope, weakness, Negative for hearing loss, numbness, tingling, visual changes, 13:39 All other systems are negative, Exam: 13:39 Constitutional: This is a well developed, well nourished patient who is awake, alert, jh7 and in no acute distress. Head/Face: Normocephalic, atraumatic. Neck: Trachea midline, no thyromegaly or masses palpated, and no cervical lymphadenopathy. Supple, full range of motion without nuchal rigidity, or vertebral point tenderness. No Meningismus. Cardiovascular: Regular rate and rhythm with a normal S1 and S2. No gallops, murmurs, or rubs. Normal PMI, no JVD. No pulse deficits. Respiratory: Lungs have equal breath sounds bilaterally, clear to auscultation and percussion. No rales, rhonchi or wheezes noted. No increased work of breathing, no retractions or nasal flaring. Abdomen/GI: Soft, non-tender, with normal bowel sounds. No distension or tympany. No guarding or rebound. No evidence of tenderness throughout. Back: No spinal tenderness. No costovertebral tenderness. Full range of motion. MS/ Extremity: Pulses equal, no cyanosis. Neurovascular intact. Full, normal range of motion. Neuro: Awake and alert, GCS 15, oriented to person, place, time, and situation. Cranial nerves II-XII grossly intact. Motor strength 5/5 in all extremities. Sensory grossly intact. Cerebellar exam normal. 13:39 Skin: Appearance: Color: pale, Temperature: cool, Moisture: dry, Vital Signs: 13:39 BP 94 / 60; Pulse 55; Resp 16; Temp 98.3; Pulse Ox 96% on R/A; Pain 0/10; hb 15:16 BP 102 / 54; Pulse 59; Resp 15; ll1 15:25 BP 107 / 59; ll1 16:25 BP 111 / 61; Pulse 58; ll1 17:15 BP 115 / 64; Pulse 58; Resp 15; Pulse Ox 97% on R/A; ll1 18:21 BP 129 / 84; Pulse 60; Resp 15; Temp 97.4; Pulse Ox 97% on R/A; Pain 2/10; ll1 20:36 BP 136 / 88; Pulse 62; Resp 18 S; Pulse Ox 99% on R/A; as6 13:39 Pain Scale: Adult hb 18:21 Pain Scale: Adult ll1 NIH Stroke Scale Scores: 13:39 NIHSS Score: 0 [facility] MDM: 13:43 Patient medically screened. [facility] 17:27 Differential Diagnosis: cardiac arrhythmia, cerebrovascular accident, idiopathic [facility] syncope, seizure, sepsis, transient ischemic attack, vasovagal episode, COVID, dehydration, generalized weakness. Data reviewed: vital signs, nurses notes, lab test result(s), EKG, radiologic studies, CT scan, plain films. Consideration of Admission/Observation Patient was admitted/placed on observation. Management of patient was discussed with the following: Hospitalist: Dr. Echevarria. I considered the following discharge prescriptions or medication management in the emergency department Medications were administered in the Emergency Department. See MAR. Independent interpretation of the following test(s) in the Emergency Department EKG: See my EKG interpretation above. 18:03 Historians other than the Patient: Daughter/Son: daughter. Care significantly affected [facility] by the following chronic conditions: Hypertension. Counseling: I had a detailed discussion with the patient and/or guardian regarding the historical points, exam findings, and any diagnostic results supporting the discharge/admit diagnosis, the need for further work-up and treatment in the hospital. Response to treatment: the patient's symptoms have mildly improved after treatment. 09/17 13:50 Order name: Glucose, Ancillary Testing; Complete Time: 13:52 EDMS 09/17 13:53 Order name: Blood Culture Adult (2) [facility] 09/17 13:53 Order name: CBC with Diff; Complete Time: 14:41 [facility] 09/17 13:53 Order name: CMP; Complete Time: 15:16 [facility] 09/17 13:53 Order name: Lactate w/ 2H reflex if indic.; Complete Time: 14:41 [facility] 09/17 13:53 Order name: Protime (+inr); Complete Time: 14:41 [facility] 09/17 13:53 Order name: Ptt, Activated; Complete Time: 14:41 [facility] 09/17 13:53 Order name: Urinalysis w/ reflexes [facility] 09/17 13:53 Order name: Troponin High Sensitivity; Complete Time: 15:16 [facility] 09/17 15:17 Order name: SARS RAPID; Complete Time: 16:10 [facility] 09/17 18:43 Order name: Urinalysis w/ reflexes EDMS 09/17 18:43 Order name: CBC with Automated Diff [facility] 09/17 18:43 Order name: CBC with Automated Diff EDMS 09/17 18:43 Order name: Comprehensive Metabolic Panel [facility] 09/17 18:43 Order name: Comprehensive Metabolic Panel [facility] 09/17 13:53 Order name: Chest Single View XRAY; Complete Time: 17:25 [facility] 09/17 13:53 Order name: CT Head Brain wo Cont; Complete Time: 17:25 [facility] 09/17 13:53 Order name: CT Chest For PE Angio; Complete Time: 17:25 [facility] 09/17 13:53 Order name: EKG; Complete Time: 13:54 [facility] 09/17 13:53 Order name: Cardiac monitoring; Complete Time: 13:54 [facility] 09/17 13:53 Order name: EKG - Nurse/Tech; Complete Time: 13:54 [facility] 09/17 13:53 Order name: IV Saline Lock - Large Bore; Complete Time: 13:54 [facility] 09/17 13:53 Order name: Labs collected and sent; Complete Time: 13:54 [facility] 09/17 13:53 Order name: O2 Per Protocol; Complete Time: 13:54 [facility] 09/17 13:53 Order name: O2 Sat Monitoring; Complete Time: 13:54 [facility] 09/17 13:53 Order name: Vital Signs; Complete Time: 13:54 [facility] EC:00 Rate is 54 beats/min. Rhythm is regular. QRS [place] is Normal. NC interval is normal at 7 168 msec. QRS interval is normal at 76 msec. QT interval is normal at 464 msec. No Q waves. T waves are Normal. No ST changes noted. Clinical impression: Sinus bradycardia. Administered Medications: 14:07 Drug: NS 0.9% IV 1000 ml IV at 1 bolus Per protocol; 1000 mL bolus Route: IV; Rate: 1 ll1 bolus; Site: right antecubital; 18:12 Follow up: Response: No adverse reaction; IV Status: Completed infusion; IV Intake: ll1 1000ml Disposition Summary: 09/17/23 17:43 Hospitalization Ordered Notes: Hospitalization Status: Inpatient Admission [facility] Provider: Miller Echevarria [facility] Location: Telemetry/MedSurg (Inpatient) [facility] Condition: Fair [facility] Problem: new [facility] Symptoms: have worsened [facility] Bed/Room Type: Standard [facility] Room Assignment: 428(09/17/23 21:44) Diagnosis - Coronavirus infection, unspecified [facility] - Syncope [facility] - Diarrhea, unspecified [facility] - Muscle weakness (generalized) [facility] - Dehydration [facility] Forms: - Medication Reconciliation Form [facility] - SBAR form [facility] - Leadership Thank You Letter [facility] NIH Stroke Scale - NIH Stroke Score Date: 09/17/2023 Time: 13:39 Total Score = 0 10. Dysarthria (speech clarity - read or repeat words) - 0(Normal) 11. Extinction and Inattention (visual/tactile/auditory/spatial/personal) - 0(No abnormality) 1a. Level of Consciousness (LOC) - 0(Alert) 1b. Level of Consciousness (LOC) (Month \T\ Age) - 0(Both) 1c. LOC Commands (Open \T\ Closes Eyes/Supervisor Bakery Sanitation) - 0(Both) 2. Best Gaze (Lateral Gaze Paresis) - 0(Normal) 3. Visual Field Loss - 0(No visual loss) 4. Facial Palsy - 0(Normal) 5a. Left Arm: Motor (10-second hold) - 0(No drift) 5b. Right Arm: Motor (10-second hold) - 0(No drift) 6a. Left Leg: Motor (5-second hold - always test supine) - 0(No drift) 6b. Right Leg: Motor (5-second hold - always test supine) - 0(No drift) 7. Limb Ataxia (finger/nose \T\ heel/aparicio - test with eyes open) - 0(Absent) 8. Sensory Loss (pinprick arms/legs/face) - 0(Normal) 9. Best Language: Aphasia (description/naming/reading) - 0(No aphasia) Initials: [facility] Signatures: Dispatcher [employer] Emma Gutierrez RN RN cg Venita Cooper, RN RN Nimisha Dasilva RN RN 1 Da Moffett RN RN as6 Cathleen Gottlieb, RETORT FIRER [place] [id number] Leidy Sutton 1 Corrections: (The following items were deleted from the chart) 15:16 13:53 Nichelle bowman [facility] ll1 20:52 17:43 [facility] as6 21:27 20:52 221 6 rv1 21:36 21:27 rv1 rv1 21:44 21:36 [facility]
[2023-09-17] MEDS ORDERED: ONDANSETRON 4 MG/2 ML VIAL IV PRN (18:38)
[2023-09-17] MEDS ORDERED: TRAMADOL HCL 50 MG TAB PO PRN (18:41)
--- NOTE | 2023-09-17 18:44 | P.HP ---
Certification for Inpatient Patient admitted to: Observation With expected LOS: <2 Midnights Practitioner: I am a practitioner with admitting privileges, knowledge of patient current condition, hospital course, and medical plan of care. Services: Services provided to patient in accordance with Admission requirements found in Title 42 Section 412.3 of the Code of Federal Regulations Patient History Date of Service: 09/17/23 Reason for admission: Syncope History of Present Illness: 78-year-old female with past medical history of hypertension, hyperlipidemia, atrial fibrillation, history of C. difficile, depression who was brought to ER with syncopal episode. Patient states that she has been having generalized weakness for the last 2 days and has been tested positive for COVID. Associated with some diarrhea. And generalized weakness. Denies any fever or chills. No chest pain or shortness of breath. No seizure-like activity . She was traveling in the car with daughter when all of a sudden she slumped over and passed out for a few seconds. She regained consciousness soon after. Patient denies any nausea or vomiting Patient was brought to ER and is being admitted for further management of syncopal episode. Patient had a CT of the head which was negative for any acute changes CTA chest noted with no PE. Lab work is consistent with dehydration with acute kidney injury. COVID test is positive. Patient is being admitted for further management. .. Allergies No Known Allergies Allergy (Unverified 09/22/16 00:49) Home medications list reviewed: Yes Home Medications: Lamotrigine [Lamictal] 100 mg PO BID 09/22/16 Metoprolol Tartrate [Lopressor*] 25 mg PO DAILY 09/22/16 Pantoprazole [Protonix Tab*] 1 pill PO DAILY 09/22/16 Pravastatin Sodium [Pravachol] 1 pill PO DAILY 09/22/16 Trazodone [Desyrel*] 50 mg PO Q4HP PRN 09/22/16 Venlafaxine HCl [Effexor] 150 mg PO DAILY 09/22/16 sulfaSALAzine [Sulfasalazine] 500 mg PO DAILY 09/22/16 traMADol HCL [Ultram*] 50 mg PO PRN PRN 09/22/16 Fluticasone/Salmeterol [Advair 100/50 Diskus*] 1 puff IH BID #1 disk 09/23/16 predniSONE [Prednisone*] 10 mg PO BID #14 tab 09/23/16 - Past Medical/Surgical History Diabetic: No Past Medical History: Reviewed- Non-Contributory -: GERD -: [place] Cholesterol -: Hypertension -: lymphoedema -: Skin Cancer Past Surgical History: Reviewed- Non-Contributory -: back Surgery -: Knee replacement -: Hysteroctomy -: tonsillectomy -: appendectomy - Family History Family History: Reviewed- Non-Contributory - Family History Father -: Heart disease, Hypertension Mother -: Heart disease - Social History Smoking Status: Never smoker Alcohol use: No CD- Drugs: No Caffeine use: Yes Review of Systems 10-point ROS is otherwise unremarkable Physical Examination - Vital Signs Temperature: 98.6 F Blood Pressure: 128/66 Pulse: 76 Respirations: 18 Pulse Ox (%): 98 - Physical Exam General: Alert, In no apparent distress, Oriented x3 HEENT: Atraumatic, Normocephalic Neck: Supple, 2+ carotid pulse no bruit, No LAD Respiratory: Clear to auscultation bilaterally, Normal air movement Cardiovascular: No edema, Normal pulses, Regular rate/rhythm, Normal S1 S2 Capillary refill: <2 Seconds Gastrointestinal: Soft and benign, W/out hepatosplenomegaly Musculoskeletal: No clubbing, No swelling Integumentary: No rashes Neurological: Normal speech, Normal strength at 5/5 x4 extr, Normal tone, Cranial nerves 3-12 intact, Normal reflexes 2+, Normal affect Lymphatics: No axilla or inguinal lymphadenopathy - Studies Laboratory Data (last 24 hrs) 09/17/23 09/17/23 09/17/23 14:00 14:00 14:00 WBC 4.10 L Hgb 12.2 Hct 36.9 Plt Count 163 PT 12.0 INR 1.09 APTT 34.4 Sodium 138 Potassium 3.8 BUN 18 Creatinine 1.11 H Glucose 90 Total Bilirubin 0.4 AST 24 ALT 25 Alkaline Phosphatase 89 Assessment and Plan - Problems (Diagnosis) (1) Syncope Current Visit: Yes Status: Acute Plan: Monitor closely telemetry Syncopal workup CT head was negative for any acute changes Will get a orthostatic vital signs in a.m. (2) Acute kidney injury Current Visit: Yes Status: Acute Plan: Possibly due to dehydration Start on IV hydration Monitor renal parameters Monitor electrolytes and replace as needed (3) COVID-19 Current Visit: Yes Status: Acute Plan: COVID test is positive Patient does not have any respiratory symptoms Will hold on steroids at this time Chest x-ray shows no acute changes (4) Hypertension Current Visit: Yes Status: Chronic Plan: Continue home medications and titrate as needed Hydralazine as needed (5) Hyperlipidemia Current Visit: Yes Status: Chronic Plan: Continue statin - Advance Directives Does patient have a Living Will: No Does patient have a Durable POA for Healthcare: No - Code Status/Comfort Care Code Status: Full Code Time Spent Managing Pts Care (In Minutes): 54
[2023-09-17] MEDS: NA CHLORIDE 0.9% 1,000 ML IV SCH (22:57)
[2023-09-17] MEDS: lamoTRIgine 100 MG TAB PO SCH (22:57)
[2023-09-18 05:44] VITALS: BMI 23.8
[2023-09-18 06:07] LABS: Absolute Lymphocytes (CBC) 1.6 K/uL (0.7-4.9); Hematocrit 32.9 % (36.0-45.0); Lymphocytes % 47.3 % (15.3-44.8); MCV 90.6 fL (80-100); MPV 9.1 fL (7.6-11.3); Platelets 140 thou/uL (152-406); RBC Red Blood Cell Count 3.63 M/uL (3.86-4.86)
[2023-09-18 06:18] LABS: Albumin 2.8 g/dL (3.4-5.0); Bilirubin Total 0.2 mg/dL (0.2-1.0); Potassium 3.7 mEq/L (3.5-5.1); Protein, Total 5.6 g/dL (6.4-8.2)
[2023-09-18] MEDS: ACETAMINOPHEN 325 MG TABLET PO PRN (06:32)
[2023-09-18 08:11] LABS: Blood Morphology Comment NOT SEEN (NOT SEEN); Platelet Estimate DECR
[2023-09-18] MEDS: ENOXAPARIN 40 MG/0.4 ML SQ SCH (08:36)
[2023-09-18] MEDS: METOPROLOL TAR 25 MG TAB PO SCH (08:38)
[2023-09-18] MEDS: PANTOPRAZOLE 40MG TABLET PO SCH (08:38)
[2023-09-18] MEDS: VENLAFAXINE HCL XR 75 MG CAP PO SCH (08:38)
[2023-09-18] MEDS: DULERA 100/5 (MOMETASONE/FORMOTEROL) INHALER IH SCH (09:09)
[2023-09-18] MEDS: NIRMATRELVIR/RITONAVIR TABLET PO SCH ×2 (09:18→09:57)
[2023-09-18] MEDS: dexAMETHasone 4 MG/ML VIAL IV ONE (09:57)
[2023-09-18] MEDS: VANCOMYCIN HCL 125 MG CAPSULE PO SCH (10:43)
[2023-09-18 13:18] LABS: Specific Gravity 1.014 (1.005-1.030); Urine Bilirubin NEGATIVE (Negative); Urine Blood Negative (Negative); Urine Clarity Clear (Clear); Urine Color Light-Yellow (Yellow); Urine Glucose NEGATIVE (Negative); Urine Protein NEGATIVE (Negative); Urine Urobilinogen Normal (Normal)
[2023-09-18] MEDS: LACTOBACILLUS/ACIDOPHILUS TAB PO SCH (13:24)
--- NOTE | 2023-09-18 14:30 | EKG ---
Test Date: 2023-09-17 Test Time: 14:00:07 Semiconductor Processor: JAMES MEASUREMENT RESULTS: Intervals: Rate: 54 OK: 168 QRSD: 76 QT: 464 QTc: 440 [place]: P: 42 OK: 168 QRS: 78 T: 73 INTERPRETIVE STATEMENTS: Sinus bradycardia Otherwise normal ECG Compared to ECG 03/17/2023 22:21:10 Sinus rhythm no longer present Electronically Signed On 09-18-23 14:26:56 TAMPER OPERATOR by Zaid Forbes
[2023-09-18] MEDS: POTASSIUM CL SA 10 MEQ TAB PO ONE (16:18)
[2023-09-18] MEDS: ATORVASTATIN 10 MG TAB PO SCH (20:30)
[2023-09-18] MEDS: TRAZODONE 50 MG TABLET PO PRN (20:30)
[2023-09-18 23:08] VITALS: O2SAT 95
[2023-09-19 06:10] LABS: C.diff Antigen/Toxin Ag pos : Tox neg (NEG : NEG)
[2023-09-19 06:53] LABS: Potassium 4.4 mEq/L (3.5-5.1)
[2023-09-19 08:58] VITALS: BP 134/77; TEMP 98.1
[2023-09-19] MEDS: GALANTAMINE 8 MG PO SCH (09:00)
[2023-09-19] MEDS: LOPERAMIDE HCL 2 MG CAPSULE PO STA (09:18)
[2023-09-19] MEDS: BUSPIRONE HCL 5 MG TABLET PO SCH (09:18)
[2023-09-19] MEDS: BUPROPION HCL XL 150 MG TAB PO SCH (09:19)
[2023-09-19] MEDS: dexAMETHasone 4 MG/ML VIAL IV ONE (09:23)
--- NOTE | 2023-09-19 15:50 | EKG ---
Test Date: 2023-09-17 Test Time: 13:50:46 Television Specialist: LETY MEASUREMENT RESULTS: Intervals: Rate: 59 [place]: 160 QRSD: 72 QT: 464 QTc: 459 [place]: P: 82 [place]: 160 QRS: 80 T: 85 INTERPRETIVE STATEMENTS: Sinus bradycardia ST elevation, consider early repolarization, pericarditis, or injury Abnormal ECG Compared to ECG 03/17/2023 22:21:10 ST (T wave) deviation now present Sinus rhythm no longer present Electronically Signed On 09-19-23 15:46:52 TECHNOLOGY DIRECTOR by Zaid Forbes
[2023-09-19] MEDS ORDERED: ASPIRIN EC 81 MG TAB PO SCH (21:00)
== END 2023-09-19 11:52 | disposition home or self-care (01) ==
LOC: ER 13:33 → ERHOLD 18:38 → 2ND 21:01 → 4TH 21:32
PROVIDERS: ADMIT Family Medicine; ATTEND Hospitalist
DX: R55 Syncope and collapse (principal); U07.1 COVID-19; E86.0 Dehydration; M62.81 Muscle weakness (generalized); I10 Essential (primary) hypertension; E78.5 Hyperlipidemia, unspecified; I48.91 Unspecified atrial fibrillation; F32.A Depression, unspecified; N17.9 Acute kidney failure, unspecified; R19.7 Diarrhea, unspecified; Z88.2 Allergy status to sulfonamides
CPT/HCPCS: 96361; 93005 ×2; 87040 ×2; 85025 ×2; 80048; 36415 ×2; 85610; 82947; 83605; 85730; 81003; 87324; 84484; 80053 ×2; 70450; 71275; 71045; 96360; 99285; 87811; Q9967; J1100 ×2; J1650; J7030 ×5; G0378; J3535